=== PATIENT | female | born 1940 | race Caucasian/White ===

== ENCOUNTER 2016-12-12 07:22 | Inpatient (IN) | payer MEDICARE ==
[2016-12-12 08:15] LABS: #Lymphocytes 0.8 thou/uL (1.20-3.40); #Monocytes 0.5 thou/uL (0.11-0.59); #Neutrophils 2.5 thou/uL (1.40-6.50); %Basophils 0.3 % (0.0-1.0); %Eosinophils 0.8 % (0.0-10.0); %Lymphocytes 20.6 % (21.0-51.0); %Monocytes 13.3 % (0.0-10.0); Hematocrit 30.6 % (36.0-47.0); Mean Platelet Volume 7.2 fL (7.4-10.4); White Blood Cell (WBC) Count 3.9 thou/uL (4.8-10.8)
[2016-12-12 08:22] LABS: PTT 28.5 SEC (22.9-36.1)
[2016-12-12] MEDS ORDERED: Fentanyl 100 MCG/2 ML VIAL ONE ×3 (08:37→11:12)
[2016-12-12] MEDS ORDERED: Ketorolac Tromethamine 30 MG/ML VIAL ONE (08:37)
[2016-12-12 08:38] LABS: ALT (SGPT) 17 U/L (8-55); AST (SGOT) 18 U/L (5-34); Alkaline Phosphatase 83 U/L (40-150); Anion Gap 14 mmol/L (10-20); BUN (Urea Nitrogen) 43 mg/dL (9.8-20.1); Bilirubin, Total 0.2 mg/dL (0.2-1.2); Calc. Creatinine Clearance 0 mL/min (70-130); Calcium 9.4 mg/dL (7.8-10.44); Carbon Dioxide 24 mmol/L (23-31); Chloride 98 mmol/L (98-107); Estimated GFR-MDRD 40; Globulin 2.7 g/dL (2.4-3.5); Protein, Total 6.3 g/dL (6.0-8.3)
--- NOTE | 2016-12-12 10:00 | RAD ---
TWO VIEWS LEFT HIP: COMPARISON: None. HISTORY: Fall with left hip pain. FINDINGS: Two views left hip show a fracture of the left femoral neck. No degenerative changes are seen in th e left hip. Vascular calcifications are present. IMPRESSION: Left femoral neck fracture. POS: WALT
--- NOTE | 2016-12-12 10:04 | RAD ---
2 VIEWS LEFT FEMUR: Date: 12/12/16 COMPARISON: None. HISTORY: Fall with left hip pain. FINDINGS: Two views of the left femur show a fracture of the left femoral neck. No other fractures are seen. V ascular calcifications are present. IMPRESSION: Left femoral neck fracture. POS: WALT
--- NOTE | 2016-12-12 10:06 | RAD ---
SINGLE VIEW OF THE CHEST: COMPARISON: 06/18/13. HISTORY: Fall walking to the mailbox with left hip fracture. FINDINGS: A single view of the chest shows an enlarged but stable cardiomediastinal silhouette. There is no e vidence of consolidation, mass, or pleural effusion. Increased interstitial lung markings are prese nt. Degenerative changes are seen in the spine. IMPRESSION: No evidence of acute cardiopulmonary disease. POS: ORMEOH
--- NOTE | 2016-12-12 10:07 | RAD ---
2 VIEWS LEFT TIBIA AND FIBULA: Date: 12/12/16 COMPARISON: None. HISTORY: Walked to mailbox and fell, with left leg pain. FINDINGS: Two views of the left tibia/fibula show no evidence of acute fracture or dislocation. There is radio dense material along the medial aspect of the leg which may represent sclerosing material within a v ein. This does not follow the typical course of the arteries of the left leg. IMPRESSION: No evidence of acute osseous abnormality of the left tibia/fibula. POS: WALT
--- NOTE | 2016-12-12 10:07 | RAD ---
SINGLE VIEW OF THE PELVIS: HISTORY: Fall with left hip pain. FINDINGS: A single view of the pelvis shows a fracture of the left femoral neck. No degenerative change is se en in either hip. No other fractures are seen. IMPRESSION: Left femoral neck fracture. POS: WALT
[2016-12-12] MEDS ORDERED: Methocarbamol 1 GM/10 ML VIAL SLOW IVP SCH (12:00)
[2016-12-12] MEDS ORDERED: Ondansetron ODT 4 MG TAB SL PRN (12:12)
[2016-12-12] MEDS ORDERED: Ondansetron HCl/PF 4 MG/2 ML Vial IVP PRN ×2 (12:12→14:08)
[2016-12-12 12:42] VITALS: BMI 23.9
--- NOTE | 2016-12-12 13:02 | CON ---
DATE OF CONSULTATION: 12/12/2016 HISTORY OF PRESENT ILLNESS: We were asked by Trauma and emergency room to see this nice lady. Appa rently, she lost her balance and fell injuring her left hip. Family states the patient fell about 3 or 4 weeks ago and her PCP said she probably broke her hip, but she continued to walk on it and I c an find no x-rays of anything a few weeks ago. Anyhow, she is in quite a bit of pain. Unfortunatel y, she has chronic pain syndrome. She suffers with her back. She has a lot of pain like issues for which she takes hydrocodone. Sensations in the left lower extremity is good. She is able to move her foot, but again, she is in a significant amount of pain. ALLERGIES: CODEINE. MEDICATIONS: Procardia, Cymbalta, Norvasc, Plaquenil, alprazolam, carisoprodol, Nexium, [place], marie nopril, pentoxifylline, simvastatin, iron and trazodone. PAST MEDICAL HISTORY: Hyperlipidemia, high cholesterol, hypertension, breast cancer, Raynaud's, chr onic pain syndrome. PAST SURGICAL HISTORY: Hernia, lymph nodes removed, thyroidectomy and hysterectomy. SOCIAL HISTORY: Nonsmoker and nondrinker. REVIEW OF SYSTEMS: The patient has multiple health issues, but her main concern right now is the le ft hip pain. No shortness of breath. She has a dry mouth; it is probably from the IV narcotics in the ER. She is awake, alert and talking. Rest of the review of systems is negative. PHYSICAL EXAMINATION: GENERAL: A well-nourished female resting in bed on her right leg with her left leg drawn up and christina ped over the right leg. Speech is clear and fluent. She is oriented. HEENT: Face symmetric, tongue midline. EXTREMITIES: Again, she is lying on her right side, but she is moving bilateral upper extremities w ell. Left lower extremity drawn up a little shortened, but DP, PT pulses in the lower extremities a re equal and she is moving both lower extremities, feet digits well. ASSESSMENT: 1. Left hip fracture. 2. Multiple health issues. PLAN: Get patient to the ER today. I have spoke to her and the family who is at bedside, she needs a left hemiarthroplasty. I have explained the procedure, risks and benefits to the patient and mary jo osborn and they understand the risks and benefits. We will keep her n.p.o. For surgery today, get her set up on the schedule, put orders and then consent her. Patient and family are amenable to go for th with surgery. This is Wei Adkins PA-C, dictating for Marcio Hernandez M.D.
--- NOTE | 2016-12-12 13:48 | HP ---
DATE OF ADMISSION: 12/12/2016 REQUESTING PHYSICIAN: Dr. Russell. ATTENDING SURGEON: Dr. Whitfield. CONSULTATIONS: Orthopedics, Dr. Hernandez. HISTORY OF PRESENT ILLNESS: The patient is a 76-year-old woman who was reportedly walking to her mailbox when she lost her footing and fell onto her left side. She had immediate pain to he r left hip, was brought to the Emergency Department by ground EMS, was evaluated and examined and no joaquim to have a left hip fracture at which time we were asked to evaluate the patient for admission an d obtain orthopedic consultation. ALLERGIES: CODEINE. CURRENT MEDICATIONS: The patient gave the nurse a list and they are currently entering it, we would evaluate it once this is completed. Of note, the patient denies any blood thinner use. PAST MEDICAL HISTORY: Chronic back pain, high cholesterol, hypertension, history of breast CA, and hypothyroidism. PAST SURGICAL HISTORY: Hysterectomy, thyroidectomy, left inguinal hernia surgery, and partial maste ctomy on the left. SOCIAL HISTORY: Patient denies drug, tobacco or alcohol use. FAMILY MEDICAL HISTORY: Hypertension. REVIEW OF SYSTEMS: Ten-point review of systems is negative, unless otherwise stated. PHYSICAL EXAMINATION: VITAL SIGNS: Blood pressure 128/81, heart rate 82, respirations 18, and oxygen saturation 99% on ro om air. GENERAL: The patient is resting in ER bed, appears uncomfortable. Nurse notes that the patient was given multiple doses of narcotics with minimal relief. The patient volunteers that she takes 4-6 N orco 10/325 daily for her chronic back pain. HEENT: Head is normocephalic and atraumatic. Eyes; extraocular motion intact. PERRLA bilaterally. Ears are atraumatic without discharge. Nose is atraumatic without discharge. Oropharynx is clear . NECK: Nontender. Trachea is midline. No JVD. CHEST: Clear to auscultation with good inspiratory and expiratory effort. ABDOMEN: Soft, flat and nontender. HEART: Regular rate and rhythm. PELVIC: Stable. EXTREMITIES: The patient is tender to palpation to right hip. She was neurovascularly intact dista lly on her injured extremity and is neurovascularly intact in all other extremities. BACK: Nontender and atraumatic. LABORATORY DATA: White blood cell count 3.9, hemoglobin 10.1, hematocrit 30.6, and platelets 137. Sodium 132, potassium 4.3, chloride 98, CO2 24, BUN 43, creatinine 1.29 and glucose 129. LFTs are u nremarkable. PTT 28, PT 14, and INR 1.1. RADIOGRAPHS: AP chest shows no evidence of acute cardiopulmonary disease. Two views of the left ti liban and fibula showed no osseous abnormalities. AP pelvis showed left femoral neck fracture. Two v iews of the left femur showed a left femoral neck fracture. Two views of the left hip showed a left femoral neck fracture. ASSESSMENT AND PLAN: 1. Status post ground level fall. 2. Acute on chronic pain. 3. Left femoral neck fracture. Plan will be to admit the patient to the surgical floor, remain n.p.o., pain control, pulmonary toil et, gastritis and mechanical deep venous thrombosis prophylaxis. The plan will be to take the patie nt to the operating room with Orthopedics later this afternoon for surgical repair. The evaluation, examination, radiographs and laboratory findings were discussed with Dr. Whitfield who was examining th e patient at the time of dictation.
[2016-12-12] MEDS ORDERED: Ondansetron ODT 4 MG TAB PO PRN (14:08)
[2016-12-12] MEDS ORDERED: Dextrose 5% in Water 1,000 ML IV PRN (14:08)
[2016-12-12] MEDS ORDERED: Morphine Sulfate 2 MG/ML SYRINGE IVP PRN (14:08)
[2016-12-12] MEDS ORDERED: Dextrose 50% Abboject 50 ML SYRINGE SLOW IVP PRN (14:08)
[2016-12-12] MEDS: Ketorolac Tromethamine 30 MG/ML VIAL IVP SCH (17:45)
[2016-12-12] MEDS ORDERED: traZODone HCl 50 MG TAB PO PRN (18:38)
[2016-12-12] MEDS: Sodium Chloride 0.9% 1,000 ML IV SCH (20:09)
[2016-12-12 20:29] LABS: Bilirubin Negative (Negative); Blood, Urine Moderate (Negative); Glucose, Urine (Dipstick) Negative (Negative); Ketone, Urine Negative (Negative); Nitrite Negative (Negative); Protein, Urine (Dipstick) Negative (Neg-Trace); Urobilinogen 0.2 mg/dL (0.2-1.0)
[2016-12-12 20:34] LABS: Bacteria/HPF 1+ HPF (None Seen); Hyaline Casts/LPF 0-3 HYALINE CAST LPF (0-3 Hyaline); Squamous Epithelial None Seen HPF (0-3); WBC/HPF 21-50 HPF (0-3)
[2016-12-12] MEDS: Methocarbamol 0.5 GM in Sodium Chloride 0.9% 100 ML IVPB PRN (22:01)
[2016-12-13] MEDS: Ketorolac Tromethamine 30 MG/ML VIAL IVP SCH ×5 (00:37→19:24)
[2016-12-13] MEDS: Acetaminophen 1,000 MG in Premix Bag 1 BAG IVPB SCH ×5 (00:38→19:25)
[2016-12-13] MEDS: Sodium Chloride 0.9% 1,000 ML IV SCH ×2 (05:20→06:42)
[2016-12-13 05:21] LABS: #Lymphocytes 0.5 thou/uL (1.20-3.40); #Monocytes 0.5 thou/uL (0.11-0.59); #Neutrophils 3.3 thou/uL (1.40-6.50); %Eosinophils 0.4 % (0.0-10.0); %Lymphocytes 11.6 % (21.0-51.0); %Monocytes 11.5 % (0.0-10.0); Hematocrit 29.1 % (36.0-47.0); Mean Platelet Volume 7.9 fL (7.4-10.4); Red Blood Cell (RBC) Count 2.96 mill/uL (4.20-5.40); White Blood Cell (WBC) Count 4.3 thou/uL (4.8-10.8)
[2016-12-13 05:36] LABS: Anion Gap 14 mmol/L (10-20); BUN (Urea Nitrogen) 39 mg/dL (9.8-20.1); Calc. Creatinine Clearance 40 mL/min (70-130); Calcium 8.7 mg/dL (7.8-10.44); Carbon Dioxide 21 mmol/L (23-31); Chloride 98 mmol/L (98-107); Estimated GFR-MDRD 47; Magnesium 1.8 mg/dL (1.6-2.6); Phosphorus 3.9 mg/dL (2.3-4.7)
[2016-12-13] MEDS: Famotidine 20 MG TAB PO SCH ×2 (07:58→13:15)
[2016-12-13] MEDS ORDERED: Midazolam HCl 2 mg/2 ml Vial ONE (09:37)
[2016-12-13] MEDS ORDERED: Fentanyl 100 MCG/2 ML VIAL ONE ×5 (09:37→12:20)
[2016-12-13] MEDS ORDERED: Propofol 200 MG/20 ML VIAL ONE (10:02)
[2016-12-13] MEDS ORDERED: Ondansetron HCl/PF 4 MG/2 ML Vial ONE (10:02)
[2016-12-13] MEDS ORDERED: Glycopyrrolate 0.2 MG/ML 5 ML SYRINGE ONE (10:02)
[2016-12-13] MEDS ORDERED: Lidocaine 1% PF 5 ML VIAL ONE (10:02)
[2016-12-13] MEDS: NIFEdipine XL 60 MG TAB PO SCH ×2 (10:39→13:15)
[2016-12-13] MEDS: Sildenafil Citrate 20 MG TAB PO SCH ×2 (10:39→20:56)
[2016-12-13] MEDS ORDERED: Ondansetron HCl/PF 4 MG/2 ML Vial IVP PRN (12:22)
[2016-12-13] MEDS: tiZANidine HCl 4 MG TAB PO PRN ×2 (13:15→21:02)
--- NOTE | 2016-12-13 13:25 | OP ---
DATE OF SURGERY: 12/13/2016 PREOPERATIVE DIAGNOSIS: Left femoral neck fracture. POSTOPERATIVE DIAGNOSIS: Left femoral neck fracture. SURGICAL PROCEDURE: Left hip hemiarthroplasty. ANESTHESIA: General. SURGEON: Marcio Hernandez M.D. [employer] FLOATS: Wei Adkins PA-C. BLOOD LOSS: 150 mL IMPLANTS: DePuy Hollister size 6 cemented stem with a 47 x 28 bipolar cup and a +1.5 28 mm head. COMPLICATIONS: None. DRAINS: None. SPECIMEN: None. OUTCOME: Satisfactory. INDICATIONS: The patient is a 76-year-old lady, status post fall sustaining left femoral neck fract ure. This is displaced fracture and given the patient's age and activity level, we have opted to pr oceed with hemiarthroplasty. Informed consent has been obtained. I believe all questions answered. PROCEDURE IN DETAIL: After the induction of general anesthesia, the patient was positioned in right lateral decubitus position and then a sterile prep and drape was performed of the left lower extrem ity. Next, a curvilinear incision was made centered over the greater trochanter. After skin was sh arply incised, dissection was carried down to the underlying IT band. This structure was incised in line with the skin incision and then reflected anteriorly and posteriorly with a Charnley retractor . The trochanteric bursa was swept off the short external rotators. A retractor was placed under t he abductors and the piriformis was identified, released and tagged. The superior and inferior geme lli were also released. Next, a T capsulotomy was performed with the edges of the capsule tagged fo r eventual repair. The femoral head was then removed with the T handle corkscrew device. Next, an oscillating saw was used to make a femoral neck cut. This was then followed by preparing the femora l canal. A box chisel was used to obtain a starting point followed by T handle reamers up to a size 6. Broaching was started at size 3 and continued up to size 6. At this point, there was felt to b e a somewhat capacious canal with a relatively good fit in the calcar, but given this discrepancy, w e opted to proceed with cement. As such, a trial reduction was performed with a +1.5 head and that showed good stability of the hip. As such, the trial components were removed. The femoral canal th oroughly irrigated as was the acetabulum. A cement restrictor was applied and cement was mixed. On ce mixed, the cement was introduced into the femoral canal using standard technique. The stem was t hen introduced. Once the cement had fully hardened, the bipolar head assembled and then the hip red uced with good stability. The wound was again irrigated with Pulsavac, a total of 5 liters was used during the procedure and the wound closure performed, #1 Vicryl was used for the capsule and pirifo rmis repair, #1 Vicryl also used for the IT band, 0 Vicryl for Uriel's fascia, 2-0 Vicryl subcutan eously, and jean for the skin. A Xeroform gauze and tape dressing was then applied to the thigh and then patient was transferred to recovery room in stable condition. There were no complications. She tolerated the procedure well.
--- NOTE | 2016-12-13 14:04 | RAD ---
PORTABLE LEFT HIP 2 VIEWS: Date: 12/13/16 HISTORY: Postop left hip replacement, left femoral neck fracture. FINDINGS/IMPRESSION: Comparison made with exam of 12/12/16. There has been interval postop change of left femoral head placement since the previous study in goo d position and alignment. Surgical clips and soft tissue air are seen. POS: ROMEO
[2016-12-13] MEDS: ALPRAZolam 1 MG TAB PO PRN (14:56)
[2016-12-13] MEDS: HYDROcodone/Acetaminophen 10/325 mg Tablet PO PRN ×2 (15:00→20:56)
[2016-12-13] MEDS: Methocarbamol 0.5 GM in Sodium Chloride 0.9% 100 ML IVPB PRN (17:29)
[2016-12-13] MEDS: HYDROcodone/Acetaminophen 10/325 mg Tablet PO SCH ×2 (17:32→20:55)
[2016-12-13] MEDS: Ascorbic Acid 500 mg Chewable Tablet PO SCH (20:54)
[2016-12-13] MEDS: Atorvastatin Calcium 20 MG TAB PO SCH (20:55)
[2016-12-13] MEDS ORDERED: traZODone HCl 50 MG TAB PO SCH ×2 (21:00→21:30)
[2016-12-14] MEDS: Acetaminophen 1,000 MG in Premix Bag 1 BAG IVPB SCH (00:56)
[2016-12-14] MEDS: Ketorolac Tromethamine 30 MG/ML VIAL IVP SCH ×4 (00:56→17:03)
[2016-12-14] MEDS: HYDROcodone/Acetaminophen 10/325 mg Tablet PO SCH ×6 (00:57→20:38)
[2016-12-14] MEDS: HYDROcodone/Acetaminophen 10/325 mg Tablet PO PRN ×2 (02:45→11:02)
[2016-12-14] MEDS: tiZANidine HCl 4 MG TAB PO PRN (02:48)
[2016-12-14 04:57] LABS: #Lymphocytes 0.5 thou/uL (1.20-3.40); #Monocytes 0.5 thou/uL (0.11-0.59); #Neutrophils 3.5 thou/uL (1.40-6.50); %Basophils 0.3 % (0.0-1.0); %Eosinophils 0.3 % (0.0-10.0); %Lymphocytes 11.8 % (21.0-51.0); %Monocytes 11.7 % (0.0-10.0); Hematocrit 24.9 % (36.0-47.0); Mean Platelet Volume 7.7 fL (7.4-10.4); Red Blood Cell (RBC) Count 2.55 mill/uL (4.20-5.40); White Blood Cell (WBC) Count 4.6 thou/uL (4.8-10.8)
[2016-12-14] MEDS: Sildenafil Citrate 20 MG TAB PO SCH ×2 (09:13→20:37)
[2016-12-14] MEDS: Ferrous Sulfate 325 MG TAB PO SCH (09:14)
[2016-12-14] MEDS: NIFEdipine XL 60 MG TAB PO SCH (09:14)
[2016-12-14] MEDS: Ascorbic Acid 500 mg Chewable Tablet PO SCH ×2 (09:16→20:37)
[2016-12-14] MEDS: Lisinopril 10 MG TAB PO SCH (09:16)
[2016-12-14] MEDS: Famotidine 20 MG TAB PO SCH (09:16)
[2016-12-14] MEDS: ALPRAZolam 1 MG TAB PO PRN ×2 (09:21→17:10)
[2016-12-14] MEDS: Heparin 5,000 UNITS/ML VIAL SC SCH ×3 (09:24→20:33)
[2016-12-14] MEDS: Cyclobenzaprine 10 MG TAB PO PRN ×2 (11:01→20:40)
[2016-12-14] MEDS: Sodium Chloride 1 GM TAB PO SCH ×2 (11:02→20:36)
--- NOTE | 2016-12-14 15:44 | PRG ---
DATE OF SERVICE: 12/14/2016 SUBJECTIVE: Graciela Mcintyre is postop day #1 status post hip fracture repair. She presented to [facility], status post mechanical fall. She has a history of chronic back pain, hypertension, and hypothyroidism. There were no acute overnight events. The patient reports having leg cramps th is morning. Otherwise, she localizes no complaints. OBJECTIVE: VITAL SIGNS: Temperature 98.6, pulse 59, respirations 16, O2 sat 93%, blood pressure 143/67. Urina ry output 1001 mL x24 hours. LABORATORY FINDINGS: WBC 4.6, hemoglobin 8.2, hematocrit 24.9, platelet count 136. Sodium 129, pot assium 3.8, chloride 98, carbon dioxide 21, BUN 39, creatinine 1.13, glucose 93, phosphorus 3.9, mag nesium 1.8. ASSESSMENT: 1. Status post fall. 2. Acute on chronic pain. 3. Postop day #1 status post hip fracture repair. 4. Chronic kidney disease, appears to be at baseline. 5. Hyponatremia. PLAN: Resume home medications carefully. Perioperative pain management. Encourage mobility. Once patient is worked with physical therapy, we will need to discontinue Ignacio. Patient may use Flexer il for muscle spasm. Inpatient rehab consult for eventual disposition as patient came from home. She normally ambulates with the use of a walker. Encourage p.o. intake. Free water restriction A.m. labs. Assessment and plan has been discussed with trauma attending.
[2016-12-14] MEDS: traZODone HCl 50 MG TAB PO SCH (20:37)
[2016-12-14] MEDS: Atorvastatin Calcium 20 MG TAB PO SCH (20:38)
[2016-12-15] MEDS: HYDROcodone/Acetaminophen 10/325 mg Tablet PO SCH ×6 (00:29→20:12)
[2016-12-15] MEDS: HYDROcodone/Acetaminophen 10/325 mg Tablet PO PRN ×3 (00:30→16:43)
[2016-12-15] MEDS: Cyclobenzaprine 10 MG TAB PO PRN (05:00)
[2016-12-15 05:52] LABS: #Lymphocytes 0.4 thou/uL (1.20-3.40); #Monocytes 0.5 thou/uL (0.11-0.59); #Neutrophils 3.1 thou/uL (1.40-6.50); %Eosinophils 0.5 % (0.0-10.0); %Lymphocytes 10.7 % (21.0-51.0); %Monocytes 11.8 % (0.0-10.0); Hematocrit 25.9 % (36.0-47.0); Mean Platelet Volume 7.9 fL (7.4-10.4); Red Blood Cell (RBC) Count 2.66 mill/uL (4.20-5.40); White Blood Cell (WBC) Count 4.1 thou/uL (4.8-10.8)
[2016-12-15 06:10] LABS: Anion Gap 10 mmol/L (10-20); BUN (Urea Nitrogen) 31 mg/dL (9.8-20.1); Calc. Creatinine Clearance 50 mL/min (70-130); Calcium 7.9 mg/dL (7.8-10.44); Carbon Dioxide 23 mmol/L (23-31); Chloride 99 mmol/L (98-107); Estimated GFR-MDRD 60; Magnesium 1.8 mg/dL (1.6-2.6); Phosphorus 3.1 mg/dL (2.3-4.7)
[2016-12-15] MEDS: ALPRAZolam 1 MG TAB PO PRN (07:39)
[2016-12-15] MEDS: Famotidine 20 MG TAB PO SCH (09:07)
[2016-12-15] MEDS: NIFEdipine XL 60 MG TAB PO SCH (09:58)
[2016-12-15] MEDS: Sildenafil Citrate 20 MG TAB PO SCH ×2 (09:58→20:11)
[2016-12-15] MEDS: Ascorbic Acid 500 mg Chewable Tablet PO SCH ×2 (10:00→20:11)
[2016-12-15] MEDS: Ferrous Sulfate 325 MG TAB PO SCH (10:00)
[2016-12-15] MEDS: Lisinopril 10 MG TAB PO SCH (10:01)
[2016-12-15] MEDS: Sodium Chloride 1 GM TAB PO SCH ×3 (10:02→20:12)
[2016-12-15] MEDS: Heparin 5,000 UNITS/ML VIAL SC SCH ×3 (10:03→20:13)
--- NOTE | 2016-12-15 15:05 | PRG ---
DATE OF SERVICE: 12/15/2016 SUBJECTIVE: Graciela Mcintyre is postoperative day #2 status post hip fracture repair. She prese nted to [facility] [facility] ER status post mechanical fall at home. She has a history of chronic back pain, hypertension and hypothyroidism. There were no acute overnight events. The patient's Ignacio has bee n removed. She is voiding independently. She states the pain is well controlled. She plans to wor k with physical therapy later this morning. OBJECTIVE: VITAL SIGNS: Temperature 97.3, pulse 68, respirations 16, O2 sat 94-96% on room air, blood pressure 142/56. GENERAL: Well-developed elderly appearing female in no acute distress, sitting in a chair, out of b ed. PULMONARY: Normal work of breathing. Symmetric rise. CARDIOVASCULAR: Regular rate and rhythm. GASTROINTESTINAL: Abdomen is soft, nontender, nondistended. MUSCULOSKELETAL: Moves all extremities x4. NEUROLOGIC: No focal deficit noted. LABORATORY DATA: WBC 4.1, hemoglobin 8.6, hematocrit 25.9, platelet count 133. Sodium 128, potassi um 4.0, chloride 99, carbon dioxide 23, BUN 31, creatinine 0.91, glucose 117. ASSESSMENT: 1. Status post fall. 2. Acute on chronic pain. 3. Postop day 2, status post hip fracture repair. 4. Chronic kidney disease at baseline. 5. Hyponatremia. PLAN: Continue pain management as ordered. Continue PT, OT. Encouraging pulmonary toilet. Free w ater restriction for hyponatremia, sodium chloride tablets 1 gram p.o. t.i.d. A.m. chemistry. Awai t disposition. Inpatient rehabilitation consultation was placed. Assessment and plan discussed with the attending.
[2016-12-15] MEDS ORDERED: Clopidogrel Bisulfate 75 MG TAB ONE (16:23)
[2016-12-15] MEDS: traZODone HCl 50 MG TAB PO SCH (20:11)
[2016-12-15] MEDS: Atorvastatin Calcium 20 MG TAB PO SCH (20:12)
[2016-12-15] MEDS ORDERED: FLU VACC TS2017-18 (>65YR) 0.5 ML SYRINGE IM ONE (21:00)
[2016-12-16] MEDS: HYDROcodone/Acetaminophen 10/325 mg Tablet PO SCH ×6 (00:24→20:34)
[2016-12-16] MEDS: Cyclobenzaprine 10 MG TAB PO PRN ×2 (04:30→13:58)
[2016-12-16 05:33] LABS: Anion Gap 9 mmol/L (10-20); BUN (Urea Nitrogen) 39 mg/dL (9.8-20.1); Calc. Creatinine Clearance 48 mL/min (70-130); Calcium 7.9 mg/dL (7.8-10.44); Carbon Dioxide 23 mmol/L (23-31); Chloride 101 mmol/L (98-107); Estimated GFR-MDRD 58; Magnesium 1.9 mg/dL (1.6-2.6); Phosphorus 2.6 mg/dL (2.3-4.7)
[2016-12-16] MEDS: Heparin 5,000 UNITS/ML VIAL SC SCH ×3 (08:48→20:34)
[2016-12-16] MEDS: Sildenafil Citrate 20 MG TAB PO SCH ×2 (08:49→20:34)
[2016-12-16] MEDS: Sodium Chloride 1 GM TAB PO SCH ×3 (08:51→20:33)
[2016-12-16] MEDS: NIFEdipine XL 60 MG TAB PO SCH (08:51)
[2016-12-16] MEDS: Ferrous Sulfate 325 MG TAB PO SCH (08:51)
[2016-12-16] MEDS: Ascorbic Acid 500 mg Chewable Tablet PO SCH ×2 (08:51→20:34)
[2016-12-16] MEDS: Lisinopril 10 MG TAB PO SCH (08:52)
[2016-12-16] MEDS: Famotidine 20 MG TAB PO SCH (08:52)
[2016-12-16] MEDS: HYDROcodone/Acetaminophen 10/325 mg Tablet PO PRN ×2 (08:59→16:22)
[2016-12-16] MEDS: ALPRAZolam 1 MG TAB PO PRN ×2 (09:12→20:45)
--- NOTE | 2016-12-16 13:55 | PRG-2 ---
DATE OF ADMISSION: 12/12/2016 DATE OF SERVICE: 12/16/2016 SUBJECTIVE: Graciela Mcintyre is postop day #3, status post hip fracture repair. She presented t [facility] ER, status post mechanical fall at home. There were no acute overnight events. The pa gerdaamadou has been voiding independently. She states that her pain is well controlled, just has some pa in when she works with physical therapy. Patient is awaiting to be seen by occupational therapy thi s morning and then awaiting placement likely with inpatient rehabilitation. OBJECTIVE: VITAL SIGNS: Temperature is 98.4, pulse is 75, respirations are 16, O2 sat is 95% on room air, bloo d pressure is 132/65. GENERAL: She is a well-developed appearing lady. HEENT: Atraumatic, normocephalic. She is up sitting in the chair, does not appear to be in any acu te distress. PULMONARY: Normal work of breathing. Symmetric rise. CARDIOVASCULAR: Regular rate and rhythm. No murmurs or gallops noted. GASTROINTESTINAL: Abdomen soft, nontender, nondistended. MUSCULOSKELETAL: Moves all extremities x4. NEUROLOGIC: No focal neural deficit. LABORATORY AND DIAGNOSTIC DATA: Chemistry: Sodium was 129, potassium 4.3, chloride 101, carbon paco xide 23, BUN of 39, creatinine 0.94, glucose 114, calcium 7.9, phosphorus 2.6, magnesium 1.9. There were no new images to be reviewed at this time. ASSESSMENT: 1. She is status post fall. 2. Acute on chronic pain. 3. Postoperative day #3, status post hip fracture repair. 4. Chronic kidney disease at baseline. 5. Hyponatremia. PLAN: We will continue with current pain management. We will continue with PT and await OT assessm ent, encouraging pulmonary toilet. We have put her on free water restriction for hyponatremia and c ontinuing her sodium chloride tablets 1 gram p.o. t.i.d. We will continue to recheck her BMP in the morning and await placement and inpatient rehabilitation. Patient was seen and discussed with Dr. Whitfield. Plan of care was discussed with Dr. Whitfield as well.
[2016-12-16] MEDS: traZODone HCl 50 MG TAB PO SCH (20:33)
[2016-12-16] MEDS: Atorvastatin Calcium 20 MG TAB PO SCH (20:33)
[2016-12-17] MEDS: HYDROcodone/Acetaminophen 10/325 mg Tablet PO SCH ×6 (02:30→20:30)
[2016-12-17] MEDS: HYDROcodone/Acetaminophen 10/325 mg Tablet PO PRN ×3 (04:44→20:30)
[2016-12-17 06:01] LABS: Anion Gap 11 mmol/L (10-20); BUN (Urea Nitrogen) 31 mg/dL (9.8-20.1); Calc. Creatinine Clearance 55 mL/min (70-130); Calcium 8.4 mg/dL (7.8-10.44); Carbon Dioxide 21 mmol/L (23-31); Chloride 104 mmol/L (98-107); Estimated GFR-MDRD 67; Magnesium 1.7 mg/dL (1.6-2.6); Phosphorus 2.7 mg/dL (2.3-4.7)
[2016-12-17] MEDS: Famotidine 20 MG TAB PO SCH (08:53)
[2016-12-17] MEDS: Lisinopril 10 MG TAB PO SCH (08:53)
[2016-12-17] MEDS: Ascorbic Acid 500 mg Chewable Tablet PO SCH ×2 (08:55→20:29)
[2016-12-17] MEDS: Sildenafil Citrate 20 MG TAB PO SCH ×2 (08:55→20:31)
[2016-12-17] MEDS: ALPRAZolam 1 MG TAB PO PRN ×3 (08:55→20:30)
[2016-12-17] MEDS: NIFEdipine XL 60 MG TAB PO SCH (08:55)
[2016-12-17] MEDS: Sodium Chloride 1 GM TAB PO SCH ×3 (08:55→20:31)
[2016-12-17] MEDS: Ferrous Sulfate 325 MG TAB PO SCH (08:55)
[2016-12-17] MEDS: Heparin 5,000 UNITS/ML VIAL SC SCH ×3 (08:56→20:31)
--- NOTE | 2016-12-17 11:37 | PRG-2 ---
DATE OF SERVICE: 12/17/2016 SUBJECTIVE: Graciela Mcintyre is postop day 4 status post hip fracture repair, presented to [facility] ER status post mechanical fall at home. No acute events overnight. The patient has been void ing independently. Pain is being well controlled. Just has some pain working with physical therapy , doing well, walking good distance per Physical Therapy report. She is now seen by [facility]. She is just awaiting insurance authorization to go to rehab. No other concerns or complaint s this morning. OBJECTIVE: VITAL SIGNS: Temperature 98.0 degrees Fahrenheit, pulse is 76, respirations 16, O2 sat is 92% on ro om air, blood pressure was 142/56. GENERAL: Well-developed appearing lady. HEENT: Atraumatic, normocephalic sitting up in bed in no acute distress. PULMONARY: Normal work of breathing. Symmetric rise. CARDIOVASCULAR: Regular rate and rhythm. No murmurs or gallops noted. ABDOMEN: Soft, nontender, nondistended. MUSCULOSKELETAL: Moves all extremities x4. NEUROLOGIC: No focal neurologic deficit. LABORATORY DATA: Sodium was 132, potassium 4.3, chloride 104, CO2 21, BUN 31, creatinine was 0.83, calcium 8.4, phosphorus 2.7, magnesium was 1.7. No new images to be reviewed at this time. ASSESSMENT: 1. She is status post fall. 2. Acute on chronic pain. 3. Postoperative day #4, status post hip fracture repair. 4. Chronic kidney disease at baseline 5. Hyponatremia. PLAN: We will continue with current pain management. We will continue with PT and OT. We will con tinue plan for hyponatremia, giving salt tablets and free water restriction. The plan is for the dyana hernandez to go to rehab, just awaiting insurance authorization, possibly home today. We will continue to follow and assess labs as needed if she is here tomorrow. The patient was seen and plan of care was discussed with Dr. Whitfield.
[2016-12-17] MEDS: Cyclobenzaprine 10 MG TAB PO PRN (14:52)
[2016-12-17] MEDS: Atorvastatin Calcium 20 MG TAB PO SCH (20:30)
[2016-12-17] MEDS: traZODone HCl 50 MG TAB PO SCH (20:30)
[2016-12-18] MEDS: HYDROcodone/Acetaminophen 10/325 mg Tablet PO SCH ×4 (01:11→13:15)
[2016-12-18] MEDS: HYDROcodone/Acetaminophen 10/325 mg Tablet PO PRN (06:00)
[2016-12-18] MEDS: Lisinopril 10 MG TAB PO SCH (08:41)
[2016-12-18] MEDS: NIFEdipine XL 60 MG TAB PO SCH (08:41)
[2016-12-18] MEDS: Heparin 5,000 UNITS/ML VIAL SC SCH ×2 (08:41→14:54)
[2016-12-18] MEDS: Famotidine 20 MG TAB PO SCH (08:41)
[2016-12-18] MEDS: Sodium Chloride 1 GM TAB PO SCH ×2 (08:41→14:55)
[2016-12-18] MEDS: Ascorbic Acid 500 mg Chewable Tablet PO SCH (08:41)
[2016-12-18] MEDS: Ferrous Sulfate 325 MG TAB PO SCH (08:41)
[2016-12-18] MEDS: Sildenafil Citrate 20 MG TAB PO SCH (08:41)
[2016-12-18] MEDS: ALPRAZolam 1 MG TAB PO PRN (08:52)
--- NOTE | 2016-12-18 13:59 | PRG-2 ---
DATE OF ADMISSION: 12/12/2016 DATE OF SERVICE: 12/18/2016 SUBJECTIVE: Graciela Mcintyre is postop day #5, status post hip fracture repair, presented to [facility] ER status post mechanical fall at home. No acute events overnight. The patient has been up, getting around, and moving around okay. She has been working with physical therapy, walking good distance per physical therapy. She is just awaiting placement in either rehab or prison unit. No other concerns or complaints. OBJECTIVE: VITAL SIGNS: Temperature 97.9, pulse 68, respirations 18, O2 sat 97% on room air, blood pressure 123/67. LABORATORY DATA: No new labs reviewed this morning. IMAGES: No new images reviewed this morning. PHYSICAL EXAMINATION: GENERAL: She is a well-developed appearing lady. HEENT: Atraumatic, normocephalic, sitting up in bed, in no acute distress. PULMONARY: Normal work of breathing. Symmetric rise. CARDIOVASCULAR: Regular rate and rhythm. No murmurs or gallops noted. ABDOMEN: Soft, nontender, nondistended. MUSCULOSKELETAL: Moves all extremities x4. NEUROLOGIC: No focal neurologic deficit. ASSESSMENT: 1. She is status post fall. 2. Acute on chronic pain. 3. Postoperative day #5, status post hip fracture repair. 4. Chronic kidney disease at baseline. 5. Hypertension. PLAN: We will continue current pain management. We will continue with PT and OT and plan is for the patient to go to either rehab or prison unit just awaiting placement. We will continue to follow and assess labs if needed. We will continue to monitor vital signs if needed. The patient is here just awaiting placement to rehab or prison. Attending: Dr. Chase Whitfield (or specify if another) to co-sign this note. SIOBHAN
--- NOTE | 2016-12-18 14:27 | DIS ---
DATE OF ADMISSION: 12/12/2016 DATE OF DISCHARGE: 12/18/2016 CONSULTATIONS: Orthopedics, Dr. Hernandez PROCEDURES: Left hip hemiarthroplasty. SUMMARY: Patient is a 76-year-old old woman who was reportedly walking to her mailbox whe n she lost her footing and fell on her left side. [facility] and [facility], noted to have the above injury. The following day, the patient would un dergo her procedure and she tolerated this well. The patient had multiple comorbidities to include significant narcotic use secondary to chronic pain, which made getting her pain under control somewh at difficult. At time of discharge, the patient's pain was controlled. She was tolerating a diet. She was working with physical and occupational therapy and she was discharged to the [facility]. The dyana hernandez will follow up with Dr. Hernandez in 2-3 weeks or sooner as needed.
[2016-12-18 16:36] VITALS: BP 122/57; TEMP 97.4
== END 2016-12-18 16:22 | DRG 470 ==
LOC: ERS 07:22 → SURG A 10:45
PROVIDERS: ADMIT Surgery; ATTEND Surgery
PROC: 0SRS0J9 Replacement of Left Hip Joint, Femoral Surface with Synthetic Substitute, Cemented, Open Approach (ICD-10-PCS; principal; 2016-12-13)
DX: S72.002A Fracture of unspecified part of neck of left femur, initial encounter for closed fracture (principal); E87.1 Hypo-osmolality and hyponatremia; I12.9 Hypertensive chronic kidney disease with stage 1 through stage 4 chronic kidney disease, or unspecified chronic kidney disease; W19.XXXA Unspecified fall, initial encounter; Y92.007 Garden or yard of unspecified non-institutional (private) residence as the place of occurrence of the external cause; E03.9 Hypothyroidism, unspecified; Z85.3 Personal history of malignant neoplasm of breast; N18.9 Chronic kidney disease, unspecified; E78.5 Hyperlipidemia, unspecified; I73.00 Raynaud's syndrome without gangrene; Z23 Encounter for immunization
CPT/HCPCS: 36415; 36416; 51702; 71010; 72170; 80048; 80053; 81003; 81015; 83735; 84100; 85025; 85610; 85730; 86850; 86900; 86901; 90471; 90682; 90732; 93005; 96374; 96375; 96376; A4353; C1713; C1781; G0008; G0009; G8978-GP-CK; G8979-GP-CJ; G8987-GO-CK; G8988-GO-CI; J0131; J0360; J1644; J1885; J2001; J2250; J2270; J2405; J2704; J2800; J3010; J7050; Q2036

== ENCOUNTER 2017-09-30 17:37 | Outpatient (CLI) | payer MEDICARE ==
[2017-09-30 17:56] LABS: Hemoglobin 9.1 g/dL (12.0-16.0); Mean Corpuscular HGB CONC 33.4 g/dL (32.0-36.0); Mean Corpuscular Hemoglobin 32.6 pg (27.0-31.0); Mean Corpuscular Volume 97.7 fL (78.0-98.0); Mean Platelet Volume 6.4 fL (7.4-10.4); Platelet Count 202 thou/uL (130-400); RBC Distribution Width 13.6 % (11.5-14.5); Red Blood Cell (RBC) Count 2.78 mill/uL (4.20-5.40); White Blood Cell (WBC) Count 5.8 thou/uL (4.8-10.8)
[2017-09-30 18:13] LABS: Anion Gap 15 mmol/L (10-20); BUN (Urea Nitrogen) 49 mg/dL (9.8-20.1); Calc. Creatinine Clearance 0 mL/min (70-130); Calcium 9.1 mg/dL (7.8-10.44); Carbon Dioxide 23 mmol/L (23-31); Chloride 103 mmol/L (98-107); Estimated GFR-MDRD 30; Glucose 102 mg/dL (83-110); Potassium 6.4 mmol/L (3.5-5.1); Sodium 135 mmol/L (136-145)
== END 2017-09-30 17:38 | disposition home or self-care (01) ==
LOC: LABBT 17:37
PROVIDERS: ATTEND Internal Medicine Cardiovascular Disease
DX: Z01.812 Encounter for preprocedural laboratory examination (principal); I74.3 Embolism and thrombosis of arteries of the lower extremities
CPT/HCPCS: 80048; 85027

== ENCOUNTER 2017-10-01 06:12 | Inpatient (IN) | payer MEDICARE ==
[2017-10-01 11:06] LABS: Hemoglobin 7.8 g/dL (12.0-16.0); Mean Corpuscular HGB CONC 33.1 g/dL (32.0-36.0); Mean Corpuscular Hemoglobin 32.7 pg (27.0-31.0); Mean Corpuscular Volume 98.8 fL (78.0-98.0); Mean Platelet Volume 6.5 fL (7.4-10.4); Platelet Count 137 thou/uL (130-400); RBC Distribution Width 13.6 % (11.5-14.5); Red Blood Cell (RBC) Count 2.37 mill/uL (4.20-5.40); White Blood Cell (WBC) Count 4.2 thou/uL (4.8-10.8)
[2017-10-01] MEDS ORDERED: Iopamidol 370 76% 100 ML VIAL ONE (11:19)
[2017-10-01 11:38] LABS: Anion Gap 9 mmol/L (10-20); BUN (Urea Nitrogen) 42 mg/dL (9.8-20.1); Calc. Creatinine Clearance 38 mL/min (70-130); Calcium 7.5 mg/dL (7.8-10.44); Carbon Dioxide 22 mmol/L (23-31); Chloride 112 mmol/L (98-107); Estimated GFR-MDRD 46; Glucose 94 mg/dL (83-110); Sodium 138 mmol/L (136-145)
[2017-10-01] MEDS ORDERED: Lidocaine 1% (PF) 30 ML VIAL ONE (11:49)
[2017-10-01] MEDS ORDERED: Heparin 10,000 UNITS/1 ML VIAL ONE (12:34)
[2017-10-01] MEDS ORDERED: Diltiazem 125 MG/25 ML ONE (12:34)
[2017-10-01] MEDS ORDERED: Midazolam HCl 2 mg/2 ml Vial ONE (12:55)
[2017-10-01] MEDS ORDERED: Fentanyl 100 MCG/2 ML VIAL ONE (12:56)
[2017-10-01] MEDS ORDERED: Clopidogrel Bisulfate 300 MG TAB PO SCH (15:30)
--- NOTE | 2017-10-01 15:36 | OP ---
DATE OF PROCEDURE: 10/01/2017 PREOPERATIVE DIAGNOSIS: Severe claudication with rest pain. POSTOPERATIVE DIAGNOSIS: Severe peripheral vascular disease. PROCEDURES PERFORMED: 1. Aortogram. 2. Intravascular ultrasound of the left common iliac artery. 3. Intravascular ultrasound of the right common iliac artery. 4. Percutaneous transluminal angioplasty provisional stent placement of the left common iliac artery and left external iliac artery. COMPLICATIONS: None. ESTIMATED BLOOD LOSS: Less than 20 mL. Total contrast 85 mL. DETAILS: Graciela Mcintyre was seen and evaluated in the office one day prior to the procedure. She had severe rest leg pain with active ulceration. She has been seen and evaluated in the emergency room per patient fro pain. She was scheduled for angio the following day. She was seen and evaluated in the outpatient area. Her hemoglobin was 9.1.: Her creatinine was 1.37 and decided to proceed with IV fluids prior to proceeding with angio. Her followup creatinine was 1.1. Hb was 7.8. Decided to proceed with angiography given significant discomfort.Will transfuse after if Hb still low. Decided to proceed given significant pain, ulceration and concern for iliac occlusion. Postponing procedure till Hb >10 not felt to be feasible. 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 Right lower extremity - common iliac artery has no significant stenosis present. The external iliac and common femoral artery, no significant stenosis. Left lower extremity - the common iliac artery has near ostial occlusion throughout its length. The external iliac is patent via collaterals. Appeared small. PROCEDURE IN DETAIL: Initially, it was attempted to proceed with crossing the occlusion via the right side. This was unsuccessful. Access was then obtained in the left femoral artery successfully. Heparin was used for anticoagulation. The wire successfully crossed into the distal aorta. This was confirmed. Initial balloon inflation performed with a 5 x 60 mm balloon catheter. Multiple inflations performed. This was then removed and replaced with IVUS to assess the diameter of the vessel. Unfortunately, a peripheral IVUS could not be performed. Coronary IVUS was used. Coronary IVUS suggested a vessel diameter 5.0. It was decided to proceed with stent implantation. It was decided to proceed with a self-expanding stent due to heavy calcification at the bifurcation. I did not want to rebuild the bifurcation with 2 stents within the area. An 8 x 16 mm stent was then positioned successfully. With deployment , the stent appeared to shoot forward and crossed the ostium of the right common iliac artery. Post-dilatation was then performed within the common iliac artery only. Gradients were performed on the right and left femoral artery and there was no significant gradient present. There was excellent flow noted bilaterally. I did consult with Dr. Alphonse Ellis who agreed to not proceed with any further intervention due to risk of collapse of the current stent. Given that there was excellent flow with no gradient. I decided not to proceed with further stent implantation. DISPOSITION: Patient will be admitted to tele for fluids and we will recheck her hemoglobin. SIOBHAN
[2017-10-01] MEDS ORDERED: Metoprolol Tartrate 5 MG/5 ML VIAL ONE (16:13)
[2017-10-01] MEDS ORDERED: Clopidogrel Bisulfate 300 MG TAB ONE (16:29)
[2017-10-01] MEDS ORDERED: Metoprolol Tartrate 25 MG TAB PO SCH ×2 (16:30→17:15)
[2017-10-01] MEDS: Sodium Chloride 0.9% 1,000 ML IV SCH (18:17)
[2017-10-01] MEDS ORDERED: Diltiazem HCl 125 MG, Admixture Fee 1 EACH in Sodium Chloride 0.9% 100 ML IVPB SCH (18:45)
[2017-10-01 18:46] VITALS: BMI 23.0
[2017-10-01 19:54] LABS: #Lymphocytes 0.6 thou/uL (1.20-3.40); #Monocytes 0.4 thou/uL (0.11-0.59); #Neutrophils 5.2 thou/uL (1.40-6.50); %Basophils 0.4 % (0.0-1.0); %Eosinophils 0.4 % (0.0-10.0); %Lymphocytes 9.2 % (21.0-51.0); %Monocytes 6.7 % (0.0-10.0); %Neutrophils 83.4 % (42.0-75.0); Hemoglobin 8.8 g/dL (12.0-16.0); Mean Corpuscular HGB CONC 31.7 g/dL (32.0-36.0); Mean Corpuscular Hemoglobin 31.4 pg (27.0-31.0); Mean Corpuscular Volume 99.3 fL (78.0-98.0); Mean Platelet Volume 6.9 fL (7.4-10.4); Platelet Count 183 thou/uL (130-400); RBC Distribution Width 13.5 % (11.5-14.5); Red Blood Cell (RBC) Count 2.78 mill/uL (4.20-5.40); White Blood Cell (WBC) Count 6.2 thou/uL (4.8-10.8)
[2017-10-01 20:08] LABS: Anion Gap 15 mmol/L (10-20); BUN (Urea Nitrogen) 40 mg/dL (9.8-20.1); Calc. Creatinine Clearance 44 mL/min (70-130); Calcium 8.4 mg/dL (7.8-10.44); Carbon Dioxide 20 mmol/L (23-31); Chloride 108 mmol/L (98-107); Estimated GFR-MDRD 53; Glucose 107 mg/dL (83-110); Potassium 4.9 mmol/L (3.5-5.1); Sodium 138 mmol/L (136-145)
[2017-10-02] MEDS: Sodium Chloride 0.9% 1,000 ML IV SCH (04:22)
[2017-10-02 05:30] LABS: #Lymphocytes 0.5 thou/uL (1.20-3.40); #Monocytes 0.4 thou/uL (0.11-0.59); #Neutrophils 5.8 thou/uL (1.40-6.50); %Basophils 0.2 % (0.0-1.0); %Eosinophils 0.5 % (0.0-10.0); %Monocytes 5.9 % (0.0-10.0); %Neutrophils 85.3 % (42.0-75.0); Hemoglobin 8.7 g/dL (12.0-16.0); Mean Corpuscular Hemoglobin 32.6 pg (27.0-31.0); Mean Corpuscular Volume 98.9 fL (78.0-98.0); Mean Platelet Volume 7.1 fL (7.4-10.4); Platelet Count 199 thou/uL (130-400); RBC Distribution Width 13.6 % (11.5-14.5); Red Blood Cell (RBC) Count 2.65 mill/uL (4.20-5.40); White Blood Cell (WBC) Count 6.8 thou/uL (4.8-10.8)
[2017-10-02 05:58] LABS: ALT (SGPT) 25 U/L (8-55); AST (SGOT) 21 U/L (5-34); Albumin 2.9 g/dL (3.4-4.8); Alkaline Phosphatase 74 U/L (40-150); Anion Gap 13 mmol/L (10-20); BUN (Urea Nitrogen) 36 mg/dL (9.8-20.1); Bilirubin, Total 0.2 mg/dL (0.2-1.2); Calc. Creatinine Clearance 56 mL/min (70-130); Calcium 8.3 mg/dL (7.8-10.44); Carbon Dioxide 16 mmol/L (23-31); Chloride 112 mmol/L (98-107); Estimated GFR-MDRD 70; Globulin 2.2 g/dL (2.4-3.5); Glucose 97 mg/dL (83-110); Potassium 4.6 mmol/L (3.5-5.1); Protein, Total 5.1 g/dL (6.0-8.3); Sodium 136 mmol/L (136-145)
[2017-10-02] MEDS ORDERED: HYDROcodone/Acetaminophen 10/325 mg Tablet PO PRN (07:59)
[2017-10-02] MEDS: Dronedarone HCl 400 MG TAB PO SCH ×2 (08:32→17:08)
[2017-10-02] MEDS: Ferrous Sulfate 325 MG TAB PO SCH ×2 (08:33→17:09)
[2017-10-02] MEDS ORDERED: Lisinopril 10 MG TAB PO SCH (09:00)
[2017-10-02] MEDS ORDERED: Amlodipine 5 MG TAB PO SCH (09:00)
[2017-10-02] MEDS ORDERED: Clopidogrel Bisulfate 75 MG TAB PO SCH (09:00)
[2017-10-02] MEDS ORDERED: ALPRAZolam 1 MG TAB PO PRN (09:17)
[2017-10-02 11:24] VITALS: TEMP 98
[2017-10-02] MEDS ORDERED: Carvedilol 3.125 MG TAB PO SCH ×2 (11:30→21:00)
[2017-10-02] MEDS ORDERED: cloNIDine 0.1 MG TAB PO SCH (12:15)
[2017-10-02] MEDS ORDERED: NIFEdipine XL 60 MG TAB PO SCH (12:30)
[2017-10-02] MEDS ORDERED: Sildenafil Citrate 20 MG TAB PO SCH (12:30)
[2017-10-02 15:23] VITALS: BP 118/57
--- NOTE | 2017-10-02 17:43 | DIS ---
DATE OF ADMISSION: 10/01/2017 DATE OF DISCHARGE: 10/02/2017 DISCHARGE DIAGNOSES: 1. Severe peripheral vascular disease with nonhealing ulcer. 2. Atrial fibrillation. 3. Hypertension. 4. Anemia. 5. Acute on chronic kidney disease. PROCEDURE PERFORMED: Successful stent placement to the left common iliac and external iliac artery. They were completely occluded. HOSPITAL COURSE: Ms. Mcintyre is a very pleasant 76-year-old woman, who recently was seen and eval uated in the office. She was seen on Friday prior to the procedure. She had a nonhealing ulcer king t was felt to be a new finding. Given her pain and nonhealing ulcer, it was decided to proceed with above procedure on the following day. On the morning of the procedure, her hemoglobin was 8.7, her creatinine was 1.4. I decided to hydrat e Ms. Mcintyre that morning and proceed with the procedure at noon. Her hemoglobin was 7.8 with a creatinine of 1.1. I anticipated the patient needing a transfusion after the procedure. Given the c ontinued significant pain requiring hydrocodone in addition to nonhealing ulcer, it was decided to pr oceed. During the procedure, she has found to have a 100% occlusion of the near ostial left common iliac art [place] to the external iliac artery. Access initially obtained in the right femoral artery. I could no t traverse the occlusion from the contralateral segment. Access then obtained in the left femoral ar bree under ultrasound guidance. There was successful crossing of the 100% lesion with a Glidewire. This was confirmed. GENERAL ENGINEER and stent placement performed. A stent placement was noted with a self-expa nding stent. This was decided due to a significant tortuosity of the common iliac artery and a heavy calcification and likely need for rebuilding of the bifurcation and stent to the contralateral segme nt. After appropriately placing the stent, the stent appeared to move forward upon placement. It ap peared to cover the ostium of the right iliac artery. There was no significant gradient present betw een the aorta and the common femoral artery. I did consult with Dr. Alphonse Ellis, who agreed to proceed with a conservative therapy and not proceed with any further intervention. This is certainly reason able given her baseline creatinine and hemoglobin. She was placed in the outpatient area. She also was placed on IV Cardizem during the procedure due t o atrial fibrillation with RVR. She was admitted overnight. Her followup hemoglobin was 8.7 and a f all of creatinine was 1.0. She converted back to sinus rhythm in the liaison inspection laboratory assistant hours of 10/03/19. She did fairly well during her stay. I had a long discussion with both her and her sons about how to proceed. She is certainly an increas ed risk of stroke off anticoagulation therapy, but felt to be low within the next month or two while we work up for anemia. We would also recommend a wound care consult and GI consult. We would contin ue current medical therapy and only add Multaq and Plavix. DISCHARGE MEDICATIONS: include alprazolam as prescribed, amlodipine as prescribed, aspirin as prescr ibed, Plavix 300 mg one q.a.m., Multaq 400 mg one p.o. b.i.d., iron sulfate as prescribed, lisinopril as prescribed, nifedipine as prescribed, and sildenafil as prescribed. CONDITION AT DISCHARGE: Stable.
== END 2017-10-02 17:50 | disposition home or self-care (01) | DRG 253 ==
LOC: SDC 06:12 → 2NO 12:58
PROVIDERS: ADMIT Internal Medicine Cardiovascular Disease; ATTEND Internal Medicine Cardiovascular Disease
PROC: 047J3D6 (ICD-10-PCS; principal; 2017-10-01)
PROC: B44GZZ3 Ultrasonography of Left Lower Extremity Arteries, Intravascular (ICD-10-PCS; 2017-10-01)
DX: I70.249 Atherosclerosis of native arteries of left leg with ulceration of unspecified site (principal); I70.92 Chronic total occlusion of artery of the extremities; I50.20 Unspecified systolic (congestive) heart failure; I13.0 Hypertensive heart and chronic kidney disease with heart failure and stage 1 through stage 4 chronic kidney disease, or unspecified chronic kidney disease; N17.9 Acute kidney failure, unspecified; I74.3 Embolism and thrombosis of arteries of the lower extremities; I48.91 Unspecified atrial fibrillation; L97.929 Non-pressure chronic ulcer of unspecified part of left lower leg with unspecified severity; E78.5 Hyperlipidemia, unspecified; D63.1 Anemia in chronic kidney disease; N18.9 Chronic kidney disease, unspecified; Z82.49 Family history of ischemic heart disease and other diseases of the circulatory system; Z79.82 Long term (current) use of aspirin; Z01.812 Encounter for preprocedural laboratory examination
CPT/HCPCS: 36415; 37221; 37252; 37253; 76942; 80048; 80053; 85025; 85027; 85347; 86850; 86900; 86901; 93005; 93010; 99152; 99153; A4216; C1725; C1753; C1769; J1644; J2001; J2250; J3010; J7050

== ENCOUNTER 2017-10-15 15:01 | Outpatient (CLI) | payer MEDICARE ==
--- NOTE | 2017-10-15 23:03 | HP ---
DATE OF SERVICE: 10/15/2017 HISTORY OF PRESENT ILLNESS: Ms. Graciela Mcintyre is a very pleasant 76-year-old accompanied by her daughter, who presents to the [facility] for evaluation of multiple wounds of the left lower ex tremity. The patient has an ulceration of the left medial lower leg in addition to an ulceration of the left lateral foot over the plantar surface of the foot, and a wound of the plantar surface of the left fifth toe. The patient states that the wound of her left medial lower leg developed after mily r trauma in the process of getting out of her bathtub. She states that the wound of her left fifth t oe developed after her toenail came off accidentally. The patient states that she recently underwent percutaneous revascularization of the left lower extremity by Dr. Palomino on 10/01/2017. The johana ent states that she was seen at a followup visit earlier today and Ms. Micntyre is to undergo arter ial Doppler examination in 5 days. The patient was referred to the Wound Center by Dr. Shukla on 09/15. The patient states she has been keeping her wounds covered as per Dr. Shukla. She states king t, as per Dr. Shukla, she has discontinued the use of Neosporin to her wounds. PAST MEDICAL HISTORY: 1. Atrial fibrillation. 2. Congestive heart failure. 3. Raynaud. 4. Breast carcinoma. 5. Osteoarthritis. 6. Coronary artery disease. 7. Rheumatoid arthritis. 8. Chronic back pain. 9. Peripheral vascular disease. 10. Hypertension. 11. Gastroesophageal reflux disease. 12. Hypothyroidism. 13. Anemia. 14. Chronic kidney disease. PAST SURGICAL HISTORY: 1. Hysterectomy. 2. Partial thyroidectomy. 3. Surgery for left breast carcinoma. 4. Knee surgery. 5. Hernia repair. 6. Surgery for rectocele. 7. Left hip hemiarthroplasty. MEDICATIONS: 1. Acetaminophen/hydrocodone. 2. Nifedipine. 3. Trazodone. 4. Fish oil. 5. Alprazolam. 6. Duloxetine. 7. Lisinopril. 8. Amlodipine. 9. Pentoxifylline. 10. Aspirin 81 mg. 11. Lasix. 12. NovaFerrum. 13. Sildenafil citrate. 14. Carisoprodol. 15. Hydroxychloroquine. 16. Simvastatin. ALLERGIES: CODEINE. SOCIAL HISTORY: Significant for tobacco use of 1 pack of cigarettes per day for 20 years. The patie nt states that she stopped smoking 17 years ago. The patient admits to only the social consumption o f alcohol. FAMILY HISTORY: Significant for diabetes mellitus. The patient states that her mother, brother, and daughter were all diagnosed with diabetes mellitus. Family history is also significant for coronary artery disease. The patient states that her father, brother, and sister were all diagnosed with cor onary artery disease. PHYSICAL EXAMINATION: VITAL SIGNS: Temperature 98.2, pulse 60, respirations 20, blood pressure 88/42. GENERAL: A 76-year-old female sitting on wheelchair in examination room in no acute distress. HEENT: Normocephalic, atraumatic. NECK: No nuchal rigidity. CHEST: Clear to auscultation. CARDIOVASCULAR: Regular rate and rhythm. ABDOMEN: Soft. EXTREMITIES: Multiple wounds of the left lower extremity are present. One wound is present over the left medial lower leg and measures approximately 0.4 x 0.5 cm. A wound over the plantar surface of the left lateral foot is present, which measures approximately 0.5 x 0.5 cm. A wound over the planta r surface of the left fifth toe is present, which measures approximately 1.0 x 1.0 cm. No purulent d rainage is associated with any of the wounds. No erythema of the skin surrounding any of the wounds is present. No maceration of the skin of the periwound of any of the wounds is noted. A dorsalis pe dis pulse or posterior tibial pulse is not palpable on the left. Both pulses are however audible by Doppler. Edema of the left foot and lower leg is present on exam today. ASSESSMENT AND PLAN: 1. Multiple left lower extremity wounds as described above. As stated above, the patient recently u nderwent percutaneous revascularization of the left lower extremity by Dr. Palomino on 10/01/2017. Dressing changes of Xeroform gauze, ABDs, Kerlix, and an Jamil bandage will be initiated today. These dressing changes are to be performed every other day or 3 times per week after cleansing and irrigati on with the assistance of the patient's daughter. Arrangements will be made for the home delivery of dressing supplies. I will see Ms. Mcintyre again in two weeks. No antibiotics will be prescribed today based upon the appearance of the wounds. The patient and her daughter understand and are in a greement with the preceding treatment plan. 2. Atrial fibrillation. 3. Congestive heart failure. 4. Raynaud. 5. Breast carcinoma. 6. Osteoarthritis. 7. Coronary artery disease. 8. Rheumatoid arthritis. 9. Chronic back pain. 10. Peripheral vascular disease. 11. Hypertension. 12. Gastroesophageal reflux disease. 13. Hypothyroidism. 14. Anemia. 15. Chronic kidney disease.
== END 2017-10-15 15:02 | disposition home or self-care (01) ==
LOC: WCC 15:01
PROVIDERS: ATTEND Family Medicine
DX: L97.229 Non-pressure chronic ulcer of left calf with unspecified severity (principal); L97.429 Non-pressure chronic ulcer of left heel and midfoot with unspecified severity; I13.0 Hypertensive heart and chronic kidney disease with heart failure and stage 1 through stage 4 chronic kidney disease, or unspecified chronic kidney disease; I50.9 Heart failure, unspecified; N18.9 Chronic kidney disease, unspecified; D63.1 Anemia in chronic kidney disease; I73.00 Raynaud's syndrome without gangrene; I25.10 Atherosclerotic heart disease of native coronary artery without angina pectoris; M19.90 Unspecified osteoarthritis, unspecified site; C50.919 Malignant neoplasm of unspecified site of unspecified female breast; M06.9 Rheumatoid arthritis, unspecified; M54.9 Dorsalgia, unspecified; G89.29 Other chronic pain; I73.9 Peripheral vascular disease, unspecified; K21.9 Gastro-esophageal reflux disease without esophagitis; E03.9 Hypothyroidism, unspecified
CPT/HCPCS: 97139; 97602; G0463; 99203

== ENCOUNTER 2017-10-16 21:39 | Inpatient (IN) | payer MEDICARE ==
--- NOTE | 2017-10-16 22:19 | RAD ---
PORTABLE CHEST ONE VIEW: 10/16/17 at 9:20 p.m. HISTORY: Weakness, dyspnea. FINDINGS: Comparison made with exam of 12/12/16. The heart size is enlarged but stable. The aorta is tortuous. The lungs are well expanded without lob ar consolidation, pneumothoraces, hero pulmonary edema or pleural effusions. Mild chronic changes ar e stable. IMPRESSION: No acute process. POS: ROMEO
[2017-10-16 23:04] LABS: Hemoglobin 5.6 g/dL (12.0-16.0); Mean Corpuscular HGB CONC 33.5 g/dL (32.0-36.0); Mean Corpuscular Hemoglobin 32.6 pg (27.0-31.0); Mean Corpuscular Volume 97.3 fL (78.0-98.0); Mean Platelet Volume 6.3 fL (7.4-10.4); Platelet Count 206 thou/uL (130-400); RBC Distribution Width 14.9 % (11.5-14.5); Red Blood Cell (RBC) Count 1.72 mill/uL (4.20-5.40); White Blood Cell (WBC) Count 6.9 thou/uL (4.8-10.8)
[2017-10-16 23:17] LABS: INR-International Normal Ratio 1.1; PTT 28.3 SEC (22.9-36.1); Prothrombin Time 14.3 SEC (12.0-14.7)
[2017-10-16 23:17] LABS: ALT (SGPT) 17 U/L (8-55); AST (SGOT) 14 U/L (5-34); Albumin 3.4 g/dL (3.4-4.8); Alkaline Phosphatase 55 U/L (40-150); Anion Gap 17 mmol/L (10-20); BUN (Urea Nitrogen) 105 mg/dL (9.8-20.1); Bilirubin, Total 0.2 mg/dL (0.2-1.2); Calc. Creatinine Clearance 0 mL/min (70-130); Calcium 8.6 mg/dL (7.8-10.44); Carbon Dioxide 21 mmol/L (23-31); Chloride 98 mmol/L (98-107); Estimated GFR-MDRD 23; Globulin 2.1 g/dL (2.4-3.5); Glucose 110 mg/dL (83-110); Potassium 5.6 mmol/L (3.5-5.1); Protein, Total 5.5 g/dL (6.0-8.3); Sodium 130 mmol/L (136-145)
[2017-10-16 23:18] LABS: #Eosinphils 0.3 thou/uL (0.0-0.7); #Lymphocytes 0.8 thou/uL (1.20-3.40); #Monocytes 0.6 thou/uL (0.11-0.59); #Neutrophils 5.2 thou/uL (1.40-6.50); %Basophils 0.4 % (0.0-1.0); %Eosinophils 3.9 % (0.0-10.0); %Lymphocytes 12.1 % (21.0-51.0); %Monocytes 8.6 % (0.0-10.0); %Neutrophils 75.1 % (42.0-75.0); PLT Morphology Comment Appears Adequate
[2017-10-16 23:22] LABS: CKMB 2.3 ng/mL (0-6.6); Troponin I Less than 0.010 ng/mL (< 0.028)
[2017-10-16 23:32] LABS: Reticulocyte Count 4.9 % (0.5-1.5)
[2017-10-16 23:45] LABS: Iron 38 ug/dL (50-170); Iron Binding Capacity, Total 276 mcg/dL (265-497)
[2017-10-17] MEDS ORDERED: Famotidine/PF 20 mg/2ml Vial ONE (01:14)
[2017-10-17] MEDS ORDERED: HYDROcodone/Acetaminophen 10/325 mg Tablet ONE (02:14)
[2017-10-17 02:52] LABS: Troponin I 0.025 ng/mL (< 0.028)
[2017-10-17 05:14] VITALS: BMI 22.8
[2017-10-17 05:41] LABS: Hemoglobin 7.1 g/dL (12.0-16.0)
[2017-10-17 06:13] LABS: Troponin I 0.024 ng/mL (< 0.028)
[2017-10-17] MEDS ORDERED: Ondansetron ODT 4 MG TAB PO PRN (07:35)
[2017-10-17] MEDS ORDERED: Zolpidem Tartrate 5 MG TAB PO PRN (07:35)
[2017-10-17] MEDS ORDERED: Loperamide HCl 2 MG CAP PO PRN (07:35)
[2017-10-17] MEDS ORDERED: Loratadine 10 MG TAB PO PRN (07:35)
[2017-10-17] MEDS ORDERED: Ondansetron HCl/PF 4 MG/2 ML Vial IVP PRN (07:35)
[2017-10-17] MEDS ORDERED: Eucerin (Mineral Oil/Petrolatum,White) 30 gm Jar TOP PRN (07:35)
[2017-10-17] MEDS ORDERED: hydrALAZINE 20 MG/ML VIAL SLOW IVP PRN (07:35)
[2017-10-17] MEDS ORDERED: Chloraseptic Spray 180 ml Bottle PO PRN (07:35)
[2017-10-17] MEDS ORDERED: Sodium Chloride 0.65% Nasal 44 ML BOT EA NARE PRN (07:35)
[2017-10-17] MEDS ORDERED: Mag-Al 1200 mg/1200 mg/30 ML UDCUP PO PRN (07:35)
[2017-10-17] MEDS ORDERED: Milk Of Magnesia 30 ML UDCUP PO PRN (07:35)
[2017-10-17] MEDS ORDERED: Acetaminophen 325 MG TAB PO PRN (07:35)
[2017-10-17] MEDS ORDERED: ALPRAZolam 1 MG TAB PO PRN (07:35)
[2017-10-17] MEDS ORDERED: Diabetic Tussin 200 MG/10 ML UDCUP PO PRN (07:35)
[2017-10-17] MEDS ORDERED: Senokot 8.6 MG TAB PO PRN (07:35)
[2017-10-17] MEDS: Hydroxychloroquine Sulfate 200 MG TAB PO SCH (09:00)
[2017-10-17] MEDS: Sodium Chloride 0.9% 1,000 ML IV SCH ×3 (09:00→21:04)
[2017-10-17] MEDS: Pantoprazole 40 MG VIAL IVP SCH ×2 (09:00→21:06)
[2017-10-17] MEDS ORDERED: Lifitegrast [Xiidra] 1 DROP EA EYE SCH (09:00)
[2017-10-17] MEDS: Dronedarone HCl 400 MG TAB PO SCH ×2 (09:02→21:03)
[2017-10-17] MEDS: DULoxetine 60 MG CAP PO SCH (09:03)
[2017-10-17] MEDS: Sildenafil Citrate 20 MG TAB PO SCH (09:04)
[2017-10-17 11:37] LABS: Bilirubin Negative (Negative); Blood, Urine Negative (Negative); Clarity CLEAR (Clear); Glucose, Urine (Dipstick) Negative (Negative); Leukocyte Moderate (Negative); Nitrite Negative (Negative); Protein, Urine (Dipstick) Negative (Neg-Trace); Urobilinogen 0.2 mg/dL (0.2-1.0)
[2017-10-17 11:39] LABS: Bacteria/HPF None Seen HPF (None Seen); Hyaline Casts/LPF 0-3 HYALINE CAST LPF (0-3 Hyaline); Pathc Cast-AUWi Flag 0.14 (0-2.49); RBC/HPF 0-3 HPF (0-3); Squamous Epithelial 0-3 HPF (0-3)
[2017-10-17 12:01] LABS: Creatinine, Urine 21.06 mg/dL (47-110); Protein, Urine Random Quant Less than 10 mg/dL; Sodium, Urine 34 mmol/L (Not Available)
--- NOTE | 2017-10-17 15:25 | HP ---
PRIMARY CARE PHYSICIAN: Dr. Carolyne Singer. REASON FOR ADMISSION: Severe symptomatic anemia, acute kidney failure, hyponatremia, and hyperkalemi a. HISTORY OF PRESENT ILLNESS: A 76-year-old female who has underlying multiple medical problems includ ing chronic diastolic heart failure, paroxysmal atrial fibrillation, coronary artery disease and gallo pheral vascular disease. The patient is on aspirin as well as Plavix. She came to emergency room wi th complaint of bilateral lower extremity edema. She was having pain in her lower extremity as well. She was feeling extreme weakness, dyspnea on exertion, fatigue, tiredness, dizziness, and palpitati ons on exertion for last 2-3 days. She started having substernal and left-sided chest pain for about 1 day, which was getting worse with exertion. The patient was gradually getting more and more weak. Patient also recently evaluated at the [facility]. The patient is normally followed by Dr. Gayla cool who referred to [facility] in [facility] for wound over the plantar a spect of left fifth toe. Patient reports that she had a minor trauma when she was getting out of the bathtub and at that time she injured some and subsequently she was having ulcer, which was not heali ng and that is why she was given referral to Dr. Dorian Gomez. Patient also has severe peripheral va scular disease and Dr. Palomino did a revascularization procedure in 10/01/2017. The patient also r eports that she is taking iron pill every day basis, so that is why she is not sure about melena or h ematochezia. She denies any epigastric pain. She denies any nausea, vomiting, hematemesis. She den ies any UTI symptoms. She denies any chest pain. She denies any abdominal pain. She is not taking any other NSAIDs but patient is taking aspirin and Plavix. REVIEW OF SYSTEMS: The following complete review of systems was negative, unless otherwise mentioned in the HPI or below: Constitutional: Weight loss or gain, ability to conduct usual activities. Skin: Rash, itching. Eyes: Double vision, pain. ENT/Mouth: Nose bleeding, neck stiffness, pain, tenderness. Cardiovascular: Palpitations, dyspnea on exertion, orthopnea. Respiratory: Shortness of breath, wheezing, cough, hemoptysis, fever or night sweats. Gastrointestinal: Poor appetite, abdominal pain, heartburn, nausea, vomiting, constipation, or diarr hea. Genitourinary: Urgency, frequency, dysuria, nocturia. Musculoskeletal: Pain, swelling. Neurologic/Psychiatric: Anxiety, depression. Allergy/Immunologic: Skin rash, bleeding tendency. Please see my HPI for pertinent positive and negative. All other review of systems reviewed and nega tive except as mentioned in the HPI. ALLERGIES: CODEINE SULFATE. CURRENT HOME MEDICATIONS: Alprazolam 1 mg p.o. t.i.d. p.r.n., aspirin 81 mg p.o. daily, Soma 350 mg p.o. q.i.d., Plavix 75 mg p.o. daily, Multaq 400 mg p.o. b.i.d., Cymbalta 60 mg p.o. daily, iron 65 m g p.o. t.i.d., Lasix 20 mg p.o. daily, Bronson 10 two tablets q.6 hourly p.r.n., Plaquenil 300 mg p.o. daily, Lifitegrast 1 drop each eye b.i.d., lisinopril 10 mg b.i.d., Procardia-XL 60 mg p.o. daily, Vi agra 20 mg p.o. daily, Zocor 40 mg p.o. at bedtime, trazodone 100 mg p.o. at bedtime. PAST MEDICAL HISTORY: Atrial fibrillation, chronic diastolic heart failure, Raynaud's phenomena, his tory of breast cancer, osteoarthritis, coronary artery disease, rheumatoid arthritis, chronic low anoop k pain, severe peripheral vascular disease, hypertension, gastroesophageal reflux disease, anemia of chronic disease, chronic kidney disease stage 3, hypothyroidism. PAST SURGICAL HISTORY: Partial thyroidectomy, surgery for left breast carcinoma, knee surgery, herni a repair, surgery for rectocele, hysterectomy, left hip hemiarthroplasty. SOCIAL HISTORY: Patient has a history of smoking about 1 pack per day for 20 years. She stopped smo elizabet about 17 years ago. She drinks alcohol socially. She denies any other illicit drug abuse. FAMILY HISTORY: Positive for diabetes among several family members. Coronary artery disease also po sitive among several family members. No strong family history of cancer or stroke. EMERGENCY ROOM COURSE: Reviewed. After admission, the patient was given 2 units of blood. Patient was given Bronson in the emergency room, famotidine 20 mg IV, morphine 4 mg, and IV fluid. PAST PSYCHIATRIC HISTORY: Anxiety disorder. PHYSICAL EXAMINATION: VITAL SIGNS: On arrival, blood pressure 132/45, pulse 75, respiratory rate 22, temperature 98.5, sat uration 100% on room air, weight 66.2 kilograms. GENERAL: Patient is currently alert, awake, appears weak, in no obvious acute distress. HEAD: Normocephalic, atraumatic. EYES: Pupils round, reactive to light. Conjunctivae pale. No nystagmus. ENT: Pale mucous membrane, no oral lesion, no pharyngeal erythema, no exudate. NECK: Supple, no JVD, no meningeal signs of irritation. LUNGS: Clear to auscultation without any rhonchi or rales. CARDIAC: S1, S2 appears regular, soft systolic murmur noted at parasternal as well as apex. No gall op, no rub. ABDOMEN: Soft, bowel sounds present, nontender, nondistended. No organomegaly, no mass, no suprapub ic tenderness. Rectal examination was done in the emergency room by ER physician which showed corporate communications intern al hemorrhoid. BACK: Unremarkable, no CVA tenderness. EXTREMITIES: Upper extremity; passive movements of all joints are normal. Lower extremities, bilate ral lower extremity pitting edema noted. Ulceration over left foot plantar aspect fifth digit. NEUROLOGIC: Nonfocal examination. She moves all 4 limbs. SKIN: No skin rash. PSYCHIATRIC: Normal affect. IMAGING DATA AND SIGNIFICANT LABORATORY DATA: EKG showing sinus arrhythmia, normal sinus rhythm. Ch est x-ray based on my review, no acute cardiopulmonary process. CBC: WBC of 6.9, hemoglobin 5.6, pl atelet 206 after 2 units of blood transfusion, hemoglobin 7.1. INR 1.1. D-dimer 1.41. BMP: Sodium 130, potassium 5.6, chloride 98, carbon dioxide 21, anion gap 17, BUN 105, creatinine 2.07, glucose 110, calcium 8.6, iron 38, TIBC 276, ferritin 32.8. LFT: AST 14, AST 14, ALT 17, alkaline phosphata se 55, albumin 3.4. B12 was greater than 2000. Cardiac enzymes negative x2. Urinalysis: Leukocyte moderate, protein less than 10, creatinine urine 21, urine sodium 34. ASSESSMENT AND PLAN/IMPRESSION: 1. Symptomatic anemia. Based on anemia workup, patient has iron deficiency anemia. She is on aspir in, Plavix, and she has guaiac positive stool. At this point, patient does have chronic blood loss f rom GI tract. We will consult mediation commissioner for evaluation. Patient had a colonoscopy more king n 5 years ago. The patient may need upper and lower endoscopy to determine decision for continuation of aspirin and Plavix therapy. Patient already given 2 units of blood transfusion and after that th e patient has appropriate hemoglobin response. We will repeat CBC tomorrow. The patient will contin ue iron sulfate upon discharge. 2. Chest pain, dizziness, palpitation likely related with symptomatic anemia. Cardiac enzymes are n egative and EKG is unremarkable. 3. Acute kidney failure, most likely multifactorial etiology. Patient has hypotension. Patient was recently exposed with contrast from cardiac catheterization procedure for peripheral vascular diseas e. At this point, we will avoid nephrotoxin agent. We will also hold on lisinopril therapy. We deidra l continue with gentle IV fluid and we will repeat BMP tomorrow. If renal function does not improve, then we will consider renal ultrasound and Nephrology evaluation. 4. Hyponatremia likely due to renal failure as well as patient use of her diuretic. We will hold on diuretic therapy and will replace NS at 125 mL per hour and we will repeat BMP tomorrow. 5. Hyperkalemia, likely due to renal failure as well as lisinopril. We are holding lisinopril and w e will repeat BMP tomorrow. 6. Atrial fibrillation. Continue Multaq 400 mg p.o. b.i.d. Because of GI bleed, we are holding ant iplatelet agents. 7. Dyslipidemia. Continue Lipitor 20 mg p.o. at bedtime. 8. Raynaud's phenomena and rheumatoid arthritis. Continue Plaquenil 300 mg p.o. daily as per home d robbie. 9. Anxiety and depression. Continue Cymbalta 60 mg p.o. daily, alprazolam 1 mg p.o. t.i.d. p.r.n., trazodone 100 mg p.o. at bedtime. 10. Chronic pain disorder. We will continue Soma and Bronson on a p.r.n. basis as per home dosage. 11. Hypertension, but currently low blood pressure and that is why we will hold on Procardia-XL as w ell along with lisinopril. 12. Deep venous thrombosis prophylaxis. Sequential compression device boots only. No Lovenox becau se of guaiac positive stool and symptomatic anemia. 13. Gastrointestinal prophylaxis, Protonix 40 mg IV b.i.d. given positive guaiac stool and chronic b lood loss. 14. Severe peripheral vascular disease, status post recent revascularization. The patient has good pulsation. 15. Wound over left foot. Wound care team will be consulted for wound care management while in hosp ital. CODE STATUS: The patient is FULL CODE. Patient does not have any surrogate decision maker. Disposition plan based on clinical course. We are expecting patient's stay in hospital more than 2 m idnights. Plan of care discussed with the patient in detail.
[2017-10-17] MEDS: HYDROcodone/Acetaminophen 10/325 mg Tablet PO PRN ×2 (15:57→22:03)
[2017-10-17] MEDS: Atorvastatin Calcium 20 MG TAB PO SCH (21:03)
[2017-10-17] MEDS: traZODone HCl 50 MG TAB PO SCH (22:01)
--- NOTE | 2017-10-17 23:52 | CON ---
DATE OF CONSULTATION: 10/17/2017 REASON FOR CONSULTATION: Anemia. CONSULTING PHYSICIAN: Dr. Kizzy Kerr. HISTORY OF PRESENT ILLNESS: The patient is a 76-year-old female with past medical history of hyperli pidemia, hypertension, Raynaud's syndrome, breast cancer, osteoarthritis, anxiety, coronary artery di sease, depression, and significant peripheral vascular disease who was initially presenting to the [facility] with increased bilateral lower extremity pain and edema. She states that she was in her usual state of health until approximately 2-3 days ago when she started having acute onset of worsening fa tigue, tiredness and dizziness, dyspnea on exertion and palpitations in addition to increased bilater al lower extremity pain and edema. She also endorsed substernal left-sided chest pain for one day pr ior to admission that was getting worse with exertion as well. Upon admission to the ER, she was not ed to have a significant anemia which has been present in the past with a workup performed in 2014 fo r the same issue. At that point in time, she was placed on iron supplementation and has been on iron supplementation for the last 2-3 years. She does endorse intermittent darker colored stools, but de nies any overt GI bleeding, diarrhea or constipation. At the time of this interview, she was extreme ly lethargic and falling asleep during the course of the interview, but denies any nausea, vomiting, fevers, chills, abdominal pain, diarrhea, constipation, odynophagia, dysphagia, hematemesis, melena o r hematochezia. Of note, the patient does take aspirin and Plavix as an outpatient as part of her regimen for periphe ral vascular disease and recently underwent a revascularization procedure on 10/01/[address] Branden schilling for her severe peripheral vascular disease and nonhealing ulcers. REVIEW OF SYSTEMS: A 10-category review of systems was obtained with all responses negative except f or the pertinent positives as listed in the HPI. PAST MEDICAL HISTORY: As per HPI. PAST SURGICAL HISTORY: Partial thyroidectomy, left breast resection for breast cancer, knee surgery, rectocele repair, hysterectomy, left hip hemiarthroplasty. FAMILY HISTORY: Denies any history of GI malignancy. SOCIAL HISTORY: Denies any tobacco or illicit drug use, but does drink alcohol occasionally. OUTPATIENT MEDICATIONS: Reviewed. ALLERGIES: CODEINE. PHYSICAL EXAMINATION: VITAL SIGNS: Temperature 98.2, pulse 63, blood pressure 115/54, respiratory rate 16, satting 94% on room air. GENERAL: Patient is lying in bed in no acute distress. Alert and oriented x4, although somewhat let hargic during questioning, but did respond to tactile stimuli. NECK: Supple. No JVD noted. CARDIOVASCULAR: Regular rate and rhythm with a 3/6 systolic murmur best heard at the left lower ster nal border. No discernible gallops or rubs. RESPIRATORY: Clear to auscultation bilaterally with no discernible wheezes or rales. ABDOMEN: Normoactive bowel sounds, soft, nontender, nondistended. EXTREMITIES: Mild pitting edema in the bilateral lower extremities extending to mid adams. She had a nonhealing healing ulceration on her distal right lower extremity as well as a dressing on her left lower extremity as part of nonhealing ulceration there. LABORATORY DATA: CBC with a white blood cell count of 6.9, hemoglobin 5.6, hematocrit 16.8, platelet s 206. Chemistry with sodium of 130, potassium 5.6, chloride 98, CO2 21, BUN 105, creatinine 2.07, g lucose 110, AST 14, ALT 17, alkaline phosphatase 55, total bilirubin 0.2, albumin 3.4. INR 1.1. Iro n 38, ferritin 32, total iron binding complex 276. IMAGING DATA: EGD performed on 08/16/2014 for the indication of anemia showed the presence of short segment Jason's esophagus in the distal esophagus measuring approximately 2 cm in length. A large hiatal hernia was also seen with random biopsies of the duodenum negative for celiac disease. A colo noscopy was also performed on 08/16/2014 which showed multiple diverticula within the sigmoid and the descending colon, but no other abnormalities and no etiology for anemia seen during upper and lower endoscopies. ASSESSMENT AND PLAN: The patient is a 76-year-old female with past medical history of hypertension, hyperlipidemia, breast cancer status post resection, Raynaud's, peripheral vascular disease, osteoart hritis, anxiety, coronary artery disease, and depression presenting with symptomatic anemia. SYMPTOMATIC ANEMIA: The patient is presenting with a 2-3 day history of increased dyspnea on exertio n, palpitations and significant left lower extremity pain with a significantly decreased hemoglobin a nd hematocrit on admission consistent with symptomatic anemia. Currently, she denies any overt GI bl eeding with no evidence of hematemesis, melena or hematochezia. Current iron indices are not indicat lyndsay of an iron deficiency anemia, but rather with the borderline low TIBC, it is more indicative of a nemia of chronic disease or anemia of renal disease; however, she has been on chronic iron supplement ation for the last 2-3 years, which could potentially mask chronic GI bleeding source. Given the neg ative colonoscopy in 08/2014, a lower GI origin is highly unlikely; however, with the presence of bot h Jason's esophagus and a large hiatal hernia on the EGD performed in 08/2014, an upper GI bleeding source is potentially possible. I discussed the current labs as well as the prospect of endoscopic evaluation and she is reluctant to proceed with an upper endoscopy at this time. She does understand the risk and benefits associated with not proceeding with this specific particular modality. RECOMMENDATIONS: 1. We would continue to trend hemoglobin and hematocrit and transfuse as necessary to maintain an he moglobin and hematocrit of 7/21. 2. Continue to monitor clinically for any signs of overt gastrointestinal bleeding. 3. Normally, I would consider an upper endoscopy in this case given the negative colonoscopy in the past for the same indication, but she is currently refusing any endoscopic evaluation at this time. I would hold off on any procedures per patient preference. 4. I would strongly consider a non-GI source of her anemia given the negative workup in the past in 2014. We will sign off at this time. Please reconsult if the patient is more amenable to endoscopic evalua tion or if you have any further questions.
[2017-10-18] MEDS: HYDROcodone/Acetaminophen 10/325 mg Tablet PO PRN ×4 (04:32→23:10)
[2017-10-18 05:20] LABS: #Eosinphils 0.3 thou/uL (0.0-0.7); #Lymphocytes 0.8 thou/uL (1.20-3.40); #Monocytes 0.5 thou/uL (0.11-0.59); #Neutrophils 2.5 thou/uL (1.40-6.50); %Basophils 0.6 % (0.0-1.0); %Eosinophils 7.9 % (0.0-10.0); %Lymphocytes 18.3 % (21.0-51.0); %Monocytes 11.8 % (0.0-10.0); %Neutrophils 61.3 % (42.0-75.0); Mean Corpuscular HGB CONC 34.1 g/dL (32.0-36.0); Mean Corpuscular Hemoglobin 32.9 pg (27.0-31.0); Mean Corpuscular Volume 96.6 fL (78.0-98.0); Mean Platelet Volume 6.6 fL (7.4-10.4); Platelet Count 141 thou/uL (130-400); RBC Distribution Width 15.3 % (11.5-14.5); Red Blood Cell (RBC) Count 1.81 mill/uL (4.20-5.40); White Blood Cell (WBC) Count 4.1 thou/uL (4.8-10.8)
[2017-10-18 05:37] LABS: ALT (SGPT) 18 U/L (8-55); AST (SGOT) 15 U/L (5-34); Albumin 2.9 g/dL (3.4-4.8); Alkaline Phosphatase 49 U/L (40-150); Anion Gap 13 mmol/L (10-20); BUN (Urea Nitrogen) 96 mg/dL (9.8-20.1); Bilirubin, Total 0.2 mg/dL (0.2-1.2); Calc. Creatinine Clearance 27 mL/min (70-130); Calcium 8.1 mg/dL (7.8-10.44); Carbon Dioxide 20 mmol/L (23-31); Chloride 105 mmol/L (98-107); Estimated GFR-MDRD 29; Globulin 1.9 g/dL (2.4-3.5); Glucose 89 mg/dL (83-110); Potassium 5.4 mmol/L (3.5-5.1); Protein, Total 4.8 g/dL (6.0-8.3); Sodium 133 mmol/L (136-145)
[2017-10-18] MEDS: DULoxetine 60 MG CAP PO SCH (08:28)
[2017-10-18] MEDS: Dronedarone HCl 400 MG TAB PO SCH ×2 (08:28→23:09)
[2017-10-18] MEDS: Hydroxychloroquine Sulfate 200 MG TAB PO SCH (08:29)
[2017-10-18] MEDS: Sildenafil Citrate 20 MG TAB PO SCH (08:29)
[2017-10-18] MEDS: Pantoprazole 40 MG VIAL IVP SCH ×2 (08:30→23:12)
--- NOTE | 2017-10-18 11:48 | PDOC.PN ---
- Subjective Encounter Start Date: 10/18/17 Encounter Start Time: 07:40 -: old records requested/rev pt is not wanted to go for any endoscopic procedure yet but she will think about , she does not have hero blood in stool, today her Hb dropped she has chronic leg pain - Objective Resuscitation Status: Resuscitation Status FULL:Full Resuscitation MAR Reviewed: Yes Vital Signs & Weight: Vital Signs (12 hours) Temp Pulse Resp BP Pulse Ox 10/18/17 11:33 98.0 F 61 16 83/41 L 93 L 10/18/17 08:21 97.9 F 60 16 94 L 10/18/17 07:44 97.9 F 60 16 81/45 L 94 L 10/18/17 03:18 97 F L 63 22 H 117/56 L 92 L 10/18/17 00:00 97.6 F 57 L 20 100/52 L 96 Weight Admit Weight 137 lb 11.2 oz Weight 137 lb 11.2 oz I&O: 10/17/17 10/18/17 10/19/17 06:59 06:59 06:59 Intake Total 1085 Output Total 500 Balance -500 1085 Result Diagrams: 10/18/17 04:37 10/18/17 04:37 EKG Reviewed by me: Yes Phys Exam - Physical Examination Constitutional: NAD HEENT: PERRLA, moist MMs, sclera anicteric Neck: no JVD, supple Respiratory: no wheezing, no rales, no rhonchi Cardiovascular: RRR, no significant murmur, no rub Gastrointestinal: soft, non-tender, no distention, positive bowel sounds Musculoskeletal: pulses present, edema present wound over planter aspect of toe on left Neurological: non-focal, normal sensation, moves all 4 limbs Lymphatic: no nodes Psychiatric: normal affect, A&O x 3 Skin: no rash, normal turgor Dx/Plan (1) Acute kidney failure Status: Acute Comment: improving (2) Guaiac positive stools Status: Acute (3) Hyperkalemia Code(s): E87.5 - HYPERKALEMIA Status: Acute (4) Hyponatremia Code(s): E87.1 - HYPO-OSMOLALITY AND HYPONATREMIA Status: Acute (5) Symptomatic anemia Code(s): D64.9 - ANEMIA, UNSPECIFIED Status: Acute (6) Anxiety and depression Code(s): F41.9 - ANXIETY DISORDER, UNSPECIFIED; F32.9 - MAJOR DEPRESSIVE DISORDER, SINGLE EPISODE, UNSPECIFIED Status: Chronic (7) Atrial fibrillation Code(s): I48.91 - UNSPECIFIED ATRIAL FIBRILLATION Status: Chronic Qualifiers: Atrial fibrillation type: paroxysmal Qualified Code(s): I48.0 - Paroxysmal atrial fibrillation (8) Dyslipidemia Code(s): E78.5 - HYPERLIPIDEMIA, UNSPECIFIED Status: Chronic (9) Hypertension Code(s): I10 - ESSENTIAL (PRIMARY) HYPERTENSION Status: Chronic (10) PVD (peripheral vascular disease) Code(s): I73.9 - PERIPHERAL VASCULAR DISEASE, UNSPECIFIED Status: Chronic (11) Ulcer of toe of left foot Code(s): L97.529 - NON-PRESSURE CHRONIC ULCER OTH PRT LEFT FOOT W UNSP SEVERITY Status: Chronic - Plan cont current plan of care * today will transfuse 1 unit PRBC * continue IVF * medication reviewed as below * symptomatic treatment * will repeat labs tomorrow. * will hold BP meds for low BP Review of Systems - Review of Systems Constitutional: weakness. negative: fever, chills, sweats, malaise, other Eyes: negative: Pain, Vision Change, Conjunctivae Inflammation, Eyelid Inflammation, Redness, Other ENT: negative: Ear Pain, Ear Discharge, Nose Pain, Nose Discharge, Nose Congestion, Mouth Pain, Mouth Swelling, Throat Pain, Throat Swelling, Other Respiratory: negative: Cough, Dry, Shortness of Breath, Hemoptysis, SOB with Excertion, Pleuritic Pain, Sputum, Wheezing Cardiovascular: negative: chest pain, palpitations, orthopnea, paroxysmal nocturnal dyspnea, edema, light headedness, other Gastrointestinal: negative: Nausea, Vomiting, Abdominal Pain, Diarrhea, Constipation, Melena, Hematochezia, Other Genitourinary: negative: Dysuria, Frequency, Incontinence, Hematuria, Retention , Other Musculoskeletal: Leg Pain. negative: Neck Pain, Shoulder Pain, Arm Pain, Back Pain, Hand Pain, Foot Pain, Other - Medications/Allergies Allergies/Adverse Reactions: Allergies Allergy/AdvReac Type Severity Reaction Status Date / Time codeine Allergy Hives Verified 09/30/17 17:41 Medications: Current Medications Acetaminophen (Tylenol) 650 mg PO Q4H PRN PRN Reason: Headache/Fever or Pain Last Admin: 10/17/17 11:19 Dose: 650 mg Hydrocodone Bitart/Acetaminophen ([place] 10/325) 2 tab PO Q6H PRN PRN Reason: breakthrough pain Last Admin: 10/18/17 09:53 Dose: 2 tab Al Hydroxide/Mg Hydroxide (Maalox) 30 ml PO Q6H PRN PRN Reason: Heartburn or Indigestion Alprazolam (Xanax) 1 mg PO TID PRN PRN Reason: Anxiety Last Admin: 10/17/17 17:46 Dose: 1 mg Artificial Tears (Tears Renewed 15ml Bottle) 0 drop EA EYE PRN PRN PRN Reason: Dry Eyes Atorvastatin Calcium (Lipitor) 20 mg PO HS [facility] Last Admin: 10/17/17 21:03 Dose: 20 mg Carisoprodol (Soma) 350 mg PO QID PRN PRN Reason: Pain Last Admin: 10/17/17 21:03 Dose: 350 mg Dronedarone (Multaq) 400 mg PO BID [facility] Last Admin: 10/18/17 08:28 Dose: 400 mg Duloxetine HCl (Cymbalta) 60 mg PO QAM [facility] Last Admin: 10/18/17 08:28 Dose: 60 mg Guaifenesin (Robitussin Sf) 200 mg PO Q4H PRN PRN Reason: Cough Hydralazine HCl (Apresoline) 10 mg SLOW IVP Q4H PRN PRN Reason: Systolic BP > 180 Hydroxychloroquine Sulfate (Plaquenil) 300 mg PO DAILY [facility] Last Admin: 10/18/17 08:29 Dose: 300 mg Sodium Chloride (Normal Saline 0.9%) 1,000 mls @ 100 mls/hr IV .Q10H [facility] Last Admin: 10/17/17 21:04 Dose: 1,000 mls Loperamide HCl (Imodium) 2 mg PO PRN PRN PRN Reason: Diarrhea/Loose Stools Loratadine (Claritin) 10 mg PO DAILYPRN PRN PRN Reason: Sinus Symptoms Magnesium Hydroxide (Milk Of Magnesium) 30 ml PO DAILYPRN PRN PRN Reason: Constipation Mineral Oil/White Petrolatum (Eucerin Cream) 0 gm TOP BIDPRN PRN PRN Reason: Dry Skin Ondansetron HCl (Zofran Odt) 4 mg PO Q6H PRN PRN Reason: Nausea/Vomiting Ondansetron HCl (Zofran) 4 mg IVP Q6H PRN PRN Reason: Nausea/Vomiting Pantoprazole Sodium (Protonix) 40 mg IVP Q12HR [facility] Last Admin: 10/18/17 08:30 Dose: 40 mg Lifitegrast [Xiidra] (1 Drop) 0 each EA EYE BID [facility] Phenol (Chloraseptic [place] 180 Ml Bot) 0 ml PO PRN PRN PRN Reason: Sore Throat Senna (Senokot) 2 tab PO HSPRN PRN PRN Reason: Constipation Sildenafil Citrate (Revatio) [facility] [place] Last Admin: 10/18/17 08:29 Dose: 20 mg Sodium Chloride ([place] Nasal [place] 0.65%) 0 ml EA NARE QIDPRN PRN PRN Reason: Nasal Congestion Trazodone HCl (Desyrel) [address] [facility] Last Admin: 10/17/17 22:01 Dose: 100 mg Zolpidem Tartrate (Ambien) 5 mg PO HSPRN PRN PRN Reason: Insomnia
[2017-10-18 14:00] LABS: Hemoglobin 6.6 g/dL (12.0-16.0)
[2017-10-18] MEDS: Sodium Chloride 0.9% 1,000 ML IV SCH (15:18)
[2017-10-18 21:51] LABS: Hemoglobin 8.2 g/dL (12.0-16.0)
[2017-10-18] MEDS: traZODone HCl 50 MG TAB PO SCH (23:09)
[2017-10-18] MEDS: Atorvastatin Calcium 20 MG TAB PO SCH (23:12)
[2017-10-19] MEDS: Artificial Tear Sol 15 ML BOT EA EYE PRN ×2 (03:51→10:38)
[2017-10-19] MEDS: Sodium Chloride 0.9% 1,000 ML IV SCH ×4 (03:53→12:32)
[2017-10-19] MEDS: HYDROcodone/Acetaminophen 10/325 mg Tablet PO PRN ×4 (05:23→23:28)
[2017-10-19 08:14] LABS: #Eosinphils 0.3 thou/uL (0.0-0.7); #Lymphocytes 0.6 thou/uL (1.20-3.40); #Monocytes 0.4 thou/uL (0.11-0.59); #Neutrophils 2.8 thou/uL (1.40-6.50); %Basophils 0.5 % (0.0-1.0); %Eosinophils 6.3 % (0.0-10.0); %Lymphocytes 14.3 % (21.0-51.0); %Monocytes 10.1 % (0.0-10.0); %Neutrophils 68.9 % (42.0-75.0); Hemoglobin 7.7 g/dL (12.0-16.0); Mean Corpuscular HGB CONC 35.2 g/dL (32.0-36.0); Mean Corpuscular Hemoglobin 32.5 pg (27.0-31.0); Mean Corpuscular Volume 92.3 fL (78.0-98.0); Mean Platelet Volume 6.5 fL (7.4-10.4); Platelet Count 130 thou/uL (130-400); RBC Distribution Width 15.7 % (11.5-14.5); Red Blood Cell (RBC) Count 2.36 mill/uL (4.20-5.40)
[2017-10-19 08:34] LABS: Anion Gap 11 mmol/L (10-20); BUN (Urea Nitrogen) 77 mg/dL (9.8-20.1); Calc. Creatinine Clearance 34 mL/min (70-130); Carbon Dioxide 20 mmol/L (23-31); Chloride 108 mmol/L (98-107); Estimated GFR-MDRD 38; Glucose 92 mg/dL (83-110); Potassium 4.9 mmol/L (3.5-5.1); Sodium 134 mmol/L (136-145)
[2017-10-19] MEDS: Hydroxychloroquine Sulfate 200 MG TAB PO SCH (10:34)
[2017-10-19] MEDS: DULoxetine 60 MG CAP PO SCH (10:34)
[2017-10-19] MEDS: Dronedarone HCl 400 MG TAB PO SCH ×2 (10:34→22:36)
[2017-10-19] MEDS: Pantoprazole 40 MG VIAL IVP SCH ×2 (10:35→22:36)
[2017-10-19] MEDS: Sildenafil Citrate 20 MG TAB PO SCH (10:35)
--- NOTE | 2017-10-19 11:18 | PDOC.PN ---
- Subjective Encounter Start Date: 10/19/17 Encounter Start Time: 07:45 Patient seen and examined. No new complaints. No overnight events - Objective Resuscitation Status: Resuscitation Status FULL:Full Resuscitation MAR Reviewed: Yes Vital Signs & Weight: Vital Signs (12 hours) Temp Pulse Resp BP Pulse Ox 10/19/17 08:00 98.2 F 60 16 10/19/17 07:42 98.2 F 60 16 128/63 94 L 10/19/17 04:00 97.9 F 58 L 19 168/66 H 99 10/19/17 00:00 98.5 F 57 L 18 126/58 L 97 Weight Admit Weight 137 lb 11.2 oz Weight 137 lb 11.2 oz I&O: 10/18/17 10/19/17 10/20/17 06:59 06:59 06:59 Intake Total 1732 1480 Output Total 500 700 Balance -500 1732 780 Result Diagrams: 10/19/17 08:02 10/19/17 08:02 EKG Reviewed by me: Yes Phys Exam - Physical Examination Constitutional: NAD HEENT: PERRLA, moist MMs, sclera anicteric Neck: no JVD, supple Respiratory: no wheezing, no rales, no rhonchi Cardiovascular: RRR, no significant murmur, no rub Gastrointestinal: soft, non-tender, no distention, positive bowel sounds Musculoskeletal: no edema, pulses present ulcer over left great toe Neurological: moves all 4 limbs Lymphatic: no nodes Psychiatric: normal affect, A&O x 3 Skin: no rash, normal turgor Dx/Plan (1) Acute kidney failure Status: Acute Comment: improving (2) Guaiac positive stools Status: Acute (3) Hyperkalemia Code(s): E87.5 - HYPERKALEMIA Status: Acute (4) Hyponatremia Code(s): E87.1 - HYPO-OSMOLALITY AND HYPONATREMIA Status: Acute (5) Symptomatic anemia Code(s): D64.9 - ANEMIA, UNSPECIFIED Status: Acute (6) Anxiety and depression Code(s): F41.9 - ANXIETY DISORDER, UNSPECIFIED; F32.9 - MAJOR DEPRESSIVE DISORDER, SINGLE EPISODE, UNSPECIFIED Status: Chronic (7) Atrial fibrillation Code(s): I48.91 - UNSPECIFIED ATRIAL FIBRILLATION Status: Chronic Qualifiers: Atrial fibrillation type: paroxysmal Qualified Code(s): I48.0 - Paroxysmal atrial fibrillation (8) Dyslipidemia Code(s): E78.5 - HYPERLIPIDEMIA, UNSPECIFIED Status: Chronic (9) Hypertension Code(s): I10 - ESSENTIAL (PRIMARY) HYPERTENSION Status: Chronic (10) PVD (peripheral vascular disease) Code(s): I73.9 - PERIPHERAL VASCULAR DISEASE, UNSPECIFIED Status: Chronic (11) Ulcer of toe of left foot Code(s): L97.529 - NON-PRESSURE CHRONIC ULCER OTH PRT LEFT FOOT W UNSP SEVERITY Status: Chronic - Plan cont current plan of care * today again H & H dropped despite being off on asa and plavix * today pt agreed for endoscopic evaluation * will notify GI * today arterial doppler study * continue wound care * repeat labs tomorrow * medication reviewed as below * symptomatic treatment. * reduce IVF at 50 ml per hour * renal function improving Review of Systems - Review of Systems Eyes: negative: Pain, Vision Change, Conjunctivae Inflammation, Eyelid Inflammation, Redness, Other ENT: negative: Ear Pain, Ear Discharge, Nose Pain, Nose Discharge, Nose Congestion, Mouth Pain, Mouth Swelling, Throat Pain, Throat Swelling, Other Respiratory: negative: Cough, Dry, Shortness of Breath, Hemoptysis, SOB with Excertion, Pleuritic Pain, Sputum, Wheezing Cardiovascular: negative: chest pain, palpitations, orthopnea, paroxysmal nocturnal dyspnea, edema, light headedness, other Gastrointestinal: negative: Nausea, Vomiting, Abdominal Pain, Diarrhea, Constipation, Melena, Hematochezia, Other Genitourinary: negative: Dysuria, Frequency, Incontinence, Hematuria, Retention , Other Musculoskeletal: negative: Neck Pain, Shoulder Pain, Arm Pain, Back Pain, Hand Pain, Leg Pain, Foot Pain, Other Skin: negative: Rash, Lesions, Partha, Bruising, Other - Medications/Allergies Allergies/Adverse Reactions: Allergies Allergy/AdvReac Type Severity Reaction Status Date / Time codeine Allergy Hives Verified 09/30/17 17:41 Medications: Current Medications Acetaminophen (Tylenol) 650 mg PO Q4H PRN PRN Reason: Headache/Fever or Pain Last Admin: 10/17/17 11:19 Dose: 650 mg Hydrocodone Bitart/Acetaminophen ([place] 10/325) 2 tab PO Q6H PRN PRN Reason: breakthrough pain Last Admin: 10/19/17 05:23 Dose: 2 tab Al Hydroxide/Mg Hydroxide (Maalox) 30 ml PO Q6H PRN PRN Reason: Heartburn or Indigestion Alprazolam (Xanax) 1 mg PO TID PRN PRN Reason: Anxiety Last Admin: 10/17/17 17:46 Dose: 1 mg Artificial Tears (Tears Renewed 15ml Bottle) 0 drop EA EYE PRN PRN PRN Reason: Dry Eyes Last Admin: 10/19/17 10:38 Dose: 1 drop Atorvastatin Calcium (Lipitor) 20 mg PO HS [facility] Last Admin: 10/18/17 23:12 Dose: 20 mg Carisoprodol (Soma) 350 mg PO QID PRN PRN Reason: Pain Last Admin: 10/19/17 10:35 Dose: 350 mg Dronedarone (Multaq) 400 mg PO BID [facility] Last Admin: 10/19/17 10:34 Dose: 400 mg Duloxetine HCl (Cymbalta) 60 mg PO QAM [facility] Last Admin: 10/19/17 10:34 Dose: 60 mg Guaifenesin (Robitussin Sf) 200 mg PO Q4H PRN PRN Reason: Cough Hydralazine HCl (Apresoline) 10 mg SLOW IVP Q4H PRN PRN Reason: Systolic BP > 180 Hydroxychloroquine Sulfate (Plaquenil) 300 mg PO DAILY [facility] Last Admin: 10/19/17 10:34 Dose: 300 mg Sodium Chloride (Normal Saline 0.9%) 1,000 mls @ 100 mls/hr IV .Q10H [facility] Last Admin: 10/19/17 03:54 Dose: Not Given Loperamide HCl (Imodium) 2 mg PO PRN PRN PRN Reason: Diarrhea/Loose Stools Loratadine (Claritin) 10 mg PO DAILYPRN PRN PRN Reason: Sinus Symptoms Magnesium Hydroxide (Milk Of Magnesium) 30 ml PO DAILYPRN PRN PRN Reason: Constipation Last Admin: 10/19/17 03:52 Dose: 30 ml Mineral Oil/White Petrolatum (Eucerin Cream) 0 gm TOP BIDPRN PRN PRN Reason: Dry Skin Ondansetron HCl (Zofran Odt) 4 mg PO Q6H PRN PRN Reason: Nausea/Vomiting Ondansetron HCl (Zofran) 4 mg IVP Q6H PRN PRN Reason: Nausea/Vomiting Pantoprazole Sodium (Protonix) 40 mg IVP Q12HR [facility] Last Admin: 10/19/17 10:35 Dose: 40 mg Lifitegrast [Xiidra] (1 Drop) 0 each EA EYE BID [facility] Phenol (Chloraseptic [place] 180 Ml Bot) 0 ml PO PRN PRN PRN Reason: Sore Throat Senna (Senokot) 2 tab PO HSPRN PRN PRN Reason: Constipation Last Admin: 10/19/17 10:35 Dose: 2 tab Sildenafil Citrate (Revatio) 20 mg PO [facility] Last Admin: 10/19/17 10:35 Dose: 20 mg Sodium Chloride ([place] Nasal [place] 0.65%) 0 ml EA NARE QIDPRN PRN PRN Reason: Nasal Congestion Trazodone HCl (Desyrel) 100 mg PO [facility] Last Admin: 10/18/17 23:09 Dose: 100 mg Zolpidem Tartrate (Ambien) 5 mg PO HSPRN PRN PRN Reason: Insomnia
[2017-10-19] MEDS ORDERED: Bisacodyl 5 MG TAB PO PRN (17:04)
--- NOTE | 2017-10-19 17:07 | PRG ---
DATE OF SERVICE: 10/19/2017 REASON FOR CONSULTATION: Anemia. SUBJECTIVE: The patient states that she did well overnight with no acute events or problems. She do es continue to have lower extremity pain associated with peripheral vascular disease as well as very cold extremities secondary to Raynaud's. Otherwise, she states that she is doing well with no episod es of hematemesis, melena or hematochezia during this admission. She currently denies any nausea, vo miting, fevers, chills, abdominal pain, diarrhea, constipation. No odynophagia or dysphagia. OBJECTIVE: VITAL SIGNS: Temperature 97.8, pulse 57, blood pressure 114/56, respiratory rate 16, satting 93% on room air. GENERAL: The patient is lying in bed, in no acute distress. Alert and oriented x4. CARDIOVASCULAR: Regular rate and rhythm with a 3/6 systolic murmur best heard at the left lower ster nal border. RESPIRATORY: Clear to auscultation bilaterally. ABDOMEN: Normoactive bowel sounds, soft, nontender, nondistended. EXTREMITIES: Mild pitting edema in the bilateral lower extremities extending to mid adams as well as a nonhealing ulceration on the distal right lower extremity and dressing on the left lower extremity is part of a nonhealing ulceration. LABORATORY DATA: CBC with a white blood cell count of 4, hemoglobin 7.7, hematocrit 21.8, platelets 130. Chemistry with sodium 134, potassium 4.9, chloride 108, carbon dioxide 20, BUN 77, creatinine 1 .36, glucose 92. IMAGING DATA: No current GI imaging is available for review. ASSESSMENT AND PLAN: The patient is a 76-year-old female with past medical history of hypertension; hyperlipidemia; breast cancer, status post resection; Raynaud's phenomenon; peripheral vascular disea se; osteoarthritis; anxiety; coronary artery disease; and depression; presenting with symptomatic ane davi. Symptomatic anemia: The patient was initially presenting with a 2-3 day history of increased dyspnea on exertion, palpitations and significant left lower extremity pain that prompted her to seek health care assistance. On admission, she was noted to have a significantly decreased H&H consistent with s ymptomatic anemia contributing to her current constellation of symptoms. However, she denies any sym ptoms of overt GI bleeding with no evidence of hematemesis, melena or hematochezia. Iron indices wer e obtained shortly after admission and are not indicative of iron deficiency anemia or a chronic topher rointestinal bleed, but rather with the borderline low TIBC is more indicative of anemia of chronic d isease or anemia of renal disease; however, she has been taking iron intermittently for the last 2-3 years, which could potentially mask a chronic GI bleeding source. She did have a colonoscopy in 08/16, which was completely normal with no abnormality seen. However, an EGD performed at that time (f or the indication of anemia) showed a large hiatal hernia as well as the presence of Jason's esopha stephen. I discussed the prospect of a repeat upper endoscopy for this patient today and she is amenable to upper gastrointestinal evaluation; however, she was adamant that she would not go through have a repeat colonoscopy. RECOMMENDATIONS: 1. We would continue to trend H&H and transfuse as necessary to maintain an H&H of 7/21. 2. Continue to monitor clinically for signs of active gastrointestinal bleeding. 3. We would plan for an EGD tomorrow morning. Please make the patient n.p.o. at midnight in prepara tion for this procedure. 4. We would consider non-GI source of her anemia given current iron indices indicating anemia of chr onic disease/renal disease. We will continue to follow. Please call with any additional questions.
[2017-10-19] MEDS: Atorvastatin Calcium 20 MG TAB PO SCH (22:36)
[2017-10-19] MEDS: traZODone HCl 50 MG TAB PO SCH (22:36)
[2017-10-20] MEDS: Sodium Chloride 0.9% 1,000 ML IV SCH (02:00)
[2017-10-20 04:21] LABS: #Eosinphils 0.2 thou/uL (0.0-0.7); #Lymphocytes 0.7 thou/uL (1.20-3.40); #Monocytes 0.5 thou/uL (0.11-0.59); #Neutrophils 2.5 thou/uL (1.40-6.50); %Basophils 0.6 % (0.0-1.0); %Eosinophils 6.2 % (0.0-10.0); %Monocytes 11.9 % (0.0-10.0); %Neutrophils 63.3 % (42.0-75.0); Hemoglobin 8.6 g/dL (12.0-16.0); Mean Corpuscular HGB CONC 34.7 g/dL (32.0-36.0); Mean Corpuscular Hemoglobin 32.4 pg (27.0-31.0); Mean Corpuscular Volume 93.5 fL (78.0-98.0); Mean Platelet Volume 7.1 fL (7.4-10.4); Platelet Count 143 thou/uL (130-400); RBC Distribution Width 15.9 % (11.5-14.5); Red Blood Cell (RBC) Count 2.64 mill/uL (4.20-5.40); White Blood Cell (WBC) Count 3.9 thou/uL (4.8-10.8)
[2017-10-20 04:41] LABS: Anion Gap 13 mmol/L (10-20); BUN (Urea Nitrogen) 63 mg/dL (9.8-20.1); Calc. Creatinine Clearance 37 mL/min (70-130); Calcium 8.2 mg/dL (7.8-10.44); Carbon Dioxide 18 mmol/L (23-31); Chloride 108 mmol/L (98-107); Estimated GFR-MDRD 42; Glucose 106 mg/dL (83-110); Potassium 5.4 mmol/L (3.5-5.1); Sodium 134 mmol/L (136-145)
[2017-10-20] MEDS ORDERED: PROPOFOL 200 MG/20 ML VIAL ONE (09:34)
[2017-10-20] MEDS ORDERED: Lidocaine 1% PF 5 ML VIAL ONE (09:34)
[2017-10-20] MEDS ORDERED: Ondansetron HCl/PF 4 MG/2 ML Vial IVP PRN (10:13)
[2017-10-20] MEDS ORDERED: Promethazine HCl 25 MG/ML VIAL IM PRN (10:13)
[2017-10-20] MEDS ORDERED: Promethazine HCl 25 MG/ML VIAL SLOW IVP PRN (10:13)
[2017-10-20] MEDS: Pantoprazole 40 MG VIAL IVP SCH ×2 (10:54→22:23)
[2017-10-20] MEDS: Hydroxychloroquine Sulfate 200 MG TAB PO SCH (10:54)
[2017-10-20] MEDS: Sildenafil Citrate 20 MG TAB PO SCH (10:55)
[2017-10-20] MEDS: DULoxetine 60 MG CAP PO SCH (10:55)
[2017-10-20] MEDS: Dronedarone HCl 400 MG TAB PO SCH ×2 (10:55→22:23)
--- NOTE | 2017-10-20 10:59 | OP ---
DATE OF PROCEDURE: 10/20/2017 PROCEDURE: Esophagogastroduodenoscopy with control of hemorrhage. INDICATION FOR PROCEDURE: Symptomatic anemia. DESCRIPTION OF PROCEDURE: After the risks and benefits of the procedure were explained to the patien t including risks of bleeding, infection, perforation, reactions to anesthesia and/or pain, informed consent was obtained. The patient was then taken to the endoscopy suite where deep sedation was admi nistered via propofol and anesthesia support. Once adequate sedation was achieved, the standard topher roscope was introduced into the mouth with intubation of the esophagus, stomach and proximal small in testine with the findings listed below. The patient tolerated the procedure well with no immediate p erioperative complications. FINDINGS: ESOPHAGUS: Normal appearing mucosa was seen in both the proximal and mid esophagus. However, multip le erosions were seen in the distal esophagus extending upward from the GE junction in a circumferent ial fashion with these erosions extending greater than 1 cm in length consistent with LA grade D refl ux mediated erosive esophagitis. The Z-line was seen at approximately 29 cm while the GE junction wa s seen at 32 cm with salmon-colored mucosa in between consistent with Jason's esophagus. Biopsies were not taken during this evaluation, given concern for increased bleeding and no mass, lesions or n odularity seen in the distal esophagus that might suggest progression towards adenocarcinoma. The di aphragmatic pinch was seen at approximately 40 cm while the GE junction was well seen at 32 cm past t he incisors denoting an 8 cm hiatal hernia. There were no erosions or ulcerations within the hernial sac that might contribute to her symptomatic anemia. There was no evidence of active/recent bleedin g in this portion of the examination. STOMACH: Normal appearing mucosa was seen in the gastric cardia and a portion of the fundus, which w ere located in the hernial sac. There was also normal appearing mucosa in the gastric body, greater curvature, antrum, and incisura. There was no evidence of erosions, ulcerations, mass lesions or act lyndsay/recent bleeding. A large hiatal hernia was seen on gastric retroflexion. DUODENUM: Normal appearing mucosa was seen in the duodenal bulb; however, a large amount of retained food was seen in the second portion of the duodenum limiting visualization of the intestinal mucosa somewhat. Despite this though, a small AVM was noted in the second portion of the duodenum just prox imal to the ampulla that was actively bleeding/oozing blood at the time of this evaluation. This AVM was intervened upon with bipolar cautery with good hemostasis achieved afterwards. There was no oth er evidence of active/recent bleeding. There was no additional evidence of erosions, ulcerations, or mass lesions seen in this portion of the exam. IMPRESSION: 1. 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 2. Large (8 cm) hiatal hernia seen in the distal esophagus. 3. LA grade D reflux mediated erosive esophagitis seen in the distal esophagus. 4. [place]-colored mucosa in the distal esophagus consistent with Jason's type mucosa with Lorton c lassification C3, M3. RECOMMENDATIONS: 1. We will continue to trend hemoglobin and hematocrit and transfuse as necessary to maintain hemogl obin and hematocrit H of 7/21. 2. Continue to monitor for signs of active gastrointestinal bleeding. 3. Would keep patient on pantoprazole 40 mg twice daily for the next 8-12 weeks given evidence of se ella erosive esophagitis. 4. Would consult General Surgery for evaluation of this patient for correction of the hiatal hernia which may in turn alleviate her acid reflux issues. 5. We would maintain strict antireflux precautions including maintaining an upright position for at least 2-3 hours after eating and drinking. 6. Would avoid any NSAIDs as this could exacerbate any GI bleeding. We will continue to follow. Please call with any questions.
[2017-10-20] MEDS: HYDROcodone/Acetaminophen 10/325 mg Tablet PO PRN ×2 (11:43→18:46)
--- NOTE | 2017-10-20 12:18 | PDOC.PN ---
- Subjective Encounter Start Date: 10/20/17 Encounter Start Time: 07:45 Patient seen and examined. No new complaints. No overnight events pt has reflux, crampy abdominal pain after procedure - Objective Resuscitation Status: Resuscitation Status FULL:Full Resuscitation MAR Reviewed: Yes Vital Signs & Weight: Vital Signs (12 hours) Temp Pulse Resp BP Pulse Ox 10/20/17 12:00 97.5 F L 56 L 16 190/88 H 94 L 10/20/17 08:00 98.3 F 56 L 20 142/64 H 91 L 10/20/17 04:25 98.1 F 60 20 118/59 L 95 Weight Admit Weight 137 lb 11.2 oz Weight 137 lb 11.2 oz I&O: 10/19/17 10/20/17 10/21/17 06:59 06:59 06:59 Intake Total 1732 3529 Output Total 700 Balance 1732 2829 Result Diagrams: 10/20/17 03:49 10/20/17 03:49 EKG Reviewed by me: Yes (nsr) Phys Exam - Physical Examination Constitutional: NAD HEENT: PERRLA, moist MMs, sclera anicteric Neck: no JVD, supple Respiratory: no wheezing, no rales, no rhonchi Cardiovascular: RRR, no significant murmur, no rub Gastrointestinal: soft, non-tender, no distention, positive bowel sounds Musculoskeletal: no edema, pulses present Neurological: non-focal, normal sensation, moves all 4 limbs Psychiatric: normal affect, A&O x 3 Skin: no rash, normal turgor Dx/Plan (1) Acute kidney failure Status: Acute Comment: improving (2) Guaiac positive stools Status: Acute (3) Hyperkalemia Code(s): E87.5 - HYPERKALEMIA Status: Acute (4) Hyponatremia Code(s): E87.1 - HYPO-OSMOLALITY AND HYPONATREMIA Status: Acute (5) Symptomatic anemia Code(s): D64.9 - ANEMIA, UNSPECIFIED Status: Acute (6) Anxiety and depression Code(s): F41.9 - ANXIETY DISORDER, UNSPECIFIED; F32.9 - MAJOR DEPRESSIVE DISORDER, SINGLE EPISODE, UNSPECIFIED Status: Chronic (7) Atrial fibrillation Code(s): I48.91 - UNSPECIFIED ATRIAL FIBRILLATION Status: Chronic Qualifiers: Atrial fibrillation type: paroxysmal Qualified Code(s): I48.0 - Paroxysmal atrial fibrillation (8) Dyslipidemia Code(s): E78.5 - HYPERLIPIDEMIA, UNSPECIFIED Status: Chronic (9) Hypertension Code(s): I10 - ESSENTIAL (PRIMARY) HYPERTENSION Status: Chronic (10) PVD (peripheral vascular disease) Code(s): I73.9 - PERIPHERAL VASCULAR DISEASE, UNSPECIFIED Status: Chronic (11) Ulcer of toe of left foot Code(s): L97.529 - NON-PRESSURE CHRONIC ULCER OTH PRT LEFT FOOT W UNSP SEVERITY Status: Chronic (12) Reflux esophagitis Code(s): K21.0 - GASTRO-ESOPHAGEAL REFLUX DISEASE WITH ESOPHAGITIS Status: Acute (13) 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 - MCGOWAN'S ESOPHAGUS WITHOUT DYSPLASIA Status: Acute (14) Hiatal hernia with GERD and esophagitis Code(s): K44.9 - DIAPHRAGMATIC HERNIA WITHOUT OBSTRUCTION OR GANGRENE; K21.0 - GASTRO-ESOPHAGEAL REFLUX DISEASE WITH ESOPHAGITIS Status: Acute (15) AVM (arteriovenous malformation) of duodenum, acquired Code(s): K31.819 - ANGIODYSPLASIA OF STOMACH AND DUODENUM WITHOUT BLEEDING Status: Acute - Plan cont current plan of care, plan discussed w/ family * DC tele * transfer to medical * renal function improving * H & H stable today * non pharmacological treatment for GERD discussed with pt * medication reviewed as below * symptomatic treatment * repeat labs tomorrow * discussed with family * will hold asa and plavix for now * s/p cauterization for AVM in duodenum. Review of Systems - Review of Systems Eyes: negative: Pain, Vision Change, Conjunctivae Inflammation, Eyelid Inflammation, Redness, Other ENT: negative: Ear Pain, Ear Discharge, Nose Pain, Nose Discharge, Nose Congestion, Mouth Pain, Mouth Swelling, Throat Pain, Throat Swelling, Other Respiratory: negative: Cough, Dry, Shortness of Breath, Hemoptysis, SOB with Excertion, Pleuritic Pain, Sputum, Wheezing Cardiovascular: negative: chest pain, palpitations, orthopnea, paroxysmal nocturnal dyspnea, edema, light headedness, other Gastrointestinal: Abdominal Pain. negative: Nausea, Vomiting, Diarrhea, Constipation, Melena, Hematochezia, Other Genitourinary: negative: Dysuria, Frequency, Incontinence, Hematuria, Retention , Other Musculoskeletal: negative: Neck Pain, Shoulder Pain, Arm Pain, Back Pain, Hand Pain, Leg Pain, Foot Pain, Other Skin: negative: Rash, Lesions, Partha, Bruising, Other - Medications/Allergies Allergies/Adverse Reactions: Allergies Allergy/AdvReac Type Severity Reaction Status Date / Time codeine Allergy Hives Verified 09/30/17 17:41 Medications: Current Medications Acetaminophen (Tylenol) 650 mg PO Q4H PRN PRN Reason: Headache/Fever or Pain Last Admin: 10/17/17 11:19 Dose: 650 mg Hydrocodone Bitart/Acetaminophen ([place]our 10/325) 2 tab PO Q6H PRN PRN Reason: breakthrough pain Last Admin: 10/20/17 11:43 Dose: 2 tab Al Hydroxide/Mg Hydroxide (Maalox) 30 ml PO Q6H PRN PRN Reason: Heartburn or Indigestion Alprazolam (Xanax) 1 mg PO TID PRN PRN Reason: Anxiety Last Admin: 10/17/17 17:46 Dose: 1 mg Artificial Tears (Tears Renewed 15ml Bottle) 0 drop EA EYE PRN PRN PRN Reason: Dry Eyes Last Admin: 10/19/17 10:38 Dose: 1 drop Atorvastatin Calcium (Lipitor) 20 mg PO HS [facility] Last Admin: 10/19/17 22:36 Dose: 20 mg Bisacodyl (Dulcolax) 10 mg PO DAILYPRN PRN PRN Reason: CONSTIPATION Last Admin: 10/20/17 10:55 Dose: 10 mg Carisoprodol (Soma) 350 mg PO QID PRN PRN Reason: Pain Last Admin: 10/19/17 17:08 Dose: 350 mg Dronedarone (Multaq) 400 mg PO BID [facility] Last Admin: 10/20/17 10:55 Dose: 400 mg Duloxetine HCl (Cymbalta) 60 mg PO QAM [facility] Last Admin: 10/20/17 10:55 Dose: 60 mg Fentanyl (Pacu-Sublimaze) 50 mcg SLOW IVP Q10MIN PRN PRN Reason: Moderate to Severe Pain (6-10) Stop: 10/20/17 13:13 Guaifenesin (Robitussin Sf) 200 mg PO Q4H PRN PRN Reason: Cough Hydralazine HCl (Apresoline) 10 mg SLOW IVP Q4H PRN PRN Reason: Systolic BP > 180 Hydroxychloroquine Sulfate (Plaquenil) 300 mg PO DAILY [facility] Last Admin: 10/20/17 10:54 Dose: 300 mg Sodium Chloride (Normal Saline 0.9%) 1,000 mls @ 50 mls/hr IV .Q20H [facility] Last Admin: 10/20/17 02:00 Dose: 1,000 mls Loperamide HCl (Imodium) 2 mg PO PRN PRN PRN Reason: Diarrhea/Loose Stools Loratadine (Claritin) 10 mg PO DAILYPRN PRN PRN Reason: Sinus Symptoms Magnesium Hydroxide (Milk Of Magnesium) 30 ml PO DAILYPRN PRN PRN Reason: Constipation Last Admin: 10/19/17 03:52 Dose: 30 ml Mineral Oil/White Petrolatum (Eucerin Cream) 0 gm TOP BIDPRN PRN PRN Reason: Dry Skin Ondansetron HCl (Zofran Odt) 4 mg PO Q6H PRN PRN Reason: Nausea/Vomiting Ondansetron HCl (Zofran) 4 mg IVP Q6H PRN PRN Reason: Nausea/Vomiting Ondansetron HCl (Pacu-Zofran) 4 mg IVP ONE PRN PRN Reason: Nausea/Vomiting Stop: 10/20/17 13:13 Pantoprazole Sodium (Protonix) 40 mg IVP Q12HR [facility] Last Admin: 10/20/17 10:54 Dose: 40 mg Lifitegrast [Xiidra] (1 Drop) 0 each EA EYE BID [facility] Phenol (Chloraseptic Codorus 180 Ml Bot) 0 ml PO PRN PRN PRN Reason: Sore Throat Promethazine HCl (Pacu-Phenergan) 6.25 mg SLOW IVP ONE PRN PRN Reason: Nausea/Vomiting Stop: 10/20/17 13:13 Promethazine HCl (Pacu-Phenergan) 6.25 mg IM ONE PRN PRN Reason: Nausea/Vomiting Stop: 10/20/17 13:13 Senna (Senokot) 2 tab PO HSPRN PRN PRN Reason: Constipation Last Admin: 10/19/17 10:35 Dose: 2 tab Sildenafil Citrate (Revatio) 20 mg PO QAM [facility] Last Admin: 10/20/17 10:55 Dose: 20 mg Sodium Chloride (Benjamin Perez Nasal Codorus 0.65%) 0 ml EA NARE QIDPRN PRN PRN Reason: Nasal Congestion Trazodone HCl (Desyrel) 100 mg PO HS [facility] Last Admin: 10/19/17 22:36 Dose: 100 mg Zolpidem Tartrate (Ambien) 5 mg PO HSPRN PRN PRN Reason: Insomnia
[2017-10-20 17:13] LABS: Folate,Hemolysate 468.4 ng/mL (Not Estab.); Hematocrit 17.5 % (34.0-46.6); RBC Folate Test Component 2677 ng/mL (>498)
[2017-10-20] MEDS: traZODone HCl 50 MG TAB PO SCH (22:22)
[2017-10-20] MEDS: Atorvastatin Calcium 20 MG TAB PO SCH (22:22)
--- NOTE | 2017-10-20 23:13 | HP ---
HISTORY OF PRESENT ILLNESS: Graciela Mcintyre presented with severe anemia and was found to have a n AVM duodenum cauterized by Dr. Solis. During that endoscopy, the patient was noted to have severe distal esophagitis as well as a large hiatal hernia. Chest x-ray 10/16/2017 was unremarkable. As s tated above, Dr. Manzano today on his dictation noted severe distal esophagitis revealing 8 cm hiatal hernia. It was Dr. Manzano, his recommendations that the family consider having this hernia repaire d. The patient lives with her daughter who is present during this discussion, performed hernia repai rs for the patient's family in the past. ALLERGIES: Allergic to CODEINE, which causes pruritus. TOBACCO USE: None for 17 years. ALCOHOL: None. MEDICATIONS: At home, Dulcolax p.r.n., Xiidra each eye b.i.d., alprazolam 1 mg t.i.d. p.r.n., duloxe magno 60 mg a.m., Plavix 75 mg a day, aspirin 81 mg a day, ferrous sulfate 65 mg t.i.d., Multaq 400 mg b.i.d., furosemide 20 mg q.a.m. [place] 10 p.r.n. pain, two tabs p.o. q.6 p.r.n. She takes this for c hronic back pain, 250 mg p.o. q.i.d. p.r.n., hydroxychloroquine 1.5 mg p.o. daily, Procardia-XL 60 a.m., lisinopril 10 b.i.d., trazodone 100 mg at bedtime, Zocor 5 mg at bedtime, sildenafil 20 mg p.o. q.a.m. Echocardiogram [address] Palomino, 35%-40% EF. On 10/01/2017, Dr. Palomino performed aortog kayla runoff with stenting the iliac arteries. Standing left common and external iliac arteries. The patient is noted to have a colonoscopy in the last 2-[address] Vega. Partial thyroidectomy, brandi gene for left breast cancer, knee surgery, inguinal hernia repair, rectocele, partial hysterectomy, l eft hip hemiarthroplasty. PAST MEDICAL HISTORY: Atrial fibrillation, chronic diastolic dysfunction, Raynaud's disease, history of breast cancer, history of osteoarthritis, coronary artery disease, status post stenting, history of myocardial infarction, rheumatoid arthritis, chronic back pain, PAD, status post stenting, left il iac arteries, hypertension, GERD, chronic kidney disease. REVIEW OF SYSTEMS: Ten point noncontributory. PHYSICAL EXAMINATION: VITAL SIGNS: 5 foot, 5 inches, 137 pounds, 32 BMI, 97.5, 56, 155/67. HEAD, EARS, EYES, NOSE AND THROAT: Unremarkable. LUNGS: Clear to auscultation. CARDIAC: Regular rate and rhythm without murmur or gallop. ABDOMEN: Soft, nontender. EXTREMITIES: Unremarkable. LABORATORY: White count 3, hemoglobin 8.6 up from 5.6 on admission. Sodium 134, potassium 5.4, BUN 63, creatinine 1.25, GFR 42. ASSESSMENT AND PLAN: 1. Gastroesophageal reflux disease with esophagitis and a large hiatal hernia. I agree with Dr. Zeenat liang's recommendations that it would be reasonable for laparoscopic hiatal hernia repair and Cisco f undoplication. Manometry studies would not be meaningful with her large hiatal hernia, probably not be worthwhile. Would recommend cardiac clearance prior to undertaking this. I told the patient that if her symptoms are well controlled on Nexium and her hiatal hernia was not asymptomatic, the consid eration for observation can be made. However, the patient's daughter and the patient reports that sh nette has frequent breakthrough heartburn and regurgitation and coughing at night. We are going to ask h er to follow up with Dr. Palomino in outpatient followup. 1. She can follow up with me after visiting with Dr. Palomino about her cardiac fitness for a lapar oscopic Cisco fundoplication and hiatal hernia repair 2. Chronic kidney disease. 3. GERD. 4. Atrial fibrillation. 5. Coronary artery disease. 6. PAD.
[2017-10-21] MEDS: Sodium Chloride 0.9% 1,000 ML IV SCH (01:00)
[2017-10-21 05:34] LABS: #Eosinphils 0.2 thou/uL (0.0-0.7); #Lymphocytes 0.5 thou/uL (1.20-3.40); #Monocytes 0.4 thou/uL (0.11-0.59); #Neutrophils 2.1 thou/uL (1.40-6.50); %Basophils 0.6 % (0.0-1.0); %Eosinophils 7.4 % (0.0-10.0); %Lymphocytes 16.1 % (21.0-51.0); %Monocytes 11.4 % (0.0-10.0); %Neutrophils 64.5 % (42.0-75.0); Mean Corpuscular HGB CONC 34.3 g/dL (32.0-36.0); Mean Corpuscular Hemoglobin 32.4 pg (27.0-31.0); Mean Corpuscular Volume 94.5 fL (78.0-98.0); Mean Platelet Volume 6.7 fL (7.4-10.4); Platelet Count 151 thou/uL (130-400); RBC Distribution Width 16.1 % (11.5-14.5); Red Blood Cell (RBC) Count 2.48 mill/uL (4.20-5.40); White Blood Cell (WBC) Count 3.2 thou/uL (4.8-10.8)
[2017-10-21 05:48] LABS: Anion Gap 13 mmol/L (10-20); BUN (Urea Nitrogen) 42 mg/dL (9.8-20.1); Calc. Creatinine Clearance 48 mL/min (70-130); Calcium 7.9 mg/dL (7.8-10.44); Carbon Dioxide 17 mmol/L (23-31); Chloride 112 mmol/L (98-107); Estimated GFR-MDRD 56; Glucose 94 mg/dL (83-110); Potassium 4.7 mmol/L (3.5-5.1); Sodium 137 mmol/L (136-145)
[2017-10-21] MEDS ORDERED: Bisacodyl 5 MG TAB PO PRN (07:06)
[2017-10-21 07:36] VITALS: BP 194/81; TEMP 98.1
[2017-10-21] MEDS: HYDROcodone/Acetaminophen 10/325 mg Tablet PO PRN (08:26)
[2017-10-21] MEDS: Sildenafil Citrate 20 MG TAB PO SCH (08:28)
[2017-10-21] MEDS: Dronedarone HCl 400 MG TAB PO SCH (08:29)
[2017-10-21] MEDS: Hydroxychloroquine Sulfate 200 MG TAB PO SCH (08:30)
[2017-10-21] MEDS: Pantoprazole 40 MG VIAL IVP SCH (08:31)
[2017-10-21] MEDS: DULoxetine 60 MG CAP PO SCH (08:31)
[2017-10-21] MEDS ORDERED: Lisinopril 10 MG TAB PO SCH (09:00)
[2017-10-21] MEDS ORDERED: NIFEdipine XL 60 MG TAB PO SCH (09:00)
--- NOTE | 2017-10-21 12:26 | DIS ---
DATE OF ADMISSION: 10/17/2017 DATE OF DISCHARGE: 10/21/2017 PRIMARY CARE PHYSICIAN: [facility] call admission. DISCHARGE DISPOSITION: Home. PRIMARY DISCHARGE DIAGNOSES: 1. Symptomatic anemia, status post 3 unit blood transfusion. 2. AV malformation in the duodenum, status post cauterization. 3. Gastrointestinal bleed, acute due to problem #2. 4. Acute kidney failure, improved. 5. Hyperkalemia and hyponatremia, corrected. 6. Ulcer of the toe of the left foot. SECONDARY DISCHARGE DIAGNOSES: Peripheral vascular disease, hypertension, dyslipidemia, anxiety and depression, reflux esophagitis, hiatal hernia, atrial fibrillation paroxysmal. PRIMARY PROCEDURE/OPERATION: Upper endoscopy was performed by Dr. Manzano and found with large hiata l hernia with reflux esophagitis. The patient has actively bleeding AV malformation in second portio n of duodenum which was cauterized. Stomach was within normal limits. Caity salmon-colored mucosa on the distal esophagus. RADIOLOGICAL INVESTIGATION: Chest x-ray, lower extremity arterial Doppler ultrasound. SIGNIFICANT LABORATORY DATA: Hemoglobin 8.0, WBC 3.2, platelet 151. INR 1.1. Sodium 137, potassium 4.7 and creatinine 0.96. LFT normal. Cardiac enzymes negative. Urinalysis; leukocyte moderate. S tool for guaiac positive. DISCHARGE MEDICATIONS: Xanax 1 mg p.o. t.i.d. p.r.n., Dulcolax 10 mg daily p.r.n., Soma 350 mg p.o. q.i.d. p.r.n., Multaq 400 mg p.o. b.i.d., Cymbalta 60 mg p.o. daily, Nexium 40 mg p.o. b.i.d., iron 6 5 mg p.o. t.i.d., Lasix 20 mg p.o. daily, Neville 10 one 2 tablets q.6 hours p.r.n., Plaquenil 300 mg p .o. daily, Lifitegrast eyedrops b.i.d., lisinopril 10 mg p.o. b.i.d., Procardia-XL 60 mg p.o. daily, Viagra 20 mg p.o. daily, Zocor 40 mg p.o. at bedtime, trazodone 100 mg p.o. at bedtime. Aspirin and Plavix, both medications will be started when GI clears. CONTRAINDICATIONS: None. CODE STATUS: FULL CODE. INPATIENT CONSULTANTS: Dr. Jose Juan Ott was following while in hospital. Dr. Perez was consulted for hiatal hernia. TEST RESULTS PENDING ON DISCHARGE: None. ALLERGIES: CODEINE. DISCHARGE PLAN: Post hospital, patient will follow up with primary care physician. The patient is i nstructed to follow up with Dr. Candelario Larkin for cardiac clearance for surgery. Patient will fo llow up with Dr. Perez after cardiac clearance for hiatal hernia. Patient will follow up with Dr. Rell Ott. HOSPITAL COURSE: A 76-year-old female who was admitted by me on 10/17/2017. Please see my HPI for f urther details. Patient was having dark stool and she was having symptomatic anemia with fatigue, ge neralized weakness and chest discomfort. She was also found with acute kidney failure, hyperkalemia and hyponatremia. On admission, her hemoglobin was 5.6. She was given total of 3 units of blood tra nsfusion. By the time of discharge, her hemoglobin is 8.0. Initially, we consulted gastroenterologi st because stool was positive for guaiac. The patient was on aspirin and Plavix and that is why we h ad concern for GI bleed. Initially, this patient was refusing to go for upper endoscopic evaluation, but subsequently she agreed to go for endoscopic evaluation. She had recurrent drop in hemoglobin. She required total of 3 units of blood transfusion. She initially required telemetry admission for close monitoring. She initially required to hold blood pressure medication because of hypotension. With IV fluid, her blood pressure improved and patient's blood pressure now going up and at that poin t, we restarted her lisinopril as well as Procardia. While in hospital, we have to hold off lisinopr il because of hyperkalemia and acute kidney failure, but by the time of discharge as her renal functi on improved and her potassium improved, that medication is resumed. The patient needs to follow up w ith primary care physician for repeat BMP testing. She did not have any UTI symptoms. She did not have any fever while in hospital. She did not requir e any antibiotic therapy while in hospital. The patient underwent upper endoscopy and found with AV malformation with active bleeding which required cauterization. Patient also found with salmon-color ed mucosa in distal esophagus and large hiatal hernia, that is why Dr. Perez was consulted who is pl anning to do laparoscopic fundoplication as an outpatient basis after cardiac clearance. Patient is instructed to follow up with Dr. Palomino for cardiac clearance and subsequently she will see Dr. Smith. The patient is also instructed to follow up with primary care physician. The patient is instr ucted to continue all other medication except aspirin and Plavix which can be resumed when GI clears. Dr. Jose Juan Ott will evaluate this patient before discharge and then he will give final recommenda tion about that medication. The patient is seen and examined at bedside today. She is hemodynamically stable. Her blood pressur e is going up and that is why we restarted blood pressure medication today. We discontinued IV fluid today. Her examination is unremarkable. She does have ulcer over left little toe and left foot which requir ed wound care while in hospital. The patient is overall medically stable for discharge today.
--- NOTE | 2017-10-21 14:05 | PRG ---
DATE OF SERVICE: 10/20/2017 REASON FOR CONSULTATION: Anemia. SUBJECTIVE: The patient underwent EGD yesterday with the finding of an actively bleeding arterioveno us malformation within the second portion of the duodenum. This was successfully intervened upon wit h bipolar cauterization. Good hemostasis achieved. Overnight she did have one solid dark/black colo red bowel movement, but otherwise states that she is doing fine. Currently, denies any nausea, vomit ing, fevers, chills, abdominal pain, diarrhea or constipation. OBJECTIVE: VITAL SIGNS: Temperature 98.1, pulse 62, blood pressure 194/81, respiratory rate 20, satting 95% on room air. GENERAL: The patient sitting at bedside in no acute distress. Alert and oriented x4. CARDIOVASCULAR: Regular rate and rhythm with a 3/6 systolic murmur best heard at the left lower ster nal border. LUNGS: Clear to auscultation bilaterally. ABDOMEN: Normoactive bowel sounds, soft, nontender, nondistended. EXTREMITIES: Mild to moderate pitting edema of the bilateral lower extremity extending to mid adams a s well as nonhealing ulcerations on both the right and left lower extremity. LABORATORY DATA: CBC with white blood cell count of 3.2, hemoglobin 8.0, hematocrit 23.4, platelets 151. Chemistry with a sodium of 137, potassium 4.7, chloride 112, CO2 17, BUN 42, creatinine 0.96, g lucose of 94. IMAGING DATA: No current GI imaging is available for review. ASSESSMENT AND PLAN: The patient is a 76-year-old female with past medical history of hypertension, hyperlipidemia, breast cancer status post resection, Raynaud's phenomenon, peripheral vascular diseas e, osteoarthritis, anxiety, coronary artery disease, and depression presenting with symptomatic anemi a, which could have been due to arteriovenous malformation. Symptomatic anemia. The patient initially presented with a 2-3 day history of increased dyspnea on e xertion, palpitation and worsening of her lower extremity edema that prompted her to seek healthcare assistance. On admission, she was noted to have a decreased H&H when compared to previous with her c hronic use of iron supplementation over the last 2-3 years, it was difficult to discern whether or no t this was an iron deficiency anemia secondary to chronic gastrointestinal blood loss versus anemia o f non-GI etiology. She was initially reluctant to proceed with endoscopic management, but ultimately underwent EGD on 10/20/2017, with the finding of a small actively bleeding arteriovenous malformatio n within the second portion of the duodenum. This was intervened upon successfully with bipolar caut erization with good hemostasis achieved. She did have a mild decrease in her H&H, when compared to y esterday and has had 1 solid black stool which is not consistent with the clinical diagnosis of melen a. Given her improved clinical status and this morning H&H, it is less likely to be due to actively GI bleed; however, she will need follow up as an outpatient for monitoring of her CBC. RECOMMENDATIONS: 1. While inpatient would continue to trend H&H and transfuse as necessary. 2. Continue to monitor clinically for signs of active gastrointestinal bleeding. 3. The patient will need a repeat CBC in approximately 1-2 weeks for reevaluation of anemia. 4. Would hold her clopidogrel for approximately 24 hours more to facilitate clot formation from the intervention yesterday, can restart aspirin today. From a GI standpoint, no further intervention is recommended. We will sign off at this time. Please call with any additional questions.
== END 2017-10-21 14:53 | disposition home or self-care (01) | DRG 378 ==
LOC: ERS 21:39 → 2SE 10-17 00:13 → ONC 10-20 16:11
PROVIDERS: ADMIT Hospitalist; ATTEND Hospitalist
PROC: 30233N1 Transfusion of Nonautologous Red Blood Cells into Peripheral Vein, Percutaneous Approach (ICD-10-PCS; principal; 2017-10-18)
PROC: 0W3P8ZZ Control Bleeding in Gastrointestinal Tract, Via Natural or Artificial Opening Endoscopic (ICD-10-PCS; 2017-10-20)
DX: K31.811 Angiodysplasia of stomach and duodenum with bleeding (principal); I13.0 Hypertensive heart and chronic kidney disease with heart failure and stage 1 through stage 4 chronic kidney disease, or unspecified chronic kidney disease; N17.9 Acute kidney failure, unspecified; E87.1 Hypo-osmolality and hyponatremia; I50.32 Chronic diastolic (congestive) heart failure; Q27.33 Arteriovenous malformation of digestive system vessel; D63.1 Anemia in chronic kidney disease; E87.5 Hyperkalemia; R07.9 Chest pain, unspecified; K22.70 Barrett's esophagus without dysplasia; L97.529 Non-pressure chronic ulcer of other part of left foot with unspecified severity; I48.0 Paroxysmal atrial fibrillation; Z79.01 Long term (current) use of anticoagulants; I73.9 Peripheral vascular disease, unspecified; K44.9 Diaphragmatic hernia without obstruction or gangrene; I73.00 Raynaud's syndrome without gangrene; Z85.3 Personal history of malignant neoplasm of breast; M19.90 Unspecified osteoarthritis, unspecified site; I25.10 Atherosclerotic heart disease of native coronary artery without angina pectoris; Z79.82 Long term (current) use of aspirin; N18.9 Chronic kidney disease, unspecified; D63.8 Anemia in other chronic diseases classified elsewhere
CPT/HCPCS: 36415; 36430; 71045; 80048; 80053; 81003; 81015; 82274; 82553; 82570; 82607; 82728; 82747; 83540; 83550; 84156; 84300; 84484; 85014; 85018; 85025; 85046; 85379; 85610; 85730; 86850; 86900; 86901; 93005; 93923; 96361; 96374; 96375; C9113; G8978-GP-CI; G8979-GP-CI; G8980-GP-CI; G8987-GO-CK; G8988-GO-CI; J2270; P9016; S0028

== ENCOUNTER 2017-11-18 08:38 | Inpatient (IN) | payer MEDICARE ==
[2017-11-18 09:28] LABS: Hemoglobin 5.8 g/dL (12.0-16.0); Mean Corpuscular HGB CONC 32.4 g/dL (32.0-36.0); Mean Corpuscular Hemoglobin 31.2 pg (27.0-31.0); Mean Corpuscular Volume 96.4 fL (78.0-98.0); Mean Platelet Volume 7.5 fL (7.4-10.4); Platelet Count 125 thou/uL (130-400); RBC Distribution Width 14.4 % (11.5-14.5); Red Blood Cell (RBC) Count 1.86 mill/uL (4.20-5.40)
[2017-11-18 09:40] LABS: Band 7 % (5-11); Eosinophils 3 % (0-10); Lymphocytes 13 % (21-51); MDiff Complete? YES; Monocytes 6 % (0-10); Neutrophil 71 % (42-75); Ovalocytes SLIGHT = 2-5 cells (100X) (0-1/hpf); PLT Morphology Comment Appears Decreased; Polychromasia SLIGHT = 2-3 cells (100X) (0-2/hpf); Tear Drops SLIGHT = 2-5 cells (100X) (0-1/hpf)
[2017-11-18 09:43] LABS: ALT (SGPT) 26 U/L (8-55); AST (SGOT) 23 U/L (5-34); Albumin 2.9 g/dL (3.4-4.8); Alkaline Phosphatase 88 U/L (40-150); Anion Gap 11 mmol/L (10-20); BUN (Urea Nitrogen) 106 mg/dL (9.8-20.1); Bilirubin, Total 0.2 mg/dL (0.2-1.2); CK (CPK) 136 U/L (29-168); Calc. Creatinine Clearance 0 mL/min (70-130); Calcium 8.3 mg/dL (7.8-10.44); Carbon Dioxide 23 mmol/L (23-31); Chloride 103 mmol/L (98-107); Estimated GFR-MDRD 19; Globulin 2.4 g/dL (2.4-3.5); Glucose 107 mg/dL (83-110); Potassium 4.9 mmol/L (3.5-5.1); Protein, Total 5.3 g/dL (6.0-8.3); Sodium 132 mmol/L (136-145)
[2017-11-18 09:56] LABS: Troponin I 0.039 ng/mL (< 0.028)
[2017-11-18 09:59] LABS: CKMB 2.5 ng/mL (0-6.6)
--- NOTE | 2017-11-18 10:08 | RAD ---
AP VIEW OF THE CHEST: INDICATION: Altered mental status. COMPARISON: Prior exam dated 10/16/17. FINDINGS: Chronic lung changes are stable. Mild cardiomegaly is stable. No airspace opacity or pleural effusi on is grossly evident. Osseous structures are unchanged. IMPRESSION: No definite acute cardiopulmonary abnormality. The examination is not appreciably changed from a com parison dated 10/16/17. POS: [facility]
--- NOTE | 2017-11-18 10:10 | CT ---
CT OF THE BRAIN WITHOUT CONTRAST: COMPARISON: 05/02/10. HISTORY: Altered mental status. Confusion for a week. TECHNIQUE: Multiple contiguous axial images were obtained in a CT of the brain without contrast. FINDINGS: There are a few scattered hypodensities in subcortical and periventricular white matter, likely secon ronal small-vessel ischemic disease. No large confluent infarction is seen. There is no evidence of hydrocephalus, intracranial hemorrhage, or extraaxial fluid collection. The calvarium and overlying soft tissues are unremarkable. The visualized paranasal sinuses and mast oid air cells are well aerated. IMPRESSION: No evidence of acute intracranial abnormality. POS: [facility]
[2017-11-18] MEDS ORDERED: Fentanyl 100 MCG/2 ML VIAL ONE ×2 (10:29→12:41)
[2017-11-18 11:02] LABS: Bilirubin Negative (Negative); Blood, Urine Negative (Negative); Glucose, Urine (Dipstick) Negative (Negative); Leukocyte Moderate (Negative); Nitrite Negative (Negative); Protein, Urine (Dipstick) Negative (Neg-Trace); Urobilinogen 0.2 mg/dL (0.2-1.0)
[2017-11-18 11:07] LABS: Clarity CLEAR (Clear)
[2017-11-18 11:08] LABS: Specific Gravity, Urine 1.013 (1.002-1.036)
[2017-11-18 11:13] LABS: Bacteria/HPF 2+ HPF (None Seen); Hyaline Casts/LPF NONE SEEN LPF (0-3 Hyaline); RBC/HPF 0-3 HPF (0-3); WBC/HPF 21-50 HPF (0-3)
[2017-11-18] MEDS ORDERED: cefTRIAXone\\ROCEPHIN 2 GM VIAL ONE (11:44)
[2017-11-18] MEDS ORDERED: Pantoprazole 40 MG VIAL ONE (11:44)
[2017-11-18] MEDS ORDERED: Fentanyl 100 MCG/2 ML VIAL SLOW IVP PRN (13:14)
[2017-11-18] MEDS: Sodium Chloride 0.9% 1,000 ML IV SCH ×2 (13:40→20:40)
[2017-11-18] MEDS: Diltiazem 125 MG in Sodium Chloride 0.9% 100 ML IVPB SCH (14:49)
[2017-11-18 15:09] LABS: Hemoglobin 5.1 g/dL (12.0-16.0); Mean Corpuscular Hemoglobin 30.9 pg (27.0-31.0); Mean Corpuscular Volume 96.5 fL (78.0-98.0); Mean Platelet Volume 6.9 fL (7.4-10.4); Platelet Count 118 thou/uL (130-400); RBC Distribution Width 14.8 % (11.5-14.5); Red Blood Cell (RBC) Count 1.64 mill/uL (4.20-5.40); White Blood Cell (WBC) Count 6.4 thou/uL (4.8-10.8)
[2017-11-18 15:16] LABS: Troponin I 0.081 ng/mL (< 0.028)
[2017-11-18 16:19] LABS: Burr Cells SLIGHT = 2-5 cells (100X) (0-1/hpf); Hypochromia MODERATE=16-30 cells (100X) (0-5/hpf); Lymphocytes 6 % (21-51); MDiff Complete? YES; Monocytes 12 % (0-10); Neutrophil 82 % (42-75); PLT Morphology Comment Appears Decreased; Polychromasia SLIGHT = 2-3 cells (100X) (0-2/hpf)
--- NOTE | 2017-11-18 18:08 | PRG ---
DATE OF SERVICE: 11/18/2017 Subsequent to the patient resuming sinus rhythm, a code green was called as the patient was a bit cyanotic and sats dropped into the 70s. On my arrival, the patient was doing somewhat better. She was more awake. Her blood pressure was stable and her oxygen saturations had improved a bit. I discussed with the blood bank and her blood was going to be ready momentarily. Counseled the patient's daughter who was highly emotional about the situation and the patient' s son regarding the entire situation. Ultimately, blood was started and the patient appears to be stabilized. I also discussed the case with GI and Cardiology. Given the situation, there are multiple competing pathologies including her peripheral vascular disease with some stenting, would necessitate antiplatelet therapy along with her GI bleeding and anemia, which would preclude the use of those. May need to go just a low dose aspirin and hold the Plavix going forward. Cardiology recommendation is pending. We will also anticipate possible endoscopy tomorrow. Total time in critical care 64 min. WILLIAMSD
[2017-11-18] MEDS: Pantoprazole 80 MG in Sodium Chloride 0.9% 100 ML IVP SCH (18:36)
--- NOTE | 2017-11-18 19:18 | CON ---
DATE OF CONSULTATION: 11/18/2017 REASON FOR CONSULTATION: Atrial fibrillation. HISTORY OF PRESENT ILLNESS: Ms. Mcintyre is a very pleasant 76-year-old woman I have seen and eval uated in the past. She has a history of severe PVD with complete occlusion of the left iliac artery. She underwent successful stent placement to the left iliac artery. I was not able to visualize the left SFA due to limiting contrast and renal insufficiency. She was scheduled for repeat procedure 2 weeks ago to assess the left SFA, but continued to have elevated creatinine and decrease in hemoglob in. She recently presented with mental status changes. She was found to have a hemoglobin of 5.5. She i s also found to be in atrial fibrillation with RVR. She was placed on IV Cardizem and has subsequent ly converted. PAST MEDICAL HISTORY: Severe PVD, hypertension, hyperlipidemia, PVD, hypertension, previous pneumoni a, partial hip replacement, Raynaud's phenomena. ALLERGIES: CODEINE. HOME MEDICATIONS: Include aspirin, lisinopril, fish oil, calcium, fluoxetine, hydrocodone, simvastat in, iron, nifedipine, sildenafil, trazodone, alprazolam, Plavix, and Lasix. SOCIAL HISTORY: No current tobacco or alcohol use. REVIEW OF SYSTEMS: Ten point review of systems is reviewed and as above, otherwise negative. PHYSICAL EXAMINATION: VITAL SIGNS: Blood pressure 130/63, pulse 81, temperature 99.4. PHYSICAL EXAMINATION: GENERAL: Patient is a pleasant male/female who is in no acute distress. The patient appears his/her stated age. VITAL SIGNS: Blood pressure , pulse , temperature . NEUROLOGIC: The patient is alert and oriented times 3 with no focal neurologic deficits. HEENT: Sclerae without icterus. Mouth has moist mucous membranes with normal pallor. NECK: No JVD. Carotid upstroke brisk. No bruits bilaterally. LUNGS: Clear to auscultation with unlabored respirations. BACK: No scoliosis or kyphosis. CARDIAC: Regular rate and rhythm with normal S1 and S2. No S3 or S4 noted. No significant rubs, mu rmurs, thrills, or gallops noted throughout the precordium. PMI is not displaced. There is no mario ternal heave. ABDOMEN: Soft, nontender, nondistended. No peritoneal signs present. No hepatosplenomegaly. No ab normal striae. EXTREMITIES: 2+ femoral and 2+ dorsalis pedis pulses. No cyanosis, clubbing, or edema. Left lower extremity to decreased pulse noted in the left popliteal artery and dorsal pedis region, there is a s mall healing ulceration present to the left. SKIN: No gross abnormalities. LABORATORY DATA: Hemoglobin 5.1, white blood cell count 6.4, platelet count 118, creatinine 2.46 wit h a GFR of 19. Sodium 132. IMPRESSION: 1. Atrial fibrillation, now sinus rhythm. 2. Severe peripheral vascular disease. 3. Severe anemia. 4. Chronic kidney disease stage 4. 5. Ms. Mcintyre's current situation is quite complex. I would like to try and revascularize her l eft SFA, but have not been able due to significant anemia in addition to chronic kidney disease. Her hemoglobin is profoundly decreased. She is currently being transfused. She has had AVMs in the pas t. At this point, would recommend stopping Plavix. I discussed the risks and benefits with Ms. Octavio story as well as her daughter. There are concerns about issues of stent placed last month, but at t his point we will have to stop Plavix and continue low dose aspirin. Given comorbidities, prognosis appears guarded.
--- NOTE | 2017-11-18 23:18 | CON ---
DATE OF CONSULTATION: 11/18/2017 GI INPATIENT CONSULTATION NOTE REQUESTING PHYSICIAN: Morales Holt M.D. REASON FOR CONSULTATION: Anemia and suspected gastrointestinal bleeding. HISTORY OF PRESENT ILLNESS: Graciela Mcintyre is a 76-year-old woman [facility], Dr. Tiburcio Vega. She has a significant medical history of breast cancer, hypert ension, left hip surgery and more recently left lower extremity stent placement for severe peripheral vascular disease and what sounds like critical ischemia to that extremity. This occurred on 018 and she has been on Plavix since then. She was recently hospitalized about a month ago with repo rt of melena and severe symptomatic anemia with hemoglobin 5.6 at that time. She was seen by Dr. Oskar chopra. He performed EGD on 10/20/2017. The EGD demonstrated an arteriovenous malformation in the secon d portion of the duodenum, which was actually actively bleeding. He cauterized this area with bipola r cautery with good hemostasis. He had recommended that she be on a proton pump inhibitor therapy. The patient has continued on Plavix. She takes Nexium 40 mg daily, and she also takes iron 65 mg 3 t imes daily. Her son and daughter are her primary caregivers and they are both present today. They s [place] that over the past month she has not had any evidence of overt gastrointestinal bleeding. She d oes not have diarrhea. She is not ever really complaining of abdominal pain or nausea. Her bowel mo vements are usually brown, though sometimes they are quite dark, but there is no hematochezia reporte d. Over the past couple of days, the patient has had a gradual decline in functional status, general ized weakness, and then today was having altered mental status and this prompted her presentation. U fabrice arrival to the ER, hemoglobin was found to be 5.8 and this is a decline from 8.6 on a [facility] 1 month ago. Recheck hemoglobin was down to 5.1. She has some acute on chronic kidney injur y as well with BUN up to 106, and creatinine 2.46. She is now receiving it appears 5 units of blood transfusion. Her blood pressures have been stable; however, she has been intermittently tachyc ardic. Telemetry demonstrates that this actually appears to represent a new onset atrial fibrillatio n, which she is going in and out of when she is in sinus rhythm; her heart rate is normal. REVIEW OF SYSTEMS: Full review of systems including constitutional, head, eyes, ears, nose, throat, GI, , cardiovascular, respiratory, musculoskeletal, and neurologic systems is negative except as no joaquim in the HPI. PAST MEDICAL HISTORY: 1. Breast cancer. 2. Hypertension. 3. Raynaud's disease. 4. Left hip surgery. 5. Thyroidectomy. 6. Hysterectomy. 7. Peripheral vascular disease with left lower extremity stent placement 09/2017, currently on Plavi x. 8. Hiatal hernia. 9. Jason's esophagus. 10. Grade D erosive esophagitis, demonstrated on EGD October 2017. 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 ALLERGIES: CODEINE. OUTPATIENT MEDICATIONS: Amlodipine, trazodone, ferrous sulfate 65 mg 3 times daily, furosemide, monica soprodol, aspirin 81 mg daily, Plavix 75 mg daily, lisinopril, hydrocodone/acetaminophen, Nexium 40 m g daily, Multaq, simvastatin, alprazolam, sildenafil, hydroxychloroquine, nifedipine, duloxetine. SOCIAL HISTORY: No smoking, alcohol, or drug use. FAMILY HISTORY: Negative for GI malignancy. PHYSICAL EXAMINATION: VITAL SIGNS: Temperature 98.2, pulse 90, blood pressure 146/64, 99% oxygen saturation on 5 liters na janneth cannula. GENERAL: Chronically ill appearing 76-year-old woman lying in bed comfortably in no distress. MENTAL: She is alert, is oriented to person and place, but she is not really able to provide any det ails of recent medical history. SKIN: She is pale, no jaundice. She has a sacral decubitus ulcer, which has been previously documen joaquim. ENT: Mucous membranes moist, no oral lesions. LYMPH: No submandibular, supraclavicular lymphadenopathy. THYROID: Nontender to palpation of the neck. HEART: Regular rate and rhythm currently. LUNGS: Clear to auscultation bilaterally. Respirations nonlabored. ABDOMEN: Bowel sounds are present, soft, nontender to palpation throughout. EXTREMITIES: No peripheral edema. NEUROLOGIC: Cranial nerves grossly intact bilaterally. RECTAL: I did perform a rectal exam, there are no masses in the anal canal. There is some hard stoo l, which I manually disimpacted. The stool is dark in color, but not grossly melenic and has an appe arance more consistent with iron supplementation. LABORATORY STUDIES: Hemoglobin 5.1, WBC 6.4, platelets 118, BUN 106, creatinine 2.46. Sodium 132, p otassium 4.9. Urinalysis shows moderate leukocyte esterase and 21-50 WBCs, total bilirubin 0.2, bartolo line phosphatase , AST is 23, ALT 26, albumin 2.9, troponin 0.08. TSH 3.34. IMAGING STUDIES: Chest x-ray shows cardiomegaly, but no acute processes. Head CT shows no acute pro cesses. ASSESSMENT AND PLAN: 1. Severe symptomatic anemia, recurrent. 2. Suspicion for recurrent upper gastrointestinal bleeding. 3. History of duodenal arteriovenous malformation, recently treated with bipolar cautery on 10/21/19 18. 4. Severe peripheral vascular disease, on Plavix for over the past month. 5. Arrhythmia. At this time, I do not see any evidence of hemodynamically significant active gastro intestinal bleeding. On her rectal exam, she has hard stool in the rectal vault. This is dark in co dereck, but not grossly melenic and likely secondary to her iron supplementation. Her tachycardia seems to be associated with going in and out of her arrhythmia and does not appear to represent a sinus ta chycardia as would be seen with acute hemorrhagic shock. That being said, she does have recurrent se ella anemia in the context of recent intervention on a duodenal AVM and continues on Plavix. It is c ertainly possible that ongoing upper gastrointestinal bleeding could be contributing to her presentat ion. I agree with transfusion and close stranding of the H&H as well as the PPI drip. Regarding the Plavix, this is a difficult situation with potential recurrent bleeding, known arteriovenous malform ation disease of the small bowel, but also recent lower extremity stent. [facility] There is no indication for urgent upper endoscopy today, but we will plan on this for tomorrow. For now, continue with the IV PPI, get her transfused, work on rate control and further workup of this ar rhythmia. Thank you for the consultation. Please call any time with questions or concerns or significant ruiz es in the patient's clinical status, particularly if there is concern for overt gastrointestinal blee ding overnight.
[2017-11-19 00:47] LABS: Troponin I 0.446 ng/mL (< 0.028)
[2017-11-19 01:16] LABS: Bilirubin Negative (Negative); Blood, Urine Small (Negative); Clarity CLOUDY (Clear); Glucose, Urine (Dipstick) Negative (Negative); Leukocyte Large (Negative); Nitrite Negative (Negative); Protein, Urine (Dipstick) Trace mg/dL (Neg-Trace); Urobilinogen 0.2 mg/dL (0.2-1.0); pH, Urine 5.5 (5.0-9.0)
[2017-11-19] MEDS ORDERED: Furosemide 40 MG/4 ML VIAL ONE (01:16)
[2017-11-19 01:18] LABS: Bacteria/HPF None Seen HPF (None Seen)
[2017-11-19 01:19] LABS: Pathc Cast-AUWi Flag 4.79 (0-2.49)
[2017-11-19 01:37] LABS: Actual Bicarbonate (HCO3a) 17.9 mEq/L (22-28); CO2 Tension 27.1 mmHg (35.0-45.0); O2 Tension (PaO2) 86.1 mmHg (> 70.0); pH, Arterial 7.44 (7.35-7.45)
[2017-11-19 01:38] LABS: Carboxyhemoglobin (COHb) 1.3 gm% (0.0-3.0); Hemoglobin (Hb) 11.4 g/dL (12.0-16.0)
[2017-11-19 01:39] LABS: Calcium, Ionized 1.16 mmol/L (1.12-1.30)
[2017-11-19 01:40] LABS: ALV-art Gradient 588.025 (0-20); Puncture Site RRA
[2017-11-19 01:53] LABS: Hyaline Casts/LPF NONE SEEN LPF (0-3 Hyaline); Other Casts/LPF None Seen LPF (0-3 Hyaline); Renal Epithelial None Seen HPF (0-3); Transitional Epithelial NONE SEEN HPF (0-3)
[2017-11-19 06:35] LABS: #Lymphocytes 0.4 thou/uL (1.20-3.40); #Monocytes 0.6 thou/uL (0.11-0.59); #Neutrophils 8.1 thou/uL (1.40-6.50); %Basophils 0.4 % (0.0-1.0); %Eosinophils 0.2 % (0.0-10.0); %Lymphocytes 4.7 % (21.0-51.0); %Monocytes 6.8 % (0.0-10.0); %Neutrophils 87.9 % (42.0-75.0); Hemoglobin 10.9 g/dL (12.0-16.0); Mean Corpuscular HGB CONC 32.6 g/dL (32.0-36.0); Mean Corpuscular Hemoglobin 30.2 pg (27.0-31.0); Mean Corpuscular Volume 92.4 fL (78.0-98.0); Mean Platelet Volume 7.9 fL (7.4-10.4); Platelet Count 184 thou/uL (130-400); RBC Distribution Width 15.3 % (11.5-14.5); Red Blood Cell (RBC) Count 3.61 mill/uL (4.20-5.40); White Blood Cell (WBC) Count 9.2 thou/uL (4.8-10.8)
[2017-11-19 06:37] LABS: Anion Gap 20 mmol/L (10-20); BUN (Urea Nitrogen) 76 mg/dL (9.8-20.1); Calc. Creatinine Clearance 32 mL/min (70-130); Calcium 9.2 mg/dL (7.8-10.44); Carbon Dioxide 17 mmol/L (23-31); Chloride 106 mmol/L (98-107); Estimated GFR-MDRD 34; Glucose 129 mg/dL (83-110); Sodium 139 mmol/L (136-145)
[2017-11-19 07:05] LABS: Potassium 3.7 mmol/L (3.5-5.1)
--- NOTE | 2017-11-19 07:39 | PDOC.CTH ---
Cardiology Progress Note - Subjective Pt doing poorly this am. Pt requiring NRB. Creatinine has improved but pt appears fluid overloaded. No recent echo - Objective Vital Signs Temp Pulse Pulse Resp BP BP Pulse Ox 11/19/17 04:00 98.0 F 129 H 21 H 174/93 H 92 L 11/19/17 00:00 123 H 24 H 176/78 H 89 L 11/18/17 23:28 97.5 F L 88 28 H 169/72 H 91 L 11/18/17 20:24 98.9 F 77 19 141/63 H 94 L 11/18/17 20:08 98.9 F 79 19 139/63 94 L 11/18/17 20:05 98.3 F 79 20 139/63 94 L Weight 138 lb 9.6 oz 11/18/17 11/19/17 11/20/17 06:59 06:59 06:59 Intake Total 2934 Output Total 3075 Balance -141 - Physical Examination General/Neuro: NAD Neck: no JVD present Lungs: other: (crackles bilaterally 2/3 up) Heart: other: (IRR) Abdomen: soft Extremities: + femoral B - Labs Result Diagrams: 11/19/17 06:09 11/19/17 06:09 Troponin/CKMB CK-MB (CK-2) 2.5 ng/mL (0-6.6) 11/18/17 09:13 Troponin I 0.446 ng/mL (< 0.028) H* 11/18/17 23:30 - Assessment/Plan Anemia RI Severe PVD Afib Continue IV CCB; on po CCB Multaq started Hb improved after transfusion Creatinine also better IV lasix given significant crackles noted bilaterally (aware of creatinine)\ Nephrology consult Prognosis is poor given multi organ failure with anemia and severe PVD ([id number])
--- NOTE | 2017-11-19 08:07 | HP ---
CHIEF COMPLAINT: Confusion. HISTORY OF PRESENT ILLNESS: This patient is a 76-year-old female, who has chronic pain syndrome and follows with Dr. Suh for that. The patient has a significant peripheral vascular disease as w ell. Patient was actually seen on 10/01/2017 where she had stents placed in the left common iliac an d external iliac artery secondary to complete occlusion. The patient also has some chronic nonhealin g vascular ulcers of her lower extremities. These have been followed as an outpatient by Wound Care. She also had atrial fibrillation with rapid ventricular response and anemia at that time with a hem oglobin of 7.8. Note, her creatinine at that time was 1.1. Subsequently, the patient was admitted a gain on 10/17/2017 with acute symptomatic anemia with a hemoglobin around 5.8. The patient received 3 units of blood at that time and was subsequently evaluated by GI. GI performed an endoscopy, which revealed a bleeding AVM in the second portion of the duodenum. This was cauterized and the patient appeared to stabilize subsequently was discharged to home. 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 Also, of note, the patient had a significant 8 cm hiatal hernia with some severe distal esophagitis. Recommendatio n was for a surgical fundoplication once the patient was adequately stable. That has not occurred as of yet. The patient presented back today with her daughter to the Emergency Department with the con fusion and a pale appearance per the daughter. Currently, the patient remains confused. I was able to speak to the daughter very briefly, but she left when I stepped away to put some urgent medication orders in for the patient. REVIEW OF SYSTEMS: Cannot be obtained from the patient because of her altered mental status. 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 PAST SURGICAL HISTORY: Includes the AVM cauterization in the second portion of duodenum, partial thy roidectomy, surgery for left breast carcinoma, knee surgery, hernia repair, rectocele repair, hystere ctomy, and left hip arthroplasty. FAMILY HISTORY: Notable for diabetes, coronary disease. SOCIAL HISTORY: Patient stopped smoking 17 years ago, but smoked daily for 20 years prior to that, s he has occasional social alcohol, no illicit drugs. ALLERGIES: CODEINE. CURRENT MEDICATIONS: Per her most recent discharge packet Omeprazole 40 mg b.i.d., Zocor 40 mg at b edtime, Xanax 1 mg p.o. t.i.d., sildenafil 20 mg p.o. q. day, hydroxychloroquine 1.5 tablets daily, n ifedipine 60 mg q. day, duloxetine 60 mg q. day, trazodone 100 mg at bedtime, ferrous sulfate 65 mg t .i.d., Lasix 20 mg q. day, Soma 350 mg q.i.d. p.r.n., aspirin 81 mg q. day, lisinopril 10 mg b.i.d., hydrocodone/[place] 325/10 q.6 hours p.r.n., Plavix 75 mg p.o. q. day, lisinopril 10 mg b.i.d., Plavix 75 q. day, Multaq 400 mg b.i.d., lifitegrast 1 drop each eye b.i.d. and Dulcolax 10 mg p.o. q. day p. r.n. PHYSICAL EXAMINATION: VITAL SIGNS: Temperature is 98.5, pulse 159, respirations 20, O2 saturation 94% on room air, and BP 138/74. GENERAL APPEARANCE: Age appropriate female. She is confused. Seems to be a bit hard of hearing as well possibly. HEENT: PERRLA. Dry oral mucosa. No OP lesions. Pale oral mucosa. NECK: Supple and symmetric. CARDIOVASCULAR: Tachycardic and irregular with no murmurs. CHEST: Clear bilaterally. ABDOMEN: Soft, nontender, nondistended, positive bowel sounds, no masses, no organomegaly. EXTREMITIES: Reveal chronic appearing 2+ semi-pitting edema of lower extremities. She does have per sistent ulcers of the lower extremities on the feet and has stage IV on the sacrum per nursing; [facility], the patient has been too unstable to return for exam at this point because of a significant tachy cardia. MUSCULOSKELETAL: Also notable for the patient reporting pain with simply applying the blood pressure cuff and with applying the telemetry leads. LABORATORY DATA: White count 5.0, hemoglobin 5.8, platelets 125. Sodium 132, potassium 4.9, chlorid e 103, CO2 of 23, BUN 106, creatinine 2.46, glucose 107, calcium 8.3, AST 23, ALT 26, alkaline phosph atase 88. Troponin 0.039. Albumin 2.9, TSH 3.3455. Urinalysis shows moderate leukocyte esterase, 2 1-50 white cells, 0-3 red cells, 2+ bacteria, nitrites are negative. ASSESSMENT AND PLAN: 1. Altered mental status. Likely etiologies of this include significant anemia, possible recurrent atrial fibrillation with RVR versus a urinary tract infection. It is also possible the patient may h ave some issues with her medications that she is on multiple potentially psychotropic medications and her renal function is now worse. 2. Severe anemia. The patient has a hemoglobin of 5.8. She has recently had a transfusion of 3 uni ts following symptomatic anemia and GI bleed related to a bleeding arteriovenous malformation in the second portion of the duodenum. The patient will require blood transfusions again. 3. Recent GI bleed with a cauterization of a bleeding near the duodenum. We will reconsult GI for kat garibay. 4. Renal: The patient has a history of chronic kidney disease stage 3, however, her creatinine curr ently is significantly above her baseline, which appears to be around 1.2. It is notable that she valdez s a highly variable creatinine in her most recent was 2.05 on 11/04/2017. Prior to that, she was at 0.96 on 10/21/2017. We will certainly hydrate, especially in fact we are still waiting on blood ferris sfusion. 5. Atrial fibrillation with rapid ventricular response. The patient has a history of atrial fibrill ation with rapid ventricular response. She required Cardizem IV previously. She has received a dose of IV and order for a drip. She has just converted back to sinus rhythm in the 90s. We will contin ue with the Cardizem drip and consult Cardiology. She is on Multaq at home and has not received that today, but we will renew her usual home medications. 6. Possible urinary tract infection. The patient did receive a dose of IV antibiotics in the emerge ncy room. We will continue to follow a urine culture. 7. History of anxiety disorder. The patient was given a dose of 0.5 of Ativan IV and seemed to sett le her down a bit. We will resume her usual daily dose of Xanax. 8. History of chronic pain syndrome followed by Dr. Suh. We will continue her usual home zac men of pain medications. It is somewhat difficult to manage the patient with her reporting pain with every touch. 9. History of severe peripheral vascular disease. The patient remains on Plavix and aspirin. We wi ll hold those until we can clarify that her hemoglobin is going to improve. 10. Chronic nonhealing ulcers of the feet. Continue with Wound Care consult. 11. Significant sacral decubitus reported to stage IV. We will attempt to examine that as soon as t he patient is stable enough to do so. We will also have wound care following that as well. 12. History of hypertension. We will continue with her usual home dose of the Procardia and lisinop ril.
[2017-11-19] MEDS ORDERED: Furosemide 40 MG/4 ML VIAL IVP SCH (08:15)
[2017-11-19] MEDS ORDERED: Furosemide 100 MG/10 ML VIAL SLOW IVP SCH (08:30)
--- NOTE | 2017-11-19 09:15 | PRG ---
DATE OF SERVICE: 11/19/2017 SUBJECTIVE: The patient states that she does not feel great this morning, but cannot be more specifi c. States she did not sleep at all overnight. OBJECTIVE: VITAL SIGNS: Temperature 98.0, pulse 123-129, respirations 21, O2 sat 92% on 15 liters nonrebreather . BP 174/93. GENERAL: The patient is awake. She actually appears a bit more awake and alert today than yesterday . She is in no distress. She is conversant. She is still confused. HEART: Irregular and borderline tachycardic. LUNGS: Lungs have mild scattered rales bilaterally. ABDOMEN: Soft, nontender, nondistended with positive bowel sounds. EXTREMITIES: The lower extremities have less edema. There is some wrinkling of the skin. They are relatively warm. LABORATORY DATA: White count is 9.2, hemoglobin is 10.9, platelets 184. ABG from 1230 a.m.; pH 7.4 4, pO2 86.1, pCO2 is 27. BMP: CO2 of 17, BUN 76, creatinine 1.48, glucose 129. Her repeat troponin was at 0.446. Urinalysis was ultimately obtained at 1245 and showed greater than 50 white blood daniel ls, 7-10 red cells with no bacteria seen. Chest x-ray shows the development of significant pulmonary edema. IMPRESSION AND PLAN: 1. Altered mental status. This appears to be possibly due to multiple etiologies concerning for uri nary tract infection causing metabolic encephalopathy as the likely source at this time. 2. Congestive heart failure. The patient has had significant amount of fluid resuscitation given he r initial presentation with atrial fibrillation with RVR and severe anemia. She has also received bl ood and now appears to be a bit volume overloaded. She likely had some failure due to the tachycardi a and atrial fibrillation as well. Her fluids have been discontinued and she has received a dose of Lasix per Cardiology. 3. Atrial fibrillation. Cardiology is following. She is on a Cardizem drip for better rate control . 4. Elevated troponin, likely demand ischemia secondary to atrial fibrillation with tachycardia. 5. Gram negative bacteremia, presumably from urinary tract source. The patient received Rocephin in itially in the emergency department. We will continue with Rocephin and add Zosyn. Working around t he patient's Multaq and potential drug interactions there. 6. Urinary tract infection, no specific culture was ordered there. We will obtain that. 7. Acute on chronic renal failure. The patient's creatinine is somewhat improved now with the fluid s and the blood. She is now much closer to her baseline creatinine. 8. Acute respiratory failure secondary to pulmonary edema. The patient is on 15 liters nonrebreathe r. Suspect she will improve significantly with cessation of the fluids and some diuresis at this poi nt. 9. Severe peripheral vascular disease, followed by Cardiology. The patient has been on Plavix and a spirin, but the Plavix is being held in light of the gastrointestinal bleed. 10. Severe anemia secondary to likely gastrointestinal bleed and chronic renal disease. She has rec eived transfusion and hemoglobin is much improved. 11. 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 GI has been consulted. Anticipated endoscopy today. This is not urgent and may need to be pu shed back another day until her cardiopulmonary situation is more stable. Continue with PPI. 12. History of anxiety disorder, it seems to be a bit improved today. We will continue with her Jonah ax. 13. History of chronic pain syndrome. Continue with her usual pain medications. 14. Vascular ulcers of the lower extremities. Wound Care consult placed. 15. Sacral decubitus present on admission, Wound Care consulted. 16. History of hypertension. The patient's blood pressure is elevated now. Resuming her usual medi cations. DISPOSITION: The patient has altered mental status, congestive heart failure, respiratory failure, a nd acute on chronic renal failure with severely compromised peripheral vasculature, in combination th is certainly makes the patient's prognosis very guarded. We will consult Palliative Care.
[2017-11-19] MEDS: Ferrous Sulfate 325 MG TAB PO SCH ×3 (09:41→16:46)
--- NOTE | 2017-11-19 09:52 | RAD ---
SINGLE VIEW OF THE CHEST: Comparison: 11-18-17 History: Shortness of breath, low oxygen saturation. FINDINGS: Single view of the chest shows an enlarged cardiomediastinal silhouette. There are increasing bilater al mixed alveolar/interstitial opacities which may represent pulmonary edema. There may be small bila teral pleural effusions. IMPRESSION: 1. Worsening infiltrates may represent pulmonary edema. 2. Bilateral pleural effusions. POS: [facility]
[2017-11-19] MEDS: Amlodipine 5 MG TAB PO SCH (10:02)
[2017-11-19] MEDS: Aspirin 81 mg Enteric Coated Tablet PO SCH (10:03)
[2017-11-19] MEDS: cefTRIAXone\\ROCEPHIN 1 GM in Sodium Chloride 0.9% 100 ML IVPB SCH (10:03)
[2017-11-19] MEDS: DULoxetine 60 MG CAP PO SCH (10:07)
[2017-11-19] MEDS: Diltiazem HCl SR 60 mg Capsule PO SCH ×3 (10:16→21:05)
[2017-11-19] MEDS: Hydroxychloroquine Sulfate 200 MG TAB PO SCH (10:17)
--- NOTE | 2017-11-19 11:14 | PQF ---
CLINICAL DOCUMENTATION IMPROVEMENT CLARIFICATION FORM: ICD-10 Updated PLEASE DO AN ADDENDUM TO THE PROGRESS NOTE WITH ANY DOCUMENTATION UPDATES OR ADDITIONS AND CARRY THROUGH TO DC SUMMARY. THANK YOU. DATE: 11/19/17 ATTN: DR. TRIVEDI Please exercise your independent, professional judgment in responding to the clarification form. Clinical indicators are provided on the bottom of this form for your review Please check appropriate box(s): HEART FAILURE: A. TYPE: [ ] Systolic / HFrEF [ ] Diastolic / HFpEF [ ] Combined Systolic / Diastolic B. ACUITY [ ] Acute [ ] Acute on Chronic [ ] Chronic [ x] Other diagnosis High output failure secondary to afib with RVR. [ ] Unable to determine In addition, please specify: Present on Admission (POA): [ ] Yes [ ] No [ ] Unable to determine For continuity of documentation, please document condition throughout progress notes and discharge summary. Thank You. CLINICAL INDICATORS - SIGNS / SYMPTOMS / LABS PROGRESS NOTE: "...VOLUME OVERLOADED. SHE LIKELY HAD SOME FAILURE DUE TO THE TACHYCARDIA AND ATRIAL FIBRILLATION WITH RVR AND SEVERE ANEMIA." RISKS: H/O DIASTOLIC CHF ATRIAL FIBRILLATION HYPERTENSION TREATMENT: TELEMETRY MONITORING IV LASIX (11/19/17) (This form is maintained as a part of the permanent medical record) 2014 [employer]. All Rights Reserved MARCE [email or web address] Office: [phone] SIOBHAN
[2017-11-19] MEDS: Dronedarone HCl 400 MG TAB PO SCH ×2 (11:21→21:06)
[2017-11-19] MEDS: Pantoprazole 80 MG in Sodium Chloride 0.9% 100 ML IVP SCH ×2 (12:25→21:41)
--- NOTE | 2017-11-19 13:43 | PRG ---
DATE OF SERVICE: 11/19/2017 SUBJECTIVE: The patient is severely dyspneic, complains of shortness of breath. She is currently on a 15 liter nonrebreather face mask with an O2 sat of 94%. She received 2 units of RBC last night. There is no evidence of overt GI bleeding such as melena or hematochezia. She denies any nausea, vom iting, abdominal pain. PHYSICAL EXAMINATION: VITAL SIGNS: Temperature is 98.2, blood pressure 176/84, pulse of 125. GENERAL: She is dyspneic, but in no severe distress. HEENT: Shows anicteric sclerae. Oropharynx clear. NECK: Supple. CARDIOVASCULAR: Normal S1, S2. Tachycardic. CHEST: Shows normal breath sounds. No obvious rales or rhonchi. ABDOMEN: Soft, flat and no distention, no tenderness. She has active bowel sounds. EXTREMITIES: Shows 1+ edema. LABORATORY DATA: WBC is 9.2, hemoglobin 10.9 (after 2 units, up from 5.1), platelet count of 184. E lectrolytes within normal range, creatinine 1.48, BUN of 76. ASSESSMENT: 1. Respiratory distress, likely from volume overload from transfusion overnight. The patient is cur rently getting Lasix. 2. Recurrent severe symptomatic anemia with history of duodenal arteriovenous malformation that was cauterized with BICAP cautery a month ago. No overt bleeding, however, the patient has been on Plavi x for peripheral vascular disease. 3. Atrial fibrillation. 4. Peripheral vascular disease. RECOMMENDATIONS: 1. We will cancel EGD today because of her respiratory status. 2. Continue with diuresis. 3. Continue to monitor blood count. 4. EGD tomorrow if her respiratory status improves.
--- NOTE | 2017-11-19 14:31 | CON ---
DATE OF CONSULTATION: 11/19/2017 RENAL MEDICINE HISTORY OF PRESENT ILLNESS: Ms. Cintron is a 76-year-old white female who was admitted for mental status change. She was noted to have done an elevated creatinine. She was stabilized. At one time , this patient has been admitted for GI bleed, has been symptomatically anemic and has received blood transfusion in the past. We are being consulted for the acute kidney injury. This morning, the patient is mentating much better. REVIEW OF SYSTEMS: No chest pain. Positive for mental status change. No nausea, no vomiting, no di arrhea, no constipation, no hematochezia, no melena, no hematemesis, no syncopal episode, no producti ve cough, no fever or chills. MEDICATIONS: Norvasc 5 mg daily, Xanax 1 mg t.i.d. as needed, Ecotrin 81 mg tab once daily, Lipitor 10 mg tab at bedtime, Lotensin 40 mg daily, Soma 350 mg p.o. t.i.d., ceftriaxone 1 gram IV daily, dil tiazem drip as with that is being titrated Diltiazem SR 60 mg q.6 hours, Multaq 400 mg p.o. b.i.d., C ymbalta 60 mg q.a.m., ferrous sulfate 325 mg t.i.d., Plaquenil 300 mg once a day, Nexium 40 mg daily, pyridoxine 100 mg daily, Protonix 40 mg tab once a day, Trental 400 mg p.o. b.i.d., Zosyn 2.25 grams IV q.8., Desyrel 100 mg at bedtime. PAST MEDICAL HISTORY: Status post gastrointestinal bleed secondary to an AVM, history of vascular ul cers of the lower extremities, atrial fibrillation-chronic diastolic heart failure. Renal phenomenon , breast cancer in remission, coronary artery disease, DJD, rheumatoid arthritis, chronic low back pa in, peripheral vascular disease, hypertension, gastroesophageal reflux disease, chronic kidney diseas e, hypothyroidism, anxiety disorder, hyperlipidemia. PAST SURGICAL HISTORY: 1. Status post upper GI endoscopy with AVM cauterization, status post left breast surgery. 2. Status post knee surgery. 3. Status post rectocele repair. 4. Status post hysterectomy. 5. Status post left hip arthroplasty. 6. Status post hernia repair. 8. Status post partial thyroidectomy. 9. Status post colonoscopy. FAMILY HISTORY: Positive family history of coronary artery disease. TRAUMA: None. IMMUNIZATIONS: Up to date. HOSPITALIZATIONS: Please see past medical history. SOCIAL HISTORY: The patient lives in [place]. She is three children. She is a retired employ ee of the [employer]. Smoked for 25 years, 1 pack a day. Alcohol rarely. No IV drug abuse. No IV blood transfusion. ALLERGIES: CODEINE. TRAUMA: None. IMMUNIZATIONS: Up to date. HOSPITALIZATION: Please see past medical history. PHYSICAL EXAMINATION: VITAL SIGNS: Blood pressure is noted at 185/92, heart rate 107, respiratory rate 25, temperature 98. 6, pulse ox 94%. GENERAL: Awake, alert, comfortable. The patient is on a rebreather. HEENT: She has pinkish conjunctivae, anicteric sclerae. NECK: No neck mass, no carotid bruits, no JVD. CHEST: No deformities. LUNGS: Clear breath sounds, no wheezing, no crackles. HEART: Normal sinus rhythm. No murmurs, no gallops, no rubs. ABDOMEN: Globular, soft, nontender, no masses. EXTREMITIES: No edema, no deformities. NEUROLOGIC: Awake, oriented to 3 spheres. Moving all extremities. No tremors, no asterixis, no otoniel gabriel. LABORATORY DATA: Laboratories of 11/19/2017; hemoglobin 10.9, hematocrit 33.3. On 11/18/2017, hemoglobin 5.1, hematocrit 15.9. On 11/19/2017, sodium 139, potassium 3.7, chloride 106, carbon dioxide 17, BUN 76, creatinine 1.48, g lucose 129, calcium 9.2. On 11/18/2017, BUN 106, creatinine 2.46. On 11/04/2017, BUN 72, creatinine 2.05. Urinalysis done on 11/18/2017, no protein, WBC 21-50, RBCs 0-3, no pigmented brown casts noted. ASSESSMENT AND PLAN: 1. Acute kidney injury on top of her chronic renal failure - consider hemodynamically mediated renal dysfunction in a background of symptomatic anemia. The patient is status post blood transfusion. C reatinine is actually improved. Continue to monitor her current renal function. If the renal functi on does not improve further, consider holding off any SHIVANI inhibitors or ARB that the patient has. Cur rently, the patient has been reported to be on an SHIVANI inhibitor. 2. No indication for any dialytic intervention. Continue supportive care. Continue to optimize hem odynamics. 3. Atrial fibrillation - diltiazem drip. Currently in normal sinus rhythm. 4. Symptomatic anemia, on p.r.n. blood transfusion. Considering a GI consult. For the moment, dharmesh perdue with current management.
[2017-11-19] MEDS: Diltiazem 125 MG in Sodium Chloride 0.9% 100 ML IVPB SCH (15:03)
[2017-11-19] MEDS: Piperacillin/Tazobactam 2.25 GM in Sodium Chloride 0.9% 100 ML IVPB SCH ×2 (15:03→21:07)
[2017-11-19] MEDS ORDERED: HYDROcodone/Acetaminophen 10/325 mg Tablet PO SCH (21:00)
[2017-11-19] MEDS: Atorvastatin Calcium 10 MG TAB PO SCH (21:05)
[2017-11-19] MEDS: traZODone HCl 50 MG TAB PO SCH (21:07)
[2017-11-19] MEDS: Lifitegrast [Xiidra] EA EYE SCH (23:06)
[2017-11-20] MEDS: ALPRAZolam 1 MG TAB PO PRN (01:07)
[2017-11-20] MEDS: Diltiazem HCl SR 60 mg Capsule PO SCH ×4 (01:08→21:29)
[2017-11-20] MEDS: Diltiazem 125 MG in Sodium Chloride 0.9% 100 ML IVPB SCH (03:31)
[2017-11-20] MEDS: Piperacillin/Tazobactam 2.25 GM in Sodium Chloride 0.9% 100 ML IVPB SCH (05:42)
[2017-11-20 08:22] LABS: #Lymphocytes 0.6 thou/uL (1.20-3.40); #Monocytes 0.8 thou/uL (0.11-0.59); #Neutrophils 9.4 thou/uL (1.40-6.50); %Eosinophils 0.1 % (0.0-10.0); %Lymphocytes 5.1 % (21.0-51.0); %Monocytes 7.8 % (0.0-10.0); Hemoglobin 9.4 g/dL (12.0-16.0); Mean Corpuscular HGB CONC 34.1 g/dL (32.0-36.0); Mean Corpuscular Hemoglobin 31.2 pg (27.0-31.0); Mean Corpuscular Volume 91.3 fL (78.0-98.0); Mean Platelet Volume 7.7 fL (7.4-10.4); Platelet Count 205 thou/uL (130-400); RBC Distribution Width 15.1 % (11.5-14.5); Red Blood Cell (RBC) Count 3.01 mill/uL (4.20-5.40); White Blood Cell (WBC) Count 10.8 thou/uL (4.8-10.8)
[2017-11-20 08:53] LABS: Anion Gap 15 mmol/L (10-20); BUN (Urea Nitrogen) 59 mg/dL (9.8-20.1); Calc. Creatinine Clearance 36 mL/min (70-130); Calcium 8.5 mg/dL (7.8-10.44); Carbon Dioxide 23 mmol/L (23-31); Chloride 103 mmol/L (98-107); Estimated GFR-MDRD 42; Glucose 128 mg/dL (83-110); Potassium 3.1 mmol/L (3.5-5.1); Sodium 138 mmol/L (136-145)
--- NOTE | 2017-11-20 09:42 | PRG ---
DATE OF SERVICE: 11/20/2017 RENAL MEDICINE SUBJECTIVE: Ms. Mcintyre is 76-year-old white female who was seen for an acute kidney injury that was hemodynamically mediated. She was noted to be symptomatically anemic. She received several unit s of packed RBC. Renal function is now much improved. She is still due to improved renal func tion, we will probably leave she has no other complaints today. PHYSICAL EXAMINATION: VITAL SIGNS: Blood pressure is 149/67, heart rate 68, respiratory rate 18, temperature 97.9, pulse o x 94%. GENERAL: Patient is awake, alert, comfortable, not in overt distress. SKIN: Adequate turgor. HEENT: Slightly pale conjunctivae, anicteric sclerae. NECK: No neck mass, no carotid bruits, no JVD. CHEST: No deformities. LUNGS: Decreased breath sounds. HEART: Normal sinus rhythm. No murmurs, no gallops, no rubs. ABDOMEN: Globular, soft, nontender, no masses. EXTREMITIES: Trace edema. MEDICATIONS: Medications of 11/20/2017 was reviewed. LABORATORY DATA: Laboratories of 11/20/2017; white count 10.8, hemoglobin 9.4, sodium 139, potassium 3.7, chloride 106, carbon dioxide 17, BUN 76, creatinine 1.48, glucose 129, calcium 9.2. IMAGING DATA: On 11/19/2017, chest x-ray shows bilateral pleural effusions with pulmonary edema. ASSESSMENT AND PLAN: 1. Acute kidney injury - hemodynamically mediated renal dysfunction. Renal function is much improve d with blood transfusion. Continue current management. We will leave current dose of benazepril as ease. 2. Congestive heart failure. Cardiology is currently following. Overall, prognosis remains guarded with this patient. 3. ? of gastrointestinal bleed. GI has been consulted. Overall, agree with current management.
--- NOTE | 2017-11-20 10:10 | PDOC.PN ---
- Subjective Encounter Start Date: 11/20/17 Encounter Start Time: 10:08 Says she feels generally weak. Does not like wearing the oxygen mask. States her legs hurt. - Objective MAR Reviewed: Yes Vital Signs & Weight: Vital Signs (12 hours) Temp Pulse Resp BP Pulse Ox 11/20/17 04:00 97.9 F 68 18 149/67 H 94 L Weight Admit Weight 139 lb Weight 131 lb 8 oz I&O: 11/19/17 11/20/17 11/21/17 06:59 06:59 06:59 Intake Total 2934 1510 Output Total 3075 4305 Balance -141 -4248 Result Diagrams: 11/20/17 07:47 11/20/17 07:47 Phys Exam - Physical Examination Constitutional: NAD Scattered bilateral rales. Cardiovascular: RRR, no significant murmur, no rub Frequent ectopy. (PAC's on monitor) Gastrointestinal: soft, non-tender, no distention, positive bowel sounds Edema improved. Chronic skin changes. Dx/Plan (1) Sepsis due to Escherichia coli Code(s): A41.51 - SEPSIS DUE TO ESCHERICHIA COLI [E. COLI] Status: Acute Comment: Sepsis was initially masked by severe anemia, afib and acute renal failure. In retrospect, she was likely septic from the UTI with e. coli. All parameters are better. (2) E. coli UTI Code(s): N39.0 - URINARY TRACT INFECTION, SITE NOT SPECIFIED; B96.20 - UNSP ESCHERICHIA COLI THE CAUSE OF DISEASES CLASSD ELSWHR Status: Acute Comment: Sensistive to Rocephin. Continue that. Will stop the Zosyn. (3) Bacteremia, escherichia coli Code(s): R78.81 - BACTEREMIA Status: Acute Comment: Sensitive to Rocephin. (4) Atrial fibrillation with rapid ventricular response Code(s): I48.91 - UNSPECIFIED ATRIAL FIBRILLATION Status: Acute Comment: Back in NSR. On PO Cardizem and Cardizem gtt. On Multaq. Cardiology following. No anticoagulation secondary to GI bleed. (5) UGIB (upper gastrointestinal bleed) Code(s): K92.2 - GASTROINTESTINAL HEMORRHAGE, UNSPECIFIED Status: Acute Comment: Too unstable for endoscopy. Does not appear to aggressively bleeding. GI consulted. Continue PPI. May be able to change gtt to scheduled dosing. (6) AVM (arteriovenous malformation) of duodenum, acquired Code(s): K31.819 - ANGIODYSPLASIA OF STOMACH AND DUODENUM WITHOUT BLEEDING Status: Acute Comment: Was the source of the bleeding identified last admission. (7) Acute kidney failure Status: Acute Comment: Much improved. Nephrology consulted. (8) Hiatal hernia with GERD and esophagitis Code(s): K44.9 - DIAPHRAGMATIC HERNIA WITHOUT OBSTRUCTION OR GANGRENE; K21.0 - GASTRO-ESOPHAGEAL REFLUX DISEASE WITH ESOPHAGITIS Status: Acute (9) Symptomatic anemia Code(s): D64.9 - ANEMIA, UNSPECIFIED Status: Acute Comment: Hgb much improved after transfusion of two units. (10) PVD (peripheral vascular disease) Code(s): I73.9 - PERIPHERAL VASCULAR DISEASE, UNSPECIFIED Status: Chronic Comment: Severe PVD. Followed by Dr. Palomino. Holding Plavix secondary to GI bleed. (11) Ulcer of toe of left foot Code(s): L97.529 - NON-PRESSURE CHRONIC ULCER OTH PRT LEFT FOOT W UNSP SEVERITY Status: Chronic Comment: Wound Care Consult. Vascular insufficency. (12) Acute respiratory failure Code(s): J96.00 - ACUTE RESPIRATORY FAILURE, UNSP W HYPOXIA OR HYPERCAPNIA Status: Acute Comment: Had aggressive hydration initially. Subsequently developed pulmonary edema (volume overload / CHF with afib with RVR). Has subsequently had diuresis, but still requiring some supplemental oxygen with mask. Still has rales. Repeat CXR. Likely needs more diuresis. - Plan * As above. * Transferring to [facility]. * Discussed the case with Palliative Care yesterday. * Discussed with patient's family yesterday. * Patient's daughter is primarily involved. She is highly emotional and can be challenging in discussion. Tends to interrupt frequently and focusses on herself often. She was clear that her mother did not want to remain on life- support long-term, but does believe she wants resuscitation. She indicated she would be talking with her siblings. She indicated that her brother thinks she is too emotional to make decisions. He had indicated the same to me. Patient' s mental status is still not normal, but appears improved.
[2017-11-20] MEDS: Hydroxychloroquine Sulfate 200 MG TAB PO SCH (10:16)
[2017-11-20] MEDS: Ferrous Sulfate 325 MG TAB PO SCH ×3 (10:16→17:51)
[2017-11-20] MEDS: DULoxetine 60 MG CAP PO SCH (10:17)
[2017-11-20] MEDS: Amlodipine 5 MG TAB PO SCH (10:17)
[2017-11-20] MEDS: Aspirin 81 mg Enteric Coated Tablet PO SCH (10:17)
[2017-11-20] MEDS: Dronedarone HCl 400 MG TAB PO SCH ×2 (10:17→21:30)
[2017-11-20] MEDS: cefTRIAXone\\ROCEPHIN 1 GM in Sodium Chloride 0.9% 100 ML IVPB SCH (10:18)
--- NOTE | 2017-11-20 10:19 | PRG ---
DATE OF SERVICE: 11/20/2017 REASON FOR CONSULTATION: Anemia, GI bleeding. SUBJECTIVE: The patient continues to be on nonrebreather face mask with 15 liters oxygen flow and while on this regimen, she is still satting 94%. The patient is also displaying increased tachypnea on physical examination as well as mild conversational dyspnea. However, her mental status appears to be improved when compared to chart review and she is alert and oriented x3 today. She has not received any additional units of blood since the initial 2 units that were given approximately 24 hours ago. She currently denies any nausea, vomiting, fevers, shaking chills, melena, hematochezia or hematemesis. OBJECTIVE: VITAL SIGNS: Temperature 97.9, pulse 68, blood pressure 149/67, respiratory rate 22 per my count, satting 94% on 15 liters nonrebreather. GENERAL: The patient with mild conversational dyspnea. Alert and oriented x3, mild distress related to chronic lower extremity pain and tachypnea. CARDIOVASCULAR: Regular rate and rhythm. No discernible murmurs, gallops or rubs. LUNGS: Clear to auscultation bilaterally. ABDOMEN: Normoactive bowel sounds, soft, nontender, nondistended. EXTREMITIES: 1+ bilateral lower extremity edema to mid adams, increased scaling of the skin extending to about the knee as well as discoloration of the bilateral lower extremities. LABORATORY DATA: CBC with a white blood cell count of 10.8, hemoglobin 9.4, hematocrit 27.5, platelets 205. IMAGING DATA: Chest x-ray obtained on 11/19/2017 showed increased bilateral mixed alveolar/interstitial opacities which could represent pulmonary edema as well as bilateral pleural effusions. ASSESSMENT AND PLAN: The patient is a 76-year-old female with past medical history of hypertension, hyperlipidemia, breast cancer status post resection, Raynaud's phenomenon, peripheral vascular disease, osteoarthritis, anxiety, coronary artery disease, and depression presenting with symptomatic anemia with a history of duodenal arteriovenous malformation. Symptomatic anemia. The patient is again presenting with increased dyspnea on exertion and worsening of her lower extremity edema that prompted her to seek healthcare assistance. She was noted to have a significantly decreased H&H on admission. She was given approximately 2 units of PRBCs and afterwards displayed increased tachypnea and work of breathing, concerning for either volume overload with pulmonary edema seen on chest x-ray versus a transfusion related acute lung injury, currently satting 94% on 15 liters nonrebreather with a slight decrease in her H&H, but no observable evidence of overt gastrointestinal bleeding. At this time given her increased work of breathing and findings on recent chest x-ray endoscopic evaluation may be more risky than beneficial. RECOMMENDATIONS: 1. Would continue to trend H&H and transfuse as necessary to maintain an H&H of 7/21. 2. Continue to monitor clinically for signs of active gastrointestinal bleeding. 3. We will hold on upper endoscopy today given her tenuous respiratory status and increased risk of complication with sedation associated with upper endoscopy. We will proceed with EGD once her respiratory status improves or if needed emergently. 4. Would continue to hold any anticoagulation. We will continue to follow. Please call with any additional questions. WILLIAMSD
[2017-11-20] MEDS: Pantoprazole 80 MG in Sodium Chloride 0.9% 100 ML IVP SCH ×2 (10:20→21:55)
[2017-11-20] MEDS: HYDROcodone/Acetaminophen 10/325 mg Tablet PO PRN (13:20)
[2017-11-20] MEDS ORDERED: Furosemide 20 MG/2 ML VIAL SLOW IVP SCH (15:30)
[2017-11-20] MEDS ORDERED: Furosemide 40 MG/4 ML VIAL SLOW IVP SCH (15:30)
[2017-11-20 15:45] LABS: Actual Bicarbonate (HCO3a) 21.6 mEq/L (22-28); Base Excess (BEa) -1.7 mEq/L (-2.0 to +3.0); O2 Tension (PaO2) 48.8 mmHg (> 70.0); pH, Arterial 7.46 (7.35-7.45)
[2017-11-20 15:46] LABS: Hemoglobin (Hb) 8.6 g/dL (12.0-16.0)
[2017-11-20 15:47] LABS: Calcium, Ionized 1.12 mmol/L (1.12-1.30); Potassium - ABG Lab 2.8 mmol/L (3.70-5.30); Puncture Site RR
--- NOTE | 2017-11-20 16:52 | RAD ---
RADIOGRAPH CHEST 1 VIEW: Date: 11/20/17 Time: 3:41 p.m. HISTORY: 76-year-old female with pulmonary edema. COMPARISON: 11/19/17, 1:07 a.m. FINDINGS: Again noted are the patchy bilateral air space densities in the upper, mid, and lower lung zones. The largest, most confluent region centered in the right perihilar mid lung zone, has improved, with reg gonzalo to its upper component. The densities in the left mid and lower lung zones have also improved. Th e bilateral pleural effusions have also improved. Significant interstitial and alveolar densities rem ain bilaterally. There is at least mild cardiomegaly. No pneumothorax. IMPRESSION: 1. Mild interval improvement in the multifocal bilateral alveolar infiltrates. However, signific ant residual infiltrates remain. This could either represent pulmonary edema or severe pneumonia. 2. Interval improvement in bilateral pleural effusions. 3. Mild cardiomegaly. HALI [] POS: WALT
[2017-11-20] MEDS ORDERED: Potassium Chloride 40 MEQ in Premix Bag 1 BAG IVPB SCH (17:30)
[2017-11-20] MEDS: Atorvastatin Calcium 10 MG TAB PO SCH (21:29)
[2017-11-20] MEDS: traZODone HCl 50 MG TAB PO SCH (21:30)
[2017-11-21] MEDS: Diltiazem HCl SR 60 mg Capsule PO SCH ×4 (03:02→20:25)
[2017-11-21 03:54] LABS: #Lymphocytes 0.6 thou/uL (1.20-3.40); #Monocytes 0.7 thou/uL (0.11-0.59); #Neutrophils 8.8 thou/uL (1.40-6.50); %Basophils 0.2 % (0.0-1.0); %Eosinophils 0.3 % (0.0-10.0); %Lymphocytes 5.6 % (21.0-51.0); %Monocytes 7.1 % (0.0-10.0); %Neutrophils 86.9 % (42.0-75.0); Hemoglobin 9.6 g/dL (12.0-16.0); Mean Corpuscular HGB CONC 33.6 g/dL (32.0-36.0); Mean Corpuscular Hemoglobin 30.9 pg (27.0-31.0); Mean Corpuscular Volume 91.9 fL (78.0-98.0); Mean Platelet Volume 7.8 fL (7.4-10.4); Platelet Count 223 thou/uL (130-400); RBC Distribution Width 15.2 % (11.5-14.5); Red Blood Cell (RBC) Count 3.11 mill/uL (4.20-5.40); White Blood Cell (WBC) Count 10.1 thou/uL (4.8-10.8)
[2017-11-21 04:14] LABS: Anion Gap 18 mmol/L (10-20); BUN (Urea Nitrogen) 54 mg/dL (9.8-20.1); Calc. Creatinine Clearance 34 mL/min (70-130); Calcium 8.8 mg/dL (7.8-10.44); Carbon Dioxide 22 mmol/L (23-31); Chloride 104 mmol/L (98-107); Estimated GFR-MDRD 39; Glucose 112 mg/dL (83-110); Sodium 141 mmol/L (136-145)
[2017-11-21 04:23] LABS: Potassium 2.9 mmol/L (3.5-5.1)
[2017-11-21] MEDS ORDERED: Potassium Chloride 20 MEQ TAB PO SCH (05:45)
[2017-11-21] MEDS: cefTRIAXone\\ROCEPHIN 1 GM in Sodium Chloride 0.9% 100 ML IVPB SCH (09:02)
[2017-11-21] MEDS: DULoxetine 60 MG CAP PO SCH (09:03)
[2017-11-21] MEDS: Saccharomyces boulardii 250 MG CAP PO SCH ×2 (09:03→20:25)
[2017-11-21] MEDS: Hydroxychloroquine Sulfate 200 MG TAB PO SCH (09:04)
[2017-11-21] MEDS: Dronedarone HCl 400 MG TAB PO SCH ×2 (09:05→20:25)
[2017-11-21] MEDS: Ferrous Sulfate 325 MG TAB PO SCH ×3 (09:06→17:46)
[2017-11-21] MEDS: Amlodipine 5 MG TAB PO SCH (09:06)
[2017-11-21] MEDS: Aspirin 81 mg Enteric Coated Tablet PO SCH (09:06)
--- NOTE | 2017-11-21 09:25 | PRG ---
DATE OF SERVICE: 11/21/2017 SUBJECTIVE: The patient is doing okay this morning. She said she had difficult time sleeping becaus e she was having frequent diarrheal bowel movements. OBJECTIVE: VITAL SIGNS: T-max is 99.8, pulse 88, currently at 120s, irregular, O2 sat 90% on Ventimask. BP 133 /70. GENERAL: Age appropriate female. She is in no distress. She is awake and alert. She appears to be quite comfortable with the Ventimask and is talking in complete sentences. HEENT: PERRL. NECK: Supple and symmetric. HEART: Tachycardic and regular with no murmur. LUNGS: Lungs have bilateral rales heard throughout all lung parks. ABDOMEN: Soft, nontender, nondistended. EXTREMITIES: Warm and dry without significant edema. LABORATORY DATA: White count 10.1, hemoglobin 9.6, platelets 223. Sodium 141, potassium 2.9, chlori de 104, CO2 of 22, BUN 54, creatinine 1.32, calcium 8.8, magnesium 1.6. Stool for blood is positive. Stool for C. diff is negative. Stool for Campylobacter antigen, negative. IMPRESSION AND PLAN: 1. Sepsis secondary to urinary tract infection. The patient appears to be stabilized from that pers pective. 2. Urinary tract infection with Escherichia coli. 3. Bacteremia with Escherichia coli. The patient has sensitivities which indicate the E. coli is se nsitive to the Rocephin. We will continue with that. 4. Acute on chronic renal failure. The patient's creatinine is back around her baseline presently. 5. Severe symptomatic anemia. The patient's hemoglobin has improved, after transfusion appears to b e stable. Appears to be secondary to gastrointestinal bleeding. 6. Gastrointestinal bleed. The patient had severe anemia, has heme positive stools and a recent his tory of arteriovenous malformation cauterization in the second portion of the duodenum. The patient has been too unstable to have an endoscopy. Plavix has been held. 7. Diarrhea. Workup is negative. There is no evidence of Clostridium difficile. This could be pot entially secondary to antibiotics or could be due to Multaq. We will need to continue to monitor how she does with that. 8. Atrial fibrillation. The patient is back in atrial fibrillation with rapid ventricular response. She has received some oral medications now. Cardiology is following. 9. Acute respiratory failure with hypoxia, concerned that the patient may have developed some adult respiratory distress syndrome in the setting of all of the other issues stated above. It looked init ially like it was pulmonary edema. It is bilateral and has not changed much in appearance on her araceli st x-ray or on her exam in spite of a significant diuresis. Pulmonology has been consulted. Continu e with BiPAP or Ventimask as needed. 10. Peripheral vascular disease. The patient has a fairly recent stent. She is off the Plavix [place] use of the GI bleed. Currently, she appears to be stable. DISPOSITION: I had a detailed conversation with the patient's daughter going through each of her jaimee gnoses and the plan for each of them. I did encourage her to go ahead and cancel the appointment king t the patient has with Dr. James for today for evaluation of her anemia as I believe we have a good understanding of it at this point of what this worse is.
[2017-11-21] MEDS ORDERED: Furosemide 40 MG/4 ML VIAL SLOW IVP SCH (09:30)
--- NOTE | 2017-11-21 12:49 | PDOC.CTH ---
Cardiology Progress Note - Subjective Still confused. States she has not slept in 3 days. Increase in O2 required. Pt moved to MICU yesterday. - Objective Vital Signs Temp Pulse Resp BP BP Pulse Ox 11/21/17 11:55 93 L 11/21/17 11:37 98.9 F 135 H 23 H 144/79 H 100 11/21/17 09:06 88 11/21/17 09:05 156/67 H 11/21/17 07:48 99.3 F 88 28 H 90 L 11/21/17 07:26 99.3 F 88 28 H 133/70 90 L 11/21/17 03:51 98.3 F 105 H 24 H 149/71 H 95 11/21/17 01:30 100 Admit Weight 139 lb Weight 132 lb 1.6 oz 11/20/17 11/21/17 11/22/17 06:59 06:59 06:59 Intake Total 1510 1258 Output Total 4305 1950 Balance -8436 -453 - Physical Examination General/Neuro: NAD Neck: no JVD present Lungs: other: (rhonchi, rales present) Heart: other: (IRR) Abdomen: no HSM, NT/ND, soft - Labs Result Diagrams: 11/21/17 03:16 11/21/17 03:16 Troponin/CKMB CK-MB (CK-2) 2.5 ng/mL (0-6.6) 11/18/17 09:13 Troponin I 0.446 ng/mL (< 0.028) H* 11/18/17 23:30 - Assessment/Plan Anemia RI Severe PVD Paroxysmal Afib Continue rate control for afib On multaq Abx Hb and creatinine improved prognosis poor
--- NOTE | 2017-11-21 13:08 | PRG ---
DATE OF SERVICE: 11/21/2017 Ms. Graciela Mcintyre feels better than she felt yesterday, but still wants to wear BiPAP most of t he time. PHYSICAL EXAMINATION: VITAL SIGNS: Heart rates 88. She did pop back into an atrial rhythm 135. She is afebrile. Her oxi metry is 100. She wanted to put the BiPAP on, so this was done this morning. LUNGS: Her lungs were remarkable for having less crackles than yesterday. HEART: Irregular rapid rhythm. ABDOMEN: Soft and nontender. LABORATORY DATA: White count is 10.1, hemoglobin 9.6, platelets 223. Sodium 141, potassium 2.9, chloride 104, bicarbonate 22, BUN 54, creatinine 1.32. Intake and output was negative 692. IMPRESSION: 1. Cardiogenic pulmonary edema. Since she is bacteremic with Escherichia coli there may be noncardi ogenic edema mixed in with this. She still needs to be diuresed more and continue noninvasive ventil atory support intermittently as needed. 2. Atrial fibrillation. 3. Escherichia coli bacteremia. 4. Deconditioning. 5. Anemia, most likely secondary to AV malformation, status post transfusion last admission and this admission. Both admissions she presented with hemoglobin of 5. PLAN: Continue attempts at rate control for atrial fibrillation. She has chronic kidney disease. We will monitor her renal function, but we met to tolerate a higher creatinine to get her dried out from a pulmonary standpoint. I will continue to follow.
[2017-11-21] MEDS: HYDROcodone/Acetaminophen 10/325 mg Tablet PO PRN (15:43)
[2017-11-21] MEDS: Pantoprazole 80 MG in Sodium Chloride 0.9% 100 ML IVP SCH (17:58)
--- NOTE | 2017-11-21 18:58 | PRG ---
DATE OF SERVICE: 11/21/2017 REASON FOR CONSULTATION: Anemia, GI bleeding. SUBJECTIVE: Overnight, the patient continued to have increased shortness of breath that ultimately r equired elevation to a higher level of care and placement on BiPAP. While on BiPAP, she states that her subjective shortness of breath improved dramatically and periodically was on BiPAP throughout the day. Her mental status appears improved today when compared to chart review being alert and oriente d x3. She currently denies any GI bleeding nor has she had any nausea, vomiting, fevers, shaking chi lls, dysphagia or odynophagia. OBJECTIVE: VITAL SIGNS: Temperature 99.2, pulse 135, blood pressure 134/69, respiratory rate 25, satting 97% on Ventimask. GENERAL: The patient is lying in bed in no acute distress. Mild conversational dyspnea. Alert and oriented x3. CARDIOVASCULAR: Regular rate and rhythm. LUNGS: Clear to auscultation in the bilateral upper lung parks; however, mild coarse crackles were heard in the bilateral lower lung parks. ABDOMEN: Normoactive bowel sounds, soft, nontender, nondistended. EXTREMITIES: 1+ bilateral lower extremity edema to mid adams, increased scaling of the skin extending to about the knee as well as discoloration of the bilateral lower extremities. LABORATORY DATA: CBC with a white blood cell count 10.1, hemoglobin 9.6, hematocrit 28.6, platelets 223. Chemistry with sodium of 141, potassium 2.9, chloride 104, CO2 of 22, BUN 54, creatinine 1.32, glucose 112. IMAGING DATA: No current GI imaging is available for review. ASSESSMENT AND PLAN: The patient is a 76-year-old female with past medical history of hypertension, hyperlipidemia, breast cancer status post resection, Raynaud's phenomenon, peripheral vascular diseas e, osteoarthritis, anxiety, coronary artery disease, and depression presenting with symptomatic anemi a with a history of duodenal arteriovenous malformation. Symptomatic anemia. The patient initially presented with increased dyspnea on exertion and worsening of her lower extremity edema, prompting her admission to the [facility]. Upon admission, she was noted to have a significantly decreased H and H when compared to her prior admission. She was given approximately 2 units of PRBCs shortly after admission with increased tachypnea and work of breathin g, concerning for either volume overload with pulmonary edema or transfusion related acute lung injur y. At this time, her H and H is stable when compared to the prior less than 24 hours ago, indicating a probable lack of active gastrointestinal bleeding. She currently has a high oxygen requirement wi th both BiPAP and Ventimask in addition to significant other comorbidities including E. coli bacterem ia and sepsis and acute renal failure that could be further contributing to her pulmonary condition. Given the stability of her H and H at this time, I would continue to observe her for any evidence of overt gastrointestinal bleeding, but her pulmonary issues and active infection do take precedence at this time. RECOMMENDATIONS: 1. We would continue to trend H and H and transfuse as necessary to maintain an H and H of 10/04. 2. Continue to monitor clinically for signs of active gastrointestinal bleeding. 3. We will continue to hold upper endoscopy in light of tenuous respiratory status and active bacter emia. 4. We would continue to hold any anticoagulation. We will continue to follow. Please call with any additional questions.
[2017-11-21] MEDS: Atorvastatin Calcium 10 MG TAB PO SCH (20:25)
[2017-11-21] MEDS: traZODone HCl 50 MG TAB PO SCH (20:25)
[2017-11-22] MEDS: Diltiazem HCl SR 60 mg Capsule PO SCH ×5 (02:33→20:15)
[2017-11-22 03:52] LABS: #Eosinphils 0.2 thou/uL (0.0-0.7); #Lymphocytes 0.7 thou/uL (1.20-3.40); #Monocytes 0.5 thou/uL (0.11-0.59); #Neutrophils 5.8 thou/uL (1.40-6.50); %Eosinophils 2.9 % (0.0-10.0); %Lymphocytes 10.2 % (21.0-51.0); %Monocytes 6.4 % (0.0-10.0); %Neutrophils 80.4 % (42.0-75.0); Hemoglobin 8.1 g/dL (12.0-16.0); Mean Corpuscular HGB CONC 33.5 g/dL (32.0-36.0); Mean Corpuscular Hemoglobin 30.8 pg (27.0-31.0); Mean Platelet Volume 7.4 fL (7.4-10.4); Platelet Count 228 thou/uL (130-400); RBC Distribution Width 15.1 % (11.5-14.5); Red Blood Cell (RBC) Count 2.62 mill/uL (4.20-5.40); White Blood Cell (WBC) Count 7.2 thou/uL (4.8-10.8)
[2017-11-22 04:17] LABS: Anion Gap 13 mmol/L (10-20); BUN (Urea Nitrogen) 50 mg/dL (9.8-20.1); Calc. Creatinine Clearance 34 mL/min (70-130); Calcium 8.1 mg/dL (7.8-10.44); Carbon Dioxide 25 mmol/L (23-31); Chloride 103 mmol/L (98-107); Estimated GFR-MDRD 40; Glucose 102 mg/dL (83-110); Sodium 138 mmol/L (136-145)
[2017-11-22 04:18] LABS: Potassium 2.9 mmol/L (3.5-5.1)
[2017-11-22] MEDS ORDERED: Potassium Chloride 20 MEQ TAB PO SCH (05:00)
[2017-11-22] MEDS: Pantoprazole 80 MG in Sodium Chloride 0.9% 100 ML IVP SCH (05:08)
[2017-11-22] MEDS: Ferrous Sulfate 325 MG TAB PO SCH ×3 (09:06→16:47)
[2017-11-22] MEDS: DULoxetine 60 MG CAP PO SCH (09:06)
[2017-11-22] MEDS: Amlodipine 5 MG TAB PO SCH (09:06)
[2017-11-22] MEDS: cefTRIAXone\\ROCEPHIN 1 GM in Sodium Chloride 0.9% 100 ML IVPB SCH (09:07)
[2017-11-22] MEDS: Saccharomyces boulardii 250 MG CAP PO SCH ×2 (09:07→20:16)
[2017-11-22] MEDS: Aspirin 81 mg Enteric Coated Tablet PO SCH (09:07)
[2017-11-22] MEDS: Hydroxychloroquine Sulfate 200 MG TAB PO SCH (09:07)
[2017-11-22] MEDS: Dronedarone HCl 400 MG TAB PO SCH (09:07)
--- NOTE | 2017-11-22 11:01 | PRG ---
DATE OF SERVICE: 11/22/2017 SUBJECTIVE: Patient has been able to come off BiPAP this morning. She says she is breathing somewha t better. She does not like wearing the oxygen. PHYSICAL EXAMINATION: VITAL SIGNS: Temperature is 97.0, pulse 81, blood pressure 106/67, O2 saturation in the high 80s on room air. HEENT: Unremarkable. NECK: No JVD. LUNGS: Coarse breath sounds. CARDIAC: S1 and S2 regular. ABDOMEN: Soft. EXTREMITIES: No edema. LABORATORY DATA: White blood cell count 7.2, hematocrit 24.1, platelet count 228. Sodium 130, potas sium 2.9, chloride 103, CO2 25, BUN 50, creatinine 1.3, glucose 102. ASSESSMENT: 1. Cardiogenic pulmonary edema. 2. Escherichia coli bacteremia. 3. Atrial fibrillation. 4. Deconditioning. 5. Anemia. 6. Hypokalemia. PLAN: 1. Continue supportive care with intermittent BiPAP and supplemental oxygen as needed. 2. Potassium replacement has been written for. 3. Increase activity as tolerated.
[2017-11-22] MEDS ORDERED: Furosemide 100 MG/10 ML VIAL IVPB SCH (12:00)
[2017-11-22] MEDS: Potassium Chloride 20 MEQ in Premix Bag 1 BAG IVPB SCH ×2 (12:49→16:49)
[2017-11-22] MEDS ORDERED: Loperamide HCl 2 MG CAP PO PRN (13:20)
--- NOTE | 2017-11-22 13:48 | PDOC.PN ---
- Subjective Encounter Start Date: 11/22/17 Encounter Start Time: 09:30 Feeling better. Continued to have some diarrhea overnight. Sats are better sitting up, but she has some incontinence so she is avoiding it. - Objective Vital Signs & Weight: Vital Signs (12 hours) Temp Pulse Resp BP BP Pulse Ox 11/22/17 11:10 99.4 F 83 20 135/55 L 96 11/22/17 09:06 71 156/67 H 11/22/17 08:29 71 11/22/17 08:09 97.0 F L 68 18 100 11/22/17 07:23 97.0 F L 119 H 18 152/54 H 100 11/22/17 04:00 99.1 F 129 H 19 138/76 97 11/22/17 02:40 60 Weight Admit Weight 139 lb Weight 131 lb 4.8 oz I&O: 11/21/17 11/22/17 11/23/17 06:59 06:59 06:59 Intake Total 1258 1695 Output Total 1950 1999 Balance -872 -552 Result Diagrams: 11/22/17 03:31 11/22/17 03:31 Phys Exam - Physical Examination Constitutional: NAD Speaking fairly well even when she takes the O2 off. Right rales (reduced from yesterday), left with modest rales. Cardiovascular: RRR, no significant murmur, no rub Frequent ectopy Gastrointestinal: soft, non-tender, no distention, positive bowel sounds Musculoskeletal: no edema Psychiatric: normal affect Dx/Plan (1) Sepsis due to Escherichia coli Code(s): A41.51 - SEPSIS DUE TO ESCHERICHIA COLI [E. COLI] Status: Acute Comment: Sepsis was initially masked by severe anemia, afib and acute renal failure. In retrospect, she was likely septic from the UTI with e. coli. All parameters are better. (2) E. coli UTI Code(s): N39.0 - URINARY TRACT INFECTION, SITE NOT SPECIFIED; B96.20 - UNSP ESCHERICHIA COLI THE CAUSE OF DISEASES CLASSD ELSWHR Status: Acute Comment: Sensistive to Rocephin. Continue that. Will stop the Zosyn. (3) Bacteremia, escherichia coli Code(s): R78.81 - BACTEREMIA Status: Acute Comment: Sensitive to Rocephin. (4) Atrial fibrillation with rapid ventricular response Code(s): I48.91 - UNSPECIFIED ATRIAL FIBRILLATION Status: Acute Comment: Had flipped back to Afib with RVR. Back in NSR as of this morning. On PO Cardizem and Cardizem gtt. On Multaq. Cardiology following. No anticoagulation secondary to GI bleed. (5) UGIB (upper gastrointestinal bleed) Code(s): K92.2 - GASTROINTESTINAL HEMORRHAGE, UNSPECIFIED Status: Acute Comment: Too unstable for endoscopy. Does not appear to aggressively bleeding. GI consulted. Continue PPI. May be able to change gtt to scheduled dosing. (6) AVM (arteriovenous malformation) of duodenum, acquired Code(s): K31.819 - ANGIODYSPLASIA OF STOMACH AND DUODENUM WITHOUT BLEEDING Status: Acute Comment: Was the source of the bleeding identified last admission. (7) Acute kidney failure Status: Acute Comment: Much improved. Nephrology consulted. (8) Hiatal hernia with GERD and esophagitis Code(s): K44.9 - DIAPHRAGMATIC HERNIA WITHOUT OBSTRUCTION OR GANGRENE; K21.0 - GASTRO-ESOPHAGEAL REFLUX DISEASE WITH ESOPHAGITIS Status: Acute (9) Symptomatic anemia Code(s): D64.9 - ANEMIA, UNSPECIFIED Status: Acute Comment: Hgb much improved after transfusion of two units. (10) PVD (peripheral vascular disease) Code(s): I73.9 - PERIPHERAL VASCULAR DISEASE, UNSPECIFIED Status: Chronic Comment: Severe PVD. Followed by Dr. Palomino. Holding Plavix secondary to GI bleed. (11) Ulcer of toe of left foot Code(s): L97.529 - NON-PRESSURE CHRONIC ULCER OTH PRT LEFT FOOT W UNSP SEVERITY Status: Chronic Comment: Wound Care Consult. Vascular insufficency. (12) Acute respiratory failure Code(s): J96.00 - ACUTE RESPIRATORY FAILURE, UNSP W HYPOXIA OR HYPERCAPNIA Status: Acute Comment: Had aggressive hydration initially. Subsequently developed pulmonary edema (volume overload / CHF with afib with RVR). Has subsequently had diuresis, but still requiring some supplemental oxygen with mask. Still has rales. Additional diuresis today. (13) Diarrhea Code(s): R19.7 - DIARRHEA, UNSPECIFIED Status: Acute Comment: Concerned that it may be related to the Multaq. Discussed with nursing. Will follow up with cardiology. Work up otherwise negative. (14) Hypokalemia Code(s): E87.6 - HYPOKALEMIA Status: Acute Comment: Secondary to diuresis and diarrhea. Continue repletion. - Plan * As above.
[2017-11-22] MEDS: HYDROcodone/Acetaminophen 10/325 mg Tablet PO PRN (16:47)
[2017-11-22] MEDS: Pantoprazole 40 MG VIAL IVP SCH (20:14)
[2017-11-22] MEDS: Atorvastatin Calcium 10 MG TAB PO SCH (20:16)
[2017-11-22] MEDS: traZODone HCl 50 MG TAB PO SCH (20:16)
[2017-11-22] MEDS: Lorazepam 2 MG/ML VIAL SLOW IVP PRN (20:33)
--- NOTE | 2017-11-22 21:46 | EKG ---
Test Reason : AMS Blood Pressure : / mmHG Vent. Rate : 077 BPM Atrial Rate : 077 BPM P-R Int : 164 ms QRS Dur : 076 ms QT Int : 376 ms P-R-T Axes : 067 026 040 degrees QTc Int : 425 ms Normal sinus rhythm Septal infarct , age undetermined Abnormal ECG Confirmed by TIM SABA M.D. ([id number]), dictionary editor JAYE TREJO ([id number]) on 11/22/2017 9:46:21 PM Referred By: Confirmed By:TIM SABA M.D.
--- NOTE | 2017-11-23 00:05 | PRG ---
DATE OF SERVICE: 11/22/2017 REASON FOR CONSULTATION: Anemia, GI bleeding. SUBJECTIVE: The patient states that her breathing has much improved today with minimal use of both B iPAP and Ventimask during the day today. During the course of our conversation, she did not exhibit any conversational dyspnea nor was she on any supplemental oxygen. However, she continued to deny an y evidence of GI bleeding including hematemesis, melena, or hematochezia. Currently, she also denies any nausea, vomiting, fevers, chills, dysphagia, or odynophagia. OBJECTIVE: VITAL SIGNS: Temperature 99.8, pulse 98, blood pressure 126/57, respiratory rate 20, satting 92% on room air. GENERAL: The patient is lying in bed in no acute distress. Alert and oriented x4. HEART: Regular rate and rhythm. LUNGS: Clear to auscultation bilaterally in the upper lung parks; however, mild coarse crackles wer e heard in the bilateral lower lung parks. ABDOMEN: Normoactive bowel sounds. Soft, nontender, nondistended. EXTREMITIES: Trace/1+ bilateral lower extremity edema to mid adams with increased scaling of the skin extending to mid adams. LABORATORY DATA: CBC with a white blood cell count of 7.2, hemoglobin 8.1, hematocrit 24.1, platelet s 228. Chemistry with a sodium of 138, potassium 2.9, chloride 103, CO2 of 25, BUN 50, creatinine 1. 3, glucose 102. IMAGING DATA: No current GI imaging is available for review. ASSESSMENT AND PLAN: The patient is a 76-year-old female with past medical history of hypertension; hyperlipidemia; breast cancer, status post resection; Raynaud's phenomenon; peripheral vascular disea se; osteoarthritis; anxiety; coronary artery disease; and depression presenting with symptomatic anem ia with a history of duodenal arteriovenous malformation. Symptomatic anemia. The patient initially presented with increased dyspnea on exertion and worsening of her lower extremity edema, prompting her re-admission to the [facility]. On admission, she wa s noted to have a significantly decreased H&H when compared to her prior admission. She was subseque ntly given 2 units of PRBCs with appropriate response in terms of her H&H. Since that time, her H&H had been relatively stable until the last 24 hours when she had a further drop in her H&H that is con cerning for continued active gastrointestinal bleeding. Given improvement in her respiratory status and no longer being on Ventimask or BiPAP for adequate oxygenation, an endoscopic procedure could be safely attempted at this time. RECOMMENDATIONS: 1. We would continue to trend H&H and transfuse as necessary to maintain an H&H of 7. 2. Continue to monitor clinically for signs of active gastrointestinal bleeding. 3. We will plan for repeat EGD tomorrow morning. Please make the patient n.p.o. at midnight in prep aration for the procedure. 4. We would continue to hold any anticoagulation. We will continue to follow. Please call with any questions.
[2017-11-23] MEDS: Diltiazem HCl SR 60 mg Capsule PO SCH ×4 (01:39→20:57)
[2017-11-23] MEDS: HYDROcodone/Acetaminophen 10/325 mg Tablet PO PRN ×3 (04:54→21:00)
[2017-11-23 06:04] LABS: Anion Gap 14 mmol/L (10-20); BUN (Urea Nitrogen) 47 mg/dL (9.8-20.1); Calc. Creatinine Clearance 35 mL/min (70-130); Calcium 7.8 mg/dL (7.8-10.44); Carbon Dioxide 23 mmol/L (23-31); Chloride 104 mmol/L (98-107); Estimated GFR-MDRD 42; Glucose 94 mg/dL (83-110); Potassium 3.8 mmol/L (3.5-5.1); Sodium 137 mmol/L (136-145)
[2017-11-23 06:07] LABS: #Eosinphils 0.4 thou/uL (0.0-0.7); #Monocytes 0.4 thou/uL (0.11-0.59); #Neutrophils 6.7 thou/uL (1.40-6.50); %Basophils 0.3 % (0.0-1.0); %Eosinophils 5.2 % (0.0-10.0); %Lymphocytes 11.2 % (21.0-51.0); %Monocytes 4.9 % (0.0-10.0); %Neutrophils 78.4 % (42.0-75.0); Mean Corpuscular HGB CONC 33.3 g/dL (32.0-36.0); Mean Corpuscular Hemoglobin 30.6 pg (27.0-31.0); Mean Corpuscular Volume 91.8 fL (78.0-98.0); Mean Platelet Volume 7.3 fL (7.4-10.4); Platelet Count 233 thou/uL (130-400); RBC Distribution Width 15.1 % (11.5-14.5); White Blood Cell (WBC) Count 8.6 thou/uL (4.8-10.8)
[2017-11-23] MEDS ORDERED: Ondansetron HCl/PF 4 MG/2 ML Vial IVP PRN (10:54)
[2017-11-23] MEDS ORDERED: Promethazine HCl 25 MG/ML VIAL IM PRN (10:54)
[2017-11-23] MEDS ORDERED: Promethazine HCl 25 MG/ML VIAL SLOW IVP PRN (10:54)
[2017-11-23] MEDS: Ferrous Sulfate 325 MG TAB PO SCH ×3 (12:16→18:12)
[2017-11-23] MEDS: Aspirin 81 mg Enteric Coated Tablet PO SCH (12:17)
[2017-11-23] MEDS: Saccharomyces boulardii 250 MG CAP PO SCH ×2 (12:17→20:59)
[2017-11-23] MEDS: Amlodipine 5 MG TAB PO SCH (12:18)
[2017-11-23] MEDS: Hydroxychloroquine Sulfate 200 MG TAB PO SCH (12:18)
[2017-11-23] MEDS: DULoxetine 60 MG CAP PO SCH (12:18)
[2017-11-23] MEDS: cefTRIAXone\\ROCEPHIN 1 GM in Sodium Chloride 0.9% 100 ML IVPB SCH (12:20)
[2017-11-23] MEDS: Pantoprazole 40 MG VIAL IVP SCH ×2 (12:21→20:55)
[2017-11-23] MEDS: ALPRAZolam 1 MG TAB PO PRN (12:50)
--- NOTE | 2017-11-23 13:39 | PRG ---
DATE OF SERVICE: 11/23/2017 SUBJECTIVE: Patient is very talkative, does not appear to be in any respiratory distress. She is of f the BiPAP and using an intermittent Venturi face mask. OBJECTIVE: VITAL SIGNS: Temperature 98.5, pulse 60, blood pressure 156/67, O2 saturation 97%. HEENT: Unremarkable. NECK: No JVD. LUNGS: Fairly clear. CARDIAC: S1 and S2 regular. ABDOMEN: Soft. EXTREMITIES: She has a dressing over left fourth and fifth toe. LABORATORY DATA: White blood cell count 8.6, hematocrit 23.8, platelet count 223. Sodium 137, potas sium 3.8, chloride 104, CO2 of 23, BUN 47, creatinine 1.2, glucose 94. ASSESSMENT: 1. Cardiogenic pulmonary edema which is better. 2. Atrial fibrillation. 3. Deconditioning. 4. Anemia. 5. Hypokalemia. PLAN: The patient is continuing IV antibiotics. She will continue BiPAP intermittently as needed. Diuretics are currently being held. Dr. Bates will reassume care tomorrow.
--- NOTE | 2017-11-23 14:56 | OP ---
DATE OF PROCEDURE: 11/23/2017 PROCEDURE PERFORMED: Esophagogastroduodenoscopy (diagnostic). INDICATION FOR PROCEDURE: Symptomatic anemia. DESCRIPTION OF PROCEDURE: After the risks and benefits of the procedure were explained to the patien t including risk of bleeding, infection, perforation, reactions to anesthesia, aspiration and/or pain , informed consent was obtained. The patient was then taken to the endoscopy suite where deep sedati on was administered via propofol and anesthesia support. Once adequate sedation was achieved, a shahrzad dard gastroscope was introduced into the mouth with intubation of the esophagus, stomach and proximal small intestine with the findings listed below. Views were somewhat limited within the stomach and the proximal small intestine due to retained solid and liquid food. The patient tolerated the proced ure well with no immediate perioperative complications. FINDINGS: ESOPHAGUS: Normal appearing mucosa was seen in both the proximal and mid esophagus; however, multipl e erosions and small ulcerations were seen in the distal esophagus extending upward from the GE junct ion in a circumferential fashion with erosions extending greater than 1 cm in length consistent with LA grade D erosive esophagitis. The Z-line was seen at approximately 29 cm while the GE junction was seen at 32 cm with salmon-colored mucosa in between consistent with her prior history of Jason's e sophagus. Biopsies were not obtained during this examination due to again no mass, lesions or active /recent bleeding. The diaphragmatic pinch was seen at approximately 40 cm while the GE junction was seen at 32 cm denoting an 8 cm hiatal hernia. There were no erosions or ulcerations within the herni al sac that might contribute to her anemia. There was no evidence of active/recent bleeding within t he esophagus itself, although there was increased hyperemia at the GE junction. STOMACH: A moderate amount of retained solid food was encountered in the stomach limiting visualizat ion of the gastric mucosa of the mucosa visualized. Normal appearing mucosa was seen in the gastric cardia, fundus, body, antrum, greater curvature and incisura. There was no evidence of erosions, ulc erations, mass lesions or active/recent bleeding. A large hiatal hernia was seen on gastric retrofle xion. DUODENUM: Normal appearing mucosa was seen in the duodenal bulb; however, a moderate amount of retai reed food was also seen in the second portion of the duodenum limiting visualization of the intestinal mucosa. The previously seen arteriovenous malformation within the second portion was seen and it wa s a good state of healing without any evidence of active/recent bleeding. There was no evidence of e rosions, ulcerations, mass lesions or active/recent bleeding in this portion of the exam. IMPRESSION: 1. Previously cauterized arteriovenous malformation without evidence of active/recent bleeding. 2. A moderate amount of retained food seen in both the stomach and second portion of the duodenum li miting visualization. 3. A large (8 cm) hiatal hernia seen in the distal esophagus. 4. LA grade D reflux mediated erosive esophagitis seen in the distal esophagus. 5. [place]ridge-colored mucosa seen in the distal esophagus consistent with Jason type mucosa; however, given the degree of esophagitis, it is difficult to determine the exact extent. RECOMMENDATIONS: 1. We would continue to trend H&H and transfuse as necessary to maintain an H&H of 7/21. 2. Continue to monitor for signs of active gastrointestinal bleeding. 3. We would continue patient on pantoprazole 40 mg twice daily for the next 8-12 weeks given continu ed severe erosive esophagitis. 4. We would maintain strict antireflux precautions during this hospitalization including maintaining an upright position at all times would not sleeping and for at least 2-3 hours after eating and drin elizabet. 5. We would avoid any NSAIDs as this could exacerbate any sort of gastrointestinal bleeding. 6. Have the patient follow up with General Surgery for possible correction of her hiatal hernia. 7. We would consider colonoscopy for further evaluation of GI bleeding, although the patient has bee n elected to proceed with this in the past. We will continue to follow. Please call with any questions.
[2017-11-23] MEDS ORDERED: PROPOFOL 200 MG/20 ML VIAL ONE (15:17)
--- NOTE | 2017-11-23 15:23 | PDOC.PN ---
- Subjective Encounter Start Date: 11/23/17 Encounter Start Time: 15:20 Doing well. Tolerated the EGD well. Feels like she is breathing comfortably. Does not feel like she needs the oxygen. Diarrhea better. - Objective Vital Signs & Weight: Vital Signs (12 hours) Temp Pulse Resp BP BP Pulse Ox 11/23/17 15:12 97.4 F L 70 20 103/47 L 90 L 11/23/17 12:18 62 11/23/17 12:17 156/67 H 11/23/17 08:13 97 11/23/17 08:06 98.5 F 62 17 91 L 11/23/17 07:37 98.5 F 62 17 134/58 L 97 11/23/17 04:18 98.5 F 61 20 124/47 L 99 Weight Admit Weight 139 lb Weight 131 lb 4.8 oz I&O: 11/22/17 11/23/17 11/24/17 06:59 06:59 06:59 Intake Total 5 1320 Output Total 1999 1999 Balance -305 -472 Result Diagrams: 11/23/17 04:49 11/23/17 04:49 Phys Exam - Physical Examination Constitutional: NAD Scattered rales. Right greater than left. Cardiovascular: RRR, no significant murmur Gastrointestinal: soft, non-tender, no distention, positive bowel sounds Musculoskeletal: no edema Psychiatric: normal affect Deviation from normal: Talkative Dx/Plan (1) Sepsis due to Escherichia coli Code(s): A41.51 - SEPSIS DUE TO ESCHERICHIA COLI [E. COLI] Status: Acute Comment: Improved. Still on IV Rocephin. (2) E. coli UTI Code(s): N39.0 - URINARY TRACT INFECTION, SITE NOT SPECIFIED; B96.20 - UNSP ESCHERICHIA COLI THE CAUSE OF DISEASES CLASSD ELSWHR Status: Acute Comment: Sensistive to Rocephin. Continue that. (3) Bacteremia, escherichia coli Code(s): R78.81 - BACTEREMIA Status: Acute Comment: Sensitive to Rocephin. (4) Atrial fibrillation with rapid ventricular response Code(s): I48.91 - UNSPECIFIED ATRIAL FIBRILLATION Status: Acute Comment: Looks to be stable in NSR now. (5) UGIB (upper gastrointestinal bleed) Code(s): K92.2 - GASTROINTESTINAL HEMORRHAGE, UNSPECIFIED Status: Acute Comment: Endoscopy today. Found the known Esophagitis and HH. No bleeding from the prior AVM cautery site. (6) AVM (arteriovenous malformation) of duodenum, acquired Code(s): K31.819 - ANGIODYSPLASIA OF STOMACH AND DUODENUM WITHOUT BLEEDING Status: Acute Comment: Was the source of the bleeding identified last admission. Looks stable now. (7) Acute kidney failure Status: Acute Comment: Much improved. Nephrology consulted. Creatinine stablized. (8) Hiatal hernia with GERD and esophagitis Code(s): K44.9 - DIAPHRAGMATIC HERNIA WITHOUT OBSTRUCTION OR GANGRENE; K21.0 - GASTRO-ESOPHAGEAL REFLUX DISEASE WITH ESOPHAGITIS Status: Acute (9) Symptomatic anemia Code(s): D64.9 - ANEMIA, UNSPECIFIED Status: Acute Comment: Hgb much improved after transfusion of two units. Drifting back down. Continue to monitor. (10) PVD (peripheral vascular disease) Code(s): I73.9 - PERIPHERAL VASCULAR DISEASE, UNSPECIFIED Status: Chronic Comment: Severe PVD. Followed by Dr. Palomino. Holding Plavix secondary to GI bleed. (11) Ulcer of toe of left foot Code(s): L97.529 - NON-PRESSURE CHRONIC ULCER OTH PRT LEFT FOOT W UNSP SEVERITY Status: Chronic Comment: Wound Care Consult. Vascular insufficency. (12) Acute respiratory failure Code(s): J96.00 - ACUTE RESPIRATORY FAILURE, UNSP W HYPOXIA OR HYPERCAPNIA Status: Acute Comment: Had aggressive hydration initially. Subsequently developed pulmonary edema (volume overload / CHF with afib with RVR). Has subsequently had diuresis, but still requiring some supplemental oxygen with mask. Room air sats in low 80's. Still has rales, but improved. Pulmonology following. (13) Diarrhea Code(s): R19.7 - DIARRHEA, UNSPECIFIED Status: Resolved Comment: Concerned that it may be related to the Multaq. Discussed with nursing. Will follow up with cardiology. Work up otherwise negative. (14) Hypokalemia Code(s): E87.6 - HYPOKALEMIA Status: Resolved Comment: Secondary to diuresis and diarrhea. Continue repletion. (15) Esophagitis determined by endoscopy Code(s): K20.9 - ESOPHAGITIS, UNSPECIFIED Status: Acute Comment: Continue PPI. (16) Hiatal hernia Code(s): K44.9 - DIAPHRAGMATIC HERNIA WITHOUT OBSTRUCTION OR GANGRENE Status: Acute Comment: Patient was referred to surgery prior to admission, but has not been stable enough, long enough to consider intervention. - Plan * Stay in IMCU today. Anticipate colonscopy tomorrow.
[2017-11-23] MEDS: traZODone HCl 50 MG TAB PO SCH (20:58)
[2017-11-23] MEDS: Atorvastatin Calcium 10 MG TAB PO SCH (20:58)
[2017-11-24] MEDS: Diltiazem HCl SR 60 mg Capsule PO SCH ×4 (03:11→21:46)
--- NOTE | 2017-11-24 07:27 | CON ---
DATE OF CONSULTATION: 11/20/2017 HISTORY: Ms. Mcintyre is a 76-year-old female with multiple medical problems. All of her problems have been managed in an excellent fashion, but she is still hypoxic with some pulmonary edema, so she was moved to the Intermediate Care Unit. I was asked to follow along with the other physicians caring for her. Chest radiograph done shows pulmonary edema, although her radiograph has improved compared to her film yesterday. Her fluid balance is negative compared to yesterday, [id number]. She said she is feeling better, but she does not like wearing the facemask. She has been seen by Dr. Burrows and Dr. Bright and Dr. Palomino as well. PAST MEDICAL HISTORY: 1. She has atrial fibrillation, very severe peripheral vascular disease, severe anemia, status post transfusion multiple times recently. 2. 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 3. Hypertension. 4. Pneumonia in the past. 5. Hip replacement. 6. History of Raynaud's. MEDICATIONS: Prior to admission she was on aspirin, lisinopril, fluoxetine, hydrocodone, simvastatin, iron, nifedipine, ____, trazadone, alprazolam, Plavix and Lasix. SOCIAL HISTORY: Nonsmoker, nondrinker. FAMILY HISTORY: Not obtained. REVIEW OF SYSTEMS: Ten points system review competed, otherwise negative. PHYSICAL EXAMINATION: GENERAL: She is very pleasant. She has facemask O2. VITAL SIGNS: She is afebrile. Heart rate is in the 50s, respiratory rate is in the 20s. We placed her on BiPAP this afternoon just more for comfort and assistance with breathing, although she had no signs of muscle fatigue and denied being tired. She has now gone from 88 to 100% on BiPAP. Blood pressure is 142/56. HEENT: Pupils are equal, sclerae is anicteric. NECK: Neck is supple. LUNGS: She did have crackles in both lung bases. HEART: Regular rhythm. ABDOMEN: The abdomen is soft. EXTREMITIES: Without clubbing, cyanosis or edema. LABORATORY: White count is 10.8, hemoglobin 9.4, platelets 205,000. Sodium 138 , potassium 3.1, chloride 103, bicarbonate 23, BUN 59, creatinine 1.24. IMPRESSION: Multiple medical problems with pulmonary edema, status post transfusion with blood products. PLAN: I agree with current care. We will continue BiPAP this morning, continue with diuresis and reassess her in the morning. This is a 50 minute consult, with greater than 50% of the time was spent on unit coordinating care. I have little to add to the excellent care provided by Dr. Holt and the other physicians caring for her at this point in time. SIOBHAN
--- NOTE | 2017-11-24 07:59 | PDOC.CTH ---
Cardiology Progress Note - Subjective Pt appears better today vs friday., A little bit more oriented. Continues with diarrhea. Afib/flutter seems improved but still noted. - Objective Vital Signs Temp Pulse Resp BP Pulse Ox 11/24/17 07:31 98.8 F 74 17 142/52 H 97 11/24/17 04:00 98.9 F 64 15 122/53 L 98 11/24/17 00:00 98.5 F 70 12 117/50 L 100 11/23/17 22:23 77 120/58 L 11/23/17 20:50 98.9 F 94 20 11/23/17 20:00 94 Admit Weight 139 lb Weight 131 lb 4.8 oz 11/23/17 11/24/17 11/25/17 06:59 06:59 06:59 Intake Total 1320 1210 Output Total 2000 1800 Balance -680 -590 - Physical Examination General/Neuro: alert & oriented x3, NAD Neck: carotid US brisk, no JVD present Lungs: CTA, unlabored respirations Heart: PMI normal, RRR Abdomen: NT/ND, soft - Labs Result Diagrams: 11/23/17 04:49 11/23/17 04:49 Troponin/CKMB CK-MB (CK-2) 2.5 ng/mL (0-6.6) 11/18/17 09:13 Troponin I 0.446 ng/mL (< 0.028) H* 11/18/17 23:30 - Assessment/Plan Anemia RI Severe PVD Paroxysmal Afib Pt with Hb of 10.9 and has drifted back down to 8.0. Consult with EP on aafib/flutter Difficult to address the LE given continued anemia. Even if transfusion given, pt with RI. Consider angio only and transfuse if needed to assess her anatomy.
[2017-11-24 08:25] LABS: Hemoglobin 8.8 g/dL (12.0-16.0)
[2017-11-24] MEDS: HYDROcodone/Acetaminophen 10/325 mg Tablet PO PRN ×2 (08:27→17:54)
[2017-11-24] MEDS: Saccharomyces boulardii 250 MG CAP PO SCH ×2 (08:29→21:45)
[2017-11-24] MEDS: Amlodipine 5 MG TAB PO SCH (08:29)
[2017-11-24] MEDS: DULoxetine 60 MG CAP PO SCH (08:30)
[2017-11-24] MEDS: Hydroxychloroquine Sulfate 200 MG TAB PO SCH (08:30)
[2017-11-24] MEDS: cefTRIAXone\\ROCEPHIN 1 GM in Sodium Chloride 0.9% 100 ML IVPB SCH (08:30)
[2017-11-24] MEDS: Ferrous Sulfate 325 MG TAB PO SCH ×3 (08:30→15:58)
[2017-11-24] MEDS: Pantoprazole 40 MG VIAL IVP SCH ×2 (08:32→22:35)
--- NOTE | 2017-11-24 10:39 | CON ---
DATE OF CONSULTATION: 11/24/2017 ELECTROPHYSIOLOGY CONSULTATION REPORT REFERRING PHYSICIAN: Dr. Trae Palomino HISTORY: I am seeing Ms. Mcintyre at our [facility] ICU as an electrophysiology service loss control consultant. Her problems are: 1. Paroxysmal atrial fibrillation/flutter with episodic rapid ventricular rates. A. Transient Multaq use stopped due to diarrhea. B. Episodic atrial fibrillation and atrial flutter, both seen. 2. History of a possible GI bleed with esophagitis and hiatal hernia on EGD. A. Prior history of AV malformation cautery in the past. B. Hemoglobin 8 today. 3. Initial presentation with UTI sepsis. 4. History of peripheral vascular disease with lower extremity stenting of the left iliac, but residual blockage in left SFA. A. Poorly healing left lower extremity ulcer. 5. Pulmonary disease with COPD and prior smoking. 6. History of coronary artery disease. 7. History of breast cancer, status post resection of the left breast. 8. History of Raynaud's phenomenon. 9. History of rheumatic arthritis. 10. Chronic low back pain 11. Hypothyroidism. 12. Anxiety disorder and confusion on current admission. 13. History of diastolic heart failure. 14. CHADS-VASc score of 5 with a gender, hypertension, diastolic heart failure , and vascular heart disease. ALLERGIES: CODEINE. MEDICATIONS: At home include omeprazole, Zocor, Xanax, ____, hydrochloroquine, nifedipine, duloxetine, trazodone, ferrous sulfate, Lasix, Soma, aspirin, lisinopril, hydrocodone, Plavix, Multaq 400 twice a day, Dulcolax. SUBJECTIVE: Ms. Mcintyre is somewhat of a poor historian with most of the history obtained from the chart. It seems that she had extensive hospitalizations in September for a stent placement in the left common iliac, nonhealing vascular ulcers were noted, symptomatic anemia was noted later in October and GI evaluated her and AV malformation was cauterized. She later had a further bleed and possible due to distal esophagitis. She was readmitted with confusion. She was also noted to be in atrial fibrillation/flutter intermittently. Here UTI was diagnosed and she is receiving treatment for that. GI is further evaluating for her anemia. She has developed progressive diarrhea and Multaq had to be stopped, currently still has episodic atrial fibrillation/flutter with rapid rates. On the other hand symptoms are minimal, palpitations are noted. She denies passing out. No stroke-like symptoms, no neurological deficits at this time. REVIEW OF SYSTEMS: Twelve point system otherwise unremarkable. PAST MEDICAL HISTORY: As above. She also has history of osteoarthritis. PAST SURGICAL HISTORY: Significant for hysterectomy, left hip arthroplasty, hernia repair, rectocele repair, surgical resection of left breast, partial thyroidectomy, cauterization of the duodenum due to AV malformation. SOCIAL HISTORY: She lives with her daughter. She stopped smoking 17 years ago after 20 years of smoking. Occasional social alcohol intake. Denies drug use. FAMILY HISTORY: Noncontributory. ALLERGIES: CODEINE. OBJECTIVE: VITAL SIGNS: Blood pressure is 124/108, heart rate 84, respirations 17, temperature 98.8 degrees Fahrenheit. GENERAL: Alert and oriented woman in no apparent distress. NECK: Supple. Jugular veins not distended. CHEST: Coarse without crackles. CARDIAC: Heart sounds are regular to rate and rhythm. No murmur or gallop is appreciated. ABDOMEN: Benign. Bowel sounds are positive. EXTREMITIES: Lower extremity with 1+ bilateral edema with chronic stasis changes. NEUROLOGIC: The patient is nonfocal. MUSCULOSKELETAL: No joint swelling or deformity. SKIN: Without rash. DATABASE: EKGs reviewed. Initial EKG with sinus rhythm, rate of 77 beats per minute on 11/18/2017. QTC is 425 milliseconds, narrow QRS. Subsequent telemetry strips do reveal episodic atrial fibrillation with rapid rates as well as atrial flutter is also noted. The atrial flutter is difficult to assess as the morphology, but could be typical isthmus-dependent flutter, although no true EKG was performed. LABORATORY DATA: White count is 8.6 on the 9th, white count is 8.8 today, platelet count is 233. Sodium 137, potassium 3.8, BUN is 47, creatinine 1.25. The blood cultures x2 positive for Pseudomonas aeruginosa, and urine culture positive for E. coli. Blood cultures are negative. ASSESSMENT AND PLAN: 1. Ms. Mcintyre is a 76-year-old woman with extensive medical history, who has paroxysmal atrial fibrillation/flutter. She failed Multaq due to significant diarrhea and difficult to recommend alternative antiarrhythmic agents due to comorbidities. She is not a candidate for class 1C agents due to her history of CAD and poor cnadidate to dofetolide and sotalol hence her renal insufficiency. Amiodarone could be contemplated on the other hand due to have a baseline pulmonary disease, shelter may be a difficult proposition. At this point, her heart rates are reasonable on diltiazem p.o. I think further rate controlling efforts should be maximized. Hence max heart rates were seen during atrial flutter, CTI ablation is a possibility. Eventually a pacemaker and AV jarvis ablation could be an option, if that is not suffice for controlling heart rates. For now not ideal with all the infection issues ongoing. Ultimately, we could consider amiodarone as a last resort, monitoring her pulmonary disease. 2. History of GI bleed, recurrent, poor candidate for anticoagulation. 3. Peripheral vascular disease as per Dr. Palomino. 4. Diastolic heart failure being diuresed. Monitor renal function. 5. We will follow with you. Thank you again for allowing me to participate in the care of this patient. SIOBHAN
[2017-11-24] MEDS: Aspirin 81 mg Enteric Coated Tablet PO SCH (11:32)
[2017-11-24] MEDS ORDERED: GoLYTELY 4,000 ml Bottle PO SCH (11:45)
--- NOTE | 2017-11-24 12:11 | PRG ---
DATE OF SERVICE: 11/24/2017 REASON FOR CONSULTATION: Anemia, GI bleeding. SUBJECTIVE: The patient states that she is feeling "100% better" today with decreased work of breath ing. She denies any evidence of overt GI bleeding with no hematemesis, melena or hematochezia. She also denies any nausea, vomiting, fevers, chills, abdominal pain, dysphagia or odynophagia. OBJECTIVE: VITAL SIGNS: Temperature 99.4, pulse 64, blood pressure 126/68, respiratory rate 19, satting 94% on 2 liters nasal cannula. GENERAL: The patient was lying in bed, in no acute distress. Alert and oriented x4. CARDIOVASCULAR: Regular rate and rhythm. RESPIRATORY: Clear to auscultation bilaterally. ABDOMEN: Normoactive bowel sounds, soft, nontender, nondistended. EXTREMITIES: Trace to 1+ bilateral lower extremity edema to the mid adams. LABORATORY DATA: CBC with hemoglobin of 8.8, hematocrit 27.8. IMAGING DATA: EGD performed on 11/23/2017 showed the appearance of LA grade D reflux mediated erosiv e esophagitis within the distal esophagus as well as a large hiatal hernia measuring approximately 8 cm in diameter; however, a moderate amount of retained food was seen both within the stomach and seco nd portion of the duodenum that did limit visualization. No evidence of active gastrointestinal blee ding was seen throughout this entire exam. ASSESSMENT AND PLAN: The patient is a 76-year-old female with past medical history of hypertension, hyperlipidemia, breast cancer status post resection, Raynaud's phenomenon, peripheral vascular diseas e, osteoarthritis, anxiety, coronary artery disease, and depression presenting with symptomatic anemi a with a history of duodenal arteriovenous malformation. Symptomatic anemia: The patient initially presented with increased dyspnea on exertion and worsening of her lower extremity edema, prompting her readmission to [facility]. Upon evaluation, renae perdue was noted to have a decreased H&H when compared to her prior admission and she was subsequently giv en 2 units of PRBCs. However, during this course of her hospitalization, she has been having a slowl y downtrending H&H with no evidence of melena, hematochezia or hematemesis. She subsequently underwe nt an EGD on 11/23/2009 with no evidence of erosions, ulcerations or active/recent bleeding that coul d contribute to her current clinical state. At this time, she had been reluctant to proceed with col onoscopy in the past, but given her repeated episodes of anemia and possibility of a GI bleed within that region, she is now amenable to colonoscopy. RECOMMENDATIONS: 1. We would continue to trend H&H and transfuse as necessary to maintain an H&H of 10/04. 2. Continue to monitor clinically for signs of active gastrointestinal bleeding. 3. We will plan for a colonoscopy tomorrow. Please give the patient a clear liquid diet today with plans for GoLYTELY prep tonight, approximately 2 liters starting at 8:00 p.m. as well as the remainin g 2 liters around 3:00 a.m. the day of the procedure as part of split prep dosing. The patient is to be n.p.o. at midnight in preparation for the procedure. 4. We would continue to hold any anticoagulation until after the procedure. We will continue to follow. Please call with any questions.
[2017-11-24] MEDS: Lorazepam 2 MG/ML VIAL SLOW IVP PRN (14:05)
--- NOTE | 2017-11-24 18:58 | PRG ---
DATE OF SERVICE: 11/24/2017 SUBJECTIVE: Ms. Graciela Mcintyre says she is feeling much better than she felt on Friday when I saw. OBJECTIVE: VITAL SIGNS: She is afebrile, heart rate 71, respiratory rate is 18, oximetry is 97 on 2 liters, and blood pressure 127/49. LUNGS: Clear. HEART: Regular rhythm. ABDOMEN: Soft. She was seen by Electrophysiology today for atrial fibrillation and Multaq intolerance. There is on amiodarone. She has no preexisting significant lung disease that I am aware of. The only issues during this hospitalization have been pulmonary edema brought on by volume resuscitation for severe anemia (hemoglobin of 5). I will continue to follow with t marjorie other physicians. She appears to be clinically stable at this time. She did have E. coli bacteremia, which is fairly sensitive organism. Antimicrobial therapy could be simplified inferiorly to just p.o. Cipro. We will continue to follow. SIOBHAN
[2017-11-24] MEDS: Atorvastatin Calcium 10 MG TAB PO SCH (21:46)
[2017-11-24] MEDS: traZODone HCl 50 MG TAB PO SCH (21:50)
[2017-11-25] MEDS: Diltiazem HCl SR 60 mg Capsule PO SCH ×4 (04:23→20:59)
[2017-11-25] MEDS: HYDROcodone/Acetaminophen 10/325 mg Tablet PO PRN ×2 (04:23→15:31)
[2017-11-25] MEDS: Aspirin 81 mg Enteric Coated Tablet PO SCH (10:34)
[2017-11-25] MEDS: DULoxetine 60 MG CAP PO SCH (10:38)
[2017-11-25] MEDS: Ferrous Sulfate 325 MG TAB PO SCH ×3 (10:38→15:32)
[2017-11-25] MEDS: Saccharomyces boulardii 250 MG CAP PO SCH ×2 (10:38→20:59)
[2017-11-25] MEDS: Hydroxychloroquine Sulfate 200 MG TAB PO SCH (10:39)
[2017-11-25] MEDS: cefTRIAXone\\ROCEPHIN 1 GM in Sodium Chloride 0.9% 100 ML IVPB SCH (10:49)
[2017-11-25] MEDS: Pantoprazole 40 MG VIAL IVP SCH ×2 (10:49→20:58)
[2017-11-25] MEDS: Amlodipine 5 MG TAB PO SCH (10:57)
[2017-11-25] MEDS ORDERED: PHENYLEPHRINE-NS 100 MCG/ML 10 ML SYRINGE ONE (13:38)
[2017-11-25] MEDS ORDERED: Lidocaine 1% PF 5 ML VIAL ONE (13:38)
[2017-11-25] MEDS ORDERED: PROPOFOL 200 MG/20 ML VIAL ONE (13:38)
--- NOTE | 2017-11-25 14:36 | OP ---
DATE OF PROCEDURE: 11/25/2017 PROCEDURE: Colonoscopy with biopsy. PREOPERATIVE DIAGNOSIS: Iron deficiency anemia. OPERATIVE NOTE: Informed consent was obtained from the patient. She was sedated with total intraven ous anesthesia. The rectal exam was performed and was normal. The preparation quality was adequate. The colonoscope was advanced to the cecum where the ileocecal valve and appendiceal orifice were cl early identified. There was severe diverticulosis throughout the colon, which did make advancing the scope somewhat technically difficult. The cecum and proximal ascending colon had erythematous patch es with slight erosions, suggestive of a mild ischemic colitis. Biopsies were obtained from these ar eas. There was no active bleeding and no obvious bleeding source identified. The remainder of the c olonic mucosa was unremarkable. Retroflexed views in the rectum were unremarkable. IMPRESSION: 1. Severe diverticulosis throughout the colon. 2. Erythematous patches with slight erosions in the cecum and proximal ascending colon, which could be a mild ischemic colitis in this area. Biopsies were obtained. 3. Otherwise, unremarkable colonoscopy. 4. There were multiple areas of prominent submucosal vessels. However, none of these appeared to be significant vascular ectasias to suggest a bleeding source. RECOMMENDATIONS: 1. Advance diet. 2. Follow the trend of the hemoglobin. We will see how she responds to proton pump inhibitor for th e severe grade D erosive esophagitis and iron supplementation. 3. Await histopathology. 4. If her anemia fails to improve with iron and proton pump inhibitor, then consider capsule endosco py as an outpatient. 5. Gastrointestinal will sign off for now. Please call if we can be of assistance. 6. Follow up in GI clinic in 4 weeks.
--- NOTE | 2017-11-25 14:38 | PDOC.PN ---
- Subjective Encounter Start Date: 11/25/17 Encounter Start Time: 10:30 Subjective: pt up in bed asleep, easily arousable - Objective Vital Signs & Weight: Vital Signs (12 hours) Temp Pulse Resp BP BP Pulse Ox 11/25/17 11:42 97.7 F 72 22 H 132/58 L 94 L 11/25/17 10:57 76 133/49 L 11/25/17 08:00 99.3 F 80 26 H 148/62 H 110 H 11/25/17 04:00 98.6 F 77 22 H 148/60 H 98 Weight Admit Weight 139 lb Weight 131 lb 4.8 oz I&O: 11/24/17 11/25/17 11/26/17 06:59 06:59 06:59 Intake Total 1210 2100 Output Total 1800 600 Balance -590 1500 Result Diagrams: 11/24/17 08:03 11/23/17 04:49 Phys Exam - Physical Examination Neck: no nodes, no JVD, supple, full ROM Respiratory: no wheezing, no rales, no rhonchi, wheezing present, clear to auscultation bilateral Cardiovascular: RRR, no significant murmur, no rub, gallop, irregular Gastrointestinal: soft, non-tender, no distention, positive bowel sounds Dx/Plan (1) Acute respiratory failure Code(s): J96.00 - ACUTE RESPIRATORY FAILURE, UNSP W HYPOXIA OR HYPERCAPNIA Status: Acute Comment: Had aggressive hydration initially. Subsequently developed pulmonary edema (volume overload / CHF with afib with RVR). Has subsequently had diuresis, but still requiring some supplemental oxygen with mask. Room air sats in low 80's. Still has rales, but improved. Pulmonology following. (2) Atrial fibrillation with rapid ventricular response Code(s): I48.91 - UNSPECIFIED ATRIAL FIBRILLATION Status: Acute Comment: Looks to be stable in NSR now. (3) UGIB (upper gastrointestinal bleed) Code(s): K92.2 - GASTROINTESTINAL HEMORRHAGE, UNSPECIFIED Status: Acute Comment: Endoscopy today. Found the known Esophagitis and HH. No bleeding from the prior AVM cautery site. (4) Diarrhea Code(s): R19.7 - DIARRHEA, UNSPECIFIED Status: Resolved Comment: Concerned that it may be related to the Multaq. Discussed with nursing. Will follow up with cardiology. Work up otherwise negative. (5) Bacteremia, escherichia coli Code(s): R78.81 - BACTEREMIA Status: Acute Comment: Sensitive to Rocephin. - Plan will continue abx for now day# 7 -: pt going to colonoscopy -: pt's hh is low stable -: cardiology following for a fib * . Review of Systems - Review of Systems Respiratory: negative: Cough, Dry, Shortness of Breath, Hemoptysis, SOB with Excertion, Pleuritic Pain, Sputum, Wheezing Cardiovascular: negative: chest pain, palpitations, orthopnea, paroxysmal nocturnal dyspnea, edema, light headedness, other Gastrointestinal: negative: Nausea, Vomiting, Abdominal Pain, Diarrhea, Constipation, Melena, Hematochezia, Other - Medications/Allergies Allergies/Adverse Reactions: Allergies Allergy/AdvReac Type Severity Reaction Status Date / Time codeine Allergy Hives Verified 09/30/17 17:41 Medications: Current Medications Hydrocodone Bitart/Acetaminophen ([place] 10/325) 1 tab PO TIDPRN PRN PRN Reason: Pain Last Admin: 11/25/17 04:23 Dose: 1 tab Alprazolam (Xanax) 1 mg PO TID PRN PRN Reason: Anxiety Last Admin: 11/23/17 12:50 Dose: 1 mg Amlodipine Besylate (Norvasc) 5 mg PO DAILY [facility] Last Admin: 11/25/17 10:57 Dose: 5 mg Aspirin (Ecotrin) 81 mg PO QAM [facility] Last Admin: 11/25/17 10:34 Dose: Not Given Atorvastatin Calcium (Lipitor) 10 mg PO HS [facility] Last Admin: 11/24/17 21:46 Dose: 10 mg Benazepril HCl (Lotensin) 40 mg PO DAILY [facility] Last Admin: 11/25/17 10:57 Dose: 40 mg Carisoprodol (Soma) 350 mg PO TID PRN PRN Reason: Spasms Last Admin: 11/25/17 04:23 Dose: 350 mg Diltiazem HCl (Cardizem Sr) 60 mg PO 0400,1000,1600,2200 [facility] Last Admin: 11/25/17 10:38 Dose: 60 mg Duloxetine HCl (Cymbalta) 60 mg PO QAM [facility] Last Admin: 11/25/17 10:38 Dose: 60 mg Ferrous Sulfate (Feosol) 325 mg PO TID-WM [facility] Last Admin: 11/25/17 14:14 Dose: Not Given Hydroxychloroquine Sulfate (Plaquenil) 300 mg PO DAILY [facility] Last Admin: 11/25/17 10:39 Dose: 300 mg Ceftriaxone Sodium 1 gm/ (Sodium Chloride) 100 mls @ 200 mls/hr IVPB 0900 [facility] Last Admin: 11/25/17 10:49 Dose: 100 mls Loperamide HCl (Imodium) 2 mg PO PRN PRN PRN Reason: Diarrhea/Loose Stools Last Admin: 11/22/17 15:27 Dose: 2 mg Lorazepam (Ativan) 0.5 mg SLOW IVP Q6H PRN PRN Reason: Anxiety/Agitation Last Admin: 11/24/17 14:05 Dose: 0.5 mg Pantoprazole Sodium (Protonix) 40 mg IVP Q12HR [facility] Last Admin: 11/25/17 10:49 Dose: 40 mg Pentoxifylline (Trental) 400 mg PO BID [facility] Last Admin: 11/25/17 10:40 Dose: 400 mg Saccharomyces Boulardii (Florastor) 250 mg PO BID [facility] Last Admin: 11/25/17 10:38 Dose: 250 mg Sodium Chloride (Flush - Normal Saline) 10 ml IVF Q12HR [facility] Last Admin: 11/25/17 10:39 Dose: 10 ml Sodium Chloride (Flush - Normal Saline) 10 ml IVF PRN PRN PRN Reason: Saline Flush Last Admin: 11/24/17 14:07 Dose: 10 ml Trazodone HCl (Desyrel) 100 mg PO HS [facility] Last Admin: 11/24/17 21:50 Dose: 100 mg
--- NOTE | 2017-11-25 14:46 | PDOC.PN ---
- Subjective Encounter Start Date: 11/24/17 Encounter Start Time: 12:30 Subjective: pt up in bed no complains - Objective Vital Signs & Weight: Vital Signs (12 hours) Temp Pulse Resp BP BP Pulse Ox 11/25/17 11:42 97.7 F 72 22 H 132/58 L 94 L 11/25/17 10:57 76 133/49 L 11/25/17 08:00 99.3 F 80 26 H 148/62 H 110 H 11/25/17 04:00 98.6 F 77 22 H 148/60 H 98 Weight Admit Weight 139 lb Weight 131 lb 4.8 oz I&O: 11/24/17 11/25/17 11/26/17 06:59 06:59 06:59 Intake Total 1210 2100 Output Total 1800 600 Balance -590 1500 Result Diagrams: 11/24/17 08:03 11/23/17 04:49 Phys Exam - Physical Examination Neck: no nodes, no JVD, supple, full ROM Respiratory: no wheezing, no rales, no rhonchi, wheezing present, clear to auscultation bilateral Cardiovascular: RRR, no significant murmur, no rub, gallop, irregular Gastrointestinal: soft, non-tender, no distention, positive bowel sounds Dx/Plan (1) Acute respiratory failure Code(s): J96.00 - ACUTE RESPIRATORY FAILURE, UNSP W HYPOXIA OR HYPERCAPNIA Status: Acute Comment: Had aggressive hydration initially. Subsequently developed pulmonary edema (volume overload / CHF with afib with RVR). Has subsequently had diuresis, but still requiring some supplemental oxygen with mask. Room air sats in low 80's. Still has rales, but improved. Pulmonology following. (2) Atrial fibrillation with rapid ventricular response Code(s): I48.91 - UNSPECIFIED ATRIAL FIBRILLATION Status: Acute Comment: Looks to be stable in NSR now. (3) UGIB (upper gastrointestinal bleed) Code(s): K92.2 - GASTROINTESTINAL HEMORRHAGE, UNSPECIFIED Status: Acute Comment: Endoscopy today. Found the known Esophagitis and HH. No bleeding from the prior AVM cautery site. (4) Diarrhea Code(s): R19.7 - DIARRHEA, UNSPECIFIED Status: Resolved Comment: Concerned that it may be related to the Multaq. Discussed with nursing. Will follow up with cardiology. Work up otherwise negative. (5) Bacteremia, escherichia coli Code(s): R78.81 - BACTEREMIA Status: Acute Comment: Sensitive to Rocephin. - Plan pt up in bed no complains -: pt going for colonoscopy in am. -: continue abx for now * . Review of Systems - Review of Systems ENT: negative: Ear Pain, Ear Discharge, Nose Pain, Nose Discharge, Nose Congestion, Mouth Pain, Mouth Swelling, Throat Pain, Throat Swelling, Other Respiratory: negative: Cough, Dry, Shortness of Breath, Hemoptysis, SOB with Excertion, Pleuritic Pain, Sputum, Wheezing Cardiovascular: negative: chest pain, palpitations, orthopnea, paroxysmal nocturnal dyspnea, edema, light headedness, other Gastrointestinal: negative: Nausea, Vomiting, Abdominal Pain, Diarrhea, Constipation, Melena, Hematochezia, Other - Medications/Allergies Allergies/Adverse Reactions: Allergies Allergy/AdvReac Type Severity Reaction Status Date / Time codeine Allergy Hives Verified 09/30/17 17:41 Medications: Current Medications Hydrocodone Bitart/Acetaminophen ([place] 10/325) 1 tab PO TIDPRN PRN PRN Reason: Pain Last Admin: 11/25/17 04:23 Dose: 1 tab Alprazolam (Xanax) 1 mg PO TID PRN PRN Reason: Anxiety Last Admin: 11/23/17 12:50 Dose: 1 mg Amlodipine Besylate (Norvasc) 5 mg PO DAILY [facility] Last Admin: 11/25/17 10:57 Dose: 5 mg Aspirin (Ecotrin) 81 mg PO QAM [facility] Last Admin: 11/25/17 10:34 Dose: Not Given Atorvastatin Calcium (Lipitor) 10 mg PO HS [facility] Last Admin: 11/24/17 21:46 Dose: 10 mg Benazepril HCl (Lotensin) 40 mg PO DAILY [facility] Last Admin: 11/25/17 10:57 Dose: 40 mg Carisoprodol (Soma) 350 mg PO TID PRN PRN Reason: Spasms Last Admin: 11/25/17 04:23 Dose: 350 mg Diltiazem HCl (Cardizem Sr) 60 mg PO 0400,1000,1600,2200 [facility] Last Admin: 11/25/17 10:38 Dose: 60 mg Duloxetine HCl (Cymbalta) 60 mg PO QAM [facility] Last Admin: 11/25/17 10:38 Dose: 60 mg Ferrous Sulfate (Feosol) 325 mg PO TID-WM [facility] Last Admin: 11/25/17 14:14 Dose: Not Given Hydroxychloroquine Sulfate (Plaquenil) 300 mg PO DAILY [facility] Last Admin: 11/25/17 10:39 Dose: 300 mg Ceftriaxone Sodium 1 gm/ (Sodium Chloride) 100 mls @ 200 mls/hr IVPB 0900 [facility] Last Admin: 11/25/17 10:49 Dose: 100 mls Loperamide HCl (Imodium) 2 mg PO PRN PRN PRN Reason: Diarrhea/Loose Stools Last Admin: 11/22/17 15:27 Dose: 2 mg Lorazepam (Ativan) 0.5 mg SLOW IVP Q6H PRN PRN Reason: Anxiety/Agitation Last Admin: 11/24/17 14:05 Dose: 0.5 mg Pantoprazole Sodium (Protonix) 40 mg IVP Q12HR [facility] Last Admin: 11/25/17 10:49 Dose: 40 mg Pentoxifylline (Trental) 400 mg PO BID [facility] Last Admin: 11/25/17 10:40 Dose: 400 mg Saccharomyces Boulardii (Florastor) 250 mg PO BID [facility] Last Admin: 11/25/17 10:38 Dose: 250 mg Sodium Chloride (Flush - Normal Saline) 10 ml IVF Q12HR [facility] Last Admin: 11/25/17 10:39 Dose: 10 ml Sodium Chloride (Flush - Normal Saline) 10 ml IVF PRN PRN PRN Reason: Saline Flush Last Admin: 11/24/17 14:07 Dose: 10 ml Trazodone HCl (Desyrel) 100 mg PO HS [facility] Last Admin: 11/24/17 21:50 Dose: 100 mg
[2017-11-25 15:56] LABS: #Eosinphils 0.3 thou/uL (0.0-0.7); #Lymphocytes 0.8 thou/uL (1.20-3.40); #Monocytes 0.4 thou/uL (0.11-0.59); #Neutrophils 5.2 thou/uL (1.40-6.50); %Basophils 0.5 % (0.0-1.0); %Eosinophils 4.6 % (0.0-10.0); %Lymphocytes 12.2 % (21.0-51.0); %Neutrophils 76.7 % (42.0-75.0); Hemoglobin 9.5 g/dL (12.0-16.0); Mean Corpuscular HGB CONC 33.3 g/dL (32.0-36.0); Mean Corpuscular Volume 93.4 fL (78.0-98.0); Mean Platelet Volume 8.3 fL (7.4-10.4); Platelet Count 195 thou/uL (130-400); RBC Distribution Width 15.1 % (11.5-14.5); Red Blood Cell (RBC) Count 3.07 mill/uL (4.20-5.40); White Blood Cell (WBC) Count 6.8 thou/uL (4.8-10.8)
[2017-11-25 16:16] LABS: Anion Gap 16 mmol/L (10-20); BUN (Urea Nitrogen) 25 mg/dL (9.8-20.1); Calc. Creatinine Clearance 54 mL/min (70-130); Calcium 8.2 mg/dL (7.8-10.44); Carbon Dioxide 21 mmol/L (23-31); Chloride 106 mmol/L (98-107); Estimated GFR-MDRD 68; Glucose 100 mg/dL (83-110); Potassium 4.3 mmol/L (3.5-5.1); Sodium 139 mmol/L (136-145)
[2017-11-25] MEDS: ALPRAZolam 1 MG TAB PO PRN (17:06)
[2017-11-25] MEDS: Atorvastatin Calcium 10 MG TAB PO SCH (20:59)
[2017-11-25] MEDS: traZODone HCl 50 MG TAB PO SCH (20:59)
--- NOTE | 2017-11-26 02:00 | PRG ---
DATE OF SERVICE: 11/25/2017 SUBJECTIVE: Ms. Mcintyre seems to be doing better today. She denies palpitation, dizziness, loss of consciousness. She underwent a colonoscopy procedure. OBJECTIVE: VITAL SIGNS: Blood pressure is 152/61, heart rate 84, respiration 17, and temperature 98.3 degrees Fahrenheit. GENERAL: Alert and oriented woman in no apparent distress. NECK: Supple. Jugular veins not distended. CHEST: Coarse without crackles. CARDIOVASCULAR: Heart sounds are regular to rate and rhythm. No murmur or gallop. ABDOMEN: Benign. Bowel sounds positive. EXTREMITIES: Lower extremities without edema, clubbing, or cyanosis. DATABASE: The telemetry strips today reveals sinus rhythm. No further atrial arrhythmias or atrial flutters are noted. LABORATORY DATA: Hemoglobin 8.8, BUN 47, creatinine 1.25. ASSESSMENT AND PLAN: Ms. Mcintyre is a 76-year-old with extensive medical history as noted prior. She also acutely sick has developed atrial arrhythmias , atrial fibrillation/flutter was frequently seen. Eventually was placed on Multaq, but that she could not tolerate due to diarrhea. Now, she is off Multaq this Friday and despite her heart rhythm seems to be maintaining sinus rhythm. Today, I had a chance to discuss this with her daughter and at bedside. It seems that she is overall improving, still undergoing some GI evaluation regarding her anemia. For now, though her arrhythmia status is improving and maintaining sinus rhythm without intact with regimen. At this point, she is a poor candidate for antiarrhythmic agents baring amiodarone, which is also suboptimal and history of COPD. Hence she is very frail and I would prefer to go the conservative route on this, I would continue rate control at this point. On the other hand, in case typical atrial flutter recurrence is seen with the fast ventricular response - we could consider to perform an ablation. This will not elminate all of her atrial arrhythmias, but likely would improve her rate control. Again, . We will follow with you. SIOBHAN
[2017-11-26] MEDS: Diltiazem HCl SR 60 mg Capsule PO SCH ×4 (04:48→20:19)
[2017-11-26] MEDS: HYDROcodone/Acetaminophen 10/325 mg Tablet PO PRN ×3 (04:53→16:19)
[2017-11-26] MEDS: Amlodipine 5 MG TAB PO SCH (09:27)
[2017-11-26] MEDS: Aspirin 81 mg Enteric Coated Tablet PO SCH (09:28)
[2017-11-26] MEDS: Ferrous Sulfate 325 MG TAB PO SCH ×3 (09:28→16:18)
[2017-11-26] MEDS: Saccharomyces boulardii 250 MG CAP PO SCH ×2 (09:29→20:19)
[2017-11-26] MEDS: DULoxetine 60 MG CAP PO SCH (09:29)
[2017-11-26] MEDS: cefTRIAXone\\ROCEPHIN 1 GM in Sodium Chloride 0.9% 100 ML IVPB SCH (09:30)
[2017-11-26] MEDS: Hydroxychloroquine Sulfate 200 MG TAB PO SCH (09:30)
[2017-11-26] MEDS: Pantoprazole 40 MG VIAL IVP SCH ×2 (09:31→20:20)
--- NOTE | 2017-11-26 12:49 | PRG ---
DATE OF SERVICE: 11/26/2017 SUBJECTIVE: Ms. Mcintyre appears much better today. She appears much more lucid. She is off of n onrebreather. She is seen sitting up and resting comfortably. She recently had a colonoscopy showing diffuse diverticulosis. Her hemoglobin is somewhat stabilized . Her creatinine is also stabilized. PHYSICAL EXAMINATION: VITAL SIGNS: Blood pressure 158/62, pulse 81, temperature 99.8. LUNGS: Clear to auscultation. CARDIAC: Regular rate and rhythm. ABDOMEN: Soft, nontender, nondistended. EXTREMITIES: No significant changes present. PERTINENT LABS: Hemoglobin 9.5, creatinine 0.82. IMPRESSION: 1. Escherichia coli sepsis. 2. Atrial fibrillation with rapid ventricular response, now sinus rhythm. 3. Anemia. 4. Chronic kidney disease. 5. Severe peripheral vascular disease. RECOMMENDATIONS: I did discussed with Ms. Mcintyre proceeding with angiography of the left lower e xtremity. She states her symptoms in her leg are improving. The ulceration is also improving. She would like to defer any further treatment. May need rehab versus skilled. Atrial fibrillation currently managed by Dr. Lang.
--- NOTE | 2017-11-26 13:03 | ULT ---
BILATERAL LOWER EXTREMITY VENOUS ULTRASOUND WITH DOPPLER: History: Bilateral lower extremity swelling. Edema. Comparison: None. Technique: Grayscale, color flow, and doppler imaging with spectral waveform analysis was performed o f the right and left lower extremity system. FINDINGS: Bilaterally, there is compressibility, presence of flow, and augmentation in the common femoral, vein , femoral vein, and popliteal veins. There is flow in bilateral greater saphenous veins, profunda vei ns, and bilateral posterior tibial veins. There is bilateral lower extremity edema. IMPRESSION: No evidence of thrombus in the left or right lower extremity venous system. POS: ROMEO
[2017-11-26] MEDS ORDERED: Cipro 250 MG TAB PO SCH (13:30)
[2017-11-26 14:20] VITALS: BMI 21.8
[2017-11-26 14:40] LABS: Hemoglobin 8.7 g/dL (12.0-16.0)
--- NOTE | 2017-11-26 16:06 | PRG ---
DATE OF SERVICE: 11/26/2017 SUBJECTIVE: The patient is doing well. She is on room air now and her oximetry is 96%. PHYSICAL EXAMINATION: GENERAL APPEARANCE: She is in no distress. VITAL SIGNS: Temperature max was 100.3, heart rate is 85, respiratory rate is 18, oximetry is 99. S he walked down the [place] today. Blood pressure 143/53. LUNGS: Clear. HEART: Regular rhythm. ABDOMEN: Soft. LABORATORY DATA: Hemoglobin is 8.7. Electrolytes yesterday were essentially normal. IMPRESSION: 1. Atrial fibrillation. 2. Pulmonary edema. 3. 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 4. Peripheral vascular disease. 5. Status post colonoscopy showing diverticulosis and possible ischemic colon. PLAN: Continue supportive care. She appears to be ambulatory. From a pulmonary standpoint, she is stable for discharge. She will obviously need very close monitoring of her hemoglobin as an outpatie nt.
--- NOTE | 2017-11-26 16:39 | PDOC.CTH ---
Cardiology Progress Note - Subjective EP progress note: Patient seen and evaluated. No new cardiac concerns or complaints today. Denies heart racing, palpitations, chest pain/pressure, dizziness, or passing out. No stroke like symptoms. Feeling better than yesterday. - Objective Vital Signs Temp Pulse Resp BP BP Pulse Ox 11/26/17 12:00 100.3 F H 85 18 143/53 H 99 11/26/17 09:28 158/62 H 11/26/17 09:27 81 158/62 H 11/26/17 08:00 99.8 F H 81 20 158/57 H 96 11/26/17 07:47 99.6 F 70 12 95 11/26/17 07:02 94 L Admit Weight 139 lb Weight 131 lb 4.8 oz 11/25/17 11/26/17 11/27/17 06:59 06:59 06:59 Intake Total 2100 730 Output Total 1875 1125 Balance 225 -395 - Physical Examination General/Neuro: alert & oriented x3, NAD Neck: carotid US brisk, no JVD present Lungs: unlabored respirations Heart: RRR Abdomen: NT/ND, soft - Telemetry Telemetry Rhythm: SR - Labs Result Diagrams: 11/27/17 09:05 11/25/17 15:33 Troponin/CKMB CK-MB (CK-2) 2.5 ng/mL (0-6.6) 11/18/17 09:13 Troponin I 0.446 ng/mL (< 0.028) H* 11/18/17 23:30 - Assessment/Plan 1. Atrial arrhythmias- both atrial fibrillation and typical atrial flutter, paroxysmal in the setting of acute illness. Intolerant of multaq with diarrhea. Now in NSR off antiarrhythmic therapy. 2. E Coli sepsis. 3. Chronic kidney disease. 4. severe peripheral vascular disease. 5. Anemia s/p colonscopy found severe diverticulosis. 6. CHADS2-VASC: 5, OAC indicated but not being given due to recurrent bleeding issues and anemia Continue monitoring for now. Poor PVAI candidate. Would consider CTI if recurrence of typically appearing atrial flutter is seen once medically stable. With anemia, we will await GI clearance before intiating OAC. Attending Addendum - Attending Addendum Date/Time: 11/27/17 1510 I personally evaluated the patient and discussed the management with MS Bingham. I agree with the History, Examination, Assessment and Plan documented above with any addition or exceptions noted below.
[2017-11-26] MEDS: traZODone HCl 50 MG TAB PO SCH (20:19)
[2017-11-26] MEDS: Cipro 250 MG TAB PO SCH (20:20)
[2017-11-26] MEDS: Atorvastatin Calcium 10 MG TAB PO SCH (20:20)
[2017-11-27] MEDS: Diltiazem HCl SR 60 mg Capsule PO SCH ×4 (03:26→20:43)
[2017-11-27] MEDS ORDERED: Clopidogrel Bisulfate 75 MG TAB ONE (05:17)
[2017-11-27] MEDS: Cipro 250 MG TAB PO SCH ×2 (05:47→20:43)
[2017-11-27] MEDS: HYDROcodone/Acetaminophen 10/325 mg Tablet PO PRN ×2 (05:51→15:54)
--- NOTE | 2017-11-27 08:49 | PDOC.PN ---
- Subjective Encounter Start Date: 11/26/17 Encounter Start Time: 13:30 Subjective: pt up in bed no complains - Objective Vital Signs & Weight: Vital Signs (12 hours) Temp Pulse Resp BP Pulse Ox 11/27/17 07:34 99.6 F 68 20 133/51 L 95 11/27/17 03:50 99.6 F 67 18 131/56 L 100 11/26/17 23:54 99.1 F 67 20 134/56 L 98 Weight Admit Weight 139 lb Weight 131 lb 4.8 oz I&O: 11/26/17 11/27/17 11/28/17 06:59 06:59 06:59 Intake Total 730 1830 Output Total 1125 2150 Balance -395 -320 Result Diagrams: 11/26/17 14:31 11/25/17 15:33 Phys Exam - Physical Examination Neck: no nodes, no JVD, supple, full ROM Respiratory: no wheezing, no rales, no rhonchi, wheezing present, clear to auscultation bilateral Cardiovascular: RRR, no significant murmur, no rub, gallop, irregular Gastrointestinal: soft, non-tender, no distention, positive bowel sounds she does have some mottling in her right toes, has a non healing ulcer Dx/Plan (1) Acute respiratory failure Code(s): J96.00 - ACUTE RESPIRATORY FAILURE, UNSP W HYPOXIA OR HYPERCAPNIA Status: Acute Comment: Had aggressive hydration initially. Subsequently developed pulmonary edema (volume overload / CHF with afib with RVR). Has subsequently had diuresis, but still requiring some supplemental oxygen with mask. Room air sats in low 80's. Still has rales, but improved. Pulmonology following. (2) Atrial fibrillation with rapid ventricular response Code(s): I48.91 - UNSPECIFIED ATRIAL FIBRILLATION Status: Acute Comment: Looks to be stable in NSR now. (3) UGIB (upper gastrointestinal bleed) Code(s): K92.2 - GASTROINTESTINAL HEMORRHAGE, UNSPECIFIED Status: Acute Comment: Endoscopy today. Found the known Esophagitis and HH. No bleeding from the prior AVM cautery site. (4) Diarrhea Code(s): R19.7 - DIARRHEA, UNSPECIFIED Status: Resolved Comment: Concerned that it may be related to the Multaq. Discussed with nursing. Will follow up with cardiology. Work up otherwise negative. (5) Bacteremia, escherichia coli Code(s): R78.81 - BACTEREMIA Status: Acute Comment: Sensitive to Rocephin. - Plan s/p colonosocpy no sign of overt bleeding indicated -: erythemous patches and signs of possible ischemic coliltis -: will check hh if stable possible dicharge to snf. * . Review of Systems - Review of Systems Cardiovascular: negative: chest pain, palpitations, orthopnea, paroxysmal nocturnal dyspnea, edema, light headedness, other Gastrointestinal: negative: Nausea, Vomiting, Abdominal Pain, Diarrhea, Constipation, Melena, Hematochezia, Other - Medications/Allergies Allergies/Adverse Reactions: Allergies Allergy/AdvReac Type Severity Reaction Status Date / Time codeine Allergy Hives Verified 09/30/17 17:41 Medications: Current Medications Hydrocodone Bitart/Acetaminophen ([place] 10/325) 1 tab PO TIDPRN PRN PRN Reason: Pain Last Admin: 11/27/17 05:51 Dose: 1 tab Alprazolam (Xanax) 1 mg PO TID PRN PRN Reason: Anxiety Last Admin: 11/25/17 17:06 Dose: 1 mg Amlodipine Besylate (Norvasc) 5 mg PO DAILY [facility] Last Admin: 11/26/17 09:27 Dose: 5 mg Aspirin (Ecotrin) 81 mg PO QAM [facility] Last Admin: 11/26/17 09:28 Dose: 81 mg Atorvastatin Calcium (Lipitor) 10 mg PO HS [facility] Last Admin: 11/26/17 20:20 Dose: 10 mg Benazepril HCl (Lotensin) 40 mg PO DAILY [facility] Last Admin: 11/26/17 09:28 Dose: 40 mg Carisoprodol (Soma) 350 mg PO TID PRN PRN Reason: Spasms Last Admin: 11/27/17 06:08 Dose: 350 mg Ciprofloxacin (Cipro) 250 mg PO BID@0600,2000 [facility] Last Admin: 11/27/17 05:47 Dose: 250 mg Diltiazem HCl (Cardizem Sr) 60 mg PO 0400,1000,1600,2200 [facility] Last Admin: 11/27/17 03:26 Dose: 60 mg Duloxetine HCl (Cymbalta) 60 mg PO QAM [facility] Last Admin: 11/26/17 09:29 Dose: 60 mg Ferrous Sulfate (Feosol) 325 mg PO TID-WM [facility] Last Admin: 11/26/17 16:18 Dose: 325 mg Hydroxychloroquine Sulfate (Plaquenil) 300 mg PO DAILY [facility] Last Admin: 11/26/17 09:30 Dose: 300 mg Loperamide HCl (Imodium) 2 mg PO PRN PRN PRN Reason: Diarrhea/Loose Stools Last Admin: 11/22/17 15:27 Dose: 2 mg Lorazepam (Ativan) 0.5 mg SLOW IVP Q6H PRN PRN Reason: Anxiety/Agitation Last Admin: 11/24/17 14:05 Dose: 0.5 mg Pantoprazole Sodium (Protonix) 40 mg IVP Q12HR [facility] Last Admin: 11/26/17 20:20 Dose: 40 mg Pentoxifylline (Trental) 400 mg PO BID [facility] Last Admin: 11/26/17 20:20 Dose: 400 mg Saccharomyces Boulardii (Florastor) 250 mg PO BID [facility] Last Admin: 11/26/17 20:19 Dose: 250 mg Sodium Chloride (Flush - Normal Saline) 10 ml IVF Q12HR [facility] Last Admin: 11/26/17 20:21 Dose: 10 ml Sodium Chloride (Flush - Normal Saline) 10 ml IVF PRN PRN PRN Reason: Saline Flush Last Admin: 11/24/17 14:07 Dose: 10 ml Trazodone HCl (Desyrel) 100 mg PO HS [facility] Last Admin: 11/26/17 20:19 Dose: 100 mg
[2017-11-27 09:18] LABS: Hemoglobin 9.9 g/dL (12.0-16.0)
[2017-11-27] MEDS: Saccharomyces boulardii 250 MG CAP PO SCH ×2 (09:41→20:44)
[2017-11-27] MEDS: DULoxetine 60 MG CAP PO SCH (09:44)
[2017-11-27] MEDS: Aspirin 81 mg Enteric Coated Tablet PO SCH (09:44)
[2017-11-27] MEDS: Ferrous Sulfate 325 MG TAB PO SCH ×3 (09:44→15:54)
[2017-11-27] MEDS: Amlodipine 5 MG TAB PO SCH (09:44)
[2017-11-27] MEDS: Hydroxychloroquine Sulfate 200 MG TAB PO SCH (09:45)
[2017-11-27] MEDS: Pantoprazole 40 MG VIAL IVP SCH ×2 (09:45→20:44)
[2017-11-27] MEDS: ALPRAZolam 1 MG TAB PO PRN ×2 (09:52→20:44)
--- NOTE | 2017-11-27 14:19 | PDOC.CTH ---
Cardiology Progress Note - Subjective EP progress note: Patient seen and evaluated. No new cardiac concerns or complaints today. Denies heart racing, palpitations, chest pain/pressure, dizziness, or passing out. No stroke like symptoms. - Objective Vital Signs Temp Pulse Resp BP BP Pulse Ox 11/27/17 11:44 99.3 F 64 25 H 118/43 L 99 11/27/17 09:44 73 11/27/17 09:42 126/52 L 11/27/17 08:00 100 11/27/17 07:34 99.6 F 68 20 133/51 L 95 11/27/17 03:50 99.6 F 67 18 131/56 L 100 Admit Weight 139 lb Weight 131 lb 4.8 oz 11/26/17 11/27/17 11/28/17 06:59 06:59 06:59 Intake Total 730 1830 460 Output Total 1125 2150 575 Balance -395 -320 -115 - Physical Examination General/Neuro: alert & oriented x3, NAD Neck: carotid US brisk, no JVD present Lungs: unlabored respirations Heart: RRR Abdomen: NT/ND, soft - Telemetry Telemetry Rhythm: SR - Labs Result Diagrams: 11/27/17 09:05 11/25/17 15:33 Troponin/CKMB CK-MB (CK-2) 2.5 ng/mL (0-6.6) 11/18/17 09:13 Troponin I 0.446 ng/mL (< 0.028) H* 11/18/17 23:30 - Assessment/Plan 1. Atrial arrhythmias, paroxysmal atrial fibrillation and typical atrial flutter in the setting of acute illness. Intolerant of multaq with diarrhea. Now in NSR off antiarrhythmic therapy 2. E Coli sepsis 3. Chronic kidney disease 4. severe peripheral vascular disease 5. Anemia s/p colonscopy found severe diverticulosis 6. CHADS2-VASC: 5, OAC indicated but not being given due to recurrent bleeding issues and anemia Continue rate control strategy for now. Poor PVAI candidate. Would consider CTI if recurrence is seen once medically stable. With anemia, we will await GI clearance before considering reattempting OAC.
[2017-11-27] MEDS ORDERED: Famotidine/PF 20 mg/2ml Vial SLOW IVP SCH (15:30)
--- NOTE | 2017-11-27 16:08 | PDOC.PN ---
- Subjective Encounter Start Date: 11/27/17 Encounter Start Time: 15:00 Subjective: pt up in bed complains of some reflux and pain in her lower ext - Objective Vital Signs & Weight: Vital Signs (12 hours) Temp Pulse Resp BP BP Pulse Ox 11/27/17 15:49 98.2 F 77 17 168/74 H 100 11/27/17 11:44 99.3 F 64 25 H 118/43 L 99 11/27/17 09:44 73 11/27/17 09:42 126/52 L 11/27/17 08:00 100 11/27/17 07:34 99.6 F 68 20 133/51 L 95 Weight Admit Weight 139 lb Weight 131 lb 4.8 oz I&O: 11/26/17 11/27/17 11/28/17 06:59 06:59 06:59 Intake Total 730 1830 460 Output Total 1125 2150 575 Balance -395 -320 -115 Result Diagrams: 11/27/17 09:05 11/25/17 15:33 Phys Exam - Physical Examination Neck: no nodes, no JVD, supple, full ROM Respiratory: no wheezing, no rales, no rhonchi, wheezing present, clear to auscultation bilateral Cardiovascular: RRR, no significant murmur, no rub, gallop, irregular Gastrointestinal: soft, non-tender, no distention, positive bowel sounds Musculoskeletal: no edema, pulses present, edema present toe ulcer Dx/Plan (1) Acute respiratory failure Code(s): J96.00 - ACUTE RESPIRATORY FAILURE, UNSP W HYPOXIA OR HYPERCAPNIA Status: Acute Comment: Had aggressive hydration initially. Subsequently developed pulmonary edema (volume overload / CHF with afib with RVR). Has subsequently had diuresis, but still requiring some supplemental oxygen with mask. Room air sats in low 80's. Still has rales, but improved. Pulmonology following. (2) Atrial fibrillation with rapid ventricular response Code(s): I48.91 - UNSPECIFIED ATRIAL FIBRILLATION Status: Acute Comment: Looks to be stable in NSR now. (3) UGIB (upper gastrointestinal bleed) Code(s): K92.2 - GASTROINTESTINAL HEMORRHAGE, UNSPECIFIED Status: Acute Comment: Endoscopy today. Found the known Esophagitis and HH. No bleeding from the prior AVM cautery site. (4) Diarrhea Code(s): R19.7 - DIARRHEA, UNSPECIFIED Status: Resolved Comment: Concerned that it may be related to the Multaq. Discussed with nursing. Will follow up with cardiology. Work up otherwise negative. (5) Bacteremia, escherichia coli Code(s): R78.81 - BACTEREMIA Status: Acute Comment: Sensitive to Rocephin. (6) Decubitus ulcer Code(s): L89.90 - PRESSURE ULCER OF UNSPECIFIED SITE, UNSPECIFIED STAGE Status : Acute - Plan abx changed to cipro -: pt's hh is stable -: lower ext doppler negative -: pt up with PT today -: will discontinue rosenberg today * . Review of Systems - Review of Systems Respiratory: negative: Cough, Dry, Shortness of Breath, Hemoptysis, SOB with Excertion, Pleuritic Pain, Sputum, Wheezing Cardiovascular: negative: chest pain, palpitations, orthopnea, paroxysmal nocturnal dyspnea, edema, light headedness, other Gastrointestinal: Other (some reflux) Musculoskeletal: Leg Pain - Medications/Allergies Allergies/Adverse Reactions: Allergies Allergy/AdvReac Type Severity Reaction Status Date / Time codeine Allergy Hives Verified 09/30/17 17:41 Medications: Current Medications Hydrocodone Bitart/Acetaminophen ([place] 10/325) 1 tab PO Q6HR PRN PRN Reason: Pain Last Admin: 11/27/17 15:54 Dose: 1 tab Alprazolam (Xanax) 1 mg PO TID PRN PRN Reason: Anxiety Last Admin: 11/27/17 09:52 Dose: 1 mg Amlodipine Besylate (Norvasc) 5 mg PO DAILY [facility] Last Admin: 11/27/17 09:44 Dose: 5 mg Aspirin (Ecotrin) 81 mg PO QAM [facility] Last Admin: 11/27/17 09:44 Dose: 81 mg Atorvastatin Calcium (Lipitor) 10 mg PO HS [facility] Last Admin: 11/26/17 20:20 Dose: 10 mg Benazepril HCl (Lotensin) 40 mg PO DAILY [facility] Last Admin: 11/27/17 09:42 Dose: 40 mg Carisoprodol (Soma) 350 mg PO TID PRN PRN Reason: Spasms Last Admin: 11/27/17 06:08 Dose: 350 mg Ciprofloxacin (Cipro) 250 mg PO BID@0600,1999 [facility] Last Admin: 11/27/17 05:47 Dose: 250 mg Diltiazem HCl (Cardizem Sr) 60 mg PO 0400,1000,1600,2200 [facility] Last Admin: 11/27/17 15:54 Dose: 60 mg Duloxetine HCl (Cymbalta) 60 mg PO QAM [facility] Last Admin: 11/27/17 09:44 Dose: 60 mg Famotidine (Pepcid) 20 mg SLOW IVP NOW [facility] Stop: 11/27/17 17:30 Last Admin: 11/27/17 15:57 Dose: 20 mg Ferrous Sulfate (Feosol) 325 mg PO TID-WM [facility] Last Admin: 11/27/17 15:54 Dose: 325 mg Hydroxychloroquine Sulfate (Plaquenil) 300 mg PO DAILY [facility] Last Admin: 11/27/17 09:45 Dose: 300 mg Loperamide HCl (Imodium) 2 mg PO PRN PRN PRN Reason: Diarrhea/Loose Stools Last Admin: 11/22/17 15:27 Dose: 2 mg Lorazepam (Ativan) 0.5 mg SLOW IVP Q6H PRN PRN Reason: Anxiety/Agitation Last Admin: 11/24/17 14:05 Dose: 0.5 mg Pantoprazole Sodium (Protonix) 40 mg IVP Q12HR [facility] Last Admin: 11/27/17 09:45 Dose: 40 mg Pentoxifylline (Trental) 400 mg PO BID [facility] Last Admin: 11/27/17 09:41 Dose: 400 mg Saccharomyces Boulardii (Florastor) 250 mg PO BID [facility] Last Admin: 11/27/17 09:41 Dose: 250 mg Sodium Chloride (Flush - Normal Saline) 10 ml IVF Q12HR [facility] Last Admin: 11/27/17 09:46 Dose: 10 ml Sodium Chloride (Flush - Normal Saline) 10 ml IVF PRN PRN PRN Reason: Saline Flush Last Admin: 11/24/17 14:07 Dose: 10 ml Trazodone HCl (Desyrel) 100 mg PO HS [facility] Last Admin: 11/26/17 20:19 Dose: 100 mg
[2017-11-27] MEDS: Atorvastatin Calcium 10 MG TAB PO SCH (20:44)
[2017-11-27] MEDS: traZODone HCl 50 MG TAB PO SCH (20:44)
[2017-11-28] MEDS: Diltiazem HCl SR 60 mg Capsule PO SCH ×4 (04:54→20:59)
[2017-11-28] MEDS: HYDROcodone/Acetaminophen 10/325 mg Tablet PO PRN ×2 (04:56→11:53)
[2017-11-28] MEDS: Cipro 250 MG TAB PO SCH ×2 (04:57→21:01)
[2017-11-28 09:36] LABS: Hemoglobin 9.4 g/dL (12.0-16.0)
[2017-11-28] MEDS: Ferrous Sulfate 325 MG TAB PO SCH ×3 (09:50→17:02)
[2017-11-28] MEDS: Aspirin 81 mg Enteric Coated Tablet PO SCH (09:51)
[2017-11-28] MEDS: Amlodipine 5 MG TAB PO SCH (09:51)
[2017-11-28] MEDS: DULoxetine 60 MG CAP PO SCH (09:52)
[2017-11-28] MEDS: Saccharomyces boulardii 250 MG CAP PO SCH ×2 (09:52→20:59)
[2017-11-28] MEDS: Hydroxychloroquine Sulfate 200 MG TAB PO SCH (09:52)
[2017-11-28] MEDS: Pantoprazole 40 MG VIAL IVP SCH ×2 (09:53→20:58)
--- NOTE | 2017-11-28 13:23 | PDOC.CTH ---
Cardiology Progress Note - Subjective EP progress note: Patient seen and evaluated. No new cardiac concerns or complaints today. Denies heart racing, palpitations, chest pain/pressure, dizziness, or passing out. No stroke like symptoms. - Objective Vital Signs Temp Pulse Pulse Pulse Resp BP BP 11/28/17 09:05 72 81 160/69 H 158/66 H 11/28/17 08:20 98.0 F 70 16 11/28/17 04:00 99.1 F 72 16 BP Pulse Ox Pulse Ox Pulse Ox 11/28/17 09:05 98 95 11/28/17 08:20 160/69 H 98 11/28/17 04:00 171/74 H 93 L Admit Weight 139 lb Weight 128 lb 9.6 oz 11/27/17 11/28/17 11/29/17 06:59 06:59 06:59 Intake Total 1830 1060 Output Total 2150 2075 Balance -320 -1015 - Physical Examination General/Neuro: alert & oriented x3, NAD Neck: carotid US brisk, no JVD present Lungs: CTA, unlabored respirations Heart: PMI normal, RRR Abdomen: NT/ND, soft - Telemetry Telemetry Rhythm: NSR - Labs Result Diagrams: 11/28/17 09:14 11/25/17 15:33 Troponin/CKMB CK-MB (CK-2) 2.5 ng/mL (0-6.6) 11/18/17 09:13 Troponin I 0.446 ng/mL (< 0.028) H* 11/18/17 23:30 - Assessment/Plan 1. Atrial arrhythmias, paroxysmal atrial fibrillation and typical atrial flutter in the setting of acute illness. Intolerant of multaq with diarrhea. Now in NSR off antiarrhythmic therapy 2. E Coli sepsis 3. Chronic kidney disease 4. severe peripheral vascular disease 5. Anemia s/p colonscopy found severe diverticulosis 6. CHADS2-VASC: 5, OAC indicated but not being given due to recurrent bleeding issues and anemia Continue current treatment for now. Poor PVAI candidate. Would consider CTI if recurrence is seen once medically stable. With anemia, we will await GI clearance before considering reattempting initiation of OAC.
[2017-11-28] MEDS: ALPRAZolam 1 MG TAB PO PRN ×2 (14:00→20:59)
--- NOTE | 2017-11-28 14:28 | PQF ---
CLINICAL DOCUMENTATION IMPROVEMENT CLARIFICATION FORM: ICD-10 Updated PLEASE DO AN ADDENDUM TO THE PROGRESS NOTE WITH ANY DOCUMENTATION UPDATES OR ADDITIONS AND CARRY THROUGH TO DC SUMMARY. THANK YOU. DATE: 12/01 ATTN: DR. [email or web address] Please exercise your independent, professional judgment in responding to the clarification form. Clinical indicators are provided on the bottom of this form for your review Diagnosis: SEPSIS Present on Admission (POA): [ x] Yes [ ] No [ ] Unable to determine Coding guidelines require hospitals to identify whether a diagnosis was present on admission (POA) or not. To accurately assign the appropriate POA indicator, this information must be clearly documented within the medical record. CLINICAL INDICATORS - SIGNS / SYMPTOMS / LABS ER NOTE 11/18: "PATIENT PRESENTS FOR EVALUATION OF CONFUSION, MENTAL STATUS CHANGES" "HISTORIAN REPORTS FEVER" 11/20: "SEPSIS DUE TO ESCHERICHIA COLI" CARDIOLOGY PROGRESS NOTE 11/28: "ECOLI SEPSIS" TEMP 11/28: 97.3 / 11/26: 100.3 RISKS: STOOL + FOR ECOLI UTI TREATMENT: IV ROCEPHIN (ER) IV FLUIDS (ER) CIPRO (11/26-PRESENT) STOOL STUDIES (11/18) BLOOD CULTURES (11/18) TELEMETRY MONITORING (This form is maintained as a part of the permanent medical record) 2014 [employer] All Rights Reserved MARCE [email or web address] Office: [phone] SIOBHAN
--- NOTE | 2017-11-28 19:49 | PDOC.PN ---
- Subjective Encounter Start Date: 11/28/17 Encounter Start Time: 10:30 Subjective: pt up in bed no complains - Objective Vital Signs & Weight: Vital Signs (12 hours) Temp Pulse Pulse Pulse Resp BP BP 11/28/17 16:55 97.4 F L 64 17 11/28/17 12:00 97.3 F L 70 15 11/28/17 09:05 72 81 160/69 H 158/66 H 11/28/17 08:20 98.0 F 70 16 11/28/17 08:00 BP BP Pulse Ox Pulse Ox Pulse Ox 11/28/17 16:55 133/62 97 11/28/17 12:00 135/60 98 11/28/17 09:05 98 95 11/28/17 08:20 160/69 H 98 11/28/17 08:00 98 Weight Admit Weight 139 lb Weight 128 lb 9.6 oz I&O: 11/27/17 11/28/17 11/29/17 06:59 06:59 06:59 Intake Total 1830 1060 720 Output Total 2150 2075 400 Balance -320 -1015 320 Result Diagrams: 11/28/17 09:14 11/25/17 15:33 Phys Exam - Physical Examination Neck: no nodes, no JVD, supple, full ROM Respiratory: no wheezing, no rales, no rhonchi, wheezing present, clear to auscultation bilateral Cardiovascular: RRR, no significant murmur, no rub, gallop, irregular Gastrointestinal: soft, non-tender, no distention, positive bowel sounds left toe ulcers Dx/Plan (1) Acute respiratory failure Code(s): J96.00 - ACUTE RESPIRATORY FAILURE, UNSP W HYPOXIA OR HYPERCAPNIA Status: Acute Comment: Had aggressive hydration initially. Subsequently developed pulmonary edema (volume overload / CHF with afib with RVR). Has subsequently had diuresis, but still requiring some supplemental oxygen with mask. Room air sats in low 80's. Still has rales, but improved. Pulmonology following. (2) Atrial fibrillation with rapid ventricular response Code(s): I48.91 - UNSPECIFIED ATRIAL FIBRILLATION Status: Acute Comment: Looks to be stable in NSR now. (3) UGIB (upper gastrointestinal bleed) Code(s): K92.2 - GASTROINTESTINAL HEMORRHAGE, UNSPECIFIED Status: Acute Comment: Endoscopy today. Found the known Esophagitis and HH. No bleeding from the prior AVM cautery site. (4) Diarrhea Code(s): R19.7 - DIARRHEA, UNSPECIFIED Status: Resolved Comment: Concerned that it may be related to the Multaq. Discussed with nursing. Will follow up with cardiology. Work up otherwise negative. (5) Bacteremia, escherichia coli Code(s): R78.81 - BACTEREMIA Status: Acute Comment: Sensitive to Rocephin. (6) Decubitus ulcer Code(s): L89.90 - PRESSURE ULCER OF UNSPECIFIED SITE, UNSPECIFIED STAGE Status : Acute (7) PVD (peripheral vascular disease) Code(s): I73.9 - PERIPHERAL VASCULAR DISEASE, UNSPECIFIED Status: Acute - Plan pt had recent stent to her iliac is on asa and her plavix -: was stopped for possible gi bleed -: pt's hh stable, ok per gi to start plavix -: will also call cardiology to see if ok for discharge -: pt's daughter cannot take her home today wants to take her sometime * over the weekend. I spoke with her daughter about snf she said she had a bad experience. She will take her mother home [place] after 1pm. will start her on plavix and check her hh in am. Her HR has been stable. Review of Systems - Review of Systems Respiratory: negative: Cough, Dry, Shortness of Breath, Hemoptysis, SOB with Excertion, Pleuritic Pain, Sputum, Wheezing Cardiovascular: negative: chest pain, palpitations, orthopnea, paroxysmal nocturnal dyspnea, edema, light headedness, other Gastrointestinal: negative: Nausea, Vomiting, Abdominal Pain, Diarrhea, Constipation, Melena, Hematochezia, Other - Medications/Allergies Allergies/Adverse Reactions: Allergies Allergy/AdvReac Type Severity Reaction Status Date / Time codeine Allergy Hives Verified 09/30/17 17:41 Medications: Current Medications Hydrocodone Bitart/Acetaminophen ([place] 10/325) 1 tab PO Q6HR PRN PRN Reason: Pain Last Admin: 11/28/17 11:53 Dose: 1 tab Alprazolam (Xanax) 1 mg PO TID PRN PRN Reason: Anxiety Last Admin: 11/28/17 14:00 Dose: 1 mg Amlodipine Besylate (Norvasc) 5 mg PO DAILY [facility] Last Admin: 11/28/17 09:51 Dose: 5 mg Aspirin (Ecotrin) 81 mg PO QAM [facility] Last Admin: 11/28/17 09:51 Dose: 81 mg Atorvastatin Calcium (Lipitor) 10 mg PO HS [facility] Last Admin: 11/27/17 20:44 Dose: 10 mg Benazepril HCl (Lotensin) 40 mg PO DAILY [facility] Last Admin: 11/28/17 09:51 Dose: 40 mg Carisoprodol (Soma) 350 mg PO TID PRN PRN Reason: Spasms Last Admin: 11/28/17 11:54 Dose: 350 mg Ciprofloxacin (Cipro) 250 mg PO BID@0600,2000 [facility] Last Admin: 11/28/17 04:57 Dose: 250 mg Diltiazem HCl (Cardizem Sr) 60 mg PO 0400,1000,1600,2200 [facility] Last Admin: 11/28/17 17:02 Dose: 60 mg Duloxetine HCl (Cymbalta) 60 mg PO QAM [facility] Last Admin: 11/28/17 09:52 Dose: 60 mg Ferrous Sulfate (Feosol) 325 mg PO T[facility] Last Admin: 11/28/17 17:02 Dose: 325 mg Hydroxychloroquine Sulfate (Plaquenil) 300 mg PO DAILY [facility] Last Admin: 11/28/17 09:52 Dose: 300 mg Loperamide HCl (Imodium) 2 mg PO PRN PRN PRN Reason: Diarrhea/Loose Stools Last Admin: 11/22/17 15:27 Dose: 2 mg Pantoprazole Sodium (Protonix) 40 mg IVP Q12HR [facility] Last Admin: 11/28/17 09:53 Dose: 40 mg Pentoxifylline (Trental) 400 mg PO BID [facility] Last Admin: 11/28/17 09:53 Dose: 400 mg Saccharomyces Boulardii (Florastor) 250 mg PO BID [facility] Last Admin: 11/28/17 09:52 Dose: 250 mg Sodium Chloride (Flush - Normal Saline) 10 ml IVF Q12HR [facility] Last Admin: 11/28/17 09:54 Dose: 10 ml Sodium Chloride (Flush - Normal Saline) 10 ml IVF PRN PRN PRN Reason: Saline Flush Last Admin: 11/24/17 14:07 Dose: 10 ml Trazodone HCl (Desyrel) 100 mg PO HS [facility] Last Admin: 11/27/17 20:44 Dose: 100 mg
[2017-11-28] MEDS ORDERED: Clopidogrel Bisulfate 75 MG TAB PO SCH (20:00)
[2017-11-28] MEDS: Atorvastatin Calcium 10 MG TAB PO SCH (20:59)
[2017-11-28] MEDS: traZODone HCl 50 MG TAB PO SCH (20:59)
[2017-11-29] MEDS: HYDROcodone/Acetaminophen 10/325 mg Tablet PO PRN (04:49)
[2017-11-29] MEDS: Diltiazem HCl SR 60 mg Capsule PO SCH ×2 (04:49→09:54)
[2017-11-29] MEDS: Cipro 250 MG TAB PO SCH (04:54)
[2017-11-29 05:46] LABS: Hemoglobin 8.1 g/dL (12.0-16.0)
[2017-11-29] MEDS: Ferrous Sulfate 325 MG TAB PO SCH ×2 (07:59→11:31)
[2017-11-29] MEDS: Hydroxychloroquine Sulfate 200 MG TAB PO SCH (08:00)
[2017-11-29] MEDS: Aspirin 81 mg Enteric Coated Tablet PO SCH (08:00)
[2017-11-29] MEDS: DULoxetine 60 MG CAP PO SCH (08:00)
[2017-11-29] MEDS: Amlodipine 5 MG TAB PO SCH (08:00)
[2017-11-29] MEDS: Saccharomyces boulardii 250 MG CAP PO SCH (08:01)
[2017-11-29] MEDS: Pantoprazole 40 MG VIAL IVP SCH (08:01)
[2017-11-29] MEDS ORDERED: Clopidogrel Bisulfate 75 MG TAB PO SCH (09:00)
[2017-11-29 10:41] LABS: Hemoglobin 8.5 g/dL (12.0-16.0)
[2017-11-29 11:30] VITALS: BP 137/62; TEMP 98
--- NOTE | 2017-11-29 13:12 | DIS ---
DATE OF ADMISSION: 11/18/2017 DATE OF DISCHARGE: 11/29/2017 PRIMARY CARE PROVIDER: Carolyne Singer M.D. DISCHARGE DIAGNOSES: 1. Severe symptomatic anemia. 2. Altered mental status. 3. Atrial fibrillation with rapid ventricular response. 4. Urinary tract infection with Escherichia coli. 5. Escherichia coli bacteremia. CONDITION OF PATIENT ON THE DAY OF DISCHARGE: Stable. I assessed Ms. Mcintyre on the day of disch arge. She denies any chest pain or shortness of breath. Vital signs are stable. S1 and S2 are hear d, regular. Lungs are clear to auscultation bilaterally. CONSULTATIONS DURING THIS HOSPITALIZATION: Cardiology, Dr. Palomino; Pulmonology, Dr. Bates; Gastro enterology, Dr. Mckinley; Nephrology, Dr. Burrows and Electrophysiology, Dr. Lang. HOSPITAL COURSE: Ms. Mcintyre is a pleasant 77-year-old lady who was admitted to [facility] on 11/18/2017 for altered mental status and severe symptomatic anemia. Please refer to Dr. Holt's history and physical note dated 11/18/2017 for further details. There was also a c ode green for hypoxia on 11/18/2017. She was transferred to [facility] and treated with intermittent BiPAP . She improved clinically. She received 2 units of packed RBC transfusion on 11/18/2017. Her hemoglobin has been relatively sta ble subsequently. On 11/23/2017, she underwent EGD. She was found to have previously cauterized AV malformation without evidence of active or recent bleeding, moderate amount of retained food in the s tomach and second portion of duodenum limiting visualization, a large 8 cm hiatal hernia in the dista l esophagus, LA grade D reflux mediated erosive esophagitis seen in the distal esophagus and salmon-c olored mucosa seen in the distal esophagus consistent with Jason type mucosa. She also went on to have colonoscopy on 11/25/2017, which showed severe diverticulosis throughout the colon, erythematous patches with slight erosions in the cecum and proximal ascending colon, which could be mild ischemic colitis, otherwise unremarkable colonoscopy. Cecal biopsy showed minimal active colitis. Her hemoglobin continued to be stable. Her Plavix was held at the time of admission. Gastroenterolo gy Service cleared for Plavix to be resumed. She was also seen by Electrophysiology Service for atrial tachyarrhythmias. She has been advised to start Cardizem. Urine culture done at the time of admission grew Escherichia coli that was resistant to ampicillin, t rimethoprim/sulfamethoxazole, intermediate resistance to ampicillin/sulbactam and sensitive to amikac in, cefepime, cefoxitin, ceftazidime, ceftriaxone, ciprofloxacin, gentamicin, levofloxacin, meropenem , nitrofurantoin, piperacillin/tazobactam and tobramycin. One out of two blood cultures also grew Es cherichia coli that had similar sensitivity pattern. Stool cultures grew Pseudomonas Aeruginosa and many yeast. Stool studies were negative for Clostridium difficile antigen and toxin. Her diarrhea, which she reported at the time of admission was most likely secondary to Multaq use. This was discon tinued as well. She has not been started on amiodarone because of underlying lung problems. Electro physiology Service will follow up with her as outpatient. On the day of discharge, she has hemoglobin 8.5. At the time of admission, she also had acute renal failure, with a creatinine of 1.24. Creatinine improved to 0.82 by 11/25/2017. DISCHARGE MEDICATIONS: Amlodipine/benazepril 5/40 mg daily, aspirin 81 mg daily, duloxetine 60 mg da anurag, iron sulfate 65 mg 3 times a day, furosemide 20 mg daily, hydroxychloroquine 300 mg daily, Xiidr a eyedrops 1 drop to each eye 2 times a day, pentoxifylline 400 mg 2 times a day, Zocor 20 mg at bedt linda, trazodone 100 mg at bedtime, Cipro 250 mg 2 times a day for 10 more days, Plavix 75 mg daily, Ca rdizem SR 60 mg 4 times a day, Nexium 40 mg 2 times a day, Florastor 250 mg 2 times a day for 10 days , alprazolam 1 mg 3 times a day as needed, Dulcolax 10 mg daily as needed, carisoprodol 350 mg 3 time s a day as needed, [place] 10/325 mg 1-2 tablets 3 times a day as needed. Many thanks for allowing me to participate in your patient's care. Please feel free to contact me wi th any questions or concerns. DISCHARGE DESTINATION: Home. TOTAL AMOUNT OF TIME SPENT COORDINATING THIS DISCHARGE: 33 minutes.
== END 2017-11-29 14:02 | disposition home health service (06) | DRG 871 ==
LOC: ERS 08:38 → 2NO 13:26 → IMCU/EMU 11-20 14:11 → 2NO 11-27 14:12
PROVIDERS: ADMIT Internal Medicine; ATTEND Internal Medicine
PROC: 30233N1 Transfusion of Nonautologous Red Blood Cells into Peripheral Vein, Percutaneous Approach (ICD-10-PCS; principal; 2017-11-18)
PROC: 5A09357 Assistance with Respiratory Ventilation, Less than 24 Consecutive Hours, Continuous Positive Airway Pressure (ICD-10-PCS; 2017-11-20)
PROC: 0DJ08ZZ Inspection of Upper Intestinal Tract, Via Natural or Artificial Opening Endoscopic (ICD-10-PCS; 2017-11-23)
PROC: 0DBK8ZX Excision of Ascending Colon, Via Natural or Artificial Opening Endoscopic, Diagnostic (ICD-10-PCS; 2017-11-25)
PROC: 0DBH8ZX Excision of Cecum, Via Natural or Artificial Opening Endoscopic, Diagnostic (ICD-10-PCS; 2017-11-25)
DX: A41.51 Sepsis due to Escherichia coli [E. coli] (principal); L89.154 Pressure ulcer of sacral region, stage 4; G93.41 Metabolic encephalopathy; J96.01 Acute respiratory failure with hypoxia; K57.31 Diverticulosis of large intestine without perforation or abscess with bleeding; I13.0 Hypertensive heart and chronic kidney disease with heart failure and stage 1 through stage 4 chronic kidney disease, or unspecified chronic kidney disease; I50.32 Chronic diastolic (congestive) heart failure; N18.4 Chronic kidney disease, stage 4 (severe); N39.0 Urinary tract infection, site not specified; I24.8 Other forms of acute ischemic heart disease; N17.9 Acute kidney failure, unspecified; K52.1 Toxic gastroenteritis and colitis; K55.9 Vascular disorder of intestine, unspecified; Q27.33 Arteriovenous malformation of digestive system vessel; I50.83 High output heart failure; I48.0 Paroxysmal atrial fibrillation; D50.0 Iron deficiency anemia secondary to blood loss (chronic); I73.9 Peripheral vascular disease, unspecified; M06.9 Rheumatoid arthritis, unspecified; G89.4 Chronic pain syndrome; D63.1 Anemia in chronic kidney disease; K21.0 Gastro-esophageal reflux disease with esophagitis; K44.9 Diaphragmatic hernia without obstruction or gangrene; I25.10 Atherosclerotic heart disease of native coronary artery without angina pectoris; I73.00 Raynaud's syndrome without gangrene; K22.70 Barrett's esophagus without dysplasia; F41.8 Other specified anxiety disorders; E87.6 Hypokalemia; E03.9 Hypothyroidism, unspecified; L97.529 Non-pressure chronic ulcer of other part of left foot with unspecified severity; J44.9 Chronic obstructive pulmonary disease, unspecified; E78.5 Hyperlipidemia, unspecified; Z87.19 Personal history of other diseases of the digestive system; Z95.820 Peripheral vascular angioplasty status with implants and grafts; Z87.891 Personal history of nicotine dependence; Z79.02 Long term (current) use of antithrombotics/antiplatelets
CPT/HCPCS: 36415; 36430; 70450; 71045; 80048; 80053; 81003; 81015; 82140; 82274; 82553; 82805; 83735; 84443; 84484; 85014; 85018; 85025; 86850; 86900; 86901; 87040; 87045; 87046; 87077; 87086; 87149; 87186; 87324; 87449; 87899; 88305; 93005; 93970; 94660; 94760; 96361; 96365; 96375; 96376; A4216; C9113; G8978-GP-CM; G8979-GP-CK; J0696; J1940; J2001; J2060; J2543; J2704; J3010; J3480; J3490; J7050; P9016; S0028

== ENCOUNTER 2017-12-11 15:39 | Outpatient (CLI) | payer MEDICARE ==
--- NOTE | 2017-12-11 18:22 | PRG ---
DATE OF SERVICE: 12/11/2017 HISTORY: Ms. Graciela Mcintyre is a very pleasant 76-year-old accompanied by her daughter who pres ents to the [facility] for evaluation of 2 wounds of the left foot. The patient has an ulceration of the left lateral foot over the plantar surface of the foot in addition to a wound of the plantar s urface of the left fifth toe. For both wounds, the patient has been receiving dressing changes of Me dihoney 3 times per week after cleansing and irrigation with the assistance of Home Health. Ms. Octavio story reports discomfort associated with the wounds of her left foot. She has no other complaints t joya. She denies any fever or chills. PHYSICAL EXAMINATION: VITAL SIGNS: Temperature 97.8, pulse 70, respirations 20, blood pressure 139/64. EXTREMITIES: A wound over the plantar surface of the left lateral foot is present which measures izzy roximately 0.4 x 0.3 cm. A wound over the plantar surface of the left fifth toe is present which stefanie sures approximately 1.5 x 1.7 cm. No purulent drainage is associated with either wound. Granulation tissue is present within the margins of each wound. No cellulitis of the left foot is appreciated. No maceration of the skin of the periwound of either wound is noted. No significant edema of the le ft foot is present on exam today. ASSESSMENT AND PLAN: 1. Left foot wounds as described above. Dressing changes of Medihoney and bordered gauze are to be performed 3 times per week after cleansing and irrigation with the assistance of Home Health. I will see Ms. Mcintyre again in two weeks. 2. History of atrial fibrillation. 3. Congestive heart failure. 4. Raynaud's. 5. Breast carcinoma. 6. Osteoarthritis. 7. Coronary artery disease. 8. Rheumatoid arthritis. 9. Chronic back pain. 10. Peripheral vascular disease, status post percutaneous revascularization of the left lower extrem ity by Dr. Palomino on 10/01/2017. 11. Hypertension. 12. Gastroesophageal reflux disease. 13. Hypothyroidism. 14. Anemia. 15. Chronic kidney disease.
== END 2017-12-11 15:40 | disposition home or self-care (01) ==
LOC: WCC 15:39
PROVIDERS: ATTEND Family Medicine
DX: S91.302A Unspecified open wound, left foot, initial encounter (principal); I73.00 Raynaud's syndrome without gangrene; I48.91 Unspecified atrial fibrillation; I13.0 Hypertensive heart and chronic kidney disease with heart failure and stage 1 through stage 4 chronic kidney disease, or unspecified chronic kidney disease; I50.9 Heart failure, unspecified; N18.9 Chronic kidney disease, unspecified; M54.9 Dorsalgia, unspecified; G89.29 Other chronic pain; D63.1 Anemia in chronic kidney disease; E03.9 Hypothyroidism, unspecified; K21.9 Gastro-esophageal reflux disease without esophagitis; I73.9 Peripheral vascular disease, unspecified; M06.9 Rheumatoid arthritis, unspecified

== ENCOUNTER 2017-12-18 16:13 | Inpatient (IN) | payer MEDICARE ==
[2017-12-18 16:58] LABS: #Lymphocytes 1.5 thou/uL (1.20-3.40); #Monocytes 0.8 thou/uL (0.11-0.59); #Neutrophils 12.8 thou/uL (1.40-6.50); %Basophils 0.2 % (0.0-1.0); %Eosinophils 0.1 % (0.0-10.0); %Lymphocytes 9.9 % (21.0-51.0); %Monocytes 5.6 % (0.0-10.0); %Neutrophils 84.3 % (42.0-75.0); Hemoglobin 9.2 g/dL (12.0-16.0); Mean Corpuscular HGB CONC 30.9 g/dL (32.0-36.0); Mean Corpuscular Hemoglobin 31.1 pg (27.0-31.0); Mean Platelet Volume 7.2 fL (7.4-10.4); Platelet Count 250 thou/uL (130-400); RBC Distribution Width 17.6 % (11.5-14.5); Red Blood Cell (RBC) Count 2.96 mill/uL (4.20-5.40); White Blood Cell (WBC) Count 15.2 thou/uL (4.8-10.8)
--- NOTE | 2017-12-18 17:13 | RAD ---
CHEST 1 VIEW: COMPARISON: 11/20/2017. HISTORY: Lethargy. Sepsis. FINDINGS: Atherosclerosis of the aorta. Normal cardiac silhouette. Costophrenic angles are clear. There appe ar to be chronic changes of the lung parenchyma. Overall, there is improved aeration. Residual inte rstitial infiltrate cannot be excluded. No pneumothorax or osseous abnormalities. IMPRESSION: 1. Improved aeration of the lung parenchyma. Residual interstitial opacities do remain, which may b e chronic. Residual interstitial infiltrate cannot be excluded. 2. Atherosclerosis. POS: ROMEO
[2017-12-18 17:14] LABS: ALT (SGPT) 15 U/L (8-55); AST (SGOT) 26 U/L (5-34); Albumin 3.6 g/dL (3.4-4.8); Alkaline Phosphatase 96 U/L (40-150); Anion Gap 18 mmol/L (10-20); BUN (Urea Nitrogen) 67 mg/dL (9.8-20.1); Bilirubin, Total 0.4 mg/dL (0.2-1.2); Calc. Creatinine Clearance 0 mL/min (70-130); Calcium 9.3 mg/dL (7.8-10.44); Carbon Dioxide 13 mmol/L (23-31); Chloride 101 mmol/L (98-107); Estimated GFR-MDRD 28; Globulin 3.3 g/dL (2.4-3.5); Glucose 104 mg/dL (83-110); Potassium 4.7 mmol/L (3.5-5.1); Protein, Total 6.9 g/dL (6.0-8.3); Sodium 127 mmol/L (136-145)
[2017-12-18] MEDS ORDERED: Lorazepam 2 MG/ML VIAL ONE (17:37)
[2017-12-18] MEDS ORDERED: HYDROcodone/Acetaminophen 10/325 mg Tablet ONE (17:37)
[2017-12-18 17:47] LABS: Bilirubin Negative (Negative); Blood, Urine Negative (Negative); Clarity CLEAR (Clear); Glucose, Urine (Dipstick) Negative (Negative); Leukocyte Negative (Negative); Nitrite Negative (Negative); Protein, Urine (Dipstick) Trace mg/dL (Neg-Trace); Specific Gravity, Urine 1.016 (1.002-1.036); Urobilinogen 0.2 mg/dL (0.2-1.0)
[2017-12-18] MEDS ORDERED: Piperacillin/Tazobactam 4.5 GM VIAL ONE (18:13)
[2017-12-18] MEDS ORDERED: Sodium Chloride 0.9% 100 ML ONE (18:14)
[2017-12-18] MEDS ORDERED: Piperacillin/Tazobactam 3.375 GM VIAL ONE (18:14)
[2017-12-18] MEDS ORDERED: Vancomycin HCl 1 GM in Premix Bag 1 BAG IVPB SCH (19:30)
[2017-12-18] MEDS ORDERED: Acetaminophen 325 MG TAB PO PRN (20:16)
[2017-12-18] MEDS ORDERED: Ondansetron ODT 4 MG TAB SL PRN (20:16)
[2017-12-18] MEDS ORDERED: Ondansetron HCl/PF 4 MG/2 ML Vial IVP PRN (20:16)
[2017-12-18] MEDS: Vancomycin HCl 25 MG/ML Oral PO SCH (21:45)
[2017-12-18] MEDS: Cholestyramine/Aspartame 4 gm Packet PO SCH (21:45)
--- NOTE | 2017-12-18 22:17 | RAD ---
ONE VIEW ABDOMEN: 12/18/17 HISTORY: Enlarged colon. COMPARISON: None. FINDINGS: Atherosclerosis of the aorta. There is a stent projecting over the left common iliac artery. Bowel ga s pattern is nonspecific. There are degenerative changes of the lumbar spine. No evidence of pneumope ritoneum on supine projection. There appears to be an ostomy in the midline of the pelvis. Correlate clinically. IMPRESSION: 1. Nonspecific bowel gas pattern. 2. Extensive atherosclerosis. 3. Ostomy in the midline of the pelvis. POS: PPP
[2017-12-18] MEDS ORDERED: Bisacodyl 5 MG TAB PO PRN (22:32)
[2017-12-18] MEDS ORDERED: traZODone HCl 50 MG TAB PO SCH (23:00)
[2017-12-19] MEDS: Sodium Chloride 0.9% 1,000 ML IV SCH ×2 (00:14→11:36)
--- NOTE | 2017-12-19 04:19 | HP ---
CHIEF COMPLAINT: Lethargy and diarrhea. HISTORIAN: The patient and electronic medical records. HISTORY OF PRESENT ILLNESS: This is a 77-year-old female with past medical history of arrhythmias, a trial fibrillation, hyperlipidemia, hypertension, history of breast cancer, renal disease, presenting with a chief complaint of diarrhea and lethargy. Per patient, she was feeling very lethargic and sh nette was very worried that her infection which she was recently treated must have come back. Patient th en called EMS and patient was transported to our ED. Of note, patient was recently admitted for [facility] is and was discharged on 11/29. The patient was found to have E. coli bacteremia and UTI. Patient w as treated with antibiotics during that time and now patient is having fevers, lethargy, diarrhea, an d lower abdominal pain which started yesterday prior to the day of admission. REVIEW OF SYSTEMS: Positive for fatigue, lethargy, fever, diarrhea, otherwise as stated in the HPI. All other systems are reviewed and are negative. PAST MEDICAL HISTORY: Atrial fibrillation, hyperlipidemia, hypertension, history of breast cancer, r enal disease. FAMILY HISTORY: Reviewed and noncontributory to this visit. PAST SURGICAL HISTORY: Left hip surgery, status post stents in left leg; hernia surgery; lymph nodes removal; hysterectomy; thyroidectomy. PSYCHIATRIC HISTORY: No psych history noted. SOCIAL HISTORY: Patient denies smoking, denies alcohol, and denies illicit drug use. ALLERGIES: CODEINE. CURRENT MEDICATIONS: Patient is on Cardizem 60 mg q.i.d., Florastor, trazodone 100 mg daily, ferrous sulfate, furosemide 20 mg b.i.d., carisoprodol 350 mg q.i.d., aspirin 81, hydrocodone/acetaminophen, clopidogrel 75 mg daily, alprazolam 1 mg t.i.d., hydroxychloroquine 1.5 tabs 200 mg daily, duloxetin e 60 mg daily, amlodipine 5 mg daily, Nexium, simvastatin 40 daily. PHYSICAL EXAMINATION: VITAL SIGNS: Blood pressure 155/52, pulse 108, respiratory rate is 20, temperature is 98.5. GENERAL APPEARANCE: The patient is lying in bed, being dressed. Patient is alert, oriented x2 at th is time. Patient does not know the name of the vice president [employer], but is able to state her name, is able to state . The patient does not appear to be in any apparent distress. HEENT: Normocephalic, atraumatic. Pupils are equally round and reactive to light. Extraocular move ments are intact. No scleral icterus. CARDIAC: Systolic murmur appreciated. Positive S1, S2, tachycardic. ABDOMEN: Tender to palpation at the left lower quadrant with light palpation, mild guarding. No ekaterina ound tenderness, no peritoneal signs. EXTREMITIES: Upper extremity: 5/5 upper extremity strength. Lower extremity: 5/5 lower extremity strength. There is 2+ edema noted and there is a 1-2 ulcer on the left fifth toe. There is some [place] thema noted at the lower extremities bilaterally. NEUROLOGIC: Cranial nerves II through XII grossly intact. No neurologic deficits noted. SKIN: There is some redness noted at the lower extremity bilaterally, likely due to venous stasis, o therwise no rashes noted. PSYCHIATRIC: Alert, oriented x2, not in acute distress. IMAGING: EKG shows sinus tachycardia with a rate of about 101. Chest x-ray showed no cardiopulmonar y process. KUB showed nonspecific gas pattern in the abdomen. ED COURSE: The patient was given vancomycin IV, Zosyn IV, and normal saline. LABORATORY DATA: WBC 15.2, hemoglobin is 9.2, hematocrit is 29.8, platelets 250,000. Sodium is 127, potassium is 4.7, chloride is 101, carbon dioxide of 13, anion gap of 18, BUN is 67, creatinine is 1 .73. Urinalysis is negative. C. diff is positive. ASSESSMENT AND PLAN: This is a 77-year-old female with multiple comorbidities, being admitted for; 1. Sepsis secondary to Clostridium difficile colitis. At this point, patient's Clostridium difficil e test is positive, we will start the patient on vancomycin 125 mg q.i.d. We will continue this medi cation. We will continue IV fluids. We will monitor the patient. 2. Hyponatremia of 127, most likely due to dehydration. We have patient on IV fluids. We will lana tor the patient's sodium. 3. Acute kidney injury likely due to dehydration. At this point, the patient is receiving IV fluids . We have ordered renal function test. We will follow up on these results. We will follow up on mo rning labs. 4. History of hypertension. We will monitor patient's blood pressure closely. We will continue pat ient on home medications. 5. History of renal disease. We will continue patient on home medications. 6. History of atrial fibrillation. The patient is on Cardizem. We will continue this medication an d patient is not on anticoagulation due to history of multiple falls. 7. Coronary artery disease, status post stents. We will continue the patient on her current medicat ions. 8. Hyperlipidemia. We will continue the patient on her current medications. 9. History of depression. We will continue the patient on her current home medications. 10. Deep venous thrombosis and gastrointestinal prophylaxis. We do sequential compression devices. We will do Pepcid for gastrointestinal prophylaxis.
[2017-12-19 05:21] LABS: #Lymphocytes 0.5 thou/uL (1.20-3.40); #Monocytes 1.2 thou/uL (0.11-0.59); #Neutrophils 7.9 thou/uL (1.40-6.50); %Lymphocytes 5.6 % (21.0-51.0); %Monocytes 12.2 % (0.0-10.0); %Neutrophils 82.2 % (42.0-75.0); Mean Corpuscular Hemoglobin 31.1 pg (27.0-31.0); Mean Corpuscular Volume 97.4 fL (78.0-98.0); Mean Platelet Volume 7.8 fL (7.4-10.4); Platelet Count 209 thou/uL (130-400); RBC Distribution Width 17.5 % (11.5-14.5); Red Blood Cell (RBC) Count 2.56 mill/uL (4.20-5.40); White Blood Cell (WBC) Count 9.7 thou/uL (4.8-10.8)
[2017-12-19 05:40] LABS: ALT (SGPT) 13 U/L (8-55); AST (SGOT) 21 U/L (5-34); Albumin 2.6 g/dL (3.4-4.8); Alkaline Phosphatase 86 U/L (40-150); Anion Gap 15 mmol/L (10-20); BUN (Urea Nitrogen) 65 mg/dL (9.8-20.1); BUN/Creatinine Ratio 44.22; Bilirubin, Total 0.4 mg/dL (0.2-1.2); Calc. Creatinine Clearance 31 mL/min (70-130); Calcium 8.4 mg/dL (7.8-10.44); Carbon Dioxide 17 mmol/L (23-31); Chloride 105 mmol/L (98-107); Estimated GFR-MDRD 34; Globulin 2.4 g/dL (2.4-3.5); Glucose 91 mg/dL (83-110); Phosphorus 3.9 mg/dL (2.3-4.7); Potassium 3.8 mmol/L (3.5-5.1); Sodium 133 mmol/L (136-145)
[2017-12-19] MEDS ORDERED: Lifitegrast [Xiidra] 1 DROP EA EYE SCH (09:00)
[2017-12-19] MEDS ORDERED: Prevnar 13-Val Conj/PF 0.5 ML SYRINGE IM ONE (09:00)
[2017-12-19] MEDS ORDERED: Famotidine/PF 20 mg/2ml Vial SLOW IVP SCH (09:00)
[2017-12-19] MEDS: Hydroxychloroquine Sulfate 200 MG TAB PO SCH (09:06)
[2017-12-19] MEDS: Ferrous Sulfate 325 MG TAB PO SCH ×3 (09:07→17:31)
[2017-12-19] MEDS: DULoxetine 60 MG CAP PO SCH (09:07)
[2017-12-19] MEDS: Saccharomyces boulardii 250 MG CAP PO SCH ×2 (09:07→19:46)
[2017-12-19] MEDS: Atorvastatin Calcium 20 MG TAB PO SCH (09:07)
[2017-12-19] MEDS: Aspirin 81 mg Enteric Coated Tablet PO SCH (09:07)
[2017-12-19] MEDS: Vancomycin HCl 25 MG/ML Oral PO SCH ×4 (09:08→19:47)
[2017-12-19] MEDS: Cholestyramine/Aspartame 4 gm Packet PO SCH ×2 (10:36→22:42)
[2017-12-19] MEDS ORDERED: HYDROcodone/Acetaminophen 5/325 mg Tablet PO PRN (10:53)
[2017-12-19] MEDS ORDERED: HYDROcodone/Acetaminophen 10/325 mg Tablet PO PRN (11:59)
[2017-12-19] MEDS: HYDROcodone/Acetaminophen 5/325 mg Tablet PO PRN ×2 (17:31→23:19)
[2017-12-19] MEDS: traZODone HCl 50 MG TAB PO SCH (19:47)
--- NOTE | 2017-12-19 20:45 | PDOC.PN ---
- Subjective Encounter Start Date: 12/19/17 Encounter Start Time: 10:45 Patient seen and examined for Sepsis. Diarrhea +. Feels weak. Mentation slowly improving. No other complaints. No overnight events - Objective Resuscitation Status: Resuscitation Status FULL:Full Resuscitation MAR Reviewed: Yes Vital Signs & Weight: Vital Signs (12 hours) Temp Pulse Resp BP Pulse Ox 12/19/17 16:05 99.4 F 100 20 106/65 96 12/19/17 12:03 99.2 F 68 20 124/55 L 98 12/19/17 09:00 98 12/19/17 08:46 100.1 F H 78 20 107/55 L 98 Weight Admit Weight 136 lb 9.6 oz Weight 136 lb 9.6 oz I&O: 12/18/17 12/19/17 12/20/17 06:59 06:59 06:59 Intake Total 840 1530 Balance 840 1530 Result Diagrams: 12/19/17 04:17 12/19/17 04:16 EKG Reviewed by me: Yes (Tele SR) Phys Exam - Physical Examination Constitutional: NAD Respiratory: no wheezing, no rhonchi Cardiovascular: RRR, no rub Gastrointestinal: soft, positive bowel sounds Musculoskeletal: no edema Neurological: moves all 4 limbs Dx/Plan - Plan DVT proph w/SCDs IMPRESSION: 1. Sepsis due to C diff colitis 2. CRISTÓBAL/CKD 2 due to dehydration 3. Hyponatremia 4. Metabolic acidosis 5. Chronic pain syndrome / Other issues per H&P PLAN: Cont PO Vancomycin/Probiotics Confirm home meds Cont IV NS AM labs Review of Systems - Review of Systems Respiratory: negative: Cough, Dry, Shortness of Breath, Hemoptysis, SOB with Excertion, Pleuritic Pain, Sputum, Wheezing Cardiovascular: negative: chest pain, palpitations, orthopnea, paroxysmal nocturnal dyspnea, edema, light headedness, other - Medications/Allergies Allergies/Adverse Reactions: Allergies Allergy/AdvReac Type Severity Reaction Status Date / Time codeine Allergy Hives Verified 09/30/17 17:41 Medications: Current Medications Hydrocodone Bitart/Acetaminophen (Vilas 5/325) 1 tab PO Q6H PRN PRN Reason: Severe Pain (7-10) Last Admin: 12/19/17 17:31 Dose: 1 tab Alprazolam (Xanax) 1 mg PO TIDPRN PRN PRN Reason: Anxiety Aspirin (Ecotrin) 81 mg PO QAM [facility] Last Admin: 12/19/17 09:07 Dose: 81 mg Atorvastatin Calcium (Lipitor) 20 mg PO DAILY [facility] Last Admin: 12/19/17 09:07 Dose: 20 mg Carisoprodol (Soma) 350 mg PO TIDPRN PRN PRN Reason: Spasms Last Admin: 12/19/17 00:15 Dose: 350 mg Cholestyramine Resin (Questran Light) 4 gm PO 1000,2200 [facility] Last Admin: 12/19/17 10:36 Dose: 4 gm Clopidogrel Bisulfate (Plavix) 75 mg PO DAILY [facility] Duloxetine HCl (Cymbalta) 60 mg PO QAM [facility] Last Admin: 12/19/17 09:07 Dose: 60 mg Famotidine (Pepcid) 20 mg SLOW IVP DAILY [facility] Last Admin: 12/19/17 09:06 Dose: 20 mg Ferrous Sulfate (Feosol) 325 mg PO TID-[facility] Last Admin: 12/19/17 17:31 Dose: 325 mg Hydroxychloroquine Sulfate (Plaquenil) 300 mg PO DAILY [facility] Last Admin: 12/19/17 09:06 Dose: 300 mg Sodium Chloride (Normal Saline 0.9%) 1,000 mls @ 80 mls/hr IV .[id number] [facility] Last Admin: 12/19/17 11:36 Dose: 1,000 mls Lifitegrast [Xiidra] (1 Drop) 1 drop EA EYE BID [facility] Saccharomyces Boulardii (Florastor) 250 mg PO BID [facility] Last Admin: 12/19/17 19:46 Dose: 250 mg Trazodone HCl (Desyrel) 200 mg PO HS [facility] Last Admin: 12/19/17 19:47 Dose: 200 mg Vancomycin HCl (First Vancomycin) 125 mg PO QID [facility] Last Admin: 12/19/17 19:47 Dose: 125 mg
[2017-12-20] MEDS: Sodium Chloride 0.9% 1,000 ML IV SCH ×2 (00:15→11:50)
[2017-12-20 05:23] LABS: ALT (SGPT) 14 U/L (8-55); AST (SGOT) 17 U/L (5-34); Albumin 2.3 g/dL (3.4-4.8); Alkaline Phosphatase 63 U/L (40-150); Anion Gap 14 mmol/L (10-20); BUN (Urea Nitrogen) 60 mg/dL (9.8-20.1); Bilirubin, Total 0.2 mg/dL (0.2-1.2); Calc. Creatinine Clearance 34 mL/min (70-130); Calcium 7.6 mg/dL (7.8-10.44); Carbon Dioxide 15 mmol/L (23-31); Chloride 109 mmol/L (98-107); Estimated GFR-MDRD 38; Globulin 2.2 g/dL (2.4-3.5); Glucose 100 mg/dL (83-110); Magnesium 1.6 mg/dL (1.6-2.6); Phosphorus 4.3 mg/dL (2.3-4.7); Potassium 3.5 mmol/L (3.5-5.1); Protein, Total 4.5 g/dL (6.0-8.3); Sodium 134 mmol/L (136-145)
[2017-12-20] MEDS: HYDROcodone/Acetaminophen 5/325 mg Tablet PO PRN ×2 (06:22→13:07)
[2017-12-20 06:59] LABS: Band 20 % (5-11); Hemoglobin 8.3 g/dL (12.0-16.0); Lymphocytes 15 % (21-51); MDiff Complete? YES; Mean Corpuscular HGB CONC 31.4 g/dL (32.0-36.0); Mean Corpuscular Hemoglobin 30.8 pg (27.0-31.0); Mean Platelet Volume 7.8 fL (7.4-10.4); Monocytes 5 % (0-10); Neutrophil 60 % (42-75); Platelet Count 253 thou/uL (130-400); RBC Distribution Width 17.8 % (11.5-14.5); Red Blood Cell (RBC) Count 2.69 mill/uL (4.20-5.40); White Blood Cell (WBC) Count 9.7 thou/uL (4.8-10.8)
[2017-12-20] MEDS: Saccharomyces boulardii 250 MG CAP PO SCH ×2 (07:32→19:52)
[2017-12-20] MEDS: Vancomycin HCl 25 MG/ML Oral PO SCH ×4 (07:32→19:52)
[2017-12-20] MEDS: Hydroxychloroquine Sulfate 200 MG TAB PO SCH (07:32)
[2017-12-20] MEDS: Atorvastatin Calcium 20 MG TAB PO SCH (07:33)
[2017-12-20] MEDS: Ferrous Sulfate 325 MG TAB PO SCH ×3 (07:33→16:23)
[2017-12-20] MEDS: Clopidogrel Bisulfate 75 MG TAB PO SCH (07:33)
[2017-12-20] MEDS: DULoxetine 60 MG CAP PO SCH (07:33)
[2017-12-20] MEDS: Aspirin 81 mg Enteric Coated Tablet PO SCH (07:33)
[2017-12-20] MEDS: Famotidine 20 MG TAB PO SCH (07:33)
[2017-12-20] MEDS: Cholestyramine/Aspartame 4 gm Packet PO SCH ×2 (08:41→22:49)
--- NOTE | 2017-12-20 16:16 | PDOC.PN ---
- Subjective Encounter Start Date: 12/20/17 Encounter Start Time: 16:14 was seen today in follow-up of C. Diff Colitis. She says she is beginning to feel better, but says she still has quite a bit of diarrhea. - Objective Resuscitation Status: Resuscitation Status FULL:Full Resuscitation MAR Reviewed: Yes Vital Signs & Weight: Vital Signs (12 hours) Temp Pulse Resp BP Pulse Ox 12/20/17 16:00 98.1 F 89 18 156/75 H 92 L 12/20/17 11:36 98 F 78 20 168/53 H 93 L 12/20/17 07:19 98.4 F 78 21 H 130/57 L 93 L Weight Admit Weight 136 lb 9.6 oz Weight 135 lb 7.691 oz I&O: 12/19/17 12/20/17 12/21/17 06:59 06:59 06:59 Intake Total 840 2764 Balance 840 2764 Result Diagrams: 12/20/17 03:55 12/20/17 03:55 Phys Exam - Physical Examination HEENT: PERRLA, sclera anicteric Respiratory: no wheezing, no rales, no rhonchi, clear to auscultation bilateral Cardiovascular: RRR, no significant murmur, no rub no gallop Gastrointestinal: soft, positive bowel sounds + mild diffuse tenderness, mildly distended Musculoskeletal: no edema Dx/Plan (1) Clostridium difficile colitis Status: Acute (2) Sepsis Code(s): A41.9 - SEPSIS, UNSPECIFIED ORGANISM Status: Acute (3) Acute kidney injury Code(s): N17.9 - ACUTE KIDNEY FAILURE, UNSPECIFIED Status: Acute (4) Hyponatremia Code(s): E87.1 - HYPO-OSMOLALITY AND HYPONATREMIA Status: Acute (5) Atrial fibrillation Code(s): I48.91 - UNSPECIFIED ATRIAL FIBRILLATION Status: Chronic Qualifiers: Atrial fibrillation type: paroxysmal Qualified Code(s): I48.0 - Paroxysmal atrial fibrillation (6) Hypertension Code(s): I10 - ESSENTIAL (PRIMARY) HYPERTENSION Status: Chronic - Plan * C. Diff Colitis with sepsis- improving- will continue oral Vancomycin * Acute Kidney injury- also improved, with hydration * Hyponatremia- due to volume losses from diarrhea- improved * HTN- blood pressure is beginning to creep upwards- will re-start Cardizem * AFIB- her heart rate is controlled- continue Cardizem * Monitor electrolytes and ambulate.
--- NOTE | 2017-12-20 18:09 | EKG ---
Test Reason : SEPSIS Blood Pressure : / mmHG Vent. Rate : 101 BPM Atrial Rate : 101 BPM P-R Int : 164 ms QRS Dur : 084 ms QT Int : 330 ms P-R-T Axes : 083 006 007 degrees QTc Int : 427 ms Sinus tachycardia with Premature atrial complexes Septal infarct , age undetermined Abnormal ECG Confirmed by MYNOR HARRIS D.O. ([id number]), restaurant expeditor JAYE TREJO ([id number]) on 12/20/2017 6:09:11 PM Referred By: Confirmed By:MYNOR HARRIS D.O.
[2017-12-20] MEDS: traZODone HCl 50 MG TAB PO SCH (19:52)
[2017-12-20] MEDS: Diltiazem HCl SR 60 mg Capsule PO SCH (22:48)
[2017-12-20] MEDS: ALPRAZolam 1 MG TAB PO PRN (22:49)
[2017-12-21] MEDS: Sodium Chloride 0.9% 1,000 ML IV SCH ×3 (01:00→21:29)
[2017-12-21 04:44] LABS: Anion Gap 12 mmol/L (10-20); BUN (Urea Nitrogen) 55 mg/dL (9.8-20.1); Calc. Creatinine Clearance 37 mL/min (70-130); Calcium 7.7 mg/dL (7.8-10.44); Carbon Dioxide 17 mmol/L (23-31); Chloride 109 mmol/L (98-107); Estimated GFR-MDRD 43; Glucose 139 mg/dL (83-110); Potassium 3.7 mmol/L (3.5-5.1); Sodium 134 mmol/L (136-145)
[2017-12-21] MEDS: Diltiazem HCl SR 60 mg Capsule PO SCH ×4 (05:11→21:29)
[2017-12-21] MEDS: Hydroxychloroquine Sulfate 200 MG TAB PO SCH (08:49)
[2017-12-21] MEDS: Vancomycin HCl 25 MG/ML Oral PO SCH ×4 (08:49→20:18)
[2017-12-21] MEDS: DULoxetine 60 MG CAP PO SCH (08:49)
[2017-12-21] MEDS: Ferrous Sulfate 325 MG TAB PO SCH ×3 (08:50→17:01)
[2017-12-21] MEDS: Aspirin 81 mg Enteric Coated Tablet PO SCH (08:50)
[2017-12-21] MEDS: Saccharomyces boulardii 250 MG CAP PO SCH ×2 (08:50→20:17)
[2017-12-21] MEDS: Famotidine 20 MG TAB PO SCH (08:50)
[2017-12-21] MEDS: Clopidogrel Bisulfate 75 MG TAB PO SCH (08:50)
[2017-12-21] MEDS: Atorvastatin Calcium 20 MG TAB PO SCH (08:50)
[2017-12-21] MEDS: Cholestyramine/Aspartame 4 gm Packet PO SCH (09:21)
[2017-12-21] MEDS: HYDROcodone/Acetaminophen 5/325 mg Tablet PO PRN ×2 (11:36→18:14)
[2017-12-21] MEDS ORDERED: Mag-Al Plus 1200 MG/1200 MG/120 MG/30 ML UDCUP PO PRN (15:56)
--- NOTE | 2017-12-21 15:59 | PDOC.PN ---
- Subjective Encounter Start Date: 12/21/17 Encounter Start Time: 15:57 Ms. Mcintyre was seen today in follow-up of C. Diff Colitis. She feels the diarrhea has improved some. She says her abdomen feels " raw". She also has a poor appetite. - Objective Resuscitation Status: Resuscitation Status FULL:Full Resuscitation MAR Reviewed: Yes Vital Signs & Weight: Vital Signs (12 hours) Temp Pulse Resp BP Pulse Ox 12/21/17 11:36 98.4 F 95 18 135/83 95 12/21/17 07:00 97.6 F 88 21 H 146/83 H 95 Weight Admit Weight 136 lb 9.6 oz Weight 135 lb 7.691 oz I&O: 12/20/17 12/21/17 12/22/17 06:59 06:59 06:59 Intake Total 2764 1600 Balance 2764 1600 Result Diagrams: 12/20/17 03:55 12/21/17 04:00 Phys Exam - Physical Examination HEENT: PERRLA Respiratory: no wheezing, no rales, no rhonchi, clear to auscultation bilateral Cardiovascular: RRR, no significant murmur, no rub heart rate is a bit rapid, no gallop Gastrointestinal: soft, positive bowel sounds mildly distended, + diffuse tenderness Musculoskeletal: no edema Dx/Plan (1) Clostridium difficile colitis Status: Acute (2) Atrial fibrillation Code(s): I48.91 - UNSPECIFIED ATRIAL FIBRILLATION Status: Chronic Qualifiers: Atrial fibrillation type: paroxysmal Qualified Code(s): I48.0 - Paroxysmal atrial fibrillation (3) Acute kidney injury Code(s): N17.9 - ACUTE KIDNEY FAILURE, UNSPECIFIED Status: Acute (4) Hyponatremia Code(s): E87.1 - HYPO-OSMOLALITY AND HYPONATREMIA Status: Acute (5) Hypertension Code(s): I10 - ESSENTIAL (PRIMARY) HYPERTENSION Status: Chronic (6) Sepsis Code(s): A41.9 - SEPSIS, UNSPECIFIED ORGANISM Status: Resolved - Plan * C. Diff Colitis- slowly improving- continue oral Vancomycin. Encourage p.o. intake * AFIB- her heart rate is a bit rapis- She has been started back on Cardizem, not sure if the cholestyramine is interacting to reduce it's effectiveness- will discontinue it * Acute renal failure- improved creatinine is down to 1.21 * HTN- blood pressure is stable.
[2017-12-21] MEDS: traZODone HCl 50 MG TAB PO SCH (20:17)
[2017-12-21] MEDS: ALPRAZolam 1 MG TAB PO PRN (21:29)
[2017-12-22] MEDS: Sodium Chloride 0.9% 1,000 ML IV SCH ×2 (01:53→15:25)
[2017-12-22] MEDS: Diltiazem HCl SR 60 mg Capsule PO SCH ×4 (04:24→22:15)
[2017-12-22 05:44] LABS: Anion Gap 11 mmol/L (10-20); BUN (Urea Nitrogen) 52 mg/dL (9.8-20.1); Calc. Creatinine Clearance 49 mL/min (70-130); Calcium 7.7 mg/dL (7.8-10.44); Carbon Dioxide 16 mmol/L (23-31); Chloride 113 mmol/L (98-107); Estimated GFR-MDRD 59; Glucose 127 mg/dL (83-110); Potassium 3.8 mmol/L (3.5-5.1); Sodium 136 mmol/L (136-145)
[2017-12-22] MEDS: Aspirin 81 mg Enteric Coated Tablet PO SCH (08:20)
[2017-12-22] MEDS: Vancomycin HCl 25 MG/ML Oral PO SCH ×4 (08:20→20:22)
[2017-12-22] MEDS: Atorvastatin Calcium 20 MG TAB PO SCH (08:20)
[2017-12-22] MEDS: Famotidine 20 MG TAB PO SCH (08:20)
[2017-12-22] MEDS: DULoxetine 60 MG CAP PO SCH (08:20)
[2017-12-22] MEDS: Saccharomyces boulardii 250 MG CAP PO SCH ×2 (08:20→20:22)
[2017-12-22] MEDS: Clopidogrel Bisulfate 75 MG TAB PO SCH (08:20)
[2017-12-22] MEDS: Ferrous Sulfate 325 MG TAB PO SCH ×3 (08:21→15:57)
[2017-12-22] MEDS: Hydroxychloroquine Sulfate 200 MG TAB PO SCH (08:21)
[2017-12-22] MEDS: ALPRAZolam 1 MG TAB PO PRN ×2 (09:29→17:38)
[2017-12-22] MEDS: HYDROcodone/Acetaminophen 5/325 mg Tablet PO PRN (16:06)
--- NOTE | 2017-12-22 17:53 | PDOC.PN ---
- Subjective Encounter Start Date: 12/22/17 Encounter Start Time: 17:52 Ms. Mcintyre was seen today in follow-up of C. Diff Colitis. she says today is the first day she had any little appetite. She had about 3 loose stools today , but the volume has been less. - Objective Resuscitation Status: Resuscitation Status FULL:Full Resuscitation MAR Reviewed: Yes Vital Signs & Weight: Vital Signs (12 hours) Temp Pulse Resp BP Pulse Ox 12/22/17 08:00 98.5 F 89 20 132/78 98 Weight Admit Weight 136 lb 9.6 oz Weight 135 lb 7.691 oz I&O: 12/21/17 12/22/17 12/23/17 06:59 06:59 06:59 Intake Total 1600 2510 Balance 1600 2510 Result Diagrams: 12/20/17 03:55 12/22/17 04:25 Phys Exam - Physical Examination Respiratory: no wheezing, no rales, no rhonchi, clear to auscultation bilateral Cardiovascular: no significant murmur, no rub, irregular Gastrointestinal: soft, positive bowel sounds + diffuse tenderness, and mild distention, but this has improved Musculoskeletal: no edema Dx/Plan (1) Clostridium difficile colitis Status: Acute (2) Atrial fibrillation Code(s): I48.91 - UNSPECIFIED ATRIAL FIBRILLATION Status: Chronic Qualifiers: Atrial fibrillation type: paroxysmal Qualified Code(s): I48.0 - Paroxysmal atrial fibrillation (3) Hypertension Code(s): I10 - ESSENTIAL (PRIMARY) HYPERTENSION Status: Chronic (4) GERD (gastroesophageal reflux disease) Code(s): K21.9 - GASTRO-ESOPHAGEAL REFLUX DISEASE WITHOUT ESOPHAGITIS Status: Chronic (5) Sepsis Code(s): A41.9 - SEPSIS, UNSPECIFIED ORGANISM Status: Resolved (6) Acute kidney injury Code(s): N17.9 - ACUTE KIDNEY FAILURE, UNSPECIFIED Status: Resolved (7) Hyponatremia Code(s): E87.1 - HYPO-OSMOLALITY AND HYPONATREMIA Status: Resolved - Plan * C. Diff- continue oral Vancomycin- She is making slow progress * AFIB- heart rate has been variable- but better today- continue Cardizem * HTN- Blood pressure is stable * GERD- the patient's daughter tells me the patient has severe reflux due to a Hiatal Hernia- will re-start Protonix ( for Nexium) * Deconditioning- She is extremiely weak, and has lost some of the progress she had made with outpatient PT with this illness- encouraged her to participate in PT/and OT, and ahe may require a stay in Skilled or Rehab prior to discharge .
[2017-12-22] MEDS: Polyvinyl Alcohol 1.4%/Povidone 0.6% Opth Drops EA EYE SCH (20:22)
[2017-12-22] MEDS: traZODone HCl 50 MG TAB PO SCH (20:22)
[2017-12-23] MEDS: Diltiazem HCl SR 60 mg Capsule PO SCH ×4 (04:10→20:52)
[2017-12-23] MEDS: Sodium Chloride 0.9% 1,000 ML IV SCH ×2 (04:10→16:52)
[2017-12-23 05:07] LABS: Anion Gap 10 mmol/L (10-20); BUN (Urea Nitrogen) 40 mg/dL (9.8-20.1); Calc. Creatinine Clearance 55 mL/min (70-130); Calcium 7.6 mg/dL (7.8-10.44); Carbon Dioxide 17 mmol/L (23-31); Chloride 114 mmol/L (98-107); Estimated GFR-MDRD 67; Glucose 100 mg/dL (83-110); Potassium 3.8 mmol/L (3.5-5.1); Sodium 137 mmol/L (136-145)
[2017-12-23] MEDS: Ferrous Sulfate 325 MG TAB PO SCH ×3 (08:50→16:56)
[2017-12-23] MEDS: DULoxetine 60 MG CAP PO SCH (08:50)
[2017-12-23] MEDS: Saccharomyces boulardii 250 MG CAP PO SCH ×2 (08:50→20:52)
[2017-12-23] MEDS: Atorvastatin Calcium 20 MG TAB PO SCH (08:50)
[2017-12-23] MEDS: Clopidogrel Bisulfate 75 MG TAB PO SCH (08:50)
[2017-12-23] MEDS: Hydroxychloroquine Sulfate 200 MG TAB PO SCH (08:50)
[2017-12-23] MEDS: Aspirin 81 mg Enteric Coated Tablet PO SCH (08:50)
[2017-12-23] MEDS: Vancomycin HCl 25 MG/ML Oral PO SCH ×4 (08:51→20:51)
[2017-12-23] MEDS: Famotidine 20 MG TAB PO SCH (08:51)
[2017-12-23] MEDS: Polyvinyl Alcohol 1.4%/Povidone 0.6% Opth Drops EA EYE SCH ×2 (08:51→20:53)
[2017-12-23] MEDS: ALPRAZolam 1 MG TAB PO PRN ×2 (10:54→20:58)
--- NOTE | 2017-12-23 16:58 | PDOC.PN ---
- Subjective Encounter Start Date: 12/23/17 Encounter Start Time: 16:57 Ms. Mcintyre was seen today in follow-up of C. Diff Colitis. She says the diarrhea has improved, and she only had 2 stools today. She is complaining of shortness of breath however. - Objective Resuscitation Status: Resuscitation Status FULL:Full Resuscitation MAR Reviewed: Yes Vital Signs & Weight: Vital Signs (12 hours) Temp Pulse Resp BP Pulse Ox 12/23/17 08:45 97 12/23/17 08:00 98.4 F 90 22 H 155/50 H 97 Weight Admit Weight 136 lb 9.6 oz Weight 135 lb 7.691 oz I&O: 12/22/17 12/23/17 12/24/17 06:59 06:59 06:59 Intake Total 2510 Balance 2510 Result Diagrams: 12/20/17 03:55 12/23/17 04:06 Phys Exam - Physical Examination HEENT: PERRLA Respiratory: no wheezing, no rales, no rhonchi, clear to auscultation bilateral + coarse breath sounds Cardiovascular: no significant murmur, no rub, irregular Gastrointestinal: soft, non-tender, no distention, positive bowel sounds Musculoskeletal: no edema Dx/Plan (1) Clostridium difficile colitis Status: Acute (2) Atrial fibrillation Code(s): I48.91 - UNSPECIFIED ATRIAL FIBRILLATION Status: Chronic Qualifiers: Atrial fibrillation type: paroxysmal Qualified Code(s): I48.0 - Paroxysmal atrial fibrillation (3) Hypertension Code(s): I10 - ESSENTIAL (PRIMARY) HYPERTENSION Status: Chronic (4) GERD (gastroesophageal reflux disease) Code(s): K21.9 - GASTRO-ESOPHAGEAL REFLUX DISEASE WITHOUT ESOPHAGITIS Status: Chronic (5) Sepsis Code(s): A41.9 - SEPSIS, UNSPECIFIED ORGANISM Status: Resolved (6) Acute kidney injury Code(s): N17.9 - ACUTE KIDNEY FAILURE, UNSPECIFIED Status: Resolved - Plan * C. Diff Colitis- continue oral Vancomycin * Continue to encourage oral intake * Dyspnea- I suspect she may be volume overloaded- will give a dose a Lasix, and check a check X-ray * AFIB- her heart rate is stable * HTN- blood pressure is slightly elevated- will monitor.
[2017-12-23] MEDS ORDERED: Furosemide 40 MG/4 ML VIAL SLOW IVP SCH (17:00)
[2017-12-23] MEDS: traZODone HCl 50 MG TAB PO SCH (20:52)
[2017-12-24] MEDS: Diltiazem HCl SR 60 mg Capsule PO SCH ×4 (04:49→20:15)
[2017-12-24] MEDS: Atorvastatin Calcium 20 MG TAB PO SCH (08:24)
[2017-12-24] MEDS: DULoxetine 60 MG CAP PO SCH (08:24)
[2017-12-24] MEDS: Polyvinyl Alcohol 1.4%/Povidone 0.6% Opth Drops EA EYE SCH ×3 (08:24→20:16)
[2017-12-24] MEDS: Saccharomyces boulardii 250 MG CAP PO SCH ×2 (08:24→20:15)
[2017-12-24] MEDS: Aspirin 81 mg Enteric Coated Tablet PO SCH (08:25)
[2017-12-24] MEDS: Hydroxychloroquine Sulfate 200 MG TAB PO SCH (08:25)
[2017-12-24] MEDS: Ferrous Sulfate 325 MG TAB PO SCH ×3 (08:25→16:56)
[2017-12-24] MEDS: Famotidine 20 MG TAB PO SCH (08:26)
[2017-12-24] MEDS: Clopidogrel Bisulfate 75 MG TAB PO SCH (08:26)
[2017-12-24] MEDS: ALPRAZolam 1 MG TAB PO PRN ×2 (09:04→20:15)
[2017-12-24] MEDS: Vancomycin HCl 25 MG/ML Oral PO SCH ×4 (09:05→20:13)
--- NOTE | 2017-12-24 17:16 | PDOC.PN ---
- Subjective Encounter Start Date: 12/24/17 Encounter Start Time: 17:14 Ms. Mcintyre was seen today in follow-up of C. Diff Colitis. She had 3 large stools today. She says she feels better however. She also continues to complain of feeling short of breath. ( She does not appear labored however) - Objective Resuscitation Status: Resuscitation Status FULL:Full Resuscitation MAR Reviewed: Yes Vital Signs & Weight: Vital Signs (12 hours) Temp Pulse Resp BP Pulse Ox 12/24/17 17:13 93 98 12/24/17 10:25 97.8 F 90 20 138/74 97 12/24/17 08:25 97 Weight Admit Weight 136 lb 9.6 oz Weight 135 lb 7.691 oz I&O: 12/23/17 12/24/17 12/25/17 06:59 06:59 06:59 Intake Total 1280 Balance 1280 Result Diagrams: 12/20/17 03:55 12/23/17 04:06 Radiology Reviewed by me: Yes (Chest X-ray reviewed) Phys Exam - Physical Examination HEENT: PERRLA, sclera anicteric Respiratory: no wheezing, no rales, no rhonchi, clear to auscultation bilateral Cardiovascular: no significant murmur, no rub, irregular Gastrointestinal: soft, non-tender, no distention, positive bowel sounds Musculoskeletal: edema present trace pedal edema Dx/Plan (1) Clostridium difficile colitis Status: Acute (2) Sepsis Code(s): A41.9 - SEPSIS, UNSPECIFIED ORGANISM Status: Resolved (3) Acute kidney injury Code(s): N17.9 - ACUTE KIDNEY FAILURE, UNSPECIFIED Status: Resolved (4) Atrial fibrillation Code(s): I48.91 - UNSPECIFIED ATRIAL FIBRILLATION Status: Chronic Qualifiers: Atrial fibrillation type: paroxysmal Qualified Code(s): I48.0 - Paroxysmal atrial fibrillation (5) Hypertension Code(s): I10 - ESSENTIAL (PRIMARY) HYPERTENSION Status: Chronic - Plan * C. Diff- will add Questran back to see if this will slow the stools some * AFIB- her heart rate has been variable, but mostly controlled * Dyspnea- Chest X-ray was reviewed- there is a small pleural effusion, but now much airway disease- will re-start her home Lasix dose * HTN- Blood pressure is stable. * Continue PT/OT for deconditioning * Discharge planning is in progress
--- NOTE | 2017-12-24 19:06 | RAD ---
CHEST ONE VIEW: 12/24/17 HISTORY: 77-year-old female with shortness of breath. COMPARISON: 12/18/17. There is some bilateral vascular congestion and moderate sized right pleural effusion and probable sm all left pleural effusion. Considerable rotation to the left. Interstitial edema changes appear to be somewhat less prominent. IMPRESSION: Vascular congestion with some progressive pleural effusions, particularly on the right side. Stable t o slightly improved interstitial edema. Continued short term followup. POS: [facility]
[2017-12-24] MEDS: traZODone HCl 50 MG TAB PO SCH (20:14)
[2017-12-24] MEDS: Furosemide 20 MG TAB PO SCH (20:15)
[2017-12-24] MEDS: Cholestyramine/Aspartame 4 gm Packet PO SCH (21:37)
[2017-12-25] MEDS: Diltiazem HCl SR 60 mg Capsule PO SCH ×3 (03:52→16:39)
[2017-12-25] MEDS: Ferrous Sulfate 325 MG TAB PO SCH ×3 (08:43→16:40)
[2017-12-25] MEDS: Atorvastatin Calcium 20 MG TAB PO SCH (08:43)
[2017-12-25] MEDS: Aspirin 81 mg Enteric Coated Tablet PO SCH (08:43)
[2017-12-25] MEDS: Clopidogrel Bisulfate 75 MG TAB PO SCH (08:43)
[2017-12-25] MEDS: Furosemide 20 MG TAB PO SCH ×2 (08:44→22:40)
[2017-12-25] MEDS: Saccharomyces boulardii 250 MG CAP PO SCH ×2 (08:44→22:38)
[2017-12-25] MEDS: Hydroxychloroquine Sulfate 200 MG TAB PO SCH (08:44)
[2017-12-25] MEDS: Famotidine 20 MG TAB PO SCH (08:45)
[2017-12-25] MEDS: DULoxetine 60 MG CAP PO SCH (08:45)
[2017-12-25] MEDS: Cholestyramine/Aspartame 4 gm Packet PO SCH ×2 (08:47→23:16)
[2017-12-25] MEDS: Polyvinyl Alcohol 1.4%/Povidone 0.6% Opth Drops EA EYE SCH ×2 (08:50→22:41)
[2017-12-25] MEDS: Vancomycin HCl 25 MG/ML Oral PO SCH ×4 (10:33→22:42)
[2017-12-25] MEDS ORDERED: Furosemide 40 MG/4 ML VIAL SLOW IVP SCH (11:00)
[2017-12-25 11:36] VITALS: BMI 22.2
--- NOTE | 2017-12-25 12:01 | PQF ---
DATE: 12-29-17 ATTN: DR. HUNTER MAYER / DR. DAVI VILLANUEVA Please exercise your independent, professional judgment in responding to the clarification form. Clinical indicators are provided on the bottom of this form for your review Please check appropriate box(s): I (concur) with the Wound Care findings as stated below. [ X ] Pressure Ulcer: (Stage I: Erythema; Stage II: Partial thickness; Stage III: Full thickness; Stage IV: Necrosis to muscle/bone) [ ] Location: POA: [ ] Yes [ ] No[ ] Unable to determine Stage (I to IV): (Left Right Bilateral N/A ) [ ] Gangrene present [ ] Yes [ ] ischemic gangrene [ ] gas gangrene [ ] No [ ] No pressure ulcer diagnosis [ ] Deep tissue injury [ ] Other diagnosis [ ] Unable to determine In addition, please specify: Present on Admission (POA): [ X] Yes [ ] No [ ] Unable to determine For continuity of documentation, please document condition throughout progress notes and discharge summary. Thank You. CLINICAL INDICATORS - SIGNS / SYMPTOMS / LABS WCT 12-22-17: SACRUM PRESSURE ULCER STAGE 3 RISK FACTORS: T 12-22-17: DIARRHEA, LETHARGY, CHRONIC PAIN, HLD, HTN, H/O BREAST CA, HYPOTHYROIDISM, H/O FALLS, RAYNAUD'S DISEASE, ANEMIA, ANXIETY, IMMOBILITY H&P: DIARRHEA AND LETHARGY, HX UTI, DEPRESSION TREATMENTS: WCT 12-22-17: PER THE PATIENT, SHE HAS BEEN USING MEDIHONEY TO WOUND. PT ON WAFFLE MATTRESS. (This form is maintained as a part of the permanent medical record) 2014 [employer] All Rights Reserved MARCE [email or web address] Office: [phone] [facility]
--- NOTE | 2017-12-25 12:30 | PDOC.PN ---
- Subjective Encounter Start Date: 12/25/17 Encounter Start Time: 12:28 Ms. Mcintyre was seen today in follow-up of C. Diff and AFIB. She has been moved to Telemetry due to AFIB with RVR. Her heart rate now is between 96-116. She is complaining of feeling short of breath, but when I take her oxygen off, it is around 99-100% on room air. She says the diarrhea has improved. - Objective Resuscitation Status: Resuscitation Status FULL:Full Resuscitation MAR Reviewed: Yes Vital Signs & Weight: Vital Signs (12 hours) Temp Pulse Resp BP BP Pulse Ox 12/25/17 08:12 97.6 F 116 H 20 153/78 H 99 12/25/17 04:00 75 20 157/70 H 100 Weight Admit Weight 136 lb 9.6 oz Weight 138 lb 4.8 oz I&O: 12/24/17 12/25/17 12/26/17 06:59 06:59 06:59 Intake Total 1280 360 Balance 1280 360 Result Diagrams: 12/20/17 03:55 12/23/17 04:06 Phys Exam - Physical Examination HEENT: PERRLA Respiratory: no wheezing, no rales, clear to auscultation bilateral + occasional rhonchi Cardiovascular: no significant murmur, no rub, irregular Gastrointestinal: soft, non-tender, positive bowel sounds + mildly distended Musculoskeletal: edema present Dx/Plan (1) Clostridium difficile colitis Status: Acute (2) Shortness of breath Code(s): R06.02 - SHORTNESS OF BREATH Status: Acute (3) Sepsis Code(s): A41.9 - SEPSIS, UNSPECIFIED ORGANISM Status: Resolved (4) Acute kidney injury Code(s): N17.9 - ACUTE KIDNEY FAILURE, UNSPECIFIED Status: Resolved (5) Atrial fibrillation Code(s): I48.91 - UNSPECIFIED ATRIAL FIBRILLATION Status: Chronic Qualifiers: Atrial fibrillation type: paroxysmal Qualified Code(s): I48.0 - Paroxysmal atrial fibrillation (6) Hypertension Code(s): I10 - ESSENTIAL (PRIMARY) HYPERTENSION Status: Chronic (7) Physical deconditioning Code(s): R53.81 - OTHER MALAISE Status: Acute - Plan * C. Diff- continue oral Vancomycin- her symptoms are slowly improving- She will likely need a total of about 14 days of therapy * AFIB- her heart rate has been variable, but trending on the rapid side- She was given a dose of IV Cardizem last night- await Cardiology opinion * Shortness of breath- She may have been mildly volume overloaded, but even after Lasix, she continues to have some dyspnea- maybe she does not tolerate the AFIB well, and this is contributing * HTN - blood pressure is variable * Deconditioning- continue PT/OT, and prison screen is in progress
[2017-12-25] MEDS: ALPRAZolam 1 MG TAB PO PRN ×2 (12:43→23:15)
[2017-12-25] MEDS: HYDROcodone/Acetaminophen 5/325 mg Tablet PO PRN ×2 (16:39→23:15)
[2017-12-25] MEDS ORDERED: Digoxin 0.5 MG/2 ML AMP SLOW IVP SCH (17:30)
[2017-12-25] MEDS: traZODone HCl 50 MG TAB PO SCH (22:38)
[2017-12-25] MEDS: Diltiazem HCl SR 90 mg Capsule PO SCH (22:43)
[2017-12-26] MEDS: Aspirin 81 mg Enteric Coated Tablet PO SCH (11:25)
[2017-12-26] MEDS: Clopidogrel Bisulfate 75 MG TAB PO SCH (11:25)
[2017-12-26] MEDS: Hydroxychloroquine Sulfate 200 MG TAB PO SCH (11:26)
[2017-12-26] MEDS: Atorvastatin Calcium 20 MG TAB PO SCH (11:26)
[2017-12-26] MEDS: Diltiazem HCl SR 90 mg Capsule PO SCH ×4 (11:29→21:18)
[2017-12-26] MEDS: Furosemide 20 MG TAB PO SCH ×2 (11:30→21:21)
[2017-12-26] MEDS: Ferrous Sulfate 325 MG TAB PO SCH ×3 (11:31→19:46)
[2017-12-26] MEDS: Saccharomyces boulardii 250 MG CAP PO SCH ×2 (11:31→21:20)
[2017-12-26] MEDS: DULoxetine 60 MG CAP PO SCH (11:32)
[2017-12-26] MEDS: Cholestyramine/Aspartame 4 gm Packet PO SCH ×2 (11:33→21:32)
[2017-12-26] MEDS: Vancomycin HCl 25 MG/ML Oral PO SCH ×4 (11:34→21:44)
[2017-12-26] MEDS: ALPRAZolam 1 MG TAB PO PRN ×2 (11:40→21:21)
[2017-12-26] MEDS: Polyvinyl Alcohol 1.4%/Povidone 0.6% Opth Drops EA EYE SCH ×2 (11:42→21:21)
--- NOTE | 2017-12-26 12:44 | PRG ---
DATE OF SERVICE: 12/26/2017 Ms. Mcintyre status is unchanged. Her heart rate appears better controlled since early this elvis Castillo did increase her calcium channel blockade. She is currently on Cardizem at 90 mg q.6 hours. PHYSICAL EXAMINATION: VITAL SIGNS: Blood pressure 140/66, pulse 76 77. LUNGS: Clear to auscultation. CARDIAC: Irregular, irregular. ABDOMEN: Soft, nontender, nondistended. EXTREMITIES: No edema. PERTINENT LABORATORY: No labs noted. IMPRESSION: 1. Atrial fibrillation with rapid ventricular response - this is a chronic condition. She appears t o be rate controlled. Continue medications at the current dose. 2. Severe peripheral vascular disease -- appears to be improving. Continue current treatment. 3. Clostridium difficile colitis - she is on antibiotic treatment and stools have improved. Otherwise, I have no further recommendations. I would continue to monitor closely. Add beta sherley therapy if needed.
--- NOTE | 2017-12-26 14:41 | PDOC.PN ---
- Subjective Encounter Start Date: 12/26/17 Encounter Start Time: 12:44 Subjective: feels much better. still with multiple soft stools -: no Abd pain. no blood in stools. -: no CP/palpitation/SOB today - Objective Resuscitation Status: Resuscitation Status FULL:Full Resuscitation MAR Reviewed: Yes Vital Signs & Weight: Vital Signs (12 hours) Temp Pulse Pulse Resp BP BP BP 12/26/17 11:59 97.7 F 76 16 144/66 H 12/26/17 09:31 78 139/60 152/68 H 12/26/17 07:12 97.5 F L 95 20 Pulse Ox 12/26/17 11:59 12/26/17 09:31 12/26/17 07:12 100 Weight Admit Weight 136 lb 9.6 oz Weight 138 lb 4.8 oz I&O: 12/25/17 12/26/17 12/27/17 06:59 06:59 06:59 Intake Total 360 1450 Balance 360 1450 Result Diagrams: 12/20/17 03:55 12/23/17 04:06 Additional Labs: Microbiology 12/18/17 21:26 Stool - Loose C. difficile GDH Antigen & Toxins - Final 12/18/17 17:32 Urine voided Urine Culture - Final Yeast species 12/18/17 17:20 Venous blood - Right Hand Blood Culture - Final NO GROWTH IN 5 DAYS 12/18/17 16:53 Venous blood - Right Arm Blood Culture - Final NO GROWTH IN 5 DAYS Laboratory Tests 12/18/17 12/18/17 12/19/17 16:53 16:53 04:16 WBC 15.2 H Hgb 9.2 L Creatinine 1.73 H 1.47 H 12/19/17 12/20/17 12/20/17 04:17 03:55 03:55 WBC 9.7 9.7 Hgb 8.0 L 8.3 L Creatinine 1.35 H 12/21/17 12/22/17 12/23/17 04:00 04:25 04:06 WBC Hgb Creatinine 1.21 H 0.92 0.82 EKG Reviewed by me: Yes (Tele-intermittenet a-fib w [id number]) Phys Exam - Physical Examination Constitutional: NAD working w PT HEENT: PERRLA, moist MMs, sclera anicteric, oral pharynx no lesions Neck: no nodes, no JVD, supple, full ROM Respiratory: no wheezing, no rales, no rhonchi, clear to auscultation bilateral Cardiovascular: RRR, no significant murmur, no rub Gastrointestinal: soft, non-tender, no distention, positive bowel sounds Musculoskeletal: no edema, pulses present Neurological: non-focal, normal sensation, moves all 4 limbs Psychiatric: normal affect, A&O x 3 Skin: no rash Dx/Plan (1) Clostridium difficile colitis Status: Acute (2) Atrial fibrillation with rapid ventricular response Code(s): I48.91 - UNSPECIFIED ATRIAL FIBRILLATION Status: Acute Comment: Intermittent (3) Sepsis Code(s): A41.9 - SEPSIS, UNSPECIFIED ORGANISM Status: Resolved (4) Recurrent gastrointestinal hemorrhage Code(s): K92.2 - GASTROINTESTINAL HEMORRHAGE, UNSPECIFIED Status: Acute Comment: Last admit 12/02 .EGD and colonoscopy done .reflux esophagitis and Barretts.Diverticulosis w erosions (5) 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 - MCGOWAN'S ESOPHAGUS WITHOUT DYSPLASIA Status: Chronic (6) PVD (peripheral vascular disease) Code(s): I73.9 - PERIPHERAL VASCULAR DISEASE, UNSPECIFIED Status: Chronic Comment: On Plavix and trental (7) Reflux esophagitis Code(s): K21.0 - GASTRO-ESOPHAGEAL REFLUX DISEASE WITH ESOPHAGITIS Status: Chronic Comment: On PPI (8) Anxiety and depression Code(s): F41.9 - ANXIETY DISORDER, UNSPECIFIED; F32.9 - MAJOR DEPRESSIVE DISORDER, SINGLE EPISODE, UNSPECIFIED Status: Chronic (9) Dyslipidemia Code(s): E78.5 - HYPERLIPIDEMIA, UNSPECIFIED Status: Chronic (10) Hypertension Code(s): I10 - ESSENTIAL (PRIMARY) HYPERTENSION Status: Chronic (11) Chronic anemia Code(s): D64.9 - ANEMIA, UNSPECIFIED Status: Chronic - Plan continue antibiotics, PT/OT, respiratory therapy, incentive spirometry, out of bed/ambulate, DVT proph w/SCDs HR better controlled. Cardiazem increased.Cardiology following as well -: cont PO vancomycin. -: ? EP eval .done in 12/02 but not candidate for AC d/t recurrent GIB & anemia -: Placement accepted at [facility]. -: pedro CARDOSO tomorrow if stable * .Add Iron supplements. check H/H in am Review of Systems - Review of Systems Constitutional: weakness, malaise. negative: fever, chills, sweats, other Respiratory: SOB with Excertion. negative: Cough, Dry, Shortness of Breath, Hemoptysis, Pleuritic Pain, Sputum, Wheezing Cardiovascular: negative: chest pain, palpitations, orthopnea, paroxysmal nocturnal dyspnea, edema, light headedness, other Gastrointestinal: Diarrhea. negative: Nausea, Vomiting, Abdominal Pain, Constipation, Melena, Hematochezia, Other Genitourinary: negative: Dysuria, Frequency, Incontinence, Hematuria, Retention , Other Musculoskeletal: negative: Neck Pain, Shoulder Pain, Arm Pain, Back Pain, Hand Pain, Leg Pain, Foot Pain, Other Neurological: negative: Weakness, Numbness, Incoordination, Change in Speech, Confusion, Seizures, Other - Medications/Allergies Allergies/Adverse Reactions: Allergies Allergy/AdvReac Type Severity Reaction Status Date / Time codeine Allergy Hives Verified 09/30/17 17:41 Medications: Current Medications Hydrocodone Bitart/Acetaminophen ([place]kin 5/325) 1 tab PO Q6H PRN PRN Reason: Severe Pain (7-10) Last Admin: 12/25/17 23:15 Dose: 1 tab Al Hydroxide/Mg Hydroxide (Maalox Plus) 30 ml PO DAILYPRN PRN PRN Reason: Heartburn or Indigestion Albuterol/Ipratropium (Duoneb) 3 ml NEB [id number] PRN PRN Reason: SOB &/or Wheezing Alprazolam (Xanax) 1 mg PO TIDPRN PRN PRN Reason: Anxiety Last Admin: 12/26/17 11:40 Dose: 1 mg Aspirin (Ecotrin) 81 mg PO QAM [facility] Last Admin: 12/26/17 11:25 Dose: 81 mg Atorvastatin Calcium (Lipitor) 20 mg PO DAILY [facility] Last Admin: 12/26/17 11:26 Dose: 20 mg Carisoprodol (Soma) 350 mg PO TIDPRN PRN PRN Reason: Spasms Last Admin: 12/20/17 22:48 Dose: 350 mg Cholestyramine Resin (Questran Light) 4 gm PO 1000,2200 [facility] Last Admin: 12/26/17 11:33 Dose: 4 gm Clopidogrel Bisulfate (Plavix) 75 mg PO DAILY [facility] Last Admin: 12/26/17 11:25 Dose: 75 mg Diltiazem HCl (Cardizem Sr) 90 mg PO 0400,1000,1600,2200 [facility] Last Admin: 12/26/17 11:29 Dose: 90 mg Duloxetine HCl (Cymbalta) 60 mg PO QAM [facility] Last Admin: 12/26/17 11:32 Dose: 60 mg Ferrous Sulfate (Feosol) 325 mg PO TID-WM [facility] Last Admin: 12/26/17 11:42 Dose: Not Given Furosemide (Lasix) 20 mg PO BID [facility] Last Admin: 12/26/17 11:30 Dose: 20 mg Hydroxychloroquine Sulfate (Plaquenil) 300 mg PO DAILY [facility] Last Admin: 12/26/17 11:26 Dose: 300 mg Pantoprazole Sodium (Protonix) 40 mg PO 2100 [facility] Last Admin: 12/25/17 22:41 Dose: 40 mg Pentoxifylline (Trental) 400 mg PO BID [facility] Last Admin: 12/26/17 11:25 Dose: 400 mg Polyvinyl Alcohol/Povidone (Refresh Classic Eye Drops) 0 each EA EYE BID [facility] Last Admin: 12/26/17 11:42 Dose: Not Given Saccharomyces Boulardii (Florastor) 250 mg PO BID [facility] Last Admin: 12/26/17 11:31 Dose: 250 mg Sodium Chloride (Flush - Normal Saline) 10 ml IVF Q12HR [facility] Last Admin: 12/26/17 11:33 Dose: 10 ml Sodium Chloride (Flush - Normal Saline) 10 ml IVF PRN PRN PRN Reason: Saline Flush Trazodone HCl (Desyrel) 200 mg PO HS [facility] Last Admin: 12/25/17 22:38 Dose: 200 mg Vancomycin HCl (First Vancomycin) 125 mg PO QID [facility] Last Admin: 12/26/17 11:34 Dose: Not Given
[2017-12-26] MEDS: HYDROcodone/Acetaminophen 5/325 mg Tablet PO PRN (19:46)
[2017-12-26] MEDS: traZODone HCl 50 MG TAB PO SCH (21:20)
[2017-12-27] MEDS: Diltiazem HCl SR 90 mg Capsule PO SCH ×4 (04:40→21:20)
[2017-12-27 06:11] LABS: Hemoglobin 6.7 g/dL (12.0-16.0)
[2017-12-27 06:32] LABS: Anion Gap 8 mmol/L (10-20); BUN (Urea Nitrogen) 29 mg/dL (9.8-20.1); Calc. Creatinine Clearance 52 mL/min (70-130); Calcium 7.8 mg/dL (7.8-10.44); Carbon Dioxide 21 mmol/L (23-31); Chloride 112 mmol/L (98-107); Estimated GFR-MDRD 61; Glucose 95 mg/dL (83-110); Potassium 3.9 mmol/L (3.5-5.1); Sodium 137 mmol/L (136-145)
[2017-12-27] MEDS: Hydroxychloroquine Sulfate 200 MG TAB PO SCH (09:37)
[2017-12-27] MEDS: Ferrous Sulfate 325 MG TAB PO SCH ×3 (09:37→16:30)
[2017-12-27] MEDS: Aspirin 81 mg Enteric Coated Tablet PO SCH (09:37)
[2017-12-27] MEDS: DULoxetine 60 MG CAP PO SCH (09:37)
[2017-12-27] MEDS: Atorvastatin Calcium 20 MG TAB PO SCH (09:37)
[2017-12-27] MEDS: Saccharomyces boulardii 250 MG CAP PO SCH ×2 (09:38→21:21)
[2017-12-27] MEDS: Furosemide 20 MG TAB PO SCH ×2 (09:38→21:22)
[2017-12-27] MEDS: Vancomycin HCl 25 MG/ML Oral PO SCH ×4 (09:38→21:22)
[2017-12-27] MEDS: Polyvinyl Alcohol 1.4%/Povidone 0.6% Opth Drops EA EYE SCH ×2 (09:39→21:21)
[2017-12-27] MEDS: Cholestyramine/Aspartame 4 gm Packet PO SCH (09:39)
--- NOTE | 2017-12-27 11:39 | PDOC.CTH ---
Cardiology Progress Note - Subjective No complaints. Feels ok overall. No CP, SOB, VÁZQUEZ or palpitations. - Objective Vital Signs Temp Pulse Pulse Resp BP BP Pulse Ox 12/27/17 10:29 97.8 F 74 18 140/64 100 12/27/17 07:22 98.8 F 84 18 147/66 H 99 12/27/17 05:00 98.1 F 75 18 143/67 H 100 Admit Weight 136 lb 9.6 oz Weight 140 lb 12/26/17 12/27/17 12/28/17 06:59 06:59 06:59 Intake Total 1450 1710 0 Balance 1450 1710 0 - Physical Examination General/Neuro: alert & oriented x3 Lungs: CTA Heart: other: (RR) Abdomen: NT/ND - Telemetry Telemetry Rhythm: AF - Labs Result Diagrams: 12/27/17 05:46 12/27/17 05:46 - Assessment/Plan 1. Chronic AF with RVR 2. Severe PAD 3. Chronic anemia, but with Hgb drop today 4. CDiff Colitis Plavix stopped today given history of recurrent anemia requiring transfusions. ASA only for PAD.
[2017-12-27] MEDS: ALPRAZolam 1 MG TAB PO PRN ×2 (12:34→21:32)
--- NOTE | 2017-12-27 14:00 | PDOC.PN ---
- Subjective Encounter Start Date: 12/27/17 Encounter Start Time: 13:54 Subjective: no new complaints. denies any CP.mild SOB on exertion -: denies any blood in stools or dark stools - Objective Resuscitation Status: Resuscitation Status FULL:Full Resuscitation MAR Reviewed: Yes Vital Signs & Weight: Vital Signs (12 hours) Temp Pulse Pulse Resp BP BP Pulse Ox 12/27/17 13:48 98.1 F 78 18 137/64 12/27/17 11:48 98.2 F 73 18 147/63 H 98 12/27/17 10:44 97.8 F 76 18 136/67 12/27/17 10:29 97.8 F 74 18 140/64 100 12/27/17 07:22 98.8 F 84 18 147/66 H 99 12/27/17 05:00 98.1 F 75 18 143/67 H 100 Weight Admit Weight 136 lb 9.6 oz Weight 140 lb Most Recent Monitor Data Heart Rate from ECG 74 I&O: 12/26/17 12/27/17 12/28/17 06:59 06:59 06:59 Intake Total 1450 1710 350 Balance 1450 1710 350 Result Diagrams: 12/27/17 05:46 12/27/17 05:46 Additional Labs: Microbiology 12/18/17 21:26 Stool - Loose C. difficile GDH Antigen & Toxins - Final 12/18/17 17:32 Urine voided Urine Culture - Final Yeast species 12/18/17 17:20 Venous blood - Right Hand Blood Culture - Final NO GROWTH IN 5 DAYS 12/18/17 16:53 Venous blood - Right Arm Blood Culture - Final NO GROWTH IN 5 DAYS Laboratory Tests 11/27/17 11/28/17 11/29/17 09:05 09:14 05:35 Hgb 9.9 L 9.4 L 8.1 L Creatinine 12/18/17 12/19/17 12/19/17 16:53 04:16 04:17 Hgb 8.0 L Creatinine 1.73 H 1.47 H 12/20/17 12/20/17 12/21/17 03:55 03:55 04:00 Hgb 8.3 L Creatinine 1.35 H 1.21 H 12/22/17 12/23/17 12/27/17 04:25 04:06 05:46 Hgb Creatinine 0.92 0.82 0.90 12/27/17 05:46 Hgb 6.7 L Creatinine Phys Exam - Physical Examination Constitutional: NAD pale HEENT: PERRLA, moist MMs, sclera anicteric, oral pharynx no lesions Neck: no nodes, no JVD, supple, full ROM Respiratory: no wheezing, no rales, no rhonchi, clear to auscultation bilateral Cardiovascular: RRR, no significant murmur, no rub Gastrointestinal: soft, non-tender, no distention, positive bowel sounds Musculoskeletal: no edema, pulses present Neurological: non-focal, normal sensation, moves all 4 limbs Psychiatric: normal affect, A&O x 3 Skin: no rash Dx/Plan (1) Acute anemia Code(s): D64.9 - ANEMIA, UNSPECIFIED Status: Acute Comment: Suspect GI loss given H/O Recent GIB 12/02 w AVM,esophagitis and colonc erosions on endoscopy (2) Clostridium difficile colitis Status: Acute Comment: on PO vancomycin (3) Atrial fibrillation with rapid ventricular response Code(s): I48.91 - UNSPECIFIED ATRIAL FIBRILLATION Status: Acute Comment: Intermittent .HR controlled on CCB.Dose increased 12/25 (4) Sepsis Code(s): A41.9 - SEPSIS, UNSPECIFIED ORGANISM Status: Resolved (5) Recurrent gastrointestinal hemorrhage Code(s): K92.2 - GASTROINTESTINAL HEMORRHAGE, UNSPECIFIED Status: Acute Comment: Last admit 12/02 .EGD and colonoscopy done .reflux esophagitis and Barretts.Diverticulosis w erosions (6) 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 - MCGOWAN'S ESOPHAGUS WITHOUT DYSPLASIA Status: Chronic (7) PVD (peripheral vascular disease) Code(s): I73.9 - PERIPHERAL VASCULAR DISEASE, UNSPECIFIED Status: Chronic Comment: On Plavix and trental (8) Reflux esophagitis Code(s): K21.0 - GASTRO-ESOPHAGEAL REFLUX DISEASE WITH ESOPHAGITIS Status: Chronic Comment: On PPI (9) Anxiety and depression Code(s): F41.9 - ANXIETY DISORDER, UNSPECIFIED; F32.9 - MAJOR DEPRESSIVE DISORDER, SINGLE EPISODE, UNSPECIFIED Status: Chronic (10) Dyslipidemia Code(s): E78.5 - HYPERLIPIDEMIA, UNSPECIFIED Status: Chronic (11) Hypertension Code(s): I10 - ESSENTIAL (PRIMARY) HYPERTENSION Status: Chronic (12) Chronic anemia Code(s): D64.9 - ANEMIA, UNSPECIFIED Status: Chronic - Plan PT/OT, respiratory therapy, incentive spirometry, out of bed/ambulate, DVT proph w/SCDs H/h low today .will transfuse.Pt on ASa and plavix -: discussed w cardiology.will stop Plavix as recurrent drop in Hb likley d/t -: slow/occult GIB. GI work up done last month.cont PPI -: monitor H/H.Not ready for DC yet -: cont meds as below. AM labs * . Review of Systems - Review of Systems Constitutional: weakness, malaise. negative: fever, chills, sweats, other ENT: negative: Ear Pain, Ear Discharge, Nose Pain, Nose Discharge, Nose Congestion, Mouth Pain, Mouth Swelling, Throat Pain, Throat Swelling, Other Cardiovascular: negative: chest pain, palpitations, orthopnea, paroxysmal nocturnal dyspnea, edema, light headedness, other Gastrointestinal: negative: Nausea, Vomiting, Abdominal Pain, Diarrhea, Constipation, Melena, Hematochezia, Other Genitourinary: negative: Dysuria, Frequency, Incontinence, Hematuria, Retention , Other Musculoskeletal: negative: Neck Pain, Shoulder Pain, Arm Pain, Back Pain, Hand Pain, Leg Pain, Foot Pain, Other Skin: negative: Rash, Lesions, Partha, Bruising, Other Neurological: negative: Weakness, Numbness, Incoordination, Change in Speech, Confusion, Seizures, Other - Medications/Allergies Allergies/Adverse Reactions: Allergies Allergy/AdvReac Type Severity Reaction Status Date / Time codeine Allergy Hives Verified 09/30/17 17:41 Medications: Current Medications Hydrocodone Bitart/Acetaminophen ([place] 5/325) 1 tab PO Q6H PRN PRN Reason: Severe Pain (7-10) Last Admin: 12/26/17 19:46 Dose: 1 tab Al Hydroxide/Mg Hydroxide (Maalox Plus) 30 ml PO DAILYPRN PRN PRN Reason: Heartburn or Indigestion Albuterol/Ipratropium (Duoneb) 3 ml NEB [id number] PRN PRN Reason: SOB &/or Wheezing Alprazolam (Xanax) 1 mg PO TIDPRN PRN PRN Reason: Anxiety Last Admin: 12/27/17 12:34 Dose: 1 mg Aspirin (Ecotrin) 81 mg PO QAM [facility] Last Admin: 12/27/17 09:37 Dose: 81 mg Atorvastatin Calcium (Lipitor) 20 mg PO DAILY [facility] Last Admin: 12/27/17 09:37 Dose: 20 mg Carisoprodol (Soma) 350 mg PO TIDPRN PRN PRN Reason: Spasms Last Admin: 12/20/17 22:48 Dose: 350 mg Cholestyramine Resin (Questran Light) 4 gm PO 1000,2200 [facility] Last Admin: 12/27/17 09:39 Dose: 4 gm Diltiazem HCl (Cardizem Sr) 90 mg PO 0400,1000,1600,2200 [facility] Last Admin: 12/27/17 09:38 Dose: 90 mg Duloxetine HCl (Cymbalta) 60 mg PO QAM [facility] Last Admin: 12/27/17 09:37 Dose: 60 mg Ferrous Sulfate (Feosol) 325 mg PO TID-WM [facility] Last Admin: 12/27/17 12:33 Dose: 325 mg Furosemide (Lasix) 20 mg PO BID [facility] Last Admin: 12/27/17 09:38 Dose: 20 mg Hydroxychloroquine Sulfate (Plaquenil) 300 mg PO DAILY [facility] Last Admin: 12/27/17 09:37 Dose: 300 mg Pantoprazole Sodium (Protonix) 40 mg PO 2100 [facility] Last Admin: 12/26/17 21:32 Dose: 40 mg Pentoxifylline (Trental) 400 mg PO BID [facility] Last Admin: 12/27/17 09:38 Dose: 400 mg Polyvinyl Alcohol/Povidone (Refresh Classic Eye Drops) 0 each EA EYE BID [facility] Last Admin: 12/27/17 09:39 Dose: 1 each Saccharomyces Boulardii (Florastor) 250 mg PO BID [facility] Last Admin: 12/27/17 09:38 Dose: 250 mg Sodium Chloride (Flush - Normal Saline) 10 ml IVF Q12HR [facility] Last Admin: 12/27/17 09:40 Dose: 10 ml Sodium Chloride (Flush - Normal Saline) 10 ml IVF PRN PRN PRN Reason: Saline Flush Trazodone HCl (Desyrel) 200 mg PO HS [facility] Last Admin: 12/26/17 21:20 Dose: 200 mg Vancomycin HCl (First Vancomycin) 125 mg PO QID [facility] Last Admin: 12/27/17 09:38 Dose: 125 mg
[2017-12-27] MEDS: traZODone HCl 50 MG TAB PO SCH (21:22)
[2017-12-27] MEDS: HYDROcodone/Acetaminophen 5/325 mg Tablet PO PRN (21:32)
[2017-12-28] MEDS: Diltiazem HCl SR 90 mg Capsule PO SCH ×4 (03:42→22:43)
[2017-12-28] MEDS ORDERED: Diltiazem 125 MG in Sodium Chloride 0.9% 100 ML IVPB SCH (04:15)
[2017-12-28] MEDS: Cholestyramine/Aspartame 4 gm Packet PO SCH ×3 (06:39→22:44)
[2017-12-28] MEDS: Ferrous Sulfate 325 MG TAB PO SCH ×3 (09:20→17:17)
[2017-12-28] MEDS: Saccharomyces boulardii 250 MG CAP PO SCH ×2 (09:21→20:57)
[2017-12-28] MEDS: Atorvastatin Calcium 20 MG TAB PO SCH (09:21)
[2017-12-28] MEDS: Furosemide 20 MG TAB PO SCH ×2 (09:21→20:56)
[2017-12-28] MEDS: DULoxetine 60 MG CAP PO SCH (09:21)
[2017-12-28] MEDS: Vancomycin HCl 25 MG/ML Oral PO SCH ×4 (09:21→21:00)
[2017-12-28] MEDS: Hydroxychloroquine Sulfate 200 MG TAB PO SCH (09:21)
[2017-12-28] MEDS: Aspirin 81 mg Enteric Coated Tablet PO SCH (09:21)
[2017-12-28 09:26] LABS: Hemoglobin 9.6 g/dL (12.0-16.0); Platelet Count 500 thou/uL (130-400)
--- NOTE | 2017-12-28 09:32 | PDOC.CTH ---
Cardiology Progress Note - Subjective Doing well. Hgb up to 9.6. No complaints overnight. Converted to AFlutter twice overnight. Started on cardizem gtt. Now in SR. - Objective Vital Signs Temp Pulse Resp BP Pulse Ox 12/28/17 08:08 98.4 F 78 20 130/62 100 12/28/17 04:00 97.3 F L 125 H 16 125/95 H 99 12/28/17 00:15 98.9 F 81 17 156/70 H 96 Admit Weight 136 lb 9.6 oz Weight 145 lb 6 oz 12/27/17 12/28/17 12/29/17 06:59 06:59 06:59 Intake Total 1710 1190 Balance 1710 1190 - Physical Examination General/Neuro: alert & oriented x3 Neck: no JVD present Lungs: CTA Heart: RRR (IRR) - Telemetry Telemetry Rhythm: AF - Labs Result Diagrams: 12/28/17 09:08 12/28/17 09:08 - Assessment/Plan 1. Paroxysmal AF with RVR 2. Severe PAD 3. Chronic anemia s/p transfusion yesterday 4. CDiff Colitis 5. Atrial Flutter Stable. Remain off Plavix. No a candidate for flutter ablation given history of GIB and intolerance to AC. ? add Amio. D/C and placement planning.
[2017-12-28 09:46] LABS: Anion Gap 13 mmol/L (10-20); BUN (Urea Nitrogen) 27 mg/dL (9.8-20.1); Calc. Creatinine Clearance 54 mL/min (70-130); Calcium 8.1 mg/dL (7.8-10.44); Carbon Dioxide 17 mmol/L (23-31); Chloride 111 mmol/L (98-107); Estimated GFR-MDRD 61; Glucose 138 mg/dL (83-110); Potassium 3.9 mmol/L (3.5-5.1); Sodium 137 mmol/L (136-145)
--- NOTE | 2017-12-28 10:57 | PDOC.PN ---
- Subjective Encounter Start Date: 12/28/17 Encounter Start Time: 10:56 Subjective: feels better but had lots of palpitation & chest discomfort last night -: went into A-flutter w RVR & started on Cardizaem last night-NSR now -: no more diarrhea.1 small formed stool this morning - Objective Resuscitation Status: Resuscitation Status FULL:Full Resuscitation MAR Reviewed: Yes Vital Signs & Weight: Vital Signs (12 hours) Temp Pulse Resp BP Pulse Ox 12/28/17 08:08 98.4 F 78 20 130/62 100 12/28/17 04:00 97.3 F L 125 H 16 125/95 H 99 12/28/17 00:15 98.9 F 81 17 156/70 H 96 Weight Admit Weight 136 lb 9.6 oz Weight 145 lb 6 oz Most Recent Monitor Data Heart Rate from ECG 74 I&O: 12/27/17 12/28/17 12/29/17 06:59 06:59 06:59 Intake Total 1710 1190 Balance 1710 1190 Result Diagrams: 12/28/17 09:08 12/28/17 09:08 Additional Labs: Laboratory Tests 12/18/17 12/19/17 12/20/17 16:53 04:17 03:55 Hgb 9.2 L 8.0 L 8.3 L 12/27/17 12/28/17 05:46 09:08 Hgb 6.7 L 9.6 L Phys Exam - Physical Examination Constitutional: NAD HEENT: PERRLA, moist MMs, sclera anicteric, oral pharynx no lesions Neck: no nodes, no JVD, supple, full ROM Respiratory: no wheezing, no rales, no rhonchi, clear to auscultation bilateral Cardiovascular: RRR, no significant murmur Gastrointestinal: soft, non-tender, no distention, positive bowel sounds Musculoskeletal: no edema, pulses present Neurological: non-focal, normal sensation, moves all 4 limbs Psychiatric: normal affect, A&O x 3 Skin: no rash Dx/Plan (1) Atrial fibrillation with rapid ventricular response Code(s): I48.91 - UNSPECIFIED ATRIAL FIBRILLATION Status: Acute Comment: Intermittent .HR controlled on CCB.Dose increased 12/25 (2) Clostridium difficile colitis Status: Acute Comment: on PO vancomycin (3) Acute anemia Code(s): D64.9 - ANEMIA, UNSPECIFIED Status: Acute Comment: Suspect GI loss given H/O Recent GIB 12/02 w AVM,esophagitis and colonc erosions on endoscopy.S/ P 1 unit PRBC 12/27 (4) Sepsis Code(s): A41.9 - SEPSIS, UNSPECIFIED ORGANISM Status: Resolved (5) Recurrent gastrointestinal hemorrhage Code(s): K92.2 - GASTROINTESTINAL HEMORRHAGE, UNSPECIFIED Status: Acute Comment: Last admit 12/02 .EGD and colonoscopy done .reflux esophagitis and Barretts.Diverticulosis w erosions (6) 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 - MCGOWAN'S ESOPHAGUS WITHOUT DYSPLASIA Status: Chronic (7) PVD (peripheral vascular disease) Code(s): I73.9 - PERIPHERAL VASCULAR DISEASE, UNSPECIFIED Status: Chronic Comment: On Plavix and trental (8) Reflux esophagitis Code(s): K21.0 - GASTRO-ESOPHAGEAL REFLUX DISEASE WITH ESOPHAGITIS Status: Chronic Comment: On PPI (9) Anxiety and depression Code(s): F41.9 - ANXIETY DISORDER, UNSPECIFIED; F32.9 - MAJOR DEPRESSIVE DISORDER, SINGLE EPISODE, UNSPECIFIED Status: Chronic (10) Dyslipidemia Code(s): E78.5 - HYPERLIPIDEMIA, UNSPECIFIED Status: Chronic (11) Hypertension Code(s): I10 - ESSENTIAL (PRIMARY) HYPERTENSION Status: Chronic (12) Chronic anemia Code(s): D64.9 - ANEMIA, UNSPECIFIED Status: Chronic - Plan continue antibiotics, PT/OT, out of bed/ambulate, DVT proph w/SCDs Cont Po cardiazem. turn off IV and monitor -: Discuss w Cardiology regarding EP eval for recurrent a-fib/flutter w RVR -: also as pt can not take OAC d/t GIB -: Plavix stopped as H/H dropped yesterday .only cont ASA for PAD/CAD -: cont Po vancomycin for total 14 days. clinically better.OT/PT * .rehab on Dc when cleared by cardiology and H/h stable. * am labs Review of Systems - Review of Systems Constitutional: weakness. negative: fever, chills, sweats, malaise, other ENT: negative: Ear Pain, Ear Discharge, Nose Pain, Nose Discharge, Nose Congestion, Mouth Pain, Mouth Swelling, Throat Pain, Throat Swelling, Other Respiratory: negative: Cough, Dry, Shortness of Breath, Hemoptysis, SOB with Excertion, Pleuritic Pain, Sputum, Wheezing Cardiovascular: chest pain, palpitations. negative: orthopnea, paroxysmal nocturnal dyspnea, edema, light headedness, other Gastrointestinal: negative: Nausea, Vomiting, Abdominal Pain, Diarrhea, Constipation, Melena, Hematochezia, Other Genitourinary: negative: Dysuria, Frequency, Incontinence, Hematuria, Retention , Other Musculoskeletal: negative: Neck Pain, Shoulder Pain, Arm Pain, Back Pain, Hand Pain, Leg Pain, Foot Pain, Other Skin: negative: Rash, Lesions, Partha, Bruising, Other Neurological: negative: Weakness, Numbness, Incoordination, Change in Speech, Confusion, Seizures, Other - Medications/Allergies Allergies/Adverse Reactions: Allergies Allergy/AdvReac Type Severity Reaction Status Date / Time codeine Allergy Hives Verified 09/30/17 17:41 Medications: Current Medications Hydrocodone Bitart/Acetaminophen ([place] 5/325) 1 tab PO Q6H PRN PRN Reason: Severe Pain (7-10) Last Admin: 12/27/17 21:32 Dose: 1 tab Al Hydroxide/Mg Hydroxide (Maalox Plus) 30 ml PO DAILYPRN PRN PRN Reason: Heartburn or Indigestion Albuterol/Ipratropium (Duoneb) 3 ml NEB [id number] PRN PRN Reason: SOB &/or Wheezing Alprazolam (Xanax) 1 mg PO TIDPRN PRN PRN Reason: Anxiety Last Admin: 12/27/17 21:32 Dose: 1 mg Aspirin (Ecotrin) 81 mg PO QAM [facility] Last Admin: 12/28/17 09:21 Dose: 81 mg Atorvastatin Calcium (Lipitor) 20 mg PO DAILY [facility] Last Admin: 12/28/17 09:21 Dose: 20 mg Carisoprodol (Soma) 350 mg PO TIDPRN PRN PRN Reason: Spasms Last Admin: 12/20/17 22:48 Dose: 350 mg Cholestyramine Resin (Questran Light) 4 gm PO 1000,2200 [facility] Last Admin: 12/28/17 09:34 Dose: Not Given Diltiazem HCl (Cardizem Sr) 90 mg PO 0400,1000,1600,2200 [facility] Last Admin: 12/28/17 03:42 Dose: 90 mg Duloxetine HCl (Cymbalta) 60 mg PO QAM [facility] Last Admin: 12/28/17 09:21 Dose: 60 mg Ferrous Sulfate (Feosol) 325 mg PO TID-WM [facility] Last Admin: 12/28/17 09:20 Dose: 325 mg Furosemide (Lasix) 20 mg PO BID [facility] Last Admin: 12/28/17 09:21 Dose: 20 mg Hydroxychloroquine Sulfate (Plaquenil) 300 mg PO DAILY [facility] Last Admin: 12/28/17 09:21 Dose: 300 mg Diltiazem HCl 125 mg/ Sodium (Chloride) 125 mls @ 5 mls/hr IVPB INF [facility] Last Admin: 12/28/17 04:31 Dose: 125 mls Pantoprazole Sodium (Protonix) 40 mg PO 2100 [facility] Last Admin: 12/27/17 21:22 Dose: 40 mg Pentoxifylline (Trental) 400 mg PO BID [facility] Last Admin: 12/28/17 09:21 Dose: 400 mg Polyvinyl Alcohol/Povidone (Refresh Classic Eye Drops) 0 each EA EYE BID [facility] Last Admin: 12/27/17 21:21 Dose: 1 each Saccharomyces Boulardii (Florastor) 250 mg PO BID [facility] Last Admin: 12/28/17 09:21 Dose: 250 mg Sodium Chloride (Flush - Normal Saline) 10 ml IVF Q12HR [facility] Last Admin: 12/28/17 09:22 Dose: Not Given Sodium Chloride (Flush - Normal Saline) 10 ml IVF PRN PRN PRN Reason: Saline Flush Trazodone HCl (Desyrel) 200 mg PO HS [facility] Last Admin: 12/27/17 21:22 Dose: 200 mg Vancomycin HCl (First Vancomycin) 125 mg PO QID [facility] Last Admin: 12/28/17 09:21 Dose: 125 mg
[2017-12-28] MEDS: Polyvinyl Alcohol 1.4%/Povidone 0.6% Opth Drops EA EYE SCH ×2 (12:36→20:59)
[2017-12-28] MEDS: HYDROcodone/Acetaminophen 5/325 mg Tablet PO PRN ×2 (12:39→20:55)
[2017-12-28] MEDS: ALPRAZolam 1 MG TAB PO PRN ×2 (12:44→20:56)
[2017-12-28] MEDS: Dronedarone HCl 400 MG TAB PO SCH (17:48)
[2017-12-28] MEDS: traZODone HCl 50 MG TAB PO SCH (20:55)
[2017-12-29] MEDS: Diltiazem HCl SR 90 mg Capsule PO SCH ×4 (04:29→20:49)
--- NOTE | 2017-12-29 07:01 | PDOC.CTH ---
Cardiology Progress Note - Subjective Doing well. no complaints. States last episode of diarrhea over 1 week ago. Pt now in SR. - Objective Vital Signs Temp Pulse Resp BP Pulse Ox 12/29/17 04:27 98.2 F 67 16 141/66 H 99 12/29/17 04:00 98.2 F 67 16 124/59 L 100 12/28/17 23:50 97.9 F 73 18 155/69 H 100 12/28/17 20:00 98.5 F 66 16 160/68 H Admit Weight 136 lb 9.6 oz Weight 154 lb 12/27/17 12/28/17 12/29/17 06:59 06:59 06:59 Intake Total 1710 1190 1085 Balance 1710 1190 1085 - Physical Examination General/Neuro: alert & oriented x3 Neck: no JVD present Lungs: CTA, unlabored respirations Heart: RRR Abdomen: NT/ND, soft - Labs Result Diagrams: 12/28/17 09:08 12/28/17 09:08 - Assessment/Plan 1. Paroxysmal AF with RVR 2. Severe PAD 3. Chronic anemia s/p transfusion yesterday 4. CDiff Colitis 5. Atrial Flutter Difficult situation given recurrent atrial flutter. Agree with previous on difficulty on ablation given not being able to ACT given previous GI bleed. Pt with issues with multaq (diarrhea) in the past but may have been due to C dif all along. May rechallenge with multaq. If diarrhea recurrent, recommend stopping multaq. Pt understands
[2017-12-29] MEDS: DULoxetine 60 MG CAP PO SCH (09:05)
[2017-12-29] MEDS: Furosemide 20 MG TAB PO SCH ×2 (09:05→20:49)
[2017-12-29] MEDS: Hydroxychloroquine Sulfate 200 MG TAB PO SCH (09:05)
[2017-12-29] MEDS: Ferrous Sulfate 325 MG TAB PO SCH ×3 (09:05→16:23)
[2017-12-29] MEDS: Aspirin 81 mg Enteric Coated Tablet PO SCH (09:05)
[2017-12-29] MEDS: Atorvastatin Calcium 20 MG TAB PO SCH (09:05)
[2017-12-29] MEDS: Dronedarone HCl 400 MG TAB PO SCH ×2 (09:05→16:23)
[2017-12-29] MEDS: Saccharomyces boulardii 250 MG CAP PO SCH ×2 (09:07→20:49)
[2017-12-29] MEDS: Cholestyramine/Aspartame 4 gm Packet PO SCH ×2 (09:08→20:50)
[2017-12-29] MEDS ORDERED: Dronedarone HCl 400 MG TAB PO SCH ×2 (10:09→10:30)
[2017-12-29] MEDS: HYDROcodone/Acetaminophen 5/325 mg Tablet PO PRN ×2 (10:11→16:23)
[2017-12-29] MEDS: Polyvinyl Alcohol 1.4%/Povidone 0.6% Opth Drops EA EYE SCH ×2 (11:30→20:50)
--- NOTE | 2017-12-29 12:04 | PDOC.PN ---
- Subjective Encounter Start Date: 12/29/17 Encounter Start Time: 12:03 Subjective: feels much better but still has pain on the sacral ulcer site -: appetite better -: 2 formed BM this mornoing.no diarrhea - Objective Resuscitation Status: Resuscitation Status FULL:Full Resuscitation MAR Reviewed: Yes Vital Signs & Weight: Vital Signs (12 hours) Temp Pulse Resp BP Pulse Ox 12/29/17 08:56 98.1 F 69 16 143/65 H 99 12/29/17 04:27 98.2 F 67 16 141/66 H 99 12/29/17 04:00 98.2 F 67 16 124/59 L 100 Weight Admit Weight 136 lb 9.6 oz Weight 154 lb Most Recent Monitor Data Heart Rate from ECG 74 I&O: 12/28/17 12/29/17 12/30/17 06:59 06:59 06:59 Intake Total 1190 1085 Balance 1190 1085 Result Diagrams: 12/28/17 09:08 12/28/17 09:08 Additional Labs: Microbiology 12/18/17 21:26 Stool - Loose C. difficile GDH Antigen & Toxins - Final 12/18/17 17:32 Urine voided Urine Culture - Final Yeast species 12/18/17 17:20 Venous blood - Right Hand Blood Culture - Final NO GROWTH IN 5 DAYS 12/18/17 16:53 Venous blood - Right Arm Blood Culture - Final NO GROWTH IN 5 DAYS Phys Exam - Physical Examination Constitutional: NAD sitting up ,eating HEENT: PERRLA, moist MMs, sclera anicteric, oral pharynx no lesions Neck: no nodes, no JVD, supple, full ROM Respiratory: no wheezing, no rales, no rhonchi, clear to auscultation bilateral Cardiovascular: RRR, no significant murmur, no rub, gallop Gastrointestinal: soft, non-tender, no distention, positive bowel sounds Musculoskeletal: no edema, pulses present Neurological: non-focal, normal sensation, moves all 4 limbs Psychiatric: normal affect, A&O x 3 Skin: no rash Dx/Plan (1) Atrial fibrillation with rapid ventricular response Code(s): I48.91 - UNSPECIFIED ATRIAL FIBRILLATION Status: Acute Comment: Intermittent .HR controlled on CCB.Dose increased 12/25 (2) Clostridium difficile colitis Status: Acute Comment: on PO vancomycin (3) Acute anemia Code(s): D64.9 - ANEMIA, UNSPECIFIED Status: Acute Comment: Suspect GI loss given H/O Recent GIB 12/02 w AVM,esophagitis and colonc erosions on endoscopy.S/ P 1 unit PRBC 12/27 (4) Sepsis Code(s): A41.9 - SEPSIS, UNSPECIFIED ORGANISM Status: Resolved (5) Recurrent gastrointestinal hemorrhage Code(s): K92.2 - GASTROINTESTINAL HEMORRHAGE, UNSPECIFIED Status: Acute Comment: Last admit 12/02 .EGD and colonoscopy done .reflux esophagitis and Barretts.Diverticulosis w erosions (6) 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 - MCGOWAN'S ESOPHAGUS WITHOUT DYSPLASIA Status: Chronic (7) PVD (peripheral vascular disease) Code(s): I73.9 - PERIPHERAL VASCULAR DISEASE, UNSPECIFIED Status: Chronic Comment: On Plavix and trental (8) Reflux esophagitis Code(s): K21.0 - GASTRO-ESOPHAGEAL REFLUX DISEASE WITH ESOPHAGITIS Status: Chronic Comment: On PPI (9) Anxiety and depression Code(s): F41.9 - ANXIETY DISORDER, UNSPECIFIED; F32.9 - MAJOR DEPRESSIVE DISORDER, SINGLE EPISODE, UNSPECIFIED Status: Chronic (10) Dyslipidemia Code(s): E78.5 - HYPERLIPIDEMIA, UNSPECIFIED Status: Chronic (11) Hypertension Code(s): I10 - ESSENTIAL (PRIMARY) HYPERTENSION Status: Chronic (12) Chronic anemia Code(s): D64.9 - ANEMIA, UNSPECIFIED Status: Chronic - Plan continue antibiotics, PT/OT, out of bed/ambulate started on Multaq.Poor candidate for OAC d/t GIB -: Monitor .if no worsening diarrhea on Multaq,DC to rehab tomorrow -: cont PO vanco -: Wound care following for sacral decubitus.Donut pillow ordered -: am labs.HD stable. encourage PO intake & ambulation * . Review of Systems - Review of Systems Constitutional: weakness. negative: fever, chills, sweats, malaise, other ENT: negative: Ear Pain, Ear Discharge, Nose Pain, Nose Discharge, Nose Congestion, Mouth Pain, Mouth Swelling, Throat Pain, Throat Swelling, Other Respiratory: negative: Cough, Dry, Shortness of Breath, Hemoptysis, SOB with Excertion, Pleuritic Pain, Sputum, Wheezing Cardiovascular: negative: chest pain, palpitations, orthopnea, paroxysmal nocturnal dyspnea, edema, light headedness, other Gastrointestinal: negative: Nausea, Vomiting, Abdominal Pain, Diarrhea, Constipation, Melena, Hematochezia, Other Genitourinary: negative: Dysuria, Frequency, Incontinence, Hematuria, Retention , Other Musculoskeletal: negative: Neck Pain, Shoulder Pain, Arm Pain, Back Pain, Hand Pain, Leg Pain, Foot Pain, Other Neurological: negative: Weakness, Numbness, Incoordination, Change in Speech, Confusion, Seizures, Other - Medications/Allergies Allergies/Adverse Reactions: Allergies Allergy/AdvReac Type Severity Reaction Status Date / Time codeine Allergy Hives Verified 09/30/17 17:41 Medications: Current Medications Hydrocodone Bitart/Acetaminophen ([place] 5/325) 1 tab PO Q6H PRN PRN Reason: Severe Pain (7-10) Last Admin: 12/29/17 10:11 Dose: 1 tab Al Hydroxide/Mg Hydroxide (Maalox Plus) 30 ml PO DAILYPRN PRN PRN Reason: Heartburn or Indigestion Albuterol/Ipratropium (Duoneb) 3 ml NEB [id number] PRN PRN Reason: SOB &/or Wheezing Aspirin ([facility]cot[facility]) [facility] [place] Last Admin: 12/29/17 09:05 Dose: 81 mg Atorvastatin Calcium (Lipitor) 20 mg PO DAILY [facility] Last Admin: 12/29/17 09:05 Dose: 20 mg Carisoprodol (Soma) 350 mg PO TIDPRN PRN PRN Reason: Spasms Last Admin: 12/29/17 10:11 Dose: 350 mg Cholestyramine Resin (Questran Light) 4 gm PO 1000,2200 [facility] Last Admin: 12/29/17 09:08 Dose: Not Given Diltiazem HCl (Cardizem Sr) 90 mg PO 0400,1000,1600,2200 [facility] Last Admin: 12/29/17 09:08 Dose: 90 mg Dronedarone (Multaq) 400 mg PO BID[facility] Duloxetine HCl (Cymbalta) 60 mg PO QAM [facility] Last Admin: 12/29/17 09:05 Dose: 60 mg Ferrous Sulfate (Feosol) 325 mg PO TID-[facility] Last Admin: 12/29/17 09:05 Dose: 325 mg Furosemide (Lasix) 20 mg PO BID [facility] Last Admin: 12/29/17 09:05 Dose: 20 mg Pantoprazole Sodium (Protonix) 40 mg PO 2100 [facility] Last Admin: 12/28/17 20:56 Dose: 40 mg Pentoxifylline (Trental) 400 mg PO BID [facility] Last Admin: 12/29/17 09:06 Dose: 400 mg Polyvinyl Alcohol/Povidone (Refresh Classic Eye Drops) 0 each EA EYE BID [facility] Last Admin: 12/29/17 11:30 Dose: Not Given Saccharomyces Boulardii (Florastor) 250 mg PO BID [facility] Last Admin: 12/29/17 09:07 Dose: 250 mg Sodium Chloride (Flush - Normal Saline) 10 ml IVF Q12HR [facility] Last Admin: 12/29/17 09:07 Dose: 10 ml Sodium Chloride (Flush - Normal Saline) 10 ml IVF PRN PRN PRN Reason: Saline Flush Trazodone HCl (Desyrel) 200 mg PO HS [facility] Last Admin: 12/28/17 20:55 Dose: 200 mg
[2017-12-29] MEDS: ALPRAZolam 0.25 MG TAB PO PRN (16:23)
[2017-12-29] MEDS: traZODone HCl 50 MG TAB PO SCH (20:49)
[2017-12-30] MEDS: Diltiazem HCl SR 90 mg Capsule PO SCH ×2 (05:22→11:28)
[2017-12-30 06:06] LABS: Anion Gap 9 mmol/L (10-20); BUN (Urea Nitrogen) 32 mg/dL (9.8-20.1); Calc. Creatinine Clearance 49 mL/min (70-130); Carbon Dioxide 21 mmol/L (23-31); Chloride 110 mmol/L (98-107); Estimated GFR-MDRD 54; Glucose 86 mg/dL (83-110); Potassium 4.4 mmol/L (3.5-5.1); Sodium 136 mmol/L (136-145)
[2017-12-30 06:23] LABS: Hemoglobin 7.9 g/dL (12.0-16.0)
[2017-12-30] MEDS: DULoxetine 60 MG CAP PO SCH (10:27)
[2017-12-30] MEDS: HYDROcodone/Acetaminophen 5/325 mg Tablet PO PRN (10:28)
[2017-12-30] MEDS: Atorvastatin Calcium 20 MG TAB PO SCH (10:28)
[2017-12-30] MEDS: Ferrous Sulfate 325 MG TAB PO SCH (10:28)
[2017-12-30] MEDS: Saccharomyces boulardii 250 MG CAP PO SCH (10:28)
[2017-12-30] MEDS: Furosemide 20 MG TAB PO SCH (10:28)
[2017-12-30] MEDS: Dronedarone HCl 400 MG TAB PO SCH (10:28)
[2017-12-30] MEDS: Cholestyramine/Aspartame 4 gm Packet PO SCH (10:28)
[2017-12-30] MEDS: ALPRAZolam 0.25 MG TAB PO PRN (10:29)
[2017-12-30] MEDS: Aspirin 81 mg Enteric Coated Tablet PO SCH (10:30)
[2017-12-30] MEDS: Polyvinyl Alcohol 1.4%/Povidone 0.6% Opth Drops EA EYE SCH (10:34)
[2017-12-30 14:05] VITALS: BP 149/64; TEMP 98.4
--- NOTE | 2017-12-30 23:49 | DIS ---
DATE OF ADMISSION: 12/19/2017 DATE OF DISCHARGE: 12/30/2017 DISCHARGE DISPOSITION: [facility] nursing [facility]. PRIMARY CARE PHYSICIAN: Carolyne Singer M.D. DISCHARGE DIAGNOSES: 1. Clostridium difficile colitis, status post 14 days of p.o. vancomycin. 2. Atrial fibrillation with rapid ventricular response, currently rate controlled and in normal sinu s rhythm. 3. Anemia, acute on chronic, status post 1 unit of packed RBC. She has her EGD and colonoscopy done during last hospitalization last month. 4. Sepsis secondary to Clostridium difficile. 5. History of Jason's esophagus. 6. Peripheral vascular disease. 7. Reflux esophagitis. 8. Anxiety and depression. 9. Dyslipidemia. 10. Hypertension. 11. Chronic anemia. 12. Sacral decubitus ulcer. DISCHARGE MEDICATIONS: Please note that the Plavix has been stopped. She is to resume the following home medication, trazodone 200 mg daily, Florastor 250 mg p.o. b.i.d., pentoxifylline 1 tablet p.o. b.i.d., Xiidra eye drops, hydroxychloroquine 1-1/2 tablets p.o. daily, Lasix 40 mg daily, diltiazem d ose was increased from 60 to 90 mg 4 times a day. New medications, Multaq 400 mg p.o. b.i.d., tramad ol p.r.n., Tylenol No. 3 p.r.n., Questran 4 g p.o. b.i.d. for 5 more days, aspirin 81 mg daily, Lipit or 20 mg daily, Soma 350 mg p.o. t.i.d. p.r.n. Home medications, duloxetine 60 mg in the morning, Ne xium 40 mg p.o. b.i.d., iron 65 mg p.o. t.i.d. Please note that the patient was not given prescription for the [place] as she gets it through her [facility] pain medication physician. I have talked this with Ms. Bello who reports that the patient has re cently failed a prescription. I have encouraged her to bring her medications from home for [place] . INHOUSE CONSULTATIONS: Cardiology, Trae Palomino M.D. PROCEDURES DONE IN THE HOSPITAL: Chest x-ray and abdominal x-ray. Abdominal x-ray shows nonspecific bowel gas patten and ostomy in the midline of the pelvis. HISTORY OF PRESENT ILLNESS: Mr. Mcintyre is a 77-year-old pleasant female with past medical histor y of chronic paroxysmal atrial fibrillation, hypertension, dyslipidemia and sacral decubitus ulcers a nd history of breast cancer who presented to the emergency room with complaints of lethargy and diarr hea. She was recently discharged from our facility on 11/29/2017 after being treated for severe UTI and E. coli bacteremia and was treated with antibiotics. Upon presentation, she was found to have C. difficile colitis. She was started on p.o. vancomycin and was started on IV fluids due to dehydrati on and hyponatremia and acute kidney insufficiency. Please see admission history and physical for fu rther details. HOSPITAL COURSE: The patient had slow improvement in her symptoms, but eventually her diarrhea subsi ded with p.o. vancomycin and she finished a course of 14 days here. The patient had history of GI bleed in the past requiring transfusion and once again, her hemoglobin dropped at the hospital. Cardiology was consulted. The patient is on aspirin and Plavix for her sev ere peripheral arterial disease and history of coronary artery disease. Dr. Palomino saw the patien t and recommended stopping the Plavix. The patient was transfused with 1 unit of packed RBC and H an d H was followed and remained stable. The patient also has a history of paroxysmal atrial fibrillation and was going in atrial fibrillation with normal sinus rhythm intermittently. She did have episodes of RVR and was briefly treated with Cardizem drip in the middle of her stay, but eventually she was stabilized and continued on p.o. Card izem. There was some question of a trial of Multaq during her last hospitalization giving her diarrh ea, but most likely it was just the C. diff, which was diagnosed at that time. So Multaq was tried a gain and she tolerated it very well. As of this morning, she is medically stable and her symptoms have subsided and she is ready for the n ext level of care. [facility] facility was arranged for her. I have discussed the discharge pl an with her daughter, Ms. Bello over the phone in detail. All questions were answered. She was seen and examined prior to discharge. PHYSICAL EXAMINATION: VITAL SIGNS: This morning, temperature 98.4, pulse of 74, respirations 18, saturating 98% on room ai r, blood pressure 149/64. GENERAL: In no acute distress. CHEST: Clear to auscultation bilaterally. Rate and rhythm is regular. LABORATORY EXAMINATION: Hemoglobin at the time of discharge 7.9, hematocrit 25.5. Serum chemistries unremarkable except for bicarbonate low at 21. Her creatinine has improved from 1.73-0.99. Her blo od cultures remained negative x2. Home medications were reconciled and there were some discrepancies, which were addressed. Total time spent in the discharge of this patient, 38 minutes.
== END 2017-12-30 14:13 | DRG 871 ==
LOC: ERS 16:13 → T4-A 20:13 → 2NO 12-24 23:12
PROVIDERS: ADMIT Internal Medicine; ATTEND Internal Medicine
PROC: 30233N1 Transfusion of Nonautologous Red Blood Cells into Peripheral Vein, Percutaneous Approach (ICD-10-PCS; principal; 2017-12-27)
DX: A41.9 Sepsis, unspecified organism (principal); L89.153 Pressure ulcer of sacral region, stage 3; A04.72 Enterocolitis due to Clostridium difficile, not specified as recurrent; E87.1 Hypo-osmolality and hyponatremia; N17.9 Acute kidney failure, unspecified; E87.2 Acidosis; I48.92 Unspecified atrial flutter; E78.5 Hyperlipidemia, unspecified; E86.0 Dehydration; I25.10 Atherosclerotic heart disease of native coronary artery without angina pectoris; F32.9 Major depressive disorder, single episode, unspecified; I73.9 Peripheral vascular disease, unspecified; D64.9 Anemia, unspecified; K21.0 Gastro-esophageal reflux disease with esophagitis; F41.9 Anxiety disorder, unspecified; I48.0 Paroxysmal atrial fibrillation; I12.9 Hypertensive chronic kidney disease with stage 1 through stage 4 chronic kidney disease, or unspecified chronic kidney disease; N18.2 Chronic kidney disease, stage 2 (mild); G89.4 Chronic pain syndrome; L97.529 Non-pressure chronic ulcer of other part of left foot with unspecified severity; Z88.5 Allergy status to narcotic agent; Z85.3 Personal history of malignant neoplasm of breast; Z95.820 Peripheral vascular angioplasty status with implants and grafts; Z95.5 Presence of coronary angioplasty implant and graft
CPT/HCPCS: 36415; 36430; 71045; 74018; 80048; 80053; 80069; 81003; 83605; 83735; 84100; 85014; 85018; 85025; 85049; 86140; 86850; 86900; 86901; 87040; 87086; 87324; 87449; 90471; 90670; 93005; 93010; A4353; G0009; G8978-GP-CM; G8979-GP-CK; G8987-GO-CK; G8988-GO-CJ; J1160; J1940; J2060; J2543; J3370; J7050; P9016; S0028

== ENCOUNTER 2018-01-02 14:45 | Emergency (ER) | payer MEDICARE ==
[2018-01-02 15:28] LABS: #Eosinphils 0.1 thou/uL (0.0-0.7); #Lymphocytes 0.8 thou/uL (1.20-3.40); #Monocytes 0.4 thou/uL (0.11-0.59); #Neutrophils 7.6 thou/uL (1.40-6.50); %Basophils 0.3 % (0.0-1.0); %Eosinophils 1.6 % (0.0-10.0); %Lymphocytes 9.2 % (21.0-51.0); %Monocytes 4.8 % (0.0-10.0); %Neutrophils 84.2 % (42.0-75.0); Hemoglobin 8.6 g/dL (12.0-16.0); Mean Corpuscular HGB CONC 31.6 g/dL (32.0-36.0); Mean Corpuscular Hemoglobin 29.9 pg (27.0-31.0); Mean Corpuscular Volume 94.7 fL (78.0-98.0); Mean Platelet Volume 6.9 fL (7.4-10.4); Platelet Count 337 thou/uL (130-400); RBC Distribution Width 16.5 % (11.5-14.5); Red Blood Cell (RBC) Count 2.88 mill/uL (4.20-5.40)
[2018-01-02 15:34] LABS: INR-International Normal Ratio 1.1; PTT 28.9 SEC (22.9-36.1); Prothrombin Time 14.3 SEC (12.0-14.7)
[2018-01-02 15:50] LABS: ALT (SGPT) 12 U/L (8-55); AST (SGOT) 19 U/L (5-34); Albumin 2.5 g/dL (3.4-4.8); Alkaline Phosphatase 62 U/L (40-150); Anion Gap 12 mmol/L (10-20); BUN (Urea Nitrogen) 25 mg/dL (9.8-20.1); Bilirubin, Total 0.3 mg/dL (0.2-1.2); Calc. Creatinine Clearance 0 mL/min (70-130); Calcium 8.2 mg/dL (7.8-10.44); Carbon Dioxide 21 mmol/L (23-31); Chloride 104 mmol/L (98-107); Estimated GFR-MDRD 60; Globulin 2.5 g/dL (2.4-3.5); Glucose 106 mg/dL (83-110); Potassium 5.1 mmol/L (3.5-5.1); Sodium 132 mmol/L (136-145)
[2018-01-02 16:49] LABS: Hemoglobin 7.7 g/dL (12.0-16.0)
== END 2018-01-02 18:03 | disposition home or self-care (01) ==
LOC: ERS 14:45
DX: D64.9 Anemia, unspecified (principal); I48.91 Unspecified atrial fibrillation; E78.5 Hyperlipidemia, unspecified; I10 Essential (primary) hypertension; K21.9 Gastro-esophageal reflux disease without esophagitis; Z79.899 Other long term (current) drug therapy; Z79.82 Long term (current) use of aspirin
CPT/HCPCS: 36415; 80053; 82274; 85025; 85610; 85730; 86850; 86900; 86901; 99285

== ENCOUNTER 2018-01-07 23:12 | Emergency (ER) | payer MEDICARE | END 2018-01-08 01:03 | disposition home or self-care (01) | LOC: ERS 23:12 | DX: I71.4 Abdominal aortic aneurysm, without rupture (principal); I10 Essential (primary) hypertension ==

== ENCOUNTER 2018-01-12 18:45 | Inpatient (IN) | payer MEDICARE ==
[2018-01-12] MEDS ORDERED: Piperacillin/Tazobactam 3.375 GM VIAL ONE (19:10)
[2018-01-12] MEDS ORDERED: Acetaminophen 500 MG TAB ONE (19:10)
--- NOTE | 2018-01-12 19:16 | RAD ---
CHEST ONE VIEW: HISTORY: Fever. COMPARISON: 12/24/2017 FINDINGS: Persistent bibasilar opacities due to pleural effusion, with adjacent parenchymal changes. Subsequen t limited evaluation of the heart border. There does appear to be cardiomegaly. The pulmonary vesse ls appear to be within normal limits. There is diffuse bony demineralization without evidence of an acute fracture. No definite pneumothorax. IMPRESSION: 1. No significant interval change. 2. Peristent bibasilar opacities due to pleural effusion with adjacent parenchymal changes. POS: [facility]
[2018-01-12 19:26] LABS: Mean Corpuscular HGB CONC 30.8 g/dL (32.0-36.0); Mean Corpuscular Hemoglobin 28.5 pg (27.0-31.0); Mean Corpuscular Volume 92.4 fL (78.0-98.0); Mean Platelet Volume 6.8 fL (7.4-10.4); Platelet Count 453 thou/uL (130-400); RBC Distribution Width 16.7 % (11.5-14.5); Red Blood Cell (RBC) Count 2.46 mill/uL (4.20-5.40); White Blood Cell (WBC) Count 23.8 thou/uL (4.8-10.8)
[2018-01-12 19:31] LABS: Lactate 0.39 mmol/L (0.50-2.20)
[2018-01-12 19:33] LABS: INR-International Normal Ratio 1.2; PTT 26.1 SEC (22.9-36.1); Prothrombin Time 15.2 SEC (12.0-14.7)
[2018-01-12 19:40] LABS: Band 6 % (5-11); Hypochromia SLIGHT = 6-15 cells (100X) (0-5/hpf); Lymphocytes 1 % (21-51); MDiff Complete? YES; Neutrophil 93 % (42-75); PLT Morphology Comment Appears Increased; Polychromasia SLIGHT = 2-3 cells (100X) (0-2/hpf)
[2018-01-12 19:47] LABS: ALT (SGPT) 10 U/L (8-55); AST (SGOT) 15 U/L (5-34); Albumin 2.3 g/dL (3.4-4.8); Alkaline Phosphatase 91 U/L (40-150); Anion Gap 13 mmol/L (10-20); BUN (Urea Nitrogen) 35 mg/dL (9.8-20.1); Bilirubin, Total 0.2 mg/dL (0.2-1.2); Calc. Creatinine Clearance 0 mL/min (70-130); Calcium 7.8 mg/dL (7.8-10.44); Carbon Dioxide 24 mmol/L (23-31); Chloride 97 mmol/L (98-107); Estimated GFR-MDRD 31; Globulin 2.3 g/dL (2.4-3.5); Glucose 83 mg/dL (83-110); Potassium 3.2 mmol/L (3.5-5.1); Protein, Total 4.6 g/dL (6.0-8.3); Sodium 131 mmol/L (136-145)
[2018-01-12 19:50] LABS: CKMB 2.4 ng/mL (0-6.6); Troponin I 0.044 ng/mL (< 0.028)
[2018-01-12 20:03] LABS: Clarity CLEAR (Clear)
[2018-01-12 20:04] LABS: Bilirubin Negative (Negative); Blood, Urine Negative (Negative); Glucose, Urine (Dipstick) Negative (Negative); Leukocyte Negative (Negative); Nitrite Negative (Negative); Other Microscopic Description Less than 2 mL rec'd; Protein, Urine (Dipstick) Negative (Neg-Trace); Urobilinogen 0.2 mg/dL (0.2-1.0)
[2018-01-12] MEDS ORDERED: Vancomycin HCl 500 MG VIAL ONE (21:16)
[2018-01-12] MEDS ORDERED: Nitroglycerin 0.4 MG TAB (25 Tab Bottle) SL PRN (21:49)
[2018-01-12] MEDS ORDERED: Senokot S 8.6-50 MG TAB PO PRN (21:49)
[2018-01-12] MEDS ORDERED: Bisacodyl 5 MG TAB PO PRN (21:49)
[2018-01-12] MEDS ORDERED: cloNIDine 0.1 MG TAB PO PRN (21:49)
[2018-01-12] MEDS ORDERED: Acetaminophen 325 MG TAB PO PRN (21:49)
[2018-01-12] MEDS ORDERED: Ondansetron PF 4 MG/2 ML Vial IVP PRN ×2 (21:49)
[2018-01-12] MEDS ORDERED: Calcium Carbonate 500 MG ChewTAB PO PRN (21:49)
[2018-01-12] MEDS ORDERED: HYDROcodone/Acetaminophen 5/325 mg Tablet PO PRN ×2 (21:49)
[2018-01-12] MEDS ORDERED: metroNIDAZOLE 500 MG/100 ML BAG ONE (22:07)
[2018-01-12] MEDS ORDERED: Vancomycin HCl 25 MG/ML Oral PO SCH (22:15)
[2018-01-12] MEDS ORDERED: Lidocaine Viscous Sol 2% 15 ml UD Cup SSP PRN (22:26)
[2018-01-12] MEDS ORDERED: HYDROcodone/Acetaminophen 10/325 mg Tablet ONE (22:37)
[2018-01-12] MEDS ORDERED: Piperacillin/Tazobactam 4.5 GM in Sodium Chloride 0.9% 100 ML IVPB SCH (23:59)
--- NOTE | 2018-01-12 23:59 | CT ---
CHEST CT WITHOUT CONTRAST: ABDOMEN CT WITHOUT CONTRAST: PELVIS CT WITHOUT CONTRAST: HISTORY: Progressive weakness, onset Friday. The patient has a decubitus ulcer. COMPARISON: None. TECHNIQUE: Chest, abdomen, and pelvis CT are performed without IV or oral contrast. Reformatted images are subm itted for interpretation. FINDINGS: CHEST: Limited evaluation due to lack of IV contrast. No obvious mediastinal mass, lymphadenopathy, or hematoma. Heart size is within normal limits. There are coronary artery calcifications. No sig nificant pericardial fluid. There is atherosclerosis throughout the visualized aorta. There is aneu rysmal dilatation of the infrarenal abdominal aorta, measuring 2.6 x 3.3 cm. There is a stent in the aortic bifurcation and proximal aspect of the left common iliac artery. Small left and moderate right sided pleural effusion. Adjacent consolidation due to atelectasis or p neumonia. Trachea and central bronchi appear to be patent. Areas of scar and atelectasis are noted in the left and right upper lobe. No pneumothorax. Limited evaluation of the mediastinum by lack of IV contrast. No definite mass, lymphadenopathy, or hematoma. There is a prominent esophagus with what appears to be ingested material and fluid. There is a presumed hiatal hernia. ABDOMEN: Limited evaluation by lack of IV contrast. There is evidence of perihepatic and perispleni c fluid. Additionally, there is evidence of fluid scattered throughout the abdominal mesentery and e xtending into the paracolic gutters. There is a hypodensity in the right hepatic lobe with an attenu ation coefficient of 10 Hounsfield units, which may represent a 1.4 x 1 cm cyst. The solid organs ap pear to be grossly unremarkable. There are exophytic hypodense and hyperdense lesions involving the left and right renal cortex. Comp valeriano and simple cysts are favored. Bilaterally, no definite obstructive uropathy. There is a punctat e nonobstructing calculus in the right renal pelvis. No gastrohepatic, retrocrural, or periportal lymphadenopathy. There is free fluid in the mesentery. No definite mass, lymphadenopathy. Markedly limited evaluation of the alimental canal by the lack of oral contrast. Moderate hiatal her reina, as well as probable esophageal dilatation is noted. Multiple normal caliber small bowel loops. No definite small bowel obstruction. The ileocecal junction is difficult to appreciate but appears to be grossly unremarkable. An appendix is also difficult to appreciate. There is mucosal thickenin g involving the cecum, the ascending colon, the transverse colon, the descending colon, and the sigmo id colon. The diffuse nature favors an infectious or inflammatory process. PELVIS: Limited evaluation due to lack of contrast, as well as due to beam attenuation for the left hip prosthesis. There is evidence of free fluid in the pelvis. The urinary bladder is unremarkable. Note is made of a pessary. No lytic or blastic lesions in the osseous structures IMPRESSION: 1. Markedly limited evaluation due to lack of IV and oral contrast. 2. Bilateral pleural effusion with parenchymal changes, likely due to pneumonia or atelectasis. 3. Mucosal thickening involving the majority of the colon. Correlate for an infectious or inflammat ory process. 4. Atherosclerosis, as described above. 5. Hiatal hernia with what appears to be ingested material in a distended esophagus. POS: [facility]
[2018-01-13] MEDS: Sodium Chloride 0.9% 1,000 ML IV SCH ×2 (00:45→15:59)
[2018-01-13] MEDS: Nystatin 500,000 UNITS/5 ML UDCUP SSW SCH ×7 (00:47→21:05)
[2018-01-13] MEDS ORDERED: traZODone HCl 50 MG TAB PO SCH (01:15)
[2018-01-13] MEDS ORDERED: Sodium Chloride 0.9% 10 ML ONE (01:17)
[2018-01-13] MEDS ORDERED: Piperacillin/Tazobactam 4.5 GM in Sodium Chloride 0.9% 100 ML IVPB SCH (02:00)
[2018-01-13 06:29] LABS: Hemoglobin 8.1 g/dL (12.0-16.0); Mean Corpuscular HGB CONC 31.8 g/dL (32.0-36.0); Mean Corpuscular Hemoglobin 29.8 pg (27.0-31.0); Mean Corpuscular Volume 93.5 fL (78.0-98.0); Mean Platelet Volume 6.9 fL (7.4-10.4); Platelet Count 370 thou/uL (130-400); RBC Distribution Width 15.8 % (11.5-14.5); Red Blood Cell (RBC) Count 2.71 mill/uL (4.20-5.40); White Blood Cell (WBC) Count 21.3 thou/uL (4.8-10.8)
[2018-01-13 06:45] LABS: Band 9 % (5-11); Lymphocytes 2 % (21-51); MDiff Complete? YES; Monocytes 6 % (0-10); Neutrophil 83 % (42-75); PLT Morphology Comment Appears Adequate
[2018-01-13 06:54] LABS: ALT (SGPT) 9 U/L (8-55); AST (SGOT) 16 U/L (5-34); Alkaline Phosphatase 127 U/L (40-150); Anion Gap 15 mmol/L (10-20); BUN (Urea Nitrogen) 37 mg/dL (9.8-20.1); Bilirubin, Total 0.2 mg/dL (0.2-1.2); Calc. Creatinine Clearance 27 mL/min (70-130); Calcium 7.4 mg/dL (7.8-10.44); Carbon Dioxide 20 mmol/L (23-31); Chloride 100 mmol/L (98-107); Estimated GFR-MDRD 31; Globulin 2.4 g/dL (2.4-3.5); Glucose 76 mg/dL (83-110); Potassium 3.1 mmol/L (3.5-5.1); Protein, Total 4.4 g/dL (6.0-8.3); Sodium 132 mmol/L (136-145)
--- NOTE | 2018-01-13 07:46 | HP ---
DATE OF ADMISSION: 01/12/2018 PRIMARY CARE PHYSICIAN: Carolyne Singer M.D. CHIEF COMPLAINT: Altered mental status and progressive weakness. HISTORY OF PRESENT ILLNESS: Ms. Mcintyre is a pleasant, 77-year-old female, who was recently admit joaquim to our facility and was discharged to [facility]. She was brought in again by her da ughter for the above-mentioned complaints. History is mainly obtained by the daughter herself as the patient is quite somnolent at this time and is not able to provide much history. The patient was recently admitted to our facility from 12/19/2017 to 12/30/2017. At this time, she w as treated for Clostridium difficile colitis and received oral vancomycin for 14 days. She also was treated for atrial fibrillation with RVR and was restarted on Multaq by Cardiology, and her Cardizem was increased. She also has a history of known chronic anemia, requiring multiple transfusions in past, and once again, she was transfused during that hospitalization as well. She was taken off he r Plavix for this reason after consultation with Cardiology. She was discharged in a stable conditio n to [facility] for rehabilitation. Today, she came back as her daughter reports that the patient has been doing poorly for the last 2-3 days. She has been complaining of increased urinary frequency and has been having still multiple run s of stools. She reports that Clostridium difficile was checked again at the rehab facility and was reported negative. She reports that she has been to the emergency room twice since her discharge fro the [facility]. She was seen in the ER initially on 01/02/2018 for abnormal CBC with a hemoglobin re ported at 6.2. Upon presentation to the ER that day, her hemoglobin was good, and she was discharged back. She again was sent back from the [facility] on 01/08/2018 for abnormal abdominal x-ray. Appar ently, it showed an aortic aneurysm, and she was sent to the ER. Once again, all the workup in the E R was unremarkable, and she was sent back. At this time ER visit, a bedside ultrasound was done, which showed abdominal aortic aneurysm less king n 3 cm. Her daughter reports that she has been getting good physical therapy and was getting better, but for the last 2 or 3 days, she has been more somnolent and her daughter felt that she has infection. The patient continues to have runny stools and multiple frequent urinations. She has poor appetite and c omplains of sores in her mouth with difficulty to eat. She also had 1 or 2 episodes of vomiting in t he last day or so. Upon presentation to the Emergency Room today, she was found to be febrile with a fever of 100.5 rect ally and tachycardic to a heart rate of 112. She was found to have significant leukocytosis with a W BC count over 22,000, which was within normal limit at the time of her discharge. She is also found to have mild to moderate kidney insufficiency with elevation of her creatinine to 1.62 from baseline less than 1. She was given IV vancomycin in the emergency room and is now being admitted for further evaluation and workup of possible sepsis. Please also note that she is receiving IV metronidazole a nd Zosyn in the ER. Her chest x-ray is unremarkable and urinalysis does not have any evidence of inf ection. Her hemoglobin is down to 7 today. She denies any active blood in her stools. She denies a ny chest pain, shortness of breath. PAST MEDICAL HISTORY: 1. Recent hospitalization for C. difficile colitis, status post treatment with oral vancomycin. 2. Chronic atrial fibrillation, paroxysmal. 3. Chronic anemia, requiring transfusions. 4. Iron deficiency. 5. Recent sepsis secondary to Clostridium difficile. 6. History of Jason's esophagus. 7. Peripheral vascular disease. 8. Reflux esophagitis. 9. Anxiety and depression. 10. Dyslipidemia. 11. Hypertension. 12. Chronic sacral decubitus ulcer. 13. Chronic diastolic congestive heart failure. 14. History of breast cancer. 15. History of coronary artery disease. 16. Hypothyroidism. PAST SURGICAL HISTORY: 1. AVM cauterization of the second portion of the duodenum. 2. EGD and colonoscopy 11/2017. 3. Partial thyroidectomy. 4. Surgery for left breast carcinoma. 5. Knee surgery. 6. Hernia repair. 7. Rectocele repair. 8. Hysterectomy. 9. Left hip arthroplasty. FAMILY HISTORY: Negative for diabetes and coronary artery disease. SOCIAL HISTORY: Stopped smoking 17 years ago, but smoked daily for 20 years prior to that. No histo ry of drug or alcohol abuse. Currently, residing in [facility]. Otherwise, lives with h er daughter, Ms. Bello, who is present at the bedside. HOME MEDICATION: They further need to be confirmed, but she was discharged on the following medicati ons: 1. Trazodone 200 mg at bedtime. 2. Florastor 250 mg p.o. b.i.d. 3. Pentoxifylline 1 tablet p.o. b.i.d. 4. Hydroxychloroquine one and one-half tablet daily. 5. Lasix 40 mg daily. 6. Diltiazem 90 mg 4 times a day. 7. Multaq 400 mg p.o. b.i.d. 8. Tramadol p.r.n. 9. Tylenol No. 3 p.r.n. 10. Questran 4 grams p.o. b.i.d. 11. Aspirin 81 mg daily. 12. Lipitor 20 mg daily. 13. Soma 350 mg p.o. t.i.d. p.r.n. 14. Duloxetine 60 mg in the morning. 15. Nexium 40 mg p.o. b.i.d. and iron t.i.d. REVIEW OF SYSTEMS: A 12-point review of systems done, it is negative except for those mentioned in t he history and physical. LABORATORY DATA: CBC shows WBCs 23.8, hemoglobin 7 with hematocrit of 22.7, platelet count of 453, 9 3% neutrophils. Serum chemistry shows sodium of 131, potassium 3.2, chloride 97, BUN 35, creatinine 1.62. Troponin 0.044, BNP 597. Urinalysis unremarkable. Chest x-ray by my review has no evidence t o suggest pleural infiltrate or edema. Bilateral small pleural effusions are seen. PHYSICAL EXAMINATION: VITAL SIGNS: Blood pressure 108/50, pulse of 112, saturating 98% on 2 liters, respirations 22, tempe rature 100.5. GENERAL: She is somnolent and pale, but easily woken up. She appears chronically ill, but in no acu te distress. HEENT: Mucous membranes are slightly dry. No oropharyngeal exudate or erythema. She appears to hav e oral candidiasis on her tongue. Head is normocephalic, atraumatic. Pupils equal to light and acco mmodation. NECK: Supple without any lymphadenopathy, JVD or bruit. CHEST: Clear to auscultation without any wheezing, rales or rhonchi. Rate and rhythm is regular wit hout any murmur, rubs or gallops. ABDOMEN: Soft, nontender, nondistended with positive bowel sounds. EXTREMITIES: Free of any cyanosis, clubbing, or edema. She has pitting edema bilaterally in both lo wer extremities. NEUROLOGIC: Examination is nonfocal. SKIN: Shows dry skin on the legs. She has a small area of dry gangrene on her right great toe super iorly. PSYCHIATRIC: Normal affect. IMPRESSION AND PLAN: 1. Sepsis. The source of the sepsis is unclear at this time. The patient has elevation of white co unt with left shift as well as fever and tachycardia. She has recent Clostridium difficile with jaycob tment of 10-14 days of oral vancomycin. We will recheck the Clostridium difficile given her persiste nt diarrhea, but this diarrhea can be secondary to restarting her Multaq. She also has a sacral decu bitus, which has been exposed to the loose stools of diarrhea and infection cannot be ruled out. Acc ording to the ER physician, in the healing stages and does not look infected. At this time, we will obtain a CT scan of her chest, abdomen, and pelvis without contrast to rule out any intra-abdom inal abscess, colitis. She has a diagnosis of possible ischemic colitis during colonoscopy done in 0 11/2017 when she was being worked up for her GI bleed. In any case, we will treat her with empiric an tibiotics. I will give her IV Zosyn and oral vancomycin and consult Infectious Disease, kat Ayala or further recommendations. She is currently hemodynamically stable. We will give her gentle IV flu id hydration given her history of congestive heart failure and monitor her clinically on telemetry. Blood culture and urine cultures as well as decubitus cultures have been obtained. We will also orde r a repeat C. diff. 2. Acute renal insufficiency. The patient has had poor oral intake with dehydration. Start her on gentle IV fluid hydration with close monitoring of fluid status. Avoid any nephrotoxic medications. 3. Elevated troponin and BNP. The patient has history of congestive heart failure in the past. We will obtain repeat echocardiogram at this time as the last one was done in 2012. Continue home medic ations for now. 4. Acute on chronic anemia. We will transfuse her with 1 unit of packed RBC and recheck levels in t he morning. She has no active bleed going on. She needs to follow up with GI in the outpatient sett ing for a tagged RBC scan. She had EGD and colonoscopy done in 11/2017. She was taken off her Plavi x at the time of her discharge few days ago. 5. History of paroxysmal atrial fibrillation, currently rate controlled and in normal sinus rhythm. At this time, we will hold off on her Multaq. It needs to be readdressed. If her C. difficile is n egative, there is a possibility that her recurrent diarrhea is from the Multaq indeed. Continue her Cardizem for now. Echocardiogram as above. 6. History of chronic congestive heart failure. Last echo done in 2012 showed EF of 35% -40%. Seem s to be a combination of systolic and diastolic congestive heart failure. At this time, we will hold her Lasix for acute renal insufficiency. Echo will be repeated. 7. Sacral decubitus ulcer. We will continue pain control and consult Wound Care. 8. History of peripheral arterial disease and coronary artery disease. We will continue her aspirin , atorvastatin, pentoxifylline. Plavix was discontinued during last hospitalization. 9. History of gastrointestinal bleed in the past. Continue proton pump inhibitor for now, however, with chronic PPI use, the chances of C. difficile are higher. We will reduce the frequency to once a day from twice a day as there is no evidence of active bleed. 10. Deep venous thrombosis and gastrointestinal prophylaxis. We will use subcutaneous heparin with close monitoring of H&H. 11. Add p.r.n. medication orders and supportive care. 12. Severe deconditioning. We will continue OT, PT while she is here. DISPOSITION: Ms. Mcintyre is being admitted again for sepsis of unknown etiology. Her estimated l ength of stay at this time is at least 2-3 midnights. Further management will depend upon her clinic al course.
[2018-01-13] MEDS ORDERED: Diltiazem HCl SR 90 mg Capsule PO SCH (09:00)
[2018-01-13] MEDS: Aspirin 81 mg Enteric Coated Tablet PO SCH (09:54)
[2018-01-13] MEDS: Atorvastatin Calcium 20 MG TAB PO SCH (09:54)
[2018-01-13] MEDS: Dronedarone HCl 400 MG TAB PO SCH ×2 (09:54→17:24)
[2018-01-13] MEDS: Ferrous Sulfate 325 MG TAB PO SCH ×3 (09:54→17:25)
[2018-01-13] MEDS: Hydroxychloroquine Sulfate 200 MG TAB PO SCH (09:55)
[2018-01-13] MEDS: DULoxetine 60 MG CAP PO SCH (09:55)
[2018-01-13] MEDS: Cholestyramine/Aspartame 4 gm Packet PO SCH ×2 (09:58→22:29)
[2018-01-13] MEDS: Vancomycin HCl 25 MG/ML Oral PO SCH ×4 (10:07→21:06)
[2018-01-13] MEDS: Heparin 5,000 UNITS/ML VIAL SC SCH ×2 (12:33→21:06)
[2018-01-13] MEDS: Saccharomyces boulardii 250 MG CAP PO SCH ×2 (12:34→21:05)
--- NOTE | 2018-01-13 13:46 | PDOC.PN ---
- Subjective Encounter Start Date: 01/13/18 Encounter Start Time: 11:15 -: old records requested/rev Pt seen and examined, chart reviewed in its entirety, this is my first visit with this patient follow up for: severe sepsis, CDiff colitis recrudesence, HTn, HLD, REd cell Aplsia, chronic No F/C, no N/V/D/C, no CP or SOB All systems reviewed and neg x as per HPI - Objective MAR Reviewed: Yes Vital Signs & Weight: Vital Signs (12 hours) Temp Pulse Resp BP Pulse Ox 01/13/18 12:31 97.8 F 57 L 16 125/60 99 01/13/18 09:30 98 F 71 18 114/56 L 100 01/13/18 02:38 98.5 F 67 16 120/60 100 Weight Admit Weight 131 lb 11.2 oz Weight 131 lb 11.2 oz I&O: 01/12/18 01/13/18 01/14/18 06:59 06:59 06:59 Intake Total 1032 Balance 1032 Result Diagrams: 01/18/18 09:41 01/18/18 09:41 Radiology Reviewed by me: Yes EKG Reviewed by me: Yes Phys Exam - Physical Examination Constitutional: NAD HEENT: PERRLA, moist MMs, sclera anicteric, oral pharynx no lesions Neck: no nodes, no JVD, supple, full ROM Respiratory: no wheezing, no rales, no rhonchi, clear to auscultation bilateral Cardiovascular: RRR, no significant murmur Gastrointestinal: soft, non-tender, no distention, positive bowel sounds Musculoskeletal: edema present Neurological: non-focal, moves all 4 limbs Lymphatic: no nodes Psychiatric: normal affect Skin: no rash, normal turgor, cap refill <2 seconds Dx/Plan (1) Severe sepsis Code(s): A41.9 - SEPSIS, UNSPECIFIED ORGANISM; R65.20 - SEVERE SEPSIS WITHOUT SEPTIC SHOCK Status: Acute Comment: improving, suspect CDiff recurdesence, IV fluids, po vanc, stop zosyn, contiue florastor (2) Pressure ulcer of back Code(s): L89.109 - PRESSURE ULCER OF UNSP PART OF BACK, UNSPECIFIED STAGE Status: Acute Qualifiers: Pressure injury stage: stage 3 Qualified Code(s): L89.103 - Pressure ulcer of unspecified part of back, stage 3 Comment: present on admit (3) Acute kidney failure Status: Acute Qualifiers: Acute renal failure type: with acute tubular necrosis Qualified Code(s): N17.0 - Acute kidney failure with tubular necrosis Comment: Much improved. Nephrology consulted. Creatinine stablized. (4) Chronic atrial fibrillation with RVR Code(s): I48.2 - CHRONIC ATRIAL FIBRILLATION Status: Chronic (5) Clostridium difficile colitis Status: Acute Comment: on PO vancomycin (6) Decubitus ulcer Code(s): L89.90 - PRESSURE ULCER OF UNSPECIFIED SITE, UNSPECIFIED STAGE Status : Chronic Qualifiers: Pressure injury location: lower back Pressure injury stage: stage 3 (7) Hiatal hernia Code(s): K44.9 - DIAPHRAGMATIC HERNIA WITHOUT OBSTRUCTION OR GANGRENE Status: Chronic Comment: Patient was referred to surgery prior to admission, but has not been stable enough, long enough to consider intervention. (8) Physical deconditioning Code(s): R53.81 - OTHER MALAISE Status: Chronic (9) Chronic anemia Code(s): D64.9 - ANEMIA, UNSPECIFIED Status: Chronic - Plan cont current plan of care, continue antibiotics, PT/OT, respiratory therapy, out of bed/ambulate * .
--- NOTE | 2018-01-13 18:28 | CON ---
DATE OF CONSULTATION: 01/13/2018 REASON FOR CONSULTATION: Diarrhea, fever. HISTORY OF PRESENT ILLNESS: A 77-year-old patient who has a history of Clostridium difficile colitis , treated with oral vancomycin, atrial fibrillation, chronic anemia requiring transfusions associated with iron deficiency as well as Jason's esophagus and peripheral vascular disease. Patient is a r esident of [facility] for rehabilitation and was returned to the hospital because of incr eased urinary frequency and increased diarrhea for the past 3 days. Reportedly, C. diff was rechecke d at the rehabilitation facility and was negative. Since her discharge from the hospital, she had be en to the emergency room twice for the same problem. Initial evaluation at the emergency room demons trated BP 108/50, pulse 112, respirations 22, temperature 100.5 rectal, O2 sat 98%. Physical examina tion, she had normal HEENT exam. Respiratory examination was normal. Heart exams with regular rate without murmurs. There is tenderness on examination of the abdomen. Initial laboratory data; white cell count was 23,000 with hemoglobin of 7, platelets 453 with 93% neutrophils, creatinine 1.62 and t hen 1.59. Currently, Ms. Mcintyre is complaining of diffuse abdominal tenderness, distention, no m ore vomiting, no respiratory symptoms. No back pain or chest pain and she is voiding spontaneously. PAST MEDICAL HISTORY: Atrial fibrillation paroxysmal, iron deficiency anemia requiring transfusions, Jason's esophagus, PVD, hypertension, sacral decubitus ulcer, diastolic CHF, breast cancer in [facility], coronary artery disease, hypothyroidism, recent episode of Clostridium difficile colitis. PAST SURGICAL HISTORY: AVM colonization second portion of duodenum, EGD and colonoscopy recently, yroidectomy partial, mastectomy, knee arthroscopy, rectocele repair, hysterectomy, left hip arthropla sty. FAMILY HISTORY: Noncontributory. SOCIAL HISTORY: Quit smoking 17 years before. No alcoholic beverage use. [facility] re sident. CURRENT MEDICATIONS: Tylenol, [place], Ecotrin, Lipitor, Dulcolax, Tums, Questran, Catapres, Cardizem, Multaq, Cymbalta, Feosol, heparin, Plaquenil, Nitrostat, Mycostatin, Zofran, pantoprazole, Trental, and vancomycin oral. ALLERGIES: CODEINE. PHYSICAL EXAMINATION: VITAL SIGNS: T-max 99.7, blood pressure 120/60, pulse 71, respirations 16, O2 sat 99%. GENERAL APPEARANCE: No distress, awake, oriented to self and she knew she was in some hospital. SKIN: Shows an area of stage III ulceration in the sacrococcygeal area with surrounding maceration a nd erythema appears to be stage 3 linear ulceration. She has intertriginous maceration and some brui sing on the inner aspect of the right thigh. No lymphadenopathy. HEENT: Noncontributory. NECK: Supple. LUNGS: With symmetric air entry. HEART: S1, S2, regular rate. ABDOMEN: Moderately distended with diffuse tenderness. Bowel sounds are somewhat increased. She valdez s diffuse weakness. MUSCULOSKELETAL: She moves extremities on command. Pulses 1+ in dorsalis pedis. Cap refill is norm al. NEUROLOGIC: She knows her name and knew she was in the hospital, did not know the name of the hospit al, cannot tell me the date either. LABORATORY DATA AND IMAGING DATA: Sodium 131, creatinine 1.62 and 1.59, carbon dioxide 24. Liver pr ofile normal. Albumin 2.3, globulin 2.3. White cell count is 21.3, hemoglobin 8.1, platelets 370 wi th 83% neutrophils. Urinalysis essentially normal. Microbiology with E. coli in one set of urine cu ltures, 10-25,000 CFUs. The patient had CT abdomen and pelvis, which showed limited evaluation becau se of lack of contrast, bilateral pleural effusions, mucosal thickening involving the majority of the colon. ASSESSMENT: Atrial fibrillation, diarrhea with recurrence, prior episode of Clostridium difficile, c hronic anemia secondary to iron deficiency, gastrointestinal blood losses, which are chronic and wors ening diarrhea with evidence of diffuse colitis on CT scan of abdomen. DISCUSSION: The most likely scenario is recrudescence of Clostridium difficile colitis. Agree with continuation of the oral vancomycin. This is the second episode and she may be a candidate for fecal transplantation. At this time, I would advise using a vancomycin taper after 10 days of therapy. H opefully, she will not develop further complications related to her Clostridium difficile colitis.
[2018-01-13] MEDS: ALPRAZolam 1 MG TAB PO PRN (21:06)
[2018-01-14] MEDS: Sodium Chloride 0.9% 1,000 ML IV SCH ×2 (04:41→17:44)
[2018-01-14 05:27] LABS: #Eosinphils 0.3 thou/uL (0.0-0.7); #Lymphocytes 0.9 thou/uL (1.20-3.40); #Neutrophils 20.4 thou/uL (1.40-6.50); %Basophils 0.2 % (0.0-1.0); %Eosinophils 1.4 % (0.0-10.0); %Monocytes 4.5 % (0.0-10.0); Mean Corpuscular HGB CONC 30.1 g/dL (32.0-36.0); Mean Corpuscular Hemoglobin 27.8 pg (27.0-31.0); Mean Corpuscular Volume 92.3 fL (78.0-98.0); Mean Platelet Volume 7.2 fL (7.4-10.4); Platelet Count 421 thou/uL (130-400); RBC Distribution Width 15.9 % (11.5-14.5); White Blood Cell (WBC) Count 22.7 thou/uL (4.8-10.8)
[2018-01-14 05:42] LABS: Anion Gap 14 mmol/L (10-20); BUN (Urea Nitrogen) 35 mg/dL (9.8-20.1); Calc. Creatinine Clearance 33 mL/min (70-130); Calcium 7.4 mg/dL (7.8-10.44); Carbon Dioxide 21 mmol/L (23-31); Chloride 103 mmol/L (98-107); Estimated GFR-MDRD 39; Glucose 92 mg/dL (83-110); Magnesium 1.2 mg/dL (1.6-2.6); Sodium 135 mmol/L (136-145)
[2018-01-14 05:46] LABS: Potassium 2.9 mmol/L (3.5-5.1)
[2018-01-14] MEDS: Potassium Chloride 20 MEQ in Premix Bag 1 BAG IVPB SCH ×3 (06:33→13:59)
[2018-01-14] MEDS ORDERED: Potassium Chloride 20 MEQ TAB PO SCH (09:45)
[2018-01-14] MEDS: Dronedarone HCl 400 MG TAB PO SCH ×2 (09:46→17:44)
[2018-01-14] MEDS: Hydroxychloroquine Sulfate 200 MG TAB PO SCH (09:47)
[2018-01-14] MEDS: Ferrous Sulfate 325 MG TAB PO SCH ×3 (09:47→17:44)
[2018-01-14] MEDS: DULoxetine 60 MG CAP PO SCH (09:47)
[2018-01-14] MEDS: Aspirin 81 mg Enteric Coated Tablet PO SCH (09:47)
[2018-01-14] MEDS: Atorvastatin Calcium 20 MG TAB PO SCH (09:48)
[2018-01-14] MEDS: ALPRAZolam 1 MG TAB PO PRN ×2 (09:48→21:31)
[2018-01-14] MEDS ORDERED: Magnesium 2 GM/50 ML 2 GM in Premix Bag 1 BAG IVPB SCH (10:15)
[2018-01-14] MEDS: Vancomycin HCl 25 MG/ML Oral PO SCH ×4 (10:59→21:25)
[2018-01-14] MEDS: Heparin 5,000 UNITS/ML VIAL SC SCH ×3 (11:00→21:24)
[2018-01-14] MEDS: Nystatin 500,000 UNITS/5 ML UDCUP SSW SCH ×4 (11:00→21:25)
[2018-01-14] MEDS: Cholestyramine/Aspartame 4 gm Packet PO SCH ×2 (11:03→22:35)
[2018-01-14] MEDS: Saccharomyces boulardii 250 MG CAP PO SCH ×2 (12:48→21:23)
[2018-01-14] MEDS: HYDROcodone/Acetaminophen 5/325 mg Tablet PO PRN (12:50)
[2018-01-14] MEDS: Potassium Chloride 20 MEQ TAB PO SCH ×3 (12:55→20:05)
[2018-01-14] MEDS: (Lifitegrast [Xiidra] 1 DROP) EA EYE SCH ×5 (15:12→21:28)
--- NOTE | 2018-01-14 20:17 | PRG ---
DATE OF SERVICE: 01/14/2018 SUBJECTIVE: Ms. Mcintyre is feeling better today with less diarrhea, less abdominal pain. No dysp caitie, no vomiting. OBJECTIVE: VITAL SIGNS: T-max 99.8, blood pressure 150/62, pulse 65, respirations 18, O2 sat 92. GENERAL: Appears in no distress, awake. LUNGS: Symmetric air entry. HEART: S1, S2 regular rate. ABDOMEN: Mildly distended. Bowel sounds are normal. Mild tenderness on percussion. LABORATORY DATA: White cell count 22.7, hemoglobin 8, platelets 421. Creatinine is 1.31, sodium 135 . Urine culture with E. coli and yeast species, probably just colonization and I would not recommend treating this finding. C. difficile was positive, both antigen and toxin. ASSESSMENT AND DISCUSSION: Clostridium difficile colitis recrudescence. Apparently, the patient is to be transferred to rehab on oral vancomycin. I would advise a taper and after that she would be el igible for fecal transplantation.
[2018-01-15] MEDS: Sodium Chloride 0.9% 1,000 ML IV SCH ×2 (09:12→14:44)
[2018-01-15] MEDS: Atorvastatin Calcium 20 MG TAB PO SCH (09:13)
[2018-01-15] MEDS: Hydroxychloroquine Sulfate 200 MG TAB PO SCH (09:13)
[2018-01-15] MEDS: ALPRAZolam 1 MG TAB PO PRN (09:13)
[2018-01-15] MEDS: Ferrous Sulfate 325 MG TAB PO SCH ×3 (09:14→16:03)
[2018-01-15] MEDS: DULoxetine 60 MG CAP PO SCH (09:15)
[2018-01-15] MEDS: Aspirin 81 mg Enteric Coated Tablet PO SCH (09:15)
[2018-01-15] MEDS: Dronedarone HCl 400 MG TAB PO SCH ×2 (09:15→16:03)
[2018-01-15] MEDS: Heparin 5,000 UNITS/ML VIAL SC SCH ×2 (09:15→21:57)
[2018-01-15] MEDS: (Lifitegrast [Xiidra] 1 DROP) EA EYE SCH ×2 (09:16→21:58)
[2018-01-15 09:58] LABS: Anion Gap 13 mmol/L (10-20); BUN (Urea Nitrogen) 27 mg/dL (9.8-20.1); Calc. Creatinine Clearance 46 mL/min (70-130); Carbon Dioxide 20 mmol/L (23-31); Chloride 106 mmol/L (98-107); Estimated GFR-MDRD 57; Glucose 102 mg/dL (83-110); Magnesium 1.5 mg/dL (1.6-2.6); Potassium 4.1 mmol/L (3.5-5.1); Sodium 135 mmol/L (136-145)
[2018-01-15] MEDS: Nystatin 500,000 UNITS/5 ML UDCUP SSW SCH ×4 (10:00→21:57)
[2018-01-15] MEDS: Vancomycin HCl 25 MG/ML Oral PO SCH ×4 (10:02→21:57)
[2018-01-15] MEDS: Saccharomyces boulardii 250 MG CAP PO SCH ×2 (10:03→21:58)
[2018-01-15] MEDS: Cholestyramine/Aspartame 4 gm Packet PO SCH ×2 (10:03→21:57)
[2018-01-15] MEDS: HYDROcodone/Acetaminophen 5/325 mg Tablet PO PRN ×3 (12:09→22:30)
[2018-01-15] MEDS ORDERED: Lorazepam 2 MG/ML VIAL ONE (12:44)
[2018-01-15] MEDS ORDERED: Metoprolol Tartrate 5 MG/5 ML VIAL ONE ×2 (12:45→15:50)
[2018-01-15] MEDS ORDERED: Midazolam HCl 2 mg/2 ml Vial ONE (12:48)
[2018-01-15 13:09] LABS: ALV-art Gradient 410.075 (0-20); Actual Bicarbonate (HCO3a) 17.7 mEq/L (22-28); Base Excess (BEa) -5.2 mEq/L (-2.0 to +3.0); CO2 Tension 25.7 mmHg (35.0-45.0); Calcium, Ionized 1.15 mmol/L (1.12-1.30); Carboxyhemoglobin (COHb) 0.4 gm% (0.0-3.0); Hemoglobin (Hb) 9.5 g/dL (12.0-16.0); O2 Tension (PaO2) 270.8 mmHg (> 70.0); Potassium - ABG Lab 3.75 mmol/L (3.70-5.30); Puncture Site RBA; pH, Arterial 7.46 (7.35-7.45)
[2018-01-15] MEDS: Diltiazem HCl 125 MG, Admixture Fee 1 EACH in Sodium Chloride 0.9% 100 ML IVPB SCH (13:53)
[2018-01-15 13:54] LABS: Hemoglobin 9.3 g/dL (12.0-16.0); Mean Corpuscular HGB CONC 31.3 g/dL (32.0-36.0); Mean Corpuscular Hemoglobin 29.2 pg (27.0-31.0); Mean Corpuscular Volume 93.2 fL (78.0-98.0); Mean Platelet Volume 6.9 fL (7.4-10.4); Platelet Count 677 thou/uL (130-400); RBC Distribution Width 16.3 % (11.5-14.5); Red Blood Cell (RBC) Count 3.17 mill/uL (4.20-5.40); White Blood Cell (WBC) Count 21.9 thou/uL (4.8-10.8)
[2018-01-15 14:07] LABS: ALT (SGPT) 11 U/L (8-55); AST (SGOT) 17 U/L (5-34); Albumin 2.7 g/dL (3.4-4.8); Alkaline Phosphatase 126 U/L (40-150); Anion Gap 15 mmol/L (10-20); BUN (Urea Nitrogen) 28 mg/dL (9.8-20.1); Bilirubin, Total Less than 0.2 mg/dL (0.2-1.2); Calc. Creatinine Clearance 47 mL/min (70-130); Calcium 7.9 mg/dL (7.8-10.44); Carbon Dioxide 20 mmol/L (23-31); Chloride 105 mmol/L (98-107); Estimated GFR-MDRD 58; Globulin 2.4 g/dL (2.4-3.5); Glucose 98 mg/dL (83-110); Magnesium 1.5 mg/dL (1.6-2.6); Potassium 4.6 mmol/L (3.5-5.1); Protein, Total 5.1 g/dL (6.0-8.3); Sodium 135 mmol/L (136-145)
[2018-01-15 14:08] LABS: CKMB 3.7 ng/mL (0-6.6); Troponin I 0.126 ng/mL (< 0.028)
[2018-01-15 14:09] LABS: Anisocytosis SLIGHT = 6-15 cells (100X) (0-5/hpf); Band 1 % (5-11); Lymphocytes 7 % (21-51); MDiff Complete? YES; Monocytes 5 % (0-10); Neutrophil 87 % (42-75); Ovalocytes SLIGHT = 2-5 cells (100X) (0-1/hpf); PLT Morphology Comment Appears Increased; Polychromasia SLIGHT = 2-3 cells (100X) (0-2/hpf); Schistocytes SLIGHT = 2-5 cells (100X) (0-1/hpf); Tear Drops SLIGHT = 2-5 cells (100X) (0-1/hpf)
[2018-01-15 14:10] LABS: Phosphorus 1.9 mg/dL (2.3-4.7)
--- NOTE | 2018-01-15 15:43 | EKG ---
Test Reason : Blood Pressure : / mmHG Vent. Rate : 137 BPM Atrial Rate : 150 BPM P-R Int : 000 ms QRS Dur : 100 ms QT Int : 346 ms P-R-T Axes : 000 -27 103 degrees QTc Int : 522 ms Atrial fibrillation with rapid ventricular response Nonspecific ST and T wave abnormality , probably digitalis effect Abnormal ECG Confirmed by JOCELYNE ZAVALA ([id number]) on 01/15/2018 3:43:43 PM Referred By: OBDULIA Confirmed By:JOCELYNE ZAVALA
[2018-01-15 16:40] LABS: CKMB 4.3 ng/mL (0-6.6); Troponin I 0.166 ng/mL (< 0.028)
[2018-01-16 00:42] LABS: CKMB 4.4 ng/mL (0-6.6); Troponin I 0.109 ng/mL (< 0.028)
[2018-01-16] MEDS: Sodium Chloride 0.9% 1,000 ML IV SCH (04:33)
[2018-01-16 05:33] LABS: Anion Gap 16 mmol/L (10-20); BUN (Urea Nitrogen) 16 mg/dL (9.8-20.1); Calc. Creatinine Clearance 53 mL/min (70-130); Calcium 7.9 mg/dL (7.8-10.44); Carbon Dioxide 16 mmol/L (23-31); Chloride 109 mmol/L (98-107); Estimated GFR-MDRD 67; Glucose 86 mg/dL (83-110); Magnesium 1.5 mg/dL (1.6-2.6); Potassium 4.2 mmol/L (3.5-5.1); Sodium 137 mmol/L (136-145)
[2018-01-16 06:01] LABS: Band 1 % (5-11); Hemoglobin 10.2 g/dL (12.0-16.0); Hypochromia SLIGHT = 6-15 cells (100X) (0-5/hpf); Lymphocytes 12 % (21-51); MDiff Complete? YES; Mean Corpuscular HGB CONC 31.4 g/dL (32.0-36.0); Mean Corpuscular Hemoglobin 29.3 pg (27.0-31.0); Mean Corpuscular Volume 93.4 fL (78.0-98.0); Mean Platelet Volume 6.8 fL (7.4-10.4); Monocytes 3 % (0-10); Neutrophil 84 % (42-75); PLT Morphology Comment Appears Increased; Platelet Count 648 thou/uL (130-400); RBC Distribution Width 16.5 % (11.5-14.5); Red Blood Cell (RBC) Count 3.48 mill/uL (4.20-5.40); White Blood Cell (WBC) Count 14.7 thou/uL (4.8-10.8)
[2018-01-16] MEDS ORDERED: Magnesium 2 GM/50 ML 2 GM in Premix Bag 1 BAG IVPB SCH (08:30)
[2018-01-16] MEDS: Dronedarone HCl 400 MG TAB PO SCH ×2 (08:32→16:28)
[2018-01-16] MEDS: Ferrous Sulfate 325 MG TAB PO SCH ×3 (08:32→16:28)
[2018-01-16] MEDS: DULoxetine 60 MG CAP PO SCH (08:33)
[2018-01-16] MEDS: Atorvastatin Calcium 20 MG TAB PO SCH (08:33)
[2018-01-16] MEDS: Heparin 5,000 UNITS/ML VIAL SC SCH ×2 (08:33→22:26)
[2018-01-16] MEDS: Aspirin 81 mg Enteric Coated Tablet PO SCH (08:33)
[2018-01-16] MEDS: Saccharomyces boulardii 250 MG CAP PO SCH ×2 (08:34→22:27)
[2018-01-16] MEDS: Hydroxychloroquine Sulfate 200 MG TAB PO SCH (08:34)
[2018-01-16] MEDS: Vancomycin HCl 25 MG/ML Oral PO SCH ×4 (08:38→22:27)
[2018-01-16] MEDS: Nystatin 500,000 UNITS/5 ML UDCUP SSW SCH ×4 (08:39→22:28)
[2018-01-16] MEDS: Cholestyramine/Aspartame 4 gm Packet PO SCH ×2 (08:54→22:44)
[2018-01-16] MEDS: HYDROcodone/Acetaminophen 5/325 mg Tablet PO PRN ×2 (11:30→16:40)
[2018-01-16] MEDS: Diltiazem HCl 125 MG, Admixture Fee 1 EACH in Sodium Chloride 0.9% 100 ML IVPB SCH ×2 (13:06→23:36)
[2018-01-16] MEDS: ALPRAZolam 1 MG TAB PO PRN (13:31)
[2018-01-16] MEDS: (Lifitegrast [Xiidra] 1 DROP) EA EYE SCH ×2 (13:32→22:28)
--- NOTE | 2018-01-16 20:16 | CON ---
DATE OF CONSULTATION: 01/16/2018 HISTORY OF PRESENT ILLNESS: Ms. Mcintyre is a 77-year-old female. She was admitted to the hospital on 01/12/2018 with diarrhea and fever. She lives in [facility]. Apparently last night, a code shemar was called for hypoxemia and atrial fibrillation. She was transferred to the Critical Care Unit. She did not require intubation. I was consulted because of her presence in the Critical Care Unit. It was felt that she has had a recurrence of Clostridium difficile colitis. Fecal transplantation was being contemplated and it was anticipated that she was going home based on the records. I suppose because of the rapid atrial fibrillation, she is still in the Critical Care Unit. She denies being short of breath at the time of my consultation. PAST MEDICAL HISTORY: Remarkable for, 1. Atrial fibrillation. 2. History of anemia requiring transfusions. 3. History of Jason's esophagus. 4. Peripheral vascular disease. 5. History of lipid disorder. 6. Hypertension. 7. History of a sacral decubitus ulcer. 8. History of breast cancer. 9. History of diastolic heart failure. 10. History of coronary disease. 11. History of AV malformations seen in the duodenum cauterized recently. 12. History of thyroidectomy. 13. History of breast cancer surgery on the left. 14. History of knee surgery. 15. History of herniorrhaphy. 16. History of rectocele repair. 17. Status post hysterectomy. 18. History of a hip replacement on the left. FAMILY HISTORY: She has no family history of lung disease in early age. SOCIAL HISTORY: She smoked until 17 years ago, smoked for 20 years. She does not drink. She does not use drugs. MEDICATIONS: Medications prior to admission have been reviewed. REVIEW OF SYSTEMS: Ten points otherwise is negative. PHYSICAL EXAMINATION: GENERAL: She is in no distress. VITAL SIGNS: Blood pressure 114/76; heart rates in the 120s, she is in atrial fibrillation; respiratory rates in the low 20s. HEENT: Sclerae are anicteric. Extraocular movements intact. NECK: Supple. LUNGS: Remarkable for fine crackles at her lung bases. HEART: Irregular rhythm. Grade 2/6 systolic murmur. ABDOMEN: Soft. EXTREMITIES: Without asymmetry or edema. LABORATORY DATA: White count 14.7, hemoglobin 10.2, platelets 648. Sodium 137 , potassium 4.2, chloride 109, bicarbonate 16, BUN 16, creatinine 0.8. Blood gas yesterday afternoon pH 7.46, pCO2 of 25, pO2 of 270. IMPRESSION: 1. Clostridium difficile colitis. 2. Rapid atrial fibrillation. 3. Multiple medical problems with deconditioning. 4. History of gastrointestinal blood loss secondary to AV malformations. 5. History of pulmonary edema with transfusions, last admission. 6. Peripheral vascular disease. 7. Diverticulosis. 8. Possible ischemic colon on colonoscopy last admission. PLAN: Continue supportive care. She appears to be stable at least for now. Cardiology is seeing her for rate control. This is a 50 minute consult, with 50 % of time on unit coordinating care. SIOBHAN
[2018-01-17] MEDS: HYDROcodone/Acetaminophen 5/325 mg Tablet PO PRN ×3 (00:28→16:29)
[2018-01-17] MEDS: ALPRAZolam 1 MG TAB PO PRN ×4 (00:28→22:02)
[2018-01-17 04:28] LABS: Band 4 % (5-11); Eosinophils 1 % (0-10); Hemoglobin 9.2 g/dL (12.0-16.0); Lymphocytes 10 % (21-51); MDiff Complete? YES; Mean Corpuscular HGB CONC 31.5 g/dL (32.0-36.0); Mean Corpuscular Hemoglobin 28.9 pg (27.0-31.0); Mean Corpuscular Volume 91.8 fL (78.0-98.0); Mean Platelet Volume 6.6 fL (7.4-10.4); Monocytes 16 % (0-10); Neutrophil 68 % (42-75); PLT Morphology Comment Appears Increased; Platelet Count 634 thou/uL (130-400); RBC Distribution Width 16.7 % (11.5-14.5); White Blood Cell (WBC) Count 13.2 thou/uL (4.8-10.8)
[2018-01-17 04:34] LABS: Anion Gap 14 mmol/L (10-20); BUN (Urea Nitrogen) 29 mg/dL (9.8-20.1); Calc. Creatinine Clearance 52 mL/min (70-130); Calcium 7.8 mg/dL (7.8-10.44); Carbon Dioxide 17 mmol/L (23-31); Chloride 109 mmol/L (98-107); Estimated GFR-MDRD 66; Glucose 104 mg/dL (83-110); Sodium 136 mmol/L (136-145)
[2018-01-17] MEDS: Sodium Chloride 0.9% 1,000 ML IV SCH ×2 (06:37→17:32)
[2018-01-17] MEDS: Ferrous Sulfate 325 MG TAB PO SCH ×3 (08:47→16:31)
[2018-01-17] MEDS: Heparin 5,000 UNITS/ML VIAL SC SCH ×2 (08:47→22:06)
[2018-01-17] MEDS: Aspirin 81 mg Enteric Coated Tablet PO SCH (08:48)
[2018-01-17] MEDS: Atorvastatin Calcium 20 MG TAB PO SCH (08:48)
[2018-01-17] MEDS: Dronedarone HCl 400 MG TAB PO SCH ×2 (08:48→16:31)
[2018-01-17] MEDS: Saccharomyces boulardii 250 MG CAP PO SCH ×2 (08:48→21:56)
[2018-01-17] MEDS: DULoxetine 60 MG CAP PO SCH (08:49)
[2018-01-17] MEDS: Nystatin 500,000 UNITS/5 ML UDCUP SSW SCH ×4 (08:50→21:56)
[2018-01-17] MEDS: Hydroxychloroquine Sulfate 200 MG TAB PO SCH (08:54)
[2018-01-17] MEDS: (Lifitegrast [Xiidra] 1 DROP) EA EYE SCH ×2 (08:59→21:58)
[2018-01-17] MEDS: Vancomycin HCl 25 MG/ML Oral PO SCH ×4 (09:31→21:52)
[2018-01-17] MEDS: Cholestyramine/Aspartame 4 gm Packet PO SCH ×2 (09:31→21:59)
[2018-01-17] MEDS ORDERED: Adenosine 6 MG/2 ML VIAL ONE (12:37)
[2018-01-17] MEDS: Diltiazem HCl 125 MG, Admixture Fee 1 EACH in Sodium Chloride 0.9% 100 ML IVPB SCH (13:09)
[2018-01-17] MEDS ORDERED: Adenosine 6 MG/2 ML VIAL IVP SCH ×2 (13:30→13:45)
--- NOTE | 2018-01-17 17:11 | PRG ---
DATE OF SERVICE: 01/17/2018 SUBJECTIVE: Ms. Mcintyre still has atrial fibrillation with a rate of 120-130. OBJECTIVE: VITAL SIGNS: Respiratory rate is 20, oximetry is 94 on 3 liters cannula, blood pressure 122/60. LUNGS: Clear. HEART: Regular rhythm. ABDOMEN: Soft. EXTREMITIES: Without asymmetry. LABORATORY DATA: White count is 13.2, hemoglobin 9.2, platelets 634,000. Sodium 136, potassium 4, c hloride 109, bicarbonate 17, BUN 29, creatinine 0.8. IMPRESSION: 1. Rapid atrial fibrillation. 2. Transient hypoxemia leading to transfer to the Critical Care Unit. She is stable to move to the Intermediate Care Unit in my opinion. 3. Cystitis with pansensitive Escherichia coli. PLAN: Continue supportive care. Transfer to Intermediate Care Unit. Rate control and atrial fibril lation management per Cardiology.
[2018-01-17] MEDS ORDERED: Melatonin 3 MG TAB PO SCH (20:00)
[2018-01-18] MEDS: Diltiazem HCl 125 MG, Admixture Fee 1 EACH in Sodium Chloride 0.9% 100 ML IVPB SCH ×2 (01:06→14:26)
[2018-01-18] MEDS: HYDROcodone/Acetaminophen 5/325 mg Tablet PO PRN ×3 (01:29→17:58)
[2018-01-18] MEDS: Sodium Chloride 0.9% 1,000 ML IV SCH ×2 (10:00→20:47)
[2018-01-18] MEDS: ALPRAZolam 1 MG TAB PO PRN ×2 (10:01→17:58)
[2018-01-18] MEDS: DULoxetine 60 MG CAP PO SCH (10:01)
[2018-01-18] MEDS: Ferrous Sulfate 325 MG TAB PO SCH ×3 (10:01→17:56)
[2018-01-18] MEDS: Dronedarone HCl 400 MG TAB PO SCH ×2 (10:01→17:56)
[2018-01-18] MEDS: Aspirin 81 mg Enteric Coated Tablet PO SCH (10:01)
[2018-01-18] MEDS: Saccharomyces boulardii 250 MG CAP PO SCH ×2 (10:02→20:22)
[2018-01-18] MEDS: Heparin 5,000 UNITS/ML VIAL SC SCH ×2 (10:02→20:25)
[2018-01-18] MEDS: Vancomycin HCl 25 MG/ML Oral PO SCH ×4 (10:02→20:22)
[2018-01-18] MEDS: Atorvastatin Calcium 20 MG TAB PO SCH (10:02)
[2018-01-18] MEDS: (Lifitegrast [Xiidra] 1 DROP) EA EYE SCH ×3 (10:03→21:05)
[2018-01-18] MEDS: Hydroxychloroquine Sulfate 200 MG TAB PO SCH (10:04)
[2018-01-18 10:05] LABS: Hemoglobin 9.8 g/dL (12.0-16.0); Mean Corpuscular HGB CONC 30.6 g/dL (32.0-36.0); Mean Corpuscular Hemoglobin 28.9 pg (27.0-31.0); Mean Corpuscular Volume 94.7 fL (78.0-98.0); Mean Platelet Volume 6.7 fL (7.4-10.4); Platelet Count 648 thou/uL (130-400); RBC Distribution Width 17.1 % (11.5-14.5); Red Blood Cell (RBC) Count 3.39 mill/uL (4.20-5.40); White Blood Cell (WBC) Count 13.2 thou/uL (4.8-10.8)
[2018-01-18] MEDS: Nystatin 500,000 UNITS/5 ML UDCUP SSW SCH ×4 (10:05→20:47)
[2018-01-18 10:10] LABS: Anion Gap 15 mmol/L (10-20); BUN (Urea Nitrogen) 33 mg/dL (9.8-20.1); Calc. Creatinine Clearance 49 mL/min (70-130); Carbon Dioxide 16 mmol/L (23-31); Chloride 111 mmol/L (98-107); Estimated GFR-MDRD 61; Glucose 105 mg/dL (83-110); Magnesium 1.8 mg/dL (1.6-2.6); Potassium 4.4 mmol/L (3.5-5.1); Sodium 138 mmol/L (136-145)
--- NOTE | 2018-01-18 10:12 | PDOC.CTH ---
Cardiology Progress Note - Subjective Somnolent - Objective Vital Signs Temp Pulse Resp BP Pulse Ox 01/18/18 08:00 97 01/18/18 07:32 127 H 113/76 99 01/18/18 03:52 127 H 18 142/62 H 96 01/18/18 00:00 97.2 F L 126 H 14 128/74 92 L Admit Weight 136 lb 3.931 oz Weight 131 lb 11.2 oz 01/17/18 01/18/18 01/19/18 07:59 06:59 06:59 Intake Total Output Total Balance - Physical Examination General/Neuro: alert & oriented x3, NAD Neck: carotid US brisk, no JVD present Lungs: CTA, unlabored respirations Heart: other: (irr) - Labs Result Diagrams: 01/18/18 09:41 01/18/18 09:41 Troponin/CKMB CK-MB (CK-2) 4.4 ng/mL (0-6.6) 01/16/18 00:06 Troponin I 0.109 ng/mL (< 0.028) H 01/16/18 00:06 - Assessment/Plan aflutter PVD C Dificlie colitis Deconditioning Malnutrition Very difficult cardiac situation. Concerned about CV at this point knowing pt is at increased risk of CVA If not covered with ACT. Will ask EP to have input pt with slower HR (now appears to be afib) Add po CCB and decrease IV CCB May consider LOKESH and CV knowing risk of CVA vs LOKESH and ablation At this point, given the above, I do not feel pt will recover from all of her health issues I discussed this with Lexi her daughter yesterday but have concerns over Lexi not truly understanding her health situation
[2018-01-18] MEDS: Cholestyramine/Aspartame 4 gm Packet PO SCH ×2 (10:15→20:23)
[2018-01-18 10:44] LABS: Acanthocytes SLIGHT = 1-5 cells (100X) (None Seen); Eosinophils 4 % (0-10); Hypochromia SLIGHT = 6-15 cells (100X) (0-5/hpf); Lymphocytes 6 % (21-51); MDiff Complete? YES; Monocytes 12 % (0-10); Neutrophil 78 % (42-75); Ovalocytes SLIGHT = 2-5 cells (100X) (0-1/hpf); PLT Morphology Comment Appears Increased; Polychromasia SLIGHT = 2-3 cells (100X) (0-2/hpf); Schistocytes SLIGHT = 2-5 cells (100X) (0-1/hpf); Small Platelets MODERATE; Tear Drops SLIGHT = 2-5 cells (100X) (0-1/hpf)
--- NOTE | 2018-01-18 11:16 | CON ---
DATE OF CONSULTATION: 01/17/2018 HISTORY OF PRESENT ILLNESS: Ms. Mcintyre is a very pleasant 77-year-old woman who I have seen and evaluated in the past. She has a history of Raynaud's phenomenon, hypertension, previous pneumonia, hip replacement, PVD status post stent placement to the iliac artery in addition to a nonhealing ulce r to the lower extremity as well as renal insufficiency and GI bleed. She recently presented with re current C. difficile. I was consulted due to heart rate above 128. Patient appeared fairly asymptom atic. A code shemar was called briefly on 01/15/2018 due to low saturations, atrial fibrillation with RVR. She was stabilized and transferred to the MICU. PAST MEDICAL HISTORY: As above. ALLERGIES: CODEINE. SOCIAL HISTORY: No current tobacco or alcohol use. HOME MEDICATIONS: Hydrocodone, Dulcolax, alprazolam, aspirin, atorvastatin, Cholestyramine, Nexium, Multaq, diltiazem, hydroxychloroquine, Lasix, Florastor, pentoxifylline, Trazodone, vancomycin. PHYSICAL EXAMINATION: GENERAL: She does appear underweight, cachectic and older in stated age. VITAL SIGNS: Blood pressure 130/76, pulse 127, respirations 20. NEUROLOGIC: The patient is alert and oriented times 3 with no focal neurologic deficits. HEENT: Sclerae without icterus. Mouth has moist mucous membranes with normal pallor. NECK: No JVD. Carotid upstroke brisk. No bruits bilaterally. LUNGS: Clear to auscultation with unlabored respirations. BACK: No scoliosis or kyphosis. CARDIAC: Tachycardia with normal S1 and S2. No S3 or S4 noted. No significant rubs, murmurs, thril ls, or gallops noted throughout the precordium. PMI is not displaced. There is no parasternal heave . ABDOMEN: Soft, nontender, nondistended. No peritoneal signs present. No hepatosplenomegaly. No ab normal striae. EXTREMITIES: Nonpalpable popliteal pulse bilaterally. Nonpalpable dorsalis pedis pulses bilaterally . No cyanosis, clubbing, or edema. SKIN: No gross abnormalities. PERTINENT LABORATORY DATA: Hemoglobin 9.2, creatinine 0.8. HOSPITAL COURSE: The patient was set up for administration of adenosine to assess her rhythm. She w as given 12 mg of adenosine x2. Her underlying rhythm appears to be atrial flutter. IMPRESSION: 1. Atrial flutter. 2. Severe peripheral vascular disease. 3. Recurrent Clostridium difficile colitis. 4. Deconditioning. 5. Malnutrition. RECOMMENDATIONS: This is certainly a very difficult situation. Ms. Mcintyre has been on anticoagu lation therapy in the past and has bled on aspirin and Plavix. I am concerned about placing her on a nticoagulation therapy. With LOKESH cardioversion, this risks stroke. Proceeding with atrial flutter a blation also risks stroke. We will continue Multaq. We will discuss the case with Dr. Lang with EP on recommendations. I also had a long discussion over the phone with Eugenia, her daughter. I did state Ms. Tiny de la vega continues to worsen despite all other medical care she has been given. I am concerned about a ___ __ with Eugenia, her daughter. Despite all our efforts, she continues to have a rehospitalization.
--- NOTE | 2018-01-18 11:25 | PDOC.PN ---
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 No F/C, no N/V/D/C, no CP or SOB, less diarrhea, no other complaints All systems reviewed and neg x as per HPI - Objective MAR Reviewed: Yes Vital Signs & Weight: Vital Signs (12 hours) Pulse Resp BP Pulse Ox 01/18/18 08:00 97 01/18/18 07:32 127 H 113/76 99 01/18/18 03:52 127 H 18 142/62 H 96 Weight Admit Weight 136 lb 3.931 oz Weight 131 lb 11.2 oz Most Recent Monitor Data Heart Rate from ECG 129 NIBP 124/81 NIBP BP-Mean 95 Respiration from ECG 26 SpO2 96 I&O: 01/17/18 01/18/18 01/19/18 07:59 06:59 06:59 Intake Total Output Total Balance Result Diagrams: 01/18/18 09:41 01/18/18 09:41 Phys Exam - Physical Examination Constitutional: NAD HEENT: PERRLA, moist MMs, sclera anicteric, oral pharynx no lesions Neck: no nodes, no JVD, supple, full ROM Respiratory: no wheezing, no rales, no rhonchi, clear to auscultation bilateral Cardiovascular: RRR, no significant murmur, no rub Gastrointestinal: soft, positive bowel sounds Musculoskeletal: edema present Lymphatic: no nodes Psychiatric: normal affect, A&O x 3 Skin: no rash, normal turgor, cap refill <2 seconds Dx/Plan (1) Severe sepsis Code(s): A41.9 - SEPSIS, UNSPECIFIED ORGANISM; R65.20 - SEVERE SEPSIS WITHOUT SEPTIC SHOCK Status: Acute Comment: improving, suspect CDiff recurdesence, IV fluids, po vanc, stop zosyn, contiue florastor (2) Pressure ulcer of back Code(s): L89.109 - PRESSURE ULCER OF UNSP PART OF BACK, UNSPECIFIED STAGE Status: Acute Qualifiers: Pressure injury stage: stage 3 Qualified Code(s): L89.103 - Pressure ulcer of unspecified part of back, stage 3 Comment: present on admit (3) Acute kidney failure Status: Acute Qualifiers: Acute renal failure type: with acute tubular necrosis Qualified Code(s): N17.0 - Acute kidney failure with tubular necrosis Comment: Much improved. Nephrology consulted. Creatinine stablized. (4) Chronic atrial fibrillation with RVR Code(s): I48.2 - CHRONIC ATRIAL FIBRILLATION Status: Chronic (5) Clostridium difficile colitis Status: Acute Comment: on PO vancomycin (6) Decubitus ulcer Code(s): L89.90 - PRESSURE ULCER OF UNSPECIFIED SITE, UNSPECIFIED STAGE Status : Chronic Qualifiers: Pressure injury location: lower back Pressure injury stage: stage 3 (7) Hiatal hernia Code(s): K44.9 - DIAPHRAGMATIC HERNIA WITHOUT OBSTRUCTION OR GANGRENE Status: Chronic Comment: Patient was referred to surgery prior to admission, but has not been stable enough, long enough to consider intervention. (8) Physical deconditioning Code(s): R53.81 - OTHER MALAISE Status: Chronic (9) Chronic anemia Code(s): D64.9 - ANEMIA, UNSPECIFIED Status: Chronic - Plan cont current plan of care, continue antibiotics, PT/OT, high school social studies tutor, out of bed/ambulate * . to lampstand in 1-2 days to continue rehab
--- NOTE | 2018-01-18 11:29 | PDOC.PN ---
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 pt stable for discharg,e wants to go home. PT and OT have seen and pt physically not ready All systems reviewed and neg x as per HPI intiially discharged, then pt developed afib with RVR, and pt ordered to transfer to tele. beforre she could get transferred to start cardizem, she became SOB, measured o2 sat was 79 and code ghreen called,then blue. pulse ox not picking up, and ABG showed PO2 of 270. pt started on cardizem and transferred to CCU. greater than 45 minutes of critical care time provided - Objective MAR Reviewed: Yes Vital Signs & Weight: Vital Signs (12 hours) Pulse Resp BP Pulse Ox 01/18/18 08:00 97 01/18/18 07:32 127 H 113/76 99 01/18/18 03:52 127 H 18 142/62 H 96 Weight Admit Weight 136 lb 3.931 oz Weight 131 lb 11.2 oz Most Recent Monitor Data Heart Rate from ECG 129 NIBP 124/81 NIBP BP-Mean 95 Respiration from ECG 26 SpO2 96 I&O: 01/17/18 01/18/18 01/19/18 07:59 06:59 06:59 Intake Total Output Total Balance Result Diagrams: 01/18/18 09:41 01/18/18 09:41 Radiology Reviewed by me: Yes EKG Reviewed by me: Yes Phys Exam - Physical Examination acutely ill HEENT: PERRLA, moist MMs, sclera anicteric, oral pharynx no lesions Neck: no nodes, no JVD, supple, full ROM Respiratory: no wheezing, no rales, no rhonchi, clear to auscultation bilateral Cardiovascular: irregular tachy, good pulses Gastrointestinal: soft, non-tender, no distention, positive bowel sounds Musculoskeletal: edema present Neurological: non-focal, normal sensation, moves all 4 limbs Lymphatic: no nodes Psychiatric: normal affect, A&O x 3 Skin: no rash, normal turgor, cap refill <2 seconds Dx/Plan (1) Severe sepsis Code(s): A41.9 - SEPSIS, UNSPECIFIED ORGANISM; R65.20 - SEVERE SEPSIS WITHOUT SEPTIC SHOCK Status: Acute Comment: improving, suspect CDiff recurdesence, IV fluids, po vanc, stop zosyn, contiue florastor (2) Pressure ulcer of back Code(s): L89.109 - PRESSURE ULCER OF UNSP PART OF BACK, UNSPECIFIED STAGE Status: Acute Qualifiers: Pressure injury stage: stage 3 Qualified Code(s): L89.103 - Pressure ulcer of unspecified part of back, stage 3 Comment: present on admit (3) Acute kidney failure Status: Acute Qualifiers: Acute renal failure type: with acute tubular necrosis Qualified Code(s): N17.0 - Acute kidney failure with tubular necrosis Comment: Much improved. Nephrology consulted. Creatinine stablized. (4) Chronic atrial fibrillation with RVR Code(s): I48.2 - CHRONIC ATRIAL FIBRILLATION Status: Chronic (5) Clostridium difficile colitis Status: Acute Comment: on PO vancomycin (6) Decubitus ulcer Code(s): L89.90 - PRESSURE ULCER OF UNSPECIFIED SITE, UNSPECIFIED STAGE Status : Chronic Qualifiers: Pressure injury location: lower back Pressure injury stage: stage 3 (7) Hiatal hernia Code(s): K44.9 - DIAPHRAGMATIC HERNIA WITHOUT OBSTRUCTION OR GANGRENE Status: Chronic Comment: Patient was referred to surgery prior to admission, but has not been stable enough, long enough to consider intervention. (8) Physical deconditioning Code(s): R53.81 - OTHER MALAISE Status: Chronic (9) Chronic anemia Code(s): D64.9 - ANEMIA, UNSPECIFIED Status: Chronic (10) Atrial fibrillation with rapid ventricular response Code(s): I48.91 - UNSPECIFIED ATRIAL FIBRILLATION Status: Acute Comment: cardizem gtt, transfer to CCU - Plan cont current plan of care, respiratory therapy * .
--- NOTE | 2018-01-18 11:33 | PDOC.PN ---
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 wants bipap still All systems reviewed and neg x as per HPI - Objective MAR Reviewed: Yes Vital Signs & Weight: Vital Signs (12 hours) Pulse Resp BP Pulse Ox 01/18/18 08:00 97 01/18/18 07:32 127 H 113/76 99 01/18/18 03:52 127 H 18 142/62 H 96 Weight Admit Weight 136 lb 3.931 oz Weight 131 lb 11.2 oz Most Recent Monitor Data Heart Rate from ECG 129 NIBP 124/81 NIBP BP-Mean 95 Respiration from ECG 26 SpO2 96 I&O: 01/17/18 01/18/18 01/19/18 07:59 06:59 06:59 Intake Total Output Total Balance Result Diagrams: 01/18/18 09:41 01/18/18 09:41 EKG Reviewed by me: Yes Phys Exam - Physical Examination Constitutional: NAD HEENT: PERRLA, moist MMs, sclera anicteric, oral pharynx no lesions Neck: no nodes, no JVD, supple, full ROM Respiratory: no wheezing, no rales, no rhonchi, clear to auscultation bilateral Cardiovascular: no significant murmur regular, tachy 120s Gastrointestinal: soft, non-tender, no distention, positive bowel sounds Musculoskeletal: edema present Neurological: non-focal, normal sensation, moves all 4 limbs Lymphatic: no nodes Psychiatric: normal affect, A&O x 3 Skin: no rash, normal turgor, cap refill <2 seconds Dx/Plan (1) Severe sepsis Code(s): A41.9 - SEPSIS, UNSPECIFIED ORGANISM; R65.20 - SEVERE SEPSIS WITHOUT SEPTIC SHOCK Status: Acute Comment: improving, suspect CDiff recurdesence, IV fluids, po vanc, stop zosyn, contiue florastor (2) Pressure ulcer of back Code(s): L89.109 - PRESSURE ULCER OF UNSP PART OF BACK, UNSPECIFIED STAGE Status: Acute Qualifiers: Pressure injury stage: stage 3 Qualified Code(s): L89.103 - Pressure ulcer of unspecified part of back, stage 3 Comment: present on admit (3) Acute kidney failure Status: Acute Qualifiers: Acute renal failure type: with acute tubular necrosis Qualified Code(s): N17.0 - Acute kidney failure with tubular necrosis Comment: Much improved. Nephrology consulted. Creatinine stablized. (4) Chronic atrial fibrillation with RVR Code(s): I48.2 - CHRONIC ATRIAL FIBRILLATION Status: Chronic (5) Clostridium difficile colitis Status: Acute Comment: on PO vancomycin (6) Decubitus ulcer Code(s): L89.90 - PRESSURE ULCER OF UNSPECIFIED SITE, UNSPECIFIED STAGE Status : Chronic Qualifiers: Pressure injury location: lower back Pressure injury stage: stage 3 (7) Hiatal hernia Code(s): K44.9 - DIAPHRAGMATIC HERNIA WITHOUT OBSTRUCTION OR GANGRENE Status: Chronic Comment: Patient was referred to surgery prior to admission, but has not been stable enough, long enough to consider intervention. (8) Physical deconditioning Code(s): R53.81 - OTHER MALAISE Status: Chronic (9) Chronic anemia Code(s): D64.9 - ANEMIA, UNSPECIFIED Status: Chronic (10) Atrial fibrillation with rapid ventricular response Code(s): I48.91 - UNSPECIFIED ATRIAL FIBRILLATION Status: Acute Comment: cardizem gtt now regular and tachy. AVNRT or aflutter, will ask cardiology to see - Plan cont current plan of care, continue antibiotics, PT/OT * .
--- NOTE | 2018-01-18 11:35 | PDOC.PN ---
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 remains at 128bpm on tele, regular All systems reviewed and neg x as per HPI - Objective MAR Reviewed: Yes Vital Signs & Weight: Vital Signs (12 hours) Pulse Resp BP Pulse Ox 01/18/18 08:00 97 01/18/18 07:32 127 H 113/76 99 01/18/18 03:52 127 H 18 142/62 H 96 Weight Admit Weight 136 lb 3.931 oz Weight 131 lb 11.2 oz Most Recent Monitor Data Heart Rate from ECG 129 NIBP 124/81 NIBP BP-Mean 95 Respiration from ECG 26 SpO2 96 I&O: 01/17/18 01/18/18 01/19/18 07:59 06:59 06:59 Intake Total Output Total Balance Result Diagrams: 01/18/18 09:41 01/18/18 09:41 EKG Reviewed by me: Yes Phys Exam - Physical Examination Constitutional: NAD HEENT: PERRLA, moist MMs, sclera anicteric, oral pharynx no lesions Neck: no nodes, no JVD, supple, full ROM Respiratory: no wheezing, no rales, no rhonchi, clear to auscultation bilateral Cardiovascular: no significant murmur tachy but regular Gastrointestinal: soft, non-tender, no distention, positive bowel sounds Musculoskeletal: edema present Neurological: non-focal, normal sensation, moves all 4 limbs Lymphatic: no nodes Psychiatric: normal affect, A&O x 3 Skin: no rash, normal turgor, cap refill <2 seconds Dx/Plan (1) Severe sepsis Code(s): A41.9 - SEPSIS, UNSPECIFIED ORGANISM; R65.20 - SEVERE SEPSIS WITHOUT SEPTIC SHOCK Status: Acute Comment: improving, CDiff recurdesence, present on admission; IV fluids, po vanc, continue florastor (2) Pressure ulcer of back Code(s): L89.109 - PRESSURE ULCER OF UNSP PART OF BACK, UNSPECIFIED STAGE Status: Acute Qualifiers: Pressure injury stage: stage 3 Qualified Code(s): L89.103 - Pressure ulcer of unspecified part of back, stage 3 Comment: present on admit (3) Acute kidney failure Status: Acute Qualifiers: Acute renal failure type: with acute tubular necrosis Qualified Code(s): N17.0 - Acute kidney failure with tubular necrosis Comment: Much improved. Nephrology consulted. Creatinine stablized. (4) Chronic atrial fibrillation with RVR Code(s): I48.2 - CHRONIC ATRIAL FIBRILLATION Status: Chronic (5) Clostridium difficile colitis Status: Acute Comment: on PO vancomycin (6) Decubitus ulcer Code(s): L89.90 - PRESSURE ULCER OF UNSPECIFIED SITE, UNSPECIFIED STAGE Status : Chronic Qualifiers: Pressure injury location: lower back Pressure injury stage: stage 3 (7) Hiatal hernia Code(s): K44.9 - DIAPHRAGMATIC HERNIA WITHOUT OBSTRUCTION OR GANGRENE Status: Chronic Comment: Patient was referred to surgery prior to admission, but has not been stable enough, long enough to consider intervention. (8) Physical deconditioning Code(s): R53.81 - OTHER MALAISE Status: Chronic (9) Chronic anemia Code(s): D64.9 - ANEMIA, UNSPECIFIED Status: Chronic (10) Atrial fibrillation with rapid ventricular response Code(s): I48.91 - UNSPECIFIED ATRIAL FIBRILLATION Status: Acute Comment: cardizem gtt now regular and tachy. AVNRT or aflutter, cardiology to see today - Plan cont current plan of care, continue antibiotics, PT/OT, respiratory therapy * .
--- NOTE | 2018-01-18 11:37 | PDOC.PN ---
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 No F/C, no N/V/D/C, no CP or SOB, diarrhea almost resovled, forming, no other complaints seen by cardiology, in aflutter, confirmed with a dose od adenosine, continues to tach at 128 All systems reviewed and neg x as per HPI - Objective MAR Reviewed: Yes Vital Signs & Weight: Vital Signs (12 hours) Pulse Resp BP Pulse Ox 01/18/18 08:00 97 01/18/18 07:32 127 H 113/76 99 01/18/18 03:52 127 H 18 142/62 H 96 Weight Admit Weight 136 lb 3.931 oz Weight 131 lb 11.2 oz Most Recent Monitor Data Heart Rate from ECG 129 NIBP 124/81 NIBP BP-Mean 95 Respiration from ECG 26 SpO2 96 I&O: 01/17/18 01/18/18 01/19/18 07:59 06:59 06:59 Intake Total Output Total Balance Result Diagrams: 01/18/18 09:41 01/18/18 09:41 EKG Reviewed by me: Yes Phys Exam - Physical Examination Constitutional: NAD HEENT: PERRLA, moist MMs, sclera anicteric, oral pharynx no lesions Neck: no nodes, no JVD, supple, full ROM Respiratory: no wheezing, no rales, no rhonchi, clear to auscultation bilateral Cardiovascular: no significant murmur, no rub tachy, regular Gastrointestinal: soft, non-tender, no distention, positive bowel sounds Musculoskeletal: edema present Neurological: non-focal, normal sensation, moves all 4 limbs Lymphatic: no nodes Psychiatric: normal affect, A&O x 3 Skin: no rash, normal turgor, cap refill <2 seconds Dx/Plan (1) Severe sepsis Code(s): A41.9 - SEPSIS, UNSPECIFIED ORGANISM; R65.20 - SEVERE SEPSIS WITHOUT SEPTIC SHOCK Status: Acute Comment: improving, CDiff recurdesence, present on admission; IV fluids, po vanc, continue florastor (2) Pressure ulcer of back Code(s): L89.109 - PRESSURE ULCER OF UNSP PART OF BACK, UNSPECIFIED STAGE Status: Acute Qualifiers: Pressure injury stage: stage 3 Qualified Code(s): L89.103 - Pressure ulcer of unspecified part of back, stage 3 Comment: present on admit (3) Acute kidney failure Status: Acute Qualifiers: Acute renal failure type: with acute tubular necrosis Qualified Code(s): N17.0 - Acute kidney failure with tubular necrosis Comment: Much improved. Nephrology consulted. Creatinine stablized. (4) Chronic atrial fibrillation with RVR Code(s): I48.2 - CHRONIC ATRIAL FIBRILLATION Status: Chronic (5) Clostridium difficile colitis Status: Acute Comment: on PO vancomycin (6) Decubitus ulcer Code(s): L89.90 - PRESSURE ULCER OF UNSPECIFIED SITE, UNSPECIFIED STAGE Status : Chronic Qualifiers: Pressure injury location: lower back Pressure injury stage: stage 3 (7) Hiatal hernia Code(s): K44.9 - DIAPHRAGMATIC HERNIA WITHOUT OBSTRUCTION OR GANGRENE Status: Chronic Comment: Patient was referred to surgery prior to admission, but has not been stable enough, long enough to consider intervention. (8) Physical deconditioning Code(s): R53.81 - OTHER MALAISE Status: Chronic (9) Chronic anemia Code(s): D64.9 - ANEMIA, UNSPECIFIED Status: Chronic (10) Atrial fibrillation with rapid ventricular response Code(s): I48.91 - UNSPECIFIED ATRIAL FIBRILLATION Status: Acute Comment: cardizem gtt now regular and tachy. AVNRT or aflutter, cardiology following - Plan cont current plan of care, continue antibiotics, PT/OT, geriatric social worker, respiratory therapy, out of bed/ambulate * .
--- NOTE | 2018-01-18 17:36 | PRG ---
DATE OF SERVICE: 01/18/2018 SUBJECTIVE: She has no new complaints. OBJECTIVE: VITAL SIGNS: Heart rate is 110, oximetry is 99 on 2 liters, blood pressure 109/79. LUNGS: Clear. HEART: Regular rhythm. ABDOMEN: Soft. LABORATORY DATA: White count 13.2, hemoglobin 9.8, platelets 648. Sodium 138, potassium 4.4, chlori de 111, bicarbonate 16, BUN 33, creatinine 0.9. Intake and outputs, positive 3272. There is no outp ut recorded. IMPRESSION: 1. Rapid atrial fibrillation. 2. Deconditioning. 3. Anemia. 4. Thrombocytosis, likely reactive. 5. Cystitis. PLAN: Continue supportive care. She probably could go to the telemetry unit at some point in the ne ar future. She will continue on p.o. vancomycin for what is felt to be recurrence of Clostridium difficile. We will continue to follow while she is in the Intermediate Care Unit.
[2018-01-19] MEDS: ALPRAZolam 1 MG TAB PO PRN ×3 (01:54→16:59)
[2018-01-19 04:17] LABS: Anion Gap 13 mmol/L (10-20); BUN (Urea Nitrogen) 34 mg/dL (9.8-20.1); Calc. Creatinine Clearance 46 mL/min (70-130); Calcium 8.2 mg/dL (7.8-10.44); Carbon Dioxide 16 mmol/L (23-31); Chloride 112 mmol/L (98-107); Estimated GFR-MDRD 56; Glucose 99 mg/dL (83-110); Magnesium 1.8 mg/dL (1.6-2.6); Potassium 4.8 mmol/L (3.5-5.1); Sodium 136 mmol/L (136-145)
[2018-01-19 04:33] LABS: Band 4 % (5-11); Eosinophils 3 % (0-10); Hemoglobin 9.1 g/dL (12.0-16.0); Lymphocytes 11 % (21-51); MDiff Complete? YES; Mean Corpuscular HGB CONC 31.3 g/dL (32.0-36.0); Mean Corpuscular Hemoglobin 29.7 pg (27.0-31.0); Metamyelocyte 1 % (0-0); Monocytes 11 % (0-10); Neutrophil 70 % (42-75); PLT Morphology Comment Appears Increased; Platelet Count 512 thou/uL (130-400); Red Blood Cell (RBC) Count 3.05 mill/uL (4.20-5.40); White Blood Cell (WBC) Count 11.9 thou/uL (4.8-10.8)
[2018-01-19] MEDS: Diltiazem HCl 125 MG, Admixture Fee 1 EACH in Sodium Chloride 0.9% 100 ML IVPB SCH (07:00)
--- NOTE | 2018-01-19 07:33 | PRG ---
DATE OF SERVICE: 01/19/2018 Ms. Mcintyre is clinically unchanged. She is in no distress. She is resting comfortable this morning. PHYSICAL EXAMINATION: LUNGS: Lungs are clear. HEART: Irregular, still in atrial fibrillation with a rate of 120. ABDOMEN: Abdomen is soft. IMPRESSION: 1. Recurrent Clostridium difficile. 2. Rapid atrial fibrillation/atrial flutter. 3. Peripheral vascular disease. 4. Deconditioning. 5. Malnutrition. She is being followed by Cardiology. There are no acute issues. She can probably be transferred to the telemetry unit.
--- NOTE | 2018-01-19 09:43 | PDOC.PN ---
- Subjective Encounter Start Date: 01/19/18 Encounter Start Time: 09:41 Subjective: no diarrhea, fever. feels much improved - Objective MAR Reviewed: Yes Vital Signs & Weight: Vital Signs (12 hours) Temp Pulse Resp BP Pulse Ox 01/19/18 08:00 98 01/19/18 04:00 106 H 16 107/62 99 01/19/18 00:00 97.8 F 119 H 17 111/69 98 Weight Admit Weight 136 lb 3.931 oz Weight 131 lb 11.2 oz Most Recent Monitor Data Heart Rate from ECG 129 NIBP 124/81 NIBP BP-Mean 95 Respiration from ECG 26 SpO2 96 I&O: 01/18/18 01/19/18 01/20/18 06:59 06:59 06:59 Intake Total 1400 Output Total 2 Balance 1398 Result Diagrams: 01/19/18 03:39 01/19/18 03:39 Phys Exam - Physical Examination Neck: no JVD Respiratory: clear to auscultation bilateral Cardiovascular: no significant murmur, irregular Gastrointestinal: soft, no distention, positive bowel sounds Musculoskeletal: edema present Dx/Plan (1) Atrial fibrillation with rapid ventricular response Code(s): I48.91 - UNSPECIFIED ATRIAL FIBRILLATION Status: Chronic Comment: cardizem gtt now regular and tachy. AVNRT or aflutter, cardiology following (2) Clostridium difficile colitis Status: Acute Comment: on PO vancomycin (3) Hiatal hernia with GERD and esophagitis Code(s): K44.9 - DIAPHRAGMATIC HERNIA WITHOUT OBSTRUCTION OR GANGRENE; K21.0 - GASTRO-ESOPHAGEAL REFLUX DISEASE WITH ESOPHAGITIS Status: Chronic (4) Dyslipidemia Code(s): E78.5 - HYPERLIPIDEMIA, UNSPECIFIED Status: Chronic (5) GERD (gastroesophageal reflux disease) Code(s): K21.9 - GASTRO-ESOPHAGEAL REFLUX DISEASE WITHOUT ESOPHAGITIS Status: Chronic (6) Hiatal hernia Code(s): K44.9 - DIAPHRAGMATIC HERNIA WITHOUT OBSTRUCTION OR GANGRENE Status: Chronic Comment: Patient was referred to surgery prior to admission, but has not been stable enough, long enough to consider intervention. (7) Diarrhea Code(s): R19.7 - DIARRHEA, UNSPECIFIED Status: Resolved Comment: Concerned that it may be related to the Multaq. Discussed with nursing. Will follow up with cardiology. Work up otherwise negative. (8) Sepsis Code(s): A41.9 - SEPSIS, UNSPECIFIED ORGANISM Status: Resolved Qualifiers: Sepsis type: sepsis due to unspecified organism Qualified Code(s): A41.9 - Sepsis, unspecified organism (9) Acute kidney failure Status: Resolved Qualifiers: Acute renal failure type: with acute tubular necrosis Qualified Code(s): N17.0 - Acute kidney failure with tubular necrosis Comment: Much improved. Nephrology consulted. Creatinine stablized. - Plan cont multaq, iv-po cardizem -: cont po vancomycin -: xsfer to tele * .
[2018-01-19] MEDS: DULoxetine 60 MG CAP PO SCH (09:44)
[2018-01-19] MEDS: Ferrous Sulfate 325 MG TAB PO SCH ×3 (09:44→16:47)
[2018-01-19] MEDS: Dronedarone HCl 400 MG TAB PO SCH ×2 (09:44→16:47)
[2018-01-19] MEDS: Saccharomyces boulardii 250 MG CAP PO SCH ×2 (09:44→22:47)
[2018-01-19] MEDS: HYDROcodone/Acetaminophen 5/325 mg Tablet PO PRN ×3 (09:44→19:20)
[2018-01-19] MEDS: Heparin 5,000 UNITS/ML VIAL SC SCH ×2 (09:45→22:46)
[2018-01-19] MEDS: Aspirin 81 mg Enteric Coated Tablet PO SCH (09:45)
[2018-01-19] MEDS: Atorvastatin Calcium 20 MG TAB PO SCH (09:45)
[2018-01-19] MEDS: (Lifitegrast [Xiidra] 1 DROP) EA EYE SCH ×2 (09:46→22:55)
[2018-01-19] MEDS: Vancomycin HCl 25 MG/ML Oral PO SCH ×4 (09:46→23:52)
[2018-01-19] MEDS: Nystatin 500,000 UNITS/5 ML UDCUP SSW SCH ×4 (09:46→23:04)
[2018-01-19] MEDS: Hydroxychloroquine Sulfate 200 MG TAB PO SCH (09:46)
[2018-01-19] MEDS: Cholestyramine/Aspartame 4 gm Packet PO SCH ×2 (09:47→23:08)
--- NOTE | 2018-01-19 11:54 | CON ---
DATE OF CONSULTATION: 01/19/2018 SUBJECTIVE: Ms. Mcintyre is here, readmitted due to severe weakness and anemia with a hemoglobin down to 6.2. She was found to be septic as well. Blood cultures positive for coag negative Staphylococcus 1 out of 2 sets. Yeast also growing from the blood cultures as well as E. coli, also from urine. Dr. Gaytan is following her. She continues to have difficult rate control. In the past she has been on Multaq, but it was stopped due to diarrhea. I have seen this lady back in November for similar issues. Currently, she is feeling somewhat better. Denies any loss of consciousness, no stroke-like symptoms. No neurological deficits. REVIEW OF SYSTEMS: The rest of 12-point system otherwise unremarkable. PAST MEDICAL HISTORY: 1. Paroxysmal atrial fibrillation with now persisting with episodic rapid ventricular rates. A. Chronic Multaq use. B. Occasional episodes of atrial flutter also noted. 2. History of GI bleed and esophagitis and hiatal hernia on EGD. A. History of AV malformation with endoscopic cautery in the past. B. Hemoglobin down to 6, despite holding anticoagulants. 3. History of recurrent infections including UTI sepsis and bacteremia as above. 4. History of cardiovascular disease, status post lower extremity stenting in the left iliac residual left SFA blockage. A. Poorly healing left lower extremity ulcer and decubitus ulcers present. 5. History of chronic obstructive pulmonary disease with prior smoking. 6. Coronary artery disease. 7. History of breast cancer status post resection, left breast. 8. History of Raynaud's phenomenon. 9. History of rheumatoid arthritis. 10. History of chronic back pain. 11. History of hypothyroidism. 12. History of some anxiety and confusion. 13. History of diastolic heart failure, but with prior history of reduced LVEF. ALLERGIES: CODEINE. MEDICATIONS: At home include alprazolam, hydroxychloroquine, duloxetine, trazodone, ferrous sulfate, furosemide, aspirin, Lifitegrast, bisacodyl, omeprazole, pentoxifylline, Saccharomyces, Lipitor, , Multaq, hydrocodone, Risperdal, diltiazem. SOCIAL HISTORY: The patient denies current smoking, ETOH or drug abuse. Quit smoking 17 years before. She lives in [facility]. FAMILY HISTORY: Noncontributory. OBJECTIVE: VITAL SIGNS: Blood pressure is 110/66, heart rate 110, respiration is 18, temperature 97.8 degrees Fahrenheit. GENERAL: This is an alert and oriented woman in no apparent distress. NECK: Supple. Jugular veins are slightly distended. CHEST: Coarse without crackles. CARDIAC: Heart sounds are irregularly irregular. S1, S2 variable. No murmur or gallop. ABDOMEN: Benign. Bowel sounds positive. EXTREMITIES: No edema, clubbing or cyanosis. DATABASE: EKG is reviewed, reveals atrial flutter/fibrillation with intermittent sinus rhythm is still present in the beginning of hospitalization. LABORATORY DATA: Sodium 136, potassium 4.8, BUN is 34, creatinine 0.96, troponin I's are 0.16 and 0.109. BNP 597. INR 1.2. White count 13.2 down from 22.7 on admission, hemoglobin 9.8, platelet count is 648, neutrophil percent 78%. Blood cultures are reviewed revealing yeast and E. coli and coag negative Staphylococcus from the blood cultures, Escherichia coli and yeast species. ASSESSMENT AND PLAN: Ms. Mcintyre is an unfortunate 77-year-old woman with multiple morbidities. She is here with sepsis and GI bleed and continued atrial fibrillation despite Multaq administration requiring diltiazem on top of her current regimen. 1. She is very difficult to rate control. At this point, continuing with Multaq therapy is reasonable. Monitor liver functions. Monitor her for diarrhea as well. Continue diltiazem, possibly adding digoxin could help rate control as well. Monitor for worsening renal function. 2. Adding amiodarone is a possibility, although likely could worsen her respiratory function potential long-term, I would use as a last resort. 3. Pacing ablation is a remote possibility, although at this point with all her infectious issues, it would be a difficult proposition. 4. Anticoagulation is not on an option at this point with severe anemia, possible gastrointestinal bleed. 5. Infection treated as above as per Dr. Hamlin. 6. Diastolic heart failure. We will check LVEF, has history of LV dysfunction remotely. [facility]
--- NOTE | 2018-01-19 11:57 | PQF ---
CLINICAL DOCUMENTATION IMPROVEMENT CLARIFICATION FORM: ICD-10 Updated PLEASE DO AN ADDENDUM TO THE PROGRESS NOTE WITH ANY DOCUMENTATION UPDATES OR ADDITIONS AND CARRY THROUGH TO DC SUMMARY. THANK YOU. DATE: 01/19/18 ATTN: Dr. Butler Please exercise your independent, professional judgment in responding to the clarification form. Clinical indicators are provided on the bottom of this form for your review Please check appropriate box(s): [ ] Acute Respiratory Failure: [ ] with Hypoxia [ ] with Hypercapnia [ ] Acute Respiratory Failure due to [ ] Acute On Chronic Respiratory Failure: [ ] with Hypoxia [ ] with Hypercapnia [ xc] Other diagnosis ___tnansient hypoxia, see cardiology consult [ ] Unable to determine In addition, please specify: Present on Admission (POA): [ ] Yes [ ] No [ ] Unable to determine For continuity of documentation, please document condition throughout progress notes and discharge summary. Thank You. CLINICAL INDICATORS - SIGNS / SYMPTOMS / LABS JOSE [facility]OLGUIN EVENT REPORT 01/15 @1234: JOSE CHELSIE CALLED FOR O2 SAT IN 60' S, A FIB RVR. CODE CHANGED TO BLUE 1238: O2 SAT 78% ON NRB, HR 143 1246: 100% ON 15L NRB PN 01/15: SHE BECAME SOB. MEASURED O2 SAT WAS 79 RISKS: H&P 01/12: SEPSIS. SACRAL DECUBITUS ULCER. PN 01/15: CDIFF COLITIS RECRUDESENCE. A FIB WITH RVR. TREATMENT: TRANSFERRED TO CCU 01/15 ORDER 01/15: RESP: O2 TO KEEP SATS 92% CONTINUOUS Thank you, Marine (This form is maintained as a part of the permanent medical record) 2015 [employer] All Rights Reserved Marine Carrasco RN, BSN [email or web address] Office: [phone] [facility]
--- NOTE | 2018-01-19 12:06 | EKG ---
Test Reason : STAT CP Blood Pressure : / mmHG Vent. Rate : 126 BPM Atrial Rate : 126 BPM P-R Int : 000 ms QRS Dur : 102 ms QT Int : 332 ms P-R-T Axes : 000 -17 153 degrees QTc Int : 480 ms Sinus tachycardia Possible Anterior infarct , age undetermined Abnormal ECG Confirmed by JOCELYNE ZAVALA ([id number]) on 01/19/2018 12:06:09 PM Referred By: Yo VILLANUEVA Confirmed By:JOCELYNE ZAVALA
[2018-01-19] MEDS: Digoxin 0.5 MG/2 ML AMP SLOW IVP SCH ×2 (12:22→16:47)
[2018-01-19] MEDS: Sodium Chloride 0.9% 1,000 ML IV SCH (14:25)
[2018-01-19] MEDS ORDERED: Diltiazem HCl 125 MG, Admixture Fee 1 EACH in Sodium Chloride 0.9% 100 ML IVPB SCH (15:00)
[2018-01-20] MEDS: Digoxin 0.5 MG/2 ML AMP SLOW IVP SCH ×2 (00:06→06:35)
[2018-01-20] MEDS: ALPRAZolam 1 MG TAB PO PRN ×2 (05:07→12:57)
[2018-01-20] MEDS: Sodium Chloride 0.9% 1,000 ML IV SCH ×2 (05:08→17:17)
--- NOTE | 2018-01-20 08:36 | PDOC.PN ---
- Subjective Encounter Start Date: 01/20/18 Encounter Start Time: 08:34 Subjective: no diarrhea, dizziness - Objective MAR Reviewed: Yes Vital Signs & Weight: Vital Signs (12 hours) Temp Pulse Resp BP Pulse Ox 01/20/18 06:35 79 01/20/18 04:00 97.8 F 64 10 L 121/64 98 01/20/18 00:06 55 L 01/20/18 00:00 74 12 118/57 L Weight Admit Weight 131 lb 11.2 oz Weight 162 lb 6.4 oz Most Recent Monitor Data Heart Rate from ECG 129 NIBP 124/81 NIBP BP-Mean 95 Respiration from ECG 26 SpO2 96 I&O: 01/19/18 01/20/18 01/21/18 06:59 06:59 06:59 Intake Total 1400 2410 Output Total 2 Balance 1398 2410 Result Diagrams: 01/19/18 03:39 01/19/18 03:39 Phys Exam - Physical Examination Constitutional: NAD Neck: no JVD Respiratory: clear to auscultation bilateral Cardiovascular: no significant murmur, irregular Gastrointestinal: soft, non-tender, positive bowel sounds Dx/Plan (1) Atrial fibrillation with rapid ventricular response Code(s): I48.91 - UNSPECIFIED ATRIAL FIBRILLATION Status: Chronic Comment: cardizem gtt now regular and tachy. AVNRT or aflutter, cardiology following (2) Clostridium difficile colitis Status: Acute Comment: on PO vancomycin (3) Hiatal hernia with GERD and esophagitis Code(s): K44.9 - DIAPHRAGMATIC HERNIA WITHOUT OBSTRUCTION OR GANGRENE; K21.0 - GASTRO-ESOPHAGEAL REFLUX DISEASE WITH ESOPHAGITIS Status: Chronic (4) Dyslipidemia Code(s): E78.5 - HYPERLIPIDEMIA, UNSPECIFIED Status: Chronic (5) GERD (gastroesophageal reflux disease) Code(s): K21.9 - GASTRO-ESOPHAGEAL REFLUX DISEASE WITHOUT ESOPHAGITIS Status: Chronic (6) Hiatal hernia Code(s): K44.9 - DIAPHRAGMATIC HERNIA WITHOUT OBSTRUCTION OR GANGRENE Status: Chronic Comment: Patient was referred to surgery prior to admission, but has not been stable enough, long enough to consider intervention. - Plan EP in cosultation, discuss options -: diarrhae resolved , cont po vancomycin -: cont multaq, cardizem * .
[2018-01-20] MEDS: Aspirin 81 mg Enteric Coated Tablet PO SCH (09:24)
[2018-01-20] MEDS: Digoxin 0.125 MG TAB PO SCH (09:24)
[2018-01-20] MEDS: Dronedarone HCl 400 MG TAB PO SCH ×2 (09:24→17:13)
[2018-01-20] MEDS: DULoxetine 60 MG CAP PO SCH (09:24)
[2018-01-20] MEDS: Hydroxychloroquine Sulfate 200 MG TAB PO SCH (09:25)
[2018-01-20] MEDS: Vancomycin HCl 25 MG/ML Oral PO SCH ×4 (09:25→21:02)
[2018-01-20] MEDS: Cholestyramine/Aspartame 4 gm Packet PO SCH ×2 (09:26→21:07)
[2018-01-20] MEDS: Saccharomyces boulardii 250 MG CAP PO SCH ×2 (09:26→22:14)
[2018-01-20] MEDS: Atorvastatin Calcium 20 MG TAB PO SCH (09:26)
[2018-01-20] MEDS: Ferrous Sulfate 325 MG TAB PO SCH ×3 (09:26→17:13)
[2018-01-20] MEDS: Heparin 5,000 UNITS/ML VIAL SC SCH ×2 (09:26→21:10)
[2018-01-20] MEDS: (Lifitegrast [Xiidra] 1 DROP) EA EYE SCH ×2 (09:57→22:14)
[2018-01-20] MEDS: Nystatin 500,000 UNITS/5 ML UDCUP SSW SCH ×4 (10:06→21:00)
--- NOTE | 2018-01-20 11:49 | PDOC.CTH ---
Cardiology Progress Note - Subjective EP progress note: Patient seen and examined. Daughter bedside. Feels largely unchanged. Family very concerned with many questions. Diarrhea slightly improved. - Objective Vital Signs Temp Pulse Resp BP Pulse Ox 01/20/18 09:24 77 01/20/18 06:35 79 01/20/18 04:00 97.8 F 64 10 L 121/64 98 01/20/18 00:06 55 L 01/20/18 00:00 74 12 118/57 L Admit Weight 131 lb 11.2 oz Weight 162 lb 6.4 oz 01/19/18 01/20/18 01/21/18 06:59 06:59 06:59 Intake Total 1400 2410 Output Total 2 Balance 1398 2410 - Physical Examination General/Neuro: alert & oriented x3, NAD Neck: other: (mild JVD) Lungs: CTA Heart: other: (irreg irreg) Abdomen: NT/ND, soft - Telemetry Telemetry Rhythm: A Fib/Flutter - Labs Result Diagrams: 01/19/18 03:39 01/19/18 03:39 Troponin/CKMB CK-MB (CK-2) 4.4 ng/mL (0-6.6) 01/16/18 00:06 Troponin I 0.109 ng/mL (< 0.028) H 01/16/18 00:06 - Assessment/Plan 1. Atrial fibrillation and flutter -Chronic multaq use. Difficult to rate control but has limited medication options with her multiple comorbidities. Continue multaq 400mg BID with Diltiazem 90mg QID. Added digoxin 0.125mg QD for additional rate control. Monitor LFTs with Multaq. If these methods fail, Amiodarone is the final option but less than ideal with her underlying pulmonary disease. She is a very poor candidate for ablation with her infectious processes and failing health status so we will continue with medical management. Spoke with daughter extensively about these options and my recommendations/treatment plan for her mother. 2. C. Diff/colitis -Per ID/Dr Hamlin 3. Chronic diastolic heart failure -Echo ordered yesterday. Results pending. Awaiting LVEF results 4. Severe anemia - Hgb as low at 6 but now > 9.0 - Possible GI bleed. - Not a candidate for oral anticoagulation 5. CHADS2-VASC: at least 4. -OAC is indicated but severe anemia even without OAC as mentioned above
[2018-01-20] MEDS: HYDROcodone/Acetaminophen 5/325 mg Tablet PO PRN ×2 (12:57→17:14)
--- NOTE | 2018-01-20 16:48 | EKG ---
Test Reason : 2 HR POST MED Blood Pressure : / mmHG Vent. Rate : 099 BPM Atrial Rate : 227 BPM P-R Int : 000 ms QRS Dur : 090 ms QT Int : 356 ms P-R-T Axes : 000 006 223 degrees QTc Int : 456 ms Atrial fibrillation Low voltage QRS Abnormal ECG When compared with ECG of 20-JAN-2018 09:33, (Unconfirmed) Atrial fibrillation has replaced Atrial flutter Confirmed by DR. Stephanie POWELL ([id number]) on 01/20/2018 4:48:26 PM Referred By: [facility] Confirmed By:DR. Stephanie POWELL
[2018-01-20] MEDS: traZODone HCl 150 MG TAB PO PRN (21:03)
[2018-01-21] MEDS: Sodium Chloride 0.9% 1,000 ML IV SCH (01:31)
[2018-01-21] MEDS: HYDROcodone/Acetaminophen 5/325 mg Tablet PO PRN ×3 (01:43→19:27)
[2018-01-21 06:55] VITALS: BMI 28.5
--- NOTE | 2018-01-21 08:00 | PDOC.PN ---
- Subjective Encounter Start Date: 01/21/18 Encounter Start Time: 07:57 Subjective: no sob , etc. minimal diarrhea - Objective MAR Reviewed: Yes Vital Signs & Weight: Vital Signs (12 hours) Temp Pulse Resp BP Pulse Ox 01/21/18 07:30 99 01/21/18 04:00 96.5 F L 65 12 124/61 01/20/18 20:25 96.7 F L 78 16 140/63 99 Weight Admit Weight 131 lb 11.2 oz Weight 166 lb Most Recent Monitor Data Heart Rate from ECG 129 NIBP 124/81 NIBP BP-Mean 95 Respiration from ECG 26 SpO2 96 I&O: 01/20/18 01/21/18 01/22/18 06:59 06:59 06:59 Intake Total 2410 1060 Output Total 225 Balance 2410 835 Result Diagrams: 01/19/18 03:39 01/19/18 03:39 Phys Exam - Physical Examination Neck: no JVD post rales Cardiovascular: irregular Gastrointestinal: soft, positive bowel sounds Musculoskeletal: edema present Dx/Plan (1) Atrial fibrillation with rapid ventricular response Code(s): I48.91 - UNSPECIFIED ATRIAL FIBRILLATION Status: Chronic Comment: cardizem gtt now regular and tachy. AVNRT or aflutter, cardiology following (2) Clostridium difficile colitis Status: Acute Comment: on PO vancomycin (3) Hiatal hernia with GERD and esophagitis Code(s): K44.9 - DIAPHRAGMATIC HERNIA WITHOUT OBSTRUCTION OR GANGRENE; K21.0 - GASTRO-ESOPHAGEAL REFLUX DISEASE WITH ESOPHAGITIS Status: Chronic (4) Dyslipidemia Code(s): E78.5 - HYPERLIPIDEMIA, UNSPECIFIED Status: Chronic (5) GERD (gastroesophageal reflux disease) Code(s): K21.9 - GASTRO-ESOPHAGEAL REFLUX DISEASE WITHOUT ESOPHAGITIS Status: Chronic (6) Hiatal hernia Code(s): K44.9 - DIAPHRAGMATIC HERNIA WITHOUT OBSTRUCTION OR GANGRENE Status: Chronic Comment: Patient was referred to surgery prior to admission, but has not been stable enough, long enough to consider intervention. (7) Cardiomyopathy Code(s): I42.9 - CARDIOMYOPATHY, UNSPECIFIED Status: Acute - Plan CBC, CMP, CXR- then reevaluate * .
[2018-01-21] MEDS: ALPRAZolam 1 MG TAB PO PRN ×2 (08:27→15:32)
[2018-01-21] MEDS: Digoxin 0.125 MG TAB PO SCH (08:27)
[2018-01-21] MEDS: Saccharomyces boulardii 250 MG CAP PO SCH ×2 (08:27→20:42)
[2018-01-21] MEDS: Hydroxychloroquine Sulfate 200 MG TAB PO SCH (08:27)
[2018-01-21] MEDS: Ferrous Sulfate 325 MG TAB PO SCH ×3 (08:27→16:47)
[2018-01-21] MEDS: Dronedarone HCl 400 MG TAB PO SCH ×2 (08:28→16:47)
[2018-01-21] MEDS: DULoxetine 60 MG CAP PO SCH (08:28)
[2018-01-21] MEDS: Heparin 5,000 UNITS/ML VIAL SC SCH ×2 (08:28→20:30)
[2018-01-21] MEDS: Atorvastatin Calcium 20 MG TAB PO SCH (08:28)
[2018-01-21] MEDS: Aspirin 81 mg Enteric Coated Tablet PO SCH (08:28)
[2018-01-21] MEDS: Vancomycin HCl 25 MG/ML Oral PO SCH ×4 (08:28→20:31)
[2018-01-21 08:31] LABS: ALT (SGPT) 11 U/L (8-55); AST (SGOT) 13 U/L (5-34); Albumin 2.5 g/dL (3.4-4.8); Alkaline Phosphatase 96 U/L (40-150); Anion Gap 14 mmol/L (10-20); BUN (Urea Nitrogen) 34 mg/dL (9.8-20.1); Bilirubin, Total Less than 0.2 mg/dL (0.2-1.2); Calc. Creatinine Clearance 57 mL/min (70-130); Calcium 8.5 mg/dL (7.8-10.44); Carbon Dioxide 15 mmol/L (23-31); Chloride 115 mmol/L (98-107); Estimated GFR-MDRD 56; Globulin 2.4 g/dL (2.4-3.5); Glucose 67 mg/dL (83-110); Potassium 5.2 mmol/L (3.5-5.1); Protein, Total 4.9 g/dL (6.0-8.3); Sodium 139 mmol/L (136-145)
[2018-01-21 10:17] LABS: Band 5 % (5-11); Burr Cells MODERATE= 6-15 cells (100X) (0-1/hpf); Hemoglobin 8.7 g/dL (12.0-16.0); Hypochromia SLIGHT = 6-15 cells (100X) (0-5/hpf); Lymphocytes 3 % (21-51); MDiff Complete? YES; Mean Corpuscular HGB CONC 30.2 g/dL (32.0-36.0); Mean Corpuscular Hemoglobin 29.7 pg (27.0-31.0); Mean Corpuscular Volume 98.4 fL (78.0-98.0); Mean Platelet Volume 7.1 fL (7.4-10.4); Metamyelocyte 1 % (0-0); Monocytes 4 % (0-10); Neutrophil 87 % (42-75); PLT Morphology Comment Appears Increased; Platelet Count 441 thou/uL (130-400); Polychromasia SLIGHT = 2-3 cells (100X) (0-2/hpf); RBC Distribution Width 17.9 % (11.5-14.5); Red Blood Cell (RBC) Count 2.94 mill/uL (4.20-5.40); White Blood Cell (WBC) Count 10.9 thou/uL (4.8-10.8)
--- NOTE | 2018-01-21 10:17 | RAD ---
CHEST ONE VIEW: History: 77-year-old female with history of [employer] , atrial fibrillation. Comparison: 01-12-18 FINDINGS: There is cardiomegaly with extensive bilateral vascular congestion, interstitial and alveolar edema, and bilateral pleural effusions showing progression from 01-12-18. IMPRESSION: Worsening congestion and edema and pleural effusions. Conceivably bilateral pneumonia or pneumonitis could have a similar appearance. Correlate with clinical and laboratory findings in that regard. POS: [facility]
--- NOTE | 2018-01-21 11:05 | PDOC.CTH ---
Cardiology Progress Note - Subjective EP progress note: Patient seen and examined. Feels largely unchanged. No cardiac concerns or complaints today. - Objective Vital Signs Temp Pulse Resp BP Pulse Ox 01/21/18 07:45 98.8 F 117 H 32 H 132/82 85 L 01/21/18 07:30 99 01/21/18 04:00 96.5 F L 65 12 124/61 Admit Weight 131 lb 11.2 oz Weight 166 lb 01/20/18 01/21/18 01/22/18 06:59 06:59 06:59 Intake Total 2410 1060 Output Total 225 Balance 2410 835 - Physical Examination General/Neuro: alert & oriented x3, NAD Lungs: CTA, unlabored respirations Heart: PMI normal, other: (irreg irreg) Abdomen: NT/ND, soft - Telemetry Telemetry Rhythm: AF, CVR - Labs Result Diagrams: 01/21/18 04:09 01/21/18 04:09 Troponin/CKMB CK-MB (CK-2) 4.4 ng/mL (0-6.6) 01/16/18 00:06 Troponin I 0.109 ng/mL (< 0.028) H 01/16/18 00:06 - Assessment/Plan 1. Atrial fibrillation and flutter -Chronic multaq use. Difficult to rate control but has limited medication options with her multiple comorbidities. Continue multaq 400mg BID with Diltiazem 90mg QID. Added digoxin 0.125mg QD for additional rate control. Monitor LFTs with Multaq. If these methods fail, Amiodarone is the final option but less than ideal with her underlying pulmonary disease. She is a very poor candidate for ablation with her infectious processes and failing health status so we will continue with medical management. Spoke with daughter extensively yesterday about these options and my recommendations/treatment plan for her mother. 2. C. Diff/colitis -Per ID/Dr Hamlin 3. Chronic diastolic heart failure -Echo ordered yesterday. Results pending. Awaiting LVEF results 4. Severe anemia - Hgb as low at 6 but now > 9.0 - Possible GI bleed. - Not a candidate for oral anticoagulation 5. CHADS2-VASC: at least 4. -OAC is indicated but severe anemia even without OAC as mentioned above Continue current EP treatment plan for AF with multaq and rate controlling agents. VR in the 70s.
[2018-01-21] MEDS: Cholestyramine/Aspartame 4 gm Packet PO SCH (11:58)
[2018-01-21] MEDS: Nystatin 500,000 UNITS/5 ML UDCUP SSW SCH ×5 (12:02→20:32)
[2018-01-21] MEDS: (Lifitegrast [Xiidra] 1 DROP) EA EYE SCH ×2 (12:03→20:00)
--- NOTE | 2018-01-21 12:45 | EKG ---
Test Reason : TIMED Blood Pressure : / mmHG Vent. Rate : 078 BPM Atrial Rate : 234 BPM P-R Int : 000 ms QRS Dur : 086 ms QT Int : 364 ms P-R-T Axes : -54 -06 243 degrees QTc Int : 414 ms Atrial flutter with variable A-V block with premature ventricular or aberrantly conducted complexes Low voltage QRS Nonspecific ST and T wave abnormality Abnormal ECG When compared with ECG of 20-JAN-2018 12:24, Atrial flutter has replaced Atrial fibrillation Confirmed by DR. Stephanie POWELL ([id number]) on 01/21/2018 12:45:47 PM Referred By: [facility] Confirmed By:DR. Stephanie POWELL
[2018-01-21] MEDS: traZODone HCl 150 MG TAB PO PRN (20:31)
[2018-01-22] MEDS: Sodium Chloride 0.9% 1,000 ML IV SCH ×2 (00:42→11:26)
[2018-01-22] MEDS: Cholestyramine/Aspartame 4 gm Packet PO SCH ×3 (00:45→21:03)
[2018-01-22] MEDS: HYDROcodone/Acetaminophen 5/325 mg Tablet PO PRN ×2 (06:00→17:01)
--- NOTE | 2018-01-22 07:31 | PDOC.PN ---
- Subjective Encounter Start Date: 01/22/18 Encounter Start Time: 07:29 Subjective: says she feels better every day, no diarrhea - Objective MAR Reviewed: Yes Vital Signs & Weight: Vital Signs (12 hours) Temp Pulse Resp BP Pulse Ox 01/22/18 05:50 97.3 F L 61 14 159/69 H 98 01/21/18 19:30 98.4 F 63 18 138/63 93 L Weight Admit Weight 131 lb 11.2 oz Weight 166 lb Most Recent Monitor Data Heart Rate from ECG 129 NIBP 124/81 NIBP BP-Mean 95 Respiration from ECG 26 SpO2 96 I&O: 01/21/18 01/22/18 01/23/18 06:59 06:59 06:59 Intake Total 1060 Output Total 225 Balance 835 Result Diagrams: 01/21/18 04:09 01/21/18 04:09 Phys Exam - Physical Examination Neck: no JVD Respiratory: clear to auscultation bilateral Cardiovascular: no significant murmur, irregular Gastrointestinal: soft, positive bowel sounds Musculoskeletal: no edema Dx/Plan (1) Atrial fibrillation with rapid ventricular response Code(s): I48.91 - UNSPECIFIED ATRIAL FIBRILLATION Status: Chronic Comment: cardizem gtt now regular and tachy. AVNRT or aflutter, cardiology following (2) Clostridium difficile colitis Status: Acute Comment: on PO vancomycin (3) Hiatal hernia with GERD and esophagitis Code(s): K44.9 - DIAPHRAGMATIC HERNIA WITHOUT OBSTRUCTION OR GANGRENE; K21.0 - GASTRO-ESOPHAGEAL REFLUX DISEASE WITH ESOPHAGITIS Status: Chronic (4) Dyslipidemia Code(s): E78.5 - HYPERLIPIDEMIA, UNSPECIFIED Status: Chronic (5) GERD (gastroesophageal reflux disease) Code(s): K21.9 - GASTRO-ESOPHAGEAL REFLUX DISEASE WITHOUT ESOPHAGITIS Status: Chronic (6) Hiatal hernia Code(s): K44.9 - DIAPHRAGMATIC HERNIA WITHOUT OBSTRUCTION OR GANGRENE Status: Chronic Comment: Patient was referred to surgery prior to admission, but has not been stable enough, long enough to consider intervention. (7) Cardiomyopathy Code(s): I42.9 - CARDIOMYOPATHY, UNSPECIFIED Status: Acute - Plan cont po vanc for C dif -: cont multaq , dig, diltiazem for atrial fib -: transition to SNF planning * .
[2018-01-22] MEDS: Vancomycin HCl 25 MG/ML Oral PO SCH ×4 (08:54→21:03)
[2018-01-22] MEDS: Dronedarone HCl 400 MG TAB PO SCH ×2 (09:07→17:00)
[2018-01-22] MEDS: Atorvastatin Calcium 20 MG TAB PO SCH (09:07)
[2018-01-22] MEDS: Aspirin 81 mg Enteric Coated Tablet PO SCH (09:07)
[2018-01-22] MEDS: Ferrous Sulfate 325 MG TAB PO SCH ×3 (09:07→17:00)
--- NOTE | 2018-01-22 09:09 | PDOC.CTH ---
Cardiology Progress Note - Subjective EP progress note: Patient seen and examined. Feels poor and largely unchanged. No cardiac concerns or complaints today. Has swelling in her arms today. - Objective Vital Signs Temp Pulse Resp BP Pulse Ox 01/22/18 08:00 97.4 F L 63 16 147/65 H 01/22/18 05:50 97.3 F L 61 14 159/69 H 98 Admit Weight 131 lb 11.2 oz Weight 166 lb 01/21/18 01/22/18 01/23/18 06:59 06:59 06:59 Intake Total 1060 Output Total 225 Balance 835 - Physical Examination General/Neuro: alert & oriented x3, NAD Neck: carotid US brisk, no JVD present Lungs: CTA, unlabored respirations Heart: PMI normal, other: (irreg irreg) Abdomen: NT/ND, soft Extremities: + edema B (BUE) - Telemetry Telemetry Rhythm: AF - Labs Result Diagrams: 01/21/18 04:09 01/21/18 04:09 Troponin/CKMB CK-MB (CK-2) 4.4 ng/mL (0-6.6) 01/16/18 00:06 Troponin I 0.109 ng/mL (< 0.028) H 01/16/18 00:06 - Assessment/Plan 1. Atrial fibrillation and flutter -Chronic multaq use. Now well rate controlled. Limited medication options with her multiple comorbidities. Continue multaq 400mg BID with Diltiazem 90mg QID. Added digoxin 0.125mg QD for additional rate control. Dig level 2.0 yesterday after loading. Will recheck level in AM. If these methods fail, Amiodarone is the final option but less than ideal with her underlying pulmonary disease. She is a very poor candidate for ablation with her infectious processes and failing health status so we will continue with medical management. Spoke with daughter extensively yesterday about these options and my recommendations/treatment plan for her mother. 2. C. Diff/colitis -Per ID/Dr Hamlin 3. Chronic diastolic heart failure -Echo ordered yesterday. Results pending. Awaiting LVEF results 4. Severe anemia - Hgb as low at 6 but now > 9.0 - Possible GI bleed. - Not a candidate for oral anticoagulation 5. CHADS2-VASC: at least 4. -OAC is indicated but severe anemia even without OAC as mentioned above 6. Upper extremity edema Continue current EP treatment plan for medical managment of atrial fibrillation with multaq and rate controlling agents.Recheck digoxin level in AM. Controlled VR in the 60-70s.
[2018-01-22] MEDS: Digoxin 0.125 MG TAB PO SCH (09:14)
[2018-01-22] MEDS: DULoxetine 60 MG CAP PO SCH (09:14)
[2018-01-22] MEDS: Hydroxychloroquine Sulfate 200 MG TAB PO SCH (09:15)
[2018-01-22] MEDS: Nystatin 500,000 UNITS/5 ML UDCUP SSW SCH ×4 (09:15→21:03)
[2018-01-22] MEDS: Saccharomyces boulardii 250 MG CAP PO SCH ×2 (09:16→21:02)
[2018-01-22] MEDS: (Lifitegrast [Xiidra] 1 DROP) EA EYE SCH ×2 (09:16→21:04)
[2018-01-22] MEDS: Heparin 5,000 UNITS/ML VIAL SC SCH ×2 (09:31→21:02)
[2018-01-22] MEDS: ALPRAZolam 1 MG TAB PO PRN ×2 (13:10→21:07)
--- NOTE | 2018-01-22 17:13 | EKG ---
Test Reason : TIMED Blood Pressure : / mmHG Vent. Rate : 060 BPM Atrial Rate : 060 BPM P-R Int : 000 ms QRS Dur : 104 ms QT Int : 430 ms P-R-T Axes : 013 -62 241 degrees QTc Int : 430 ms Junctional rhythm with Premature ventricular complexes or Fusion complexes Left axis deviation Incomplete right bundle branch block Inferior infarct , age undetermined Anteroseptal infarct , age undetermined Nonspecific ST-T changes Abnormal ECG When compared with ECG of 21-JAN-2018 09:38, Junctional rhythm has replaced Atrial flutter Incomplete right bundle branch block is now Present Anteroseptal infarct is now Present Inferior infarct is now Present Confirmed by DR. Stephanie POWELL ([id number]) on 01/22/2018 5:12:57 PM Referred By: [facility] Confirmed By:DR. Stephanie POWELL
[2018-01-22] MEDS: traZODone HCl 150 MG TAB PO PRN (21:06)
[2018-01-23] MEDS: hydrALAZINE 20 MG/ML VIAL SLOW IVP PRN ×2 (04:12→18:07)
[2018-01-23] MEDS: HYDROcodone/Acetaminophen 5/325 mg Tablet PO PRN ×3 (04:27→21:42)
[2018-01-23] MEDS: ALPRAZolam 1 MG TAB PO PRN ×2 (05:24→14:12)
[2018-01-23 05:30] LABS: Digoxin 1.86 ng/mL (0.8-2.0)
--- NOTE | 2018-01-23 06:31 | PDOC.CTH ---
Cardiology Progress Note - Subjective Appears weaker today. Cotninues to complain of SOB - Objective Vital Signs Temp Pulse Resp BP BP Pulse Ox 01/23/18 05:28 64 24 H 175/63 H 99 01/23/18 04:12 70 181/77 H 01/23/18 03:54 72 26 H 218/83 H 94 L 01/22/18 23:19 96.6 F L 72 18 168/75 H 98 01/22/18 20:00 97.8 F 62 18 171/57 H 97 Admit Weight 131 lb 11.2 oz Weight 166 lb 01/21/18 01/22/18 01/23/18 06:59 06:59 06:59 Intake Total 1060 720 Output Total 225 Balance 835 720 - Physical Examination General/Neuro: alert & oriented x3, NAD Neck: no JVD present Lungs: CTA, unlabored respirations Heart: RRR Abdomen: NT/ND, soft Extremities: + femoral B - Labs Result Diagrams: 01/23/18 04:42 01/21/18 04:09 Troponin/CKMB CK-MB (CK-2) 4.4 ng/mL (0-6.6) 01/16/18 00:06 Troponin I 0.109 ng/mL (< 0.028) H 01/16/18 00:06 - Assessment/Plan afib Acute systolic HF C dif colitis deconditioning Severe PVD HTN Rate appears controlled continue conservative treatment Add low dose lasix Ok to SNF Prognosis poor
--- NOTE | 2018-01-23 07:56 | PDOC.PN ---
- Subjective Encounter Start Date: 01/23/18 Encounter Start Time: 07:51 Subjective: complains of sob today - Objective MAR Reviewed: Yes Vital Signs & Weight: Vital Signs (12 hours) Temp Pulse Resp BP BP Pulse Ox 01/23/18 05:28 64 24 H 175/63 H 99 01/23/18 04:12 70 181/77 H 01/23/18 03:54 72 26 H 218/83 H 94 L 01/22/18 23:19 96.6 F L 72 18 168/75 H 98 01/22/18 20:00 97.8 F 62 18 171/57 H 97 Weight Admit Weight 131 lb 11.2 oz Weight 166 lb Most Recent Monitor Data Heart Rate from ECG 129 NIBP 124/81 NIBP BP-Mean 95 Respiration from ECG 26 SpO2 96 I&O: 01/22/18 01/23/18 01/24/18 06:59 06:59 06:59 Intake Total 960 Output Total 850 Balance 110 Result Diagrams: 01/21/18 04:09 01/21/18 04:09 Phys Exam - Physical Examination Neck: no JVD grossly clear, poor effort Cardiovascular: irregular Gastrointestinal: soft, positive bowel sounds Musculoskeletal: edema present Dx/Plan (1) Atrial fibrillation with rapid ventricular response Code(s): I48.91 - UNSPECIFIED ATRIAL FIBRILLATION Status: Chronic Comment: cardizem gtt now regular and tachy. AVNRT or aflutter, cardiology following (2) Clostridium difficile colitis Status: Acute Comment: on PO vancomycin (3) Hiatal hernia with GERD and esophagitis Code(s): K44.9 - DIAPHRAGMATIC HERNIA WITHOUT OBSTRUCTION OR GANGRENE; K21.0 - GASTRO-ESOPHAGEAL REFLUX DISEASE WITH ESOPHAGITIS Status: Chronic (4) Dyslipidemia Code(s): E78.5 - HYPERLIPIDEMIA, UNSPECIFIED Status: Chronic (5) GERD (gastroesophageal reflux disease) Code(s): K21.9 - GASTRO-ESOPHAGEAL REFLUX DISEASE WITHOUT ESOPHAGITIS Status: Chronic (6) Hiatal hernia Code(s): K44.9 - DIAPHRAGMATIC HERNIA WITHOUT OBSTRUCTION OR GANGRENE Status: Chronic Comment: Patient was referred to surgery prior to admission, but has not been stable enough, long enough to consider intervention. (7) Cardiomyopathy Code(s): I42.9 - CARDIOMYOPATHY, UNSPECIFIED Status: Acute - Plan check cxr, abg -: lasix 80mg 1 dose then 40mg q12h -: cont multaq, cardizem po -: cont po vanc -: FU * .
[2018-01-23] MEDS ORDERED: Furosemide 100 MG/10 ML VIAL SLOW IVP SCH (08:15)
--- NOTE | 2018-01-23 08:37 | RAD ---
CHEST 1 VIEW: Date: 01/23/18 HISTORY: CHF. COMPARISON: Radiograph dated 01/12/18. FINDINGS: Large layering effusions. Heart size is enlarged. Moderate edema. IMPRESSION: Decompensated congestive heart failure. Findings appear to have worsened from the 01/21/18 exam. POS: [facility]
[2018-01-23 09:14] LABS: #Eosinphils 0.3 thou/uL (0.0-0.7); #Lymphocytes 0.9 thou/uL (1.20-3.40); #Monocytes 0.6 thou/uL (0.11-0.59); #Neutrophils 9.6 thou/uL (1.40-6.50); %Basophils 0.1 % (0.0-1.0); %Eosinophils 2.6 % (0.0-10.0); %Lymphocytes 7.9 % (21.0-51.0); %Monocytes 5.4 % (0.0-10.0); %Neutrophils 83.9 % (42.0-75.0); Anisocytosis SLIGHT = 6-15 cells (100X) (0-5/hpf); Hemoglobin 8.6 g/dL (12.0-16.0); MDiff Complete? YES; Mean Corpuscular HGB CONC 29.7 g/dL (32.0-36.0); Mean Corpuscular Hemoglobin 29.3 pg (27.0-31.0); Mean Corpuscular Volume 98.6 fL (78.0-98.0); Mean Platelet Volume 7.3 fL (7.4-10.4); Ovalocytes SLIGHT = 2-5 cells (100X) (0-1/hpf); PLT Morphology Comment Appears Increased; Platelet Count 414 thou/uL (130-400); Polychromasia SLIGHT = 2-3 cells (100X) (0-2/hpf); RBC Distribution Width 19.2 % (11.5-14.5); Red Blood Cell (RBC) Count 2.92 mill/uL (4.20-5.40); Schistocytes SLIGHT = 2-5 cells (100X) (0-1/hpf); Tear Drops SLIGHT = 2-5 cells (100X) (0-1/hpf); White Blood Cell (WBC) Count 11.5 thou/uL (4.8-10.8)
[2018-01-23] MEDS: Dronedarone HCl 400 MG TAB PO SCH ×2 (09:34→17:40)
[2018-01-23] MEDS: Vancomycin HCl 25 MG/ML Oral PO SCH ×4 (09:34→21:37)
[2018-01-23] MEDS: Ferrous Sulfate 325 MG TAB PO SCH ×3 (09:35→17:40)
[2018-01-23] MEDS: Cholestyramine/Aspartame 4 gm Packet PO SCH ×2 (09:37→21:38)
[2018-01-23] MEDS: Digoxin 0.125 MG TAB PO SCH (09:38)
[2018-01-23] MEDS: Nystatin 500,000 UNITS/5 ML UDCUP SSW SCH ×4 (09:39→21:34)
[2018-01-23] MEDS: Aspirin 81 mg Enteric Coated Tablet PO SCH (09:39)
[2018-01-23] MEDS: Atorvastatin Calcium 20 MG TAB PO SCH (09:39)
[2018-01-23] MEDS: Saccharomyces boulardii 250 MG CAP PO SCH ×2 (09:39→21:34)
[2018-01-23] MEDS: DULoxetine 60 MG CAP PO SCH (09:39)
[2018-01-23] MEDS: Heparin 5,000 UNITS/ML VIAL SC SCH ×2 (09:44→21:35)
[2018-01-23] MEDS: (Lifitegrast [Xiidra] 1 DROP) EA EYE SCH ×2 (09:56→21:44)
--- NOTE | 2018-01-23 10:39 | PDOC.CTH ---
Cardiology Progress Note - Subjective still lethargic. no new issues. - Objective Vital Signs Temp Pulse Resp BP BP Pulse Ox 01/23/18 08:10 97.4 F L 72 20 131/61 99 01/23/18 05:28 64 24 H 175/63 H 99 01/23/18 04:12 70 181/77 H 01/23/18 03:54 72 26 H 218/83 H 94 L 01/22/18 23:19 96.6 F L 72 18 168/75 H 98 Admit Weight 131 lb 11.2 oz Weight 166 lb 01/22/18 01/23/18 01/24/18 06:59 06:59 06:59 Intake Total 960 Output Total 850 Balance 110 - Physical Examination General/Neuro: alert & oriented x3, other: (mild lethargy) Neck: no JVD present Lungs: CTA Heart: RRR Abdomen: NT/ND - Telemetry Telemetry Rhythm: SR - Labs Result Diagrams: 01/23/18 04:42 01/21/18 04:09 Troponin/CKMB CK-MB (CK-2) 4.4 ng/mL (0-6.6) 01/16/18 00:06 Troponin I 0.109 ng/mL (< 0.028) H 01/16/18 00:06 - Assessment/Plan 1. Atrial fibrillation and flutter- converted back to SR. -Chronic multaq use. Now well rate controlled. Limited medication options with her multiple comorbidities. Continue multaq 400mg BID with Diltiazem 90mg QID. Added digoxin 0.125mg QD for additional rate control. Dig level 1.86. Therapeutic. Ocntinue for now unless sign bradycardia seen. If these efforts fail, Amiodarone is the final option but less than ideal with her underlying pulmonary disease. She is a very poor candidate for ablation with her infectious processes and failing health status so we will continue with medical management. Spoke with daughter extensively yesterday about these options and my recommendations/treatment plan for her mother. 2. C. Diff/colitis -Per ID/Dr Hamlin 3. Chronic diastolic heart failure -Echo ordered yesterday. Results pending. Awaiting LVEF results 4. Severe anemia - Hgb as low at 6 but now > 9.0 - Possible GI bleed. - Not a candidate for oral anticoagulation 5. CHADS2-VASC: at least 4. -OAC is indicated but severe anemia even without OAC as mentioned above 6. Upper extremity edema Continue current EP treatment plan for medical managment of atrial fibrillation with multaq and rate controlling agents. No OAC hence sign anemia. Poor overall prognosis. Would sign out. Please call if could be of further help.
[2018-01-23] MEDS ORDERED: Hydroxychloroquine Sulfate 200 MG TAB PO SCH (11:00)
[2018-01-23] MEDS: Hydroxychloroquine Sulfate 200 MG TAB PO SCH (11:09)
[2018-01-23] MEDS: Furosemide 40 MG/4 ML VIAL SLOW IVP SCH (14:13)
--- NOTE | 2018-01-23 16:44 | EKG ---
Test Reason : Blood Pressure : / mmHG Vent. Rate : 063 BPM Atrial Rate : 063 BPM P-R Int : 186 ms QRS Dur : 084 ms QT Int : 392 ms P-R-T Axes : 035 -03 -51 degrees QTc Int : 401 ms Normal sinus rhythm Low voltage QRS Nonspecific ST and T wave abnormality Abnormal ECG When compared with ECG of 22-JAN-2018 08:56, Sinus rhythm has replaced Junctional rhythm Incomplete right bundle branch block is no longer Present Criteria for Anteroseptal infarct are no longer Present Criteria for Inferior infarct are no longer Present Confirmed by DR. Stephanie POWELL ([id number]) on 01/23/2018 4:43:50 PM Referred By: [facility] Confirmed By:DR. Stephanie POWELL
--- NOTE | 2018-01-23 18:51 | PDOC.EVN ---
Event Note - Event Note Event Note: add ckd 3 and anemia to problem list
[2018-01-23] MEDS: traZODone HCl 150 MG TAB PO PRN (21:42)
[2018-01-24] MEDS: Furosemide 40 MG/4 ML VIAL SLOW IVP SCH ×2 (06:04→13:02)
[2018-01-24] MEDS: Aspirin 81 mg Enteric Coated Tablet PO SCH (08:46)
[2018-01-24] MEDS: Ferrous Sulfate 325 MG TAB PO SCH ×3 (08:46→18:02)
[2018-01-24] MEDS: Digoxin 0.125 MG TAB PO SCH (08:46)
[2018-01-24] MEDS: Dronedarone HCl 400 MG TAB PO SCH ×2 (08:46→17:58)
[2018-01-24] MEDS: DULoxetine 60 MG CAP PO SCH (08:46)
[2018-01-24] MEDS: Atorvastatin Calcium 20 MG TAB PO SCH (08:46)
[2018-01-24] MEDS: Heparin 5,000 UNITS/ML VIAL SC SCH ×2 (08:47→21:49)
[2018-01-24] MEDS: Nystatin 500,000 UNITS/5 ML UDCUP SSW SCH ×4 (08:47→21:51)
[2018-01-24] MEDS: Saccharomyces boulardii 250 MG CAP PO SCH ×2 (08:47→21:50)
[2018-01-24] MEDS: Hydroxychloroquine Sulfate 200 MG TAB PO SCH (08:47)
[2018-01-24] MEDS: ALPRAZolam 1 MG TAB PO PRN ×3 (08:50→21:50)
[2018-01-24] MEDS: (Lifitegrast [Xiidra] 1 DROP) EA EYE SCH ×2 (08:50→21:53)
[2018-01-24] MEDS: HYDROcodone/Acetaminophen 5/325 mg Tablet PO PRN ×4 (10:25→21:50)
[2018-01-24] MEDS: Vancomycin HCl 25 MG/ML Oral PO SCH ×4 (11:42→21:49)
[2018-01-24] MEDS: Cholestyramine/Aspartame 4 gm Packet PO SCH ×2 (12:46→23:38)
--- NOTE | 2018-01-24 15:28 | PDOC.PN ---
- Subjective Encounter Start Date: 01/24/18 Encounter Start Time: 03:00 Subjective: PATIENT VERY UNCOMFORTABLE, KEEPS COMPLAINING OF PAIN IN HER LOWER BACK IN -: ULCER AREA. - Objective Resuscitation Status: Resuscitation Status DNR:Do Not Resuscitate Vital Signs & Weight: Vital Signs (12 hours) Temp Pulse Resp BP BP Pulse Ox 01/24/18 11:44 96.9 F L 61 20 166/67 H 98 01/24/18 08:38 97.7 F 57 L 16 134/62 97 01/24/18 06:39 178/71 H 01/24/18 06:07 96.1 F L 57 L 18 178/71 H Weight Admit Weight 131 lb 11.2 oz Weight 156 lb 6.4 oz Most Recent Monitor Data Heart Rate from ECG 129 NIBP 124/81 NIBP BP-Mean 95 Respiration from ECG 26 SpO2 96 I&O: 01/23/18 01/24/18 01/25/18 06:59 06:59 06:59 Intake Total 960 904 Output Total 850 1200 Balance 110 -296 Result Diagrams: 01/23/18 04:42 01/21/18 04:09 Phys Exam - Physical Examination HEENT: PERRLA, moist MMs, sclera anicteric, TM's clear, oral pharynx no lesions , 2+ tonsils Neck: no nodes, no JVD, supple, full ROM Respiratory: no wheezing, no rales, no rhonchi, clear to auscultation bilateral Cardiovascular: RRR, no significant murmur, no rub, gallop, irregular Gastrointestinal: soft, non-tender, no distention, positive bowel sounds Musculoskeletal: edema present Deviation from normal: LARGE SACRAL DECUBITUS ULCER Dx/Plan (1) Cardiomyopathy Code(s): I42.9 - CARDIOMYOPATHY, UNSPECIFIED Status: Chronic (2) Pressure ulcer of back Code(s): L89.109 - PRESSURE ULCER OF UNSP PART OF BACK, UNSPECIFIED STAGE Status: Chronic Qualifiers: Pressure injury stage: stage 3 Qualified Code(s): L89.103 - Pressure ulcer of unspecified part of back, stage 3 Comment: present on admit (3) Severe sepsis Code(s): A41.9 - SEPSIS, UNSPECIFIED ORGANISM; R65.20 - SEVERE SEPSIS WITHOUT SEPTIC SHOCK Status: Acute Comment: improving, CDiff recurdesence, present on admission; IV fluids, po vanc, continue florastor (4) AVM (arteriovenous malformation) of duodenum, acquired Code(s): K31.819 - ANGIODYSPLASIA OF STOMACH AND DUODENUM WITHOUT BLEEDING Status: Acute Comment: Was the source of the bleeding identified last admission. Looks stable now. (5) Acute anemia Code(s): D64.9 - ANEMIA, UNSPECIFIED Status: Acute Comment: Suspect GI loss given H/O Recent GIB 12/02 w AVM,esophagitis and colonc erosions on endoscopy.S/ P 1 unit PRBC 12/27 (6) Clostridium difficile colitis Status: Acute Comment: on PO vancomycin (7) Atrial fibrillation Code(s): I48.91 - UNSPECIFIED ATRIAL FIBRILLATION Status: Chronic Qualifiers: Atrial fibrillation type: paroxysmal Qualified Code(s): I48.0 - Paroxysmal atrial fibrillation Comment: IN sinus and rate controlled, no SC due to GI bleed and low Hb in the past - Plan cont current plan of care, plan discussed w/ family Plans for inpatient Hospice. Palliative care consulted. * .
[2018-01-25] MEDS: HYDROcodone/Acetaminophen 5/325 mg Tablet PO PRN ×4 (07:08→21:48)
[2018-01-25] MEDS: Furosemide 40 MG/4 ML VIAL SLOW IVP SCH (07:09)
[2018-01-25] MEDS: Heparin 5,000 UNITS/ML VIAL SC SCH ×2 (08:49→21:49)
[2018-01-25] MEDS: Aspirin 81 mg Enteric Coated Tablet PO SCH (08:50)
[2018-01-25] MEDS: Hydroxychloroquine Sulfate 200 MG TAB PO SCH (08:50)
[2018-01-25] MEDS: Dronedarone HCl 400 MG TAB PO SCH ×2 (08:50→17:19)
[2018-01-25] MEDS: DULoxetine 60 MG CAP PO SCH (08:50)
[2018-01-25] MEDS: Saccharomyces boulardii 250 MG CAP PO SCH ×2 (08:50→21:49)
[2018-01-25] MEDS: Ferrous Sulfate 325 MG TAB PO SCH ×3 (08:50→17:19)
[2018-01-25] MEDS: Nystatin 500,000 UNITS/5 ML UDCUP SSW SCH ×4 (08:51→21:44)
[2018-01-25] MEDS: Digoxin 0.125 MG TAB PO SCH (08:51)
[2018-01-25] MEDS: ALPRAZolam 1 MG TAB PO PRN ×3 (08:51→21:49)
[2018-01-25] MEDS: Atorvastatin Calcium 20 MG TAB PO SCH (08:51)
[2018-01-25] MEDS: Vancomycin HCl 25 MG/ML Oral PO SCH ×4 (08:53→23:43)
[2018-01-25] MEDS: (Lifitegrast [Xiidra] 1 DROP) EA EYE SCH ×2 (08:53→21:45)
[2018-01-25] MEDS: Cholestyramine/Aspartame 4 gm Packet PO SCH ×2 (08:54→21:50)
[2018-01-25] MEDS ORDERED: Sodium Chloride 0.65% Nasal 44 ML BOT EA NARE PRN (14:10)
--- NOTE | 2018-01-25 15:08 | PDOC.PN ---
- Subjective Encounter Start Date: 01/25/18 Encounter Start Time: 15:00 Subjective: COMPLAINING OF PAIN IN HER LOW BACK WITH ULCERS, NO MORE DIARRHEA - Objective Resuscitation Status: Resuscitation Status DNR:Do Not Resuscitate Vital Signs & Weight: Vital Signs (12 hours) Temp Pulse Resp BP Pulse Ox 01/25/18 11:32 97.6 F 49 L 20 174/73 H 95 01/25/18 08:51 56 L 01/25/18 07:30 97.5 F L 56 L 22 H 195/79 H 97 01/25/18 03:12 97.7 F 54 L 19 153/67 H 91 L Weight Admit Weight 131 lb 11.2 oz Weight 156 lb 6.4 oz Most Recent Monitor Data Heart Rate from ECG 129 NIBP 124/81 NIBP BP-Mean 95 Respiration from ECG 26 SpO2 96 I&O: 01/24/18 01/25/18 01/26/18 06:59 06:59 06:59 Intake Total 904 300 Output Total 1200 500 Balance -296 -200 Result Diagrams: 01/23/18 04:42 01/21/18 04:09 Phys Exam - Physical Examination HEENT: PERRLA, moist MMs, sclera anicteric, TM's clear, oral pharynx no lesions , 2+ tonsils Neck: no nodes, no JVD, supple, full ROM Respiratory: no wheezing, no rales, no rhonchi, clear to auscultation bilateral Cardiovascular: RRR, no significant murmur, no rub Gastrointestinal: soft, non-tender, no distention, positive bowel sounds Musculoskeletal: no edema, pulses present Deviation from normal: STAGE 3 SACRAL DECUBITUS ULCER Dx/Plan (1) Cardiomyopathy Code(s): I42.9 - CARDIOMYOPATHY, UNSPECIFIED Status: Chronic (2) Pressure ulcer of back Code(s): L89.109 - PRESSURE ULCER OF UNSP PART OF BACK, UNSPECIFIED STAGE Status: Chronic Qualifiers: Pressure injury stage: stage 3 Qualified Code(s): L89.103 - Pressure ulcer of unspecified part of back, stage 3 Comment: present on admit. tURN PATIENT ON SIDE OFTEN (3) Severe sepsis Code(s): A41.9 - SEPSIS, UNSPECIFIED ORGANISM; R65.20 - SEVERE SEPSIS WITHOUT SEPTIC SHOCK Status: Acute Comment: improving, CDiff recurdesence, present on admission; IV fluids, po vanc, continue florastor (4) AVM (arteriovenous malformation) of duodenum, acquired Code(s): K31.819 - ANGIODYSPLASIA OF STOMACH AND DUODENUM WITHOUT BLEEDING Status: Acute Comment: Was the source of the bleeding identified last admission. Looks stable now. (5) Acute anemia Code(s): D64.9 - ANEMIA, UNSPECIFIED Status: Acute Comment: Suspect GI loss given H/O Recent GIB 12/02 w AVM,esophagitis and colonc erosions on endoscopy.S/ P 1 unit PRBC 12/27 (6) Clostridium difficile colitis Status: Acute Comment: on PO vancomycin (7) Atrial fibrillation Code(s): I48.91 - UNSPECIFIED ATRIAL FIBRILLATION Status: Chronic Qualifiers: Atrial fibrillation type: paroxysmal Qualified Code(s): I48.0 - Paroxysmal atrial fibrillation Comment: IN sinus and rate controlled, no AC due to GI bleed and low Hb in the past - Plan cont current plan of care, plan discussed w/ family, executive secretary social welfare Ongoing DW with palliative for inpatient Hospice * .
[2018-01-25] MEDS: cloNIDine 0.1 MG TAB PO PRN (23:43)
[2018-01-26] MEDS: HYDROcodone/Acetaminophen 5/325 mg Tablet PO PRN ×3 (05:54→18:52)
[2018-01-26] MEDS: ALPRAZolam 1 MG TAB PO PRN (06:08)
--- NOTE | 2018-01-26 08:38 | PDOC.PN ---
- Subjective Encounter Start Date: 01/26/18 Encounter Start Time: 08:37 Subjective: sob - Objective Resuscitation Status: Resuscitation Status DNR:Do Not Resuscitate MAR Reviewed: Yes Vital Signs & Weight: Vital Signs (12 hours) Temp Pulse Resp BP BP Pulse Ox 01/26/18 04:00 97.1 F L 51 L 16 179/75 H 99 01/26/18 00:00 97.4 F L 53 L 16 188/77 H 100 01/25/18 23:43 188/77 H 01/25/18 21:40 95 Weight Admit Weight 131 lb 11.2 oz Weight 146 lb 1 oz Most Recent Monitor Data Heart Rate from ECG 129 NIBP 124/81 NIBP BP-Mean 95 Respiration from ECG 26 SpO2 96 I&O: 01/25/18 01/26/18 01/27/18 06:59 06:59 06:59 Intake Total 1140 Output Total 2725 Balance -1585 Result Diagrams: 01/23/18 04:42 01/21/18 04:09 Phys Exam - Physical Examination Neck: no JVD rales bilat, L>R Cardiovascular: no significant murmur, irregular Gastrointestinal: soft, positive bowel sounds Musculoskeletal: edema present Dx/Plan (1) Atrial fibrillation with rapid ventricular response Code(s): I48.91 - UNSPECIFIED ATRIAL FIBRILLATION Status: Chronic Comment: cardizem gtt now regular and tachy. AVNRT or aflutter, cardiology following (2) Clostridium difficile colitis Status: Acute Comment: on PO vancomycin (3) Hiatal hernia with GERD and esophagitis Code(s): K44.9 - DIAPHRAGMATIC HERNIA WITHOUT OBSTRUCTION OR GANGRENE; K21.0 - GASTRO-ESOPHAGEAL REFLUX DISEASE WITH ESOPHAGITIS Status: Chronic (4) Dyslipidemia Code(s): E78.5 - HYPERLIPIDEMIA, UNSPECIFIED Status: Chronic (5) GERD (gastroesophageal reflux disease) Code(s): K21.9 - GASTRO-ESOPHAGEAL REFLUX DISEASE WITHOUT ESOPHAGITIS Status: Chronic (6) Hiatal hernia Code(s): K44.9 - DIAPHRAGMATIC HERNIA WITHOUT OBSTRUCTION OR GANGRENE Status: Chronic Comment: Patient was referred to surgery prior to admission, but has not been stable enough, long enough to consider intervention. (7) Cardiomyopathy Code(s): I42.9 - CARDIOMYOPATHY, UNSPECIFIED Status: Chronic Qualifiers: Cardiomyopathy type: unspecified Qualified Code(s): I42.9 - Cardiomyopathy , unspecified - Plan rpt CXR, CBC, BMP- reevaluate * .
[2018-01-26] MEDS ORDERED: Furosemide 20 MG TAB PO SCH (09:00)
[2018-01-26] MEDS: Nystatin 500,000 UNITS/5 ML UDCUP SSW SCH ×3 (09:39→17:41)
[2018-01-26] MEDS: Aspirin 81 mg Enteric Coated Tablet PO SCH (09:39)
[2018-01-26] MEDS: Hydroxychloroquine Sulfate 200 MG TAB PO SCH (09:40)
[2018-01-26] MEDS: Saccharomyces boulardii 250 MG CAP PO SCH (09:40)
[2018-01-26] MEDS: Atorvastatin Calcium 20 MG TAB PO SCH (09:40)
[2018-01-26] MEDS: Dronedarone HCl 400 MG TAB PO SCH ×2 (09:40→17:37)
[2018-01-26] MEDS: DULoxetine 60 MG CAP PO SCH (09:41)
[2018-01-26] MEDS: Ferrous Sulfate 325 MG TAB PO SCH ×3 (09:41→17:37)
[2018-01-26] MEDS: (Lifitegrast [Xiidra] 1 DROP) EA EYE SCH (09:42)
[2018-01-26] MEDS: Heparin 5,000 UNITS/ML VIAL SC SCH (09:43)
[2018-01-26 09:46] LABS: #Eosinphils 0.1 thou/uL (0.0-0.7); #Lymphocytes 1.2 thou/uL (1.20-3.40); #Monocytes 1.4 thou/uL (0.11-0.59); #Neutrophils 8.8 thou/uL (1.40-6.50); %Basophils 0.4 % (0.0-1.0); %Eosinophils 0.7 % (0.0-10.0); %Lymphocytes 10.4 % (21.0-51.0); %Neutrophils 76.5 % (42.0-75.0); Hemoglobin 10.4 g/dL (12.0-16.0); Mean Corpuscular HGB CONC 30.1 g/dL (32.0-36.0); Mean Corpuscular Hemoglobin 29.6 pg (27.0-31.0); Mean Corpuscular Volume 98.5 fL (78.0-98.0); Mean Platelet Volume 8.6 fL (7.4-10.4); Platelet Count 213 thou/uL (130-400); RBC Distribution Width 19.3 % (11.5-14.5); Red Blood Cell (RBC) Count 3.51 mill/uL (4.20-5.40); White Blood Cell (WBC) Count 11.4 thou/uL (4.8-10.8)
[2018-01-26] MEDS ORDERED: Clopidogrel Bisulfate 75 MG TAB ONE (10:02)
[2018-01-26] MEDS: Vancomycin HCl 25 MG/ML Oral PO SCH ×3 (10:05→17:36)
[2018-01-26] MEDS: Cholestyramine/Aspartame 4 gm Packet PO SCH (10:09)
[2018-01-26 10:13] LABS: Anion Gap 17 mmol/L (10-20); BUN (Urea Nitrogen) 34 mg/dL (9.8-20.1); Calc. Creatinine Clearance 58 mL/min (70-130); Calcium 9.3 mg/dL (7.8-10.44); Carbon Dioxide 21 mmol/L (23-31); Chloride 111 mmol/L (98-107); Estimated GFR-MDRD 66; Glucose 63 mg/dL (83-110); Potassium 6.1 mmol/L (3.5-5.1); Sodium 143 mmol/L (136-145)
--- NOTE | 2018-01-26 11:18 | RAD ---
UPRIGHT PORTABLE CHEST ONE VIEW: History: 77-year-old female history of follow up congestive heart failure. Comparison: 01-23-18 FINDINGS: Cardiomegaly with bilateral vascular congestion, interstitial edema, and pleural effusions, stable fr om prior study. No significant new process. IMPRESSION: Stable congestive heart failure and pulmonary edema and pleural effusions. Continued follow up for co mplete clearing or stability. POS: [facility]
--- NOTE | 2018-01-26 14:03 | PDOC.CTH ---
Cardiology Progress Note - Subjective No new changes noted overnight or through weekend. Continues to complain of pain to debubitus ulcer region and is SOB. EF on recent echo 25-30%. - Objective Vital Signs Temp Pulse Resp BP Pulse Ox 01/26/18 12:00 97.7 F 63 20 218/85 H 96 01/26/18 08:00 97.8 F 60 20 195/81 H 98 01/26/18 04:00 97.1 F L 51 L 16 179/75 H 99 Admit Weight 131 lb 11.2 oz Weight 146 lb 1 oz 01/25/18 01/26/18 01/27/18 06:59 06:59 06:59 Intake Total 1140 Output Total 2725 Balance -1585 - Physical Examination General/Neuro: NAD Neck: carotid US brisk, no JVD present Lungs: other: (mild crackles bilaterally) Heart: RRR Abdomen: NT/ND, soft Extremities: + femoral B - Labs Result Diagrams: 01/26/18 09:10 01/26/18 09:10 Troponin/CKMB CK-MB (CK-2) 4.4 ng/mL (0-6.6) 01/16/18 00:06 Troponin I 0.109 ng/mL (< 0.028) H 01/16/18 00:06 - Assessment/Plan afib severe PVD Acute systolic HF decubitus uler deconditioning Pt converted back to SR Continue with multaq Given her current condition, options are limited for a full recovery Agree with initiation of hospice Recommend pt transfer to medical
[2018-01-26] MEDS: cloNIDine 0.1 MG TAB PO PRN (14:32)
--- NOTE | 2018-01-26 16:57 | EKG ---
Test Reason : KAY Blood Pressure : / mmHG Vent. Rate : 057 BPM Atrial Rate : 057 BPM P-R Int : 182 ms QRS Dur : 088 ms QT Int : 562 ms P-R-T Axes : 063 126 005 degrees QTc Int : 547 ms Sinus bradycardia Right axis deviation Pulmonary disease pattern Septal infarct , age undetermined Prolonged QT Low voltage QRS Nonspecific ST-T changes Abnormal ECG When compared with ECG of 23-JAN-2018 10:05, QRS axis Shifted right Septal infarct is now Present QT has lengthened Confirmed by DR. Stephanie POWELL (3) on 01/26/2018 4:57:29 PM Referred By: Confirmed By:DR. Stephanie POWELL
--- NOTE | 2018-01-26 17:02 | EKG ---
Test Reason : Blood Pressure : / mmHG Vent. Rate : 048 BPM Atrial Rate : 048 BPM P-R Int : 180 ms QRS Dur : 090 ms QT Int : 618 ms P-R-T Axes : 051 046 -02 degrees QTc Int : 552 ms Marked sinus bradycardia Indeterminate axis Low voltage QRS Septal infarct (cited on or before 22-JAN-2018) T wave abnormality, consider lateral ischemia Prolonged QT Abnormal ECG When compared with ECG of 25-JAN-2018 09:50, (Unconfirmed) QT has lengthened Confirmed by DR. Stephanie POWELL (3) on 01/26/2018 5:02:29 PM Referred By: KAYLYN Confirmed By:DR. Stephanie POWELL
--- NOTE | 2018-01-26 17:13 | DIS ---
DATE OF ADMISSION: 01/12/2018 DATE OF DISCHARGE: 01/26/2018 PRIMARY CARE PROVIDER: Carolyne Singer M.D. DISCHARGE DISPOSITION: Discharged to [facility]. FINAL DIAGNOSES: Atrial fibrillation with rapid ventricular response, acute on chronic systolic hear t failure, enterocolitis with Clostridium difficile, hypertension, sacral ulcer, cardiomyopathy, anem ia, peripheral vascular disease. DISCHARGE MEDICATIONS: Soma 350 p.o. t.i.d., hydrocodone 10/325 one or two every 8 hours as needed, alprazolam 1 mg t.i.d. p.r.n., aspirin 81 mg a day, Lipitor 20 mg a day, Questran, Nexium 40 mg twice a day, Multaq 400 mg twice a day, diltiazem 90 mg daily, duloxetine 60 mg a day, hydroxychloroquine 300 mg a day, Lasix 20 mg twice a day, Xiidra 1 drop each eye b.i.d., Florastor 250 mg twice a day, T rental one tablet b.i.d., trazodone 200 mg at bedtime, vancomycin 250 mg p.o. q.i.d. ALLERGIES: CODEINE. PENDING AT THE TIME OF DISCHARGE: Nothing. DIET: Heart healthy. CODE STATUS: DNR. HOSPITAL COURSE: The patient was admitted to the [facility] through [facility] Department with altered mental status and weakness. She was found to be septic with elevated w priyank count, fever and tachycardia. Recent treatment for C. difficile colitis with oral vancomycin. CONSULTATIONS DURING HER HOSPITAL STAY: Infectious Disease, Trae Hamlin M.D.; Pulmonology, Delvis Bates M.D.; Cardiology, Trae Palomino M.D. and Electrophysiology, Everett Lang M.D. PROCEDURES DURING HER HOSPITAL STAY: Himanshu Cunningham called on 01/15/2018 for hypoxemia. STUDIES DONE DURING THE HOSPITAL STAY. CT abdomen and pelvis, bilateral pleural effusions, mucosal t hickening of the colon. Echocardiogram 01/20/2018, EF 25%-30%. The patient was found to have C. dif ficile colitis, restarted on oral vancomycin. Diarrhea was improving. Acute renal failure with acut e tubular necrosis, improving. Atrial fibrillation with rapid ventricular response, restarted on Mul taq, Cardizem. On 01/18/2018, the patient was in atrial flutter, atrial fibrillation. Her stools we re more formed. Her initial white count was in the 22.7 and 21.9 range and dropped steadily during h er hospital stay. Her hemoglobin ranged from 8.5-9.8. Initial comp metabolic profile showed a sodiu m of 135, BUN 28, phosphorus 1.9, magnesium 1.5. Liver studies are normal. She had troponins of 0.1 2, 0.17 and 0.11. During this hospital stay, she had a progressive metabolic acidosis, most likely related to her C. di ff. She was evaluated for electrophysiology studies and considered not a candidate by them for them. She was treated for heart failure with Lasix. The patient really failed to thrive and improve duri ng her hospital stay. On 01/23/2018, in consultation with son and daughter, she was made DNR. They have decided over the past 3 days that her situation is not improving and they have decided to consul t hospice. She has been evaluated by [facility] and accepted as inpatient. She is being transferred there today.
[2018-01-26 18:38] VITALS: BP 184/74; TEMP 98
== END 2018-01-26 20:50 | disposition hospice, inpatient (51) | DRG 871 ==
LOC: ERS 18:45 → 2NO 21:49 → ERS 22:36 → T4-A 01-13 18:59 → CCU 01-15 13:01 → IMCU/EMU 01-17 12:41 → 2NO 01-19 20:10
PROVIDERS: ADMIT Internal Medicine; ATTEND Internal Medicine
PROC: 30233N1 Transfusion of Nonautologous Red Blood Cells into Peripheral Vein, Percutaneous Approach (ICD-10-PCS; principal; 2018-01-12)
DX: A41.9 Sepsis, unspecified organism (principal); L89.153 Pressure ulcer of sacral region, stage 3; N17.0 Acute kidney failure with tubular necrosis; D60.9 Acquired pure red cell aplasia, unspecified; I50.23 Acute on chronic systolic (congestive) heart failure; I13.0 Hypertensive heart and chronic kidney disease with heart failure and stage 1 through stage 4 chronic kidney disease, or unspecified chronic kidney disease; A04.71 Enterocolitis due to Clostridium difficile, recurrent; I42.9 Cardiomyopathy, unspecified; E46 Unspecified protein-calorie malnutrition; E87.2 Acidosis; I71.4 Abdominal aortic aneurysm, without rupture; I48.0 Paroxysmal atrial fibrillation; I73.9 Peripheral vascular disease, unspecified; K21.0 Gastro-esophageal reflux disease with esophagitis; K22.70 Barrett's esophagus without dysplasia; F41.9 Anxiety disorder, unspecified; F32.9 Major depressive disorder, single episode, unspecified; E78.5 Hyperlipidemia, unspecified; I25.10 Atherosclerotic heart disease of native coronary artery without angina pectoris; E03.9 Hypothyroidism, unspecified; R79.89 Other specified abnormal findings of blood chemistry; N18.3 Chronic kidney disease, stage 3 (moderate); R09.02 Hypoxemia; R65.20 Severe sepsis without septic shock; K44.9 Diaphragmatic hernia without obstruction or gangrene; K31.819 Angiodysplasia of stomach and duodenum without bleeding; Z68.25 Body mass index [BMI] 25.0-25.9, adult; D50.9 Iron deficiency anemia, unspecified; Z96.642 Presence of left artificial hip joint; Z66 Do not resuscitate; Z51.5 Encounter for palliative care; N30.90 Cystitis, unspecified without hematuria; B96.20 Unspecified Escherichia coli [E. coli] as the cause of diseases classified elsewhere; Z79.82 Long term (current) use of aspirin; Z87.891 Personal history of nicotine dependence; Z85.3 Personal history of malignant neoplasm of breast
CPT/HCPCS: 36415; 36416; 36430; 51701; 71045; 71250; 74177; 80048; 80053; 80162; 82274; 82553; 82728; 82805; 83605; 83735; 83880; 84100; 84165; 84484; 85007; 85025; 85027; 85610; 85730; 86850; 86900; 86901; 87040; 87070; 87077; 87086; 87149; 87186; 87205; 87324; 87449; 87804; 93005; 93010; 93306; 94640; 96361; 96365; 96367; 96375; A4353; G8978-GP-CL; G8978-GP-CM; G8979-GP-CJ; G8979-GP-CK; G8987-GO-CL; G8987-GO-CM; G8988-GO-CK; G8996-GN-CK; G8996-GN-CL; G8997-GN-CI; G8997-GN-CJ; J0153; J0360; J1160; J1644; J1940; J2060; J2250; J2543; J3370; J3480; J7050; J7620; P9016